=== PATIENT | female | born 1945 | race Caucasian/White ===

== ENCOUNTER 2020-03-18 07:38 | Outpatient (REF) | payer MEDICARE, SELFPAY ==
[2020-03-18 08:45] LABS: Alanine Aminotransferase 40 U/L (0-31); Alkaline Phosphatase 168 U/L (39-117); Aspartate Amino Transferase 33 U/L (5-31); Bilirubin Direct 0.3 mg/dL (0.0-0.5); Bilirubin Total 0.7 mg/dL (0.0-1.0); Cholesterol 194 mg/dL; Glucose Fasting 362 mg/dL (60-99); HDL Cholesterol 80 mg/dL; LDL Cholesterol Calculated 94 mg/dl; Total Protein 7.1 g/dL (6.5-8.0); Triglycerides 103 mg/dL
[2020-03-18 09:03] LABS: Estimated Average Glucose 255 mg/dL; Hemoglobin A1c % 10.5 %
[2020-03-18 09:18] LABS: Reflex LDLD? No
== END 2020-03-18 07:39 | disposition home or self-care (01) ==
LOC: HO.LAB 07:38
PROVIDERS: PCP Internal Medicine; Visit Provider Internal Medicine
DX: E78.00 Pure hypercholesterolemia, unspecified (principal); E11.9 Type 2 diabetes mellitus without complications; R79.89 Other specified abnormal findings of blood chemistry
CPT/HCPCS: 80061; 80076; 82947; 83036

== ENCOUNTER 2020-06-17 10:51 | Outpatient (REF) | payer MEDICARE, SELFPAY ==
[2020-06-17 11:08] LABS: Estimated Average Glucose 206 mg/dL; Hemoglobin A1c % 8.8 %
[2020-06-17 11:14] LABS: Glucose Fasting 279 mg/dL (60-99)
== END 2020-06-17 10:52 | disposition home or self-care (01) ==
LOC: HO.LNP 10:51
PROVIDERS: PCP Internal Medicine; Visit Provider Internal Medicine
DX: E11.9 Type 2 diabetes mellitus without complications (principal)
CPT/HCPCS: 82947; 83036

== ENCOUNTER 2020-09-18 10:44 | Outpatient (REF) | payer MEDICARE, SELFPAY ==
[2020-09-18 10:50] LABS: MANUAL DIFF FLAG NO
[2020-09-18 11:18] LABS: Basophils Percent Auto 0.4 % (0-2); Eosinophils Absolute Auto 0.3 X10*3/uL (0.0-0.4); Eosinophils Percent Auto 3.4 % (0-4); Hemoglobin 12.1 g/dl (12.0-16.0); Imm Gran Abs Auto 0.03 X10*3/uL (0.00-0.03); Imm Gran Pct Auto 0.3 % (0.0-0.4); Lymphocytes Absolute Auto 2.6 X10*3/uL (1.2-4.9); Mean Corpuscular HGB Conc 33.6 g/dl (31.0-35.0); Mean Corpuscular Hemoglobin 29.8 pg (27.0-33.0); Mean Corpuscular Volume 88.7 fL (80-98); Mean Platelet Volume 10.1 fL (9.4-12.3); Monocytes Absolute Auto 0.7 X10*3/uL (0.1-1.2); Monocytes Percent Auto 7.1 % (2-11); Neutrophils Absolute Auto 5.7 X10*3/uL (2.0-8.3); Neutrophils Percent Auto 60.8 % (45-73); Platelet Count 262 X10*3/uL (160-400); Red Blood Count 4.06 X10*6/uL (4.20-5.50); Red Cell Distribution Width 12.4 % (11.0-16.0); White Blood Count 9.4 X10*3/uL (4.8-10.8)
[2020-09-18 11:29] LABS: Estimated Average Glucose 217 mg/dL; Hemoglobin A1c % 9.2 %
[2020-09-18 11:38] LABS: Glucose Urine UA 500 MG/DL (NEG); Leukocyte Esterase Urine NEG (NEG); Nitrite Urine NEG (NEG); Urine Blood NEG (NEG); Urine Ketones NEG (NEG); Urine Protein NEG (NEG-TRACE)
[2020-09-18 11:42] LABS: Appearance Urine CLEAR; Color Urine YELLOW
[2020-09-18 11:52] LABS: Alanine Aminotransferase 45 U/L (0-31); Alkaline Phosphatase 193 U/L (39-117); Anion Gap 16 (12-20); Aspartate Amino Transferase 34 U/L (5-31); Bilirubin Total 0.8 mg/dL (0.0-1.0); Blood Urea Nitrogen 22 mg/dL (9-16); Calcium 9.4 mg/dL (8.4-10.2); Carbon Dioxide 25 mmol/L (22-29); Chloride 101 mmol/L (96-108); Cholesterol 193 mg/dL; Estimated Glomerular Filt Rate 49; Glucose Fasting 322 mg/dL (60-99); HDL Cholesterol 79 mg/dL; Iron 136 mcg/dL (30-160); LDL Cholesterol Calculated 82 mg/dl; Percent Iron Saturation 37 % (15-50); Potassium 4.7 mmol/L (3.3-5.1); Sodium 137 mmol/L (135-145); Total Iron Binding Capacity 367 mcg/dL (228-428); Total Protein 7.1 g/dL (6.5-8.0); Triglycerides 162 mg/dL; Unsaturated Iron Binding 231 ug/dL
[2020-09-18 12:18] LABS: Vitamin D 25-OH Total 39.3 ng/mL (>30)
[2020-09-18 12:25] LABS: Reflex LDLD? No
== END 2020-09-18 10:45 | disposition home or self-care (01) ==
LOC: HO.LNP 10:44
PROVIDERS: Visit Provider Internal Medicine
DX: E11.9 Type 2 diabetes mellitus without complications (principal); E55.9 Vitamin D deficiency, unspecified; R79.89 Other specified abnormal findings of blood chemistry; D64.9 Anemia, unspecified; E78.00 Pure hypercholesterolemia, unspecified; D50.9 Iron deficiency anemia, unspecified
CPT/HCPCS: 80053; 80061; 81003; 82043; 82306; 83036; 83540; 85025

== ENCOUNTER 2020-11-04 09:04 | Outpatient (REF) | payer MEDICARE, SELFPAY ==
--- NOTE | ~2020-11-04 | MM_ITS ---
EXAMINATION: MM SCREENING DIGITAL BREAST TOMOSYNTHESIS, BILATERAL CLINICAL INFORMATION: Screening. Asymptomatic. The lifetime risk of breast cancer based on the Tyrer-Cuzick Model is 3%. COMPARISON: Mammography: 11/02/2019, 07/07/2018, 06/27/2017, 06/28/2016, 06/04/2015 TECHNIQUE: Digital breast tomosynthesis is performed in both the craniocaudal and mediolateral oblique views along with computer-aided detection (CAD). Synthesized 2D images are generated from the tomosynthesis. Additional right MLO view is provided. FINDINGS: There are scattered areas of fibroglandular density (ACR BI-RADS breast composition Category b). Parenchymal pattern is similar to prior studies. There is no developing density or interval mass or architectural abnormality. No abnormal calcifications. The axilla and skin contours are unremarkable. MM/MM tomosynthesis screening BI IMPRESSION: No mammographic evidence of malignancy. ASSESSMENT: BI-RADS 1: Negative RECOMMENDATION: Routine annual mammography screening. This patient's information was entered into a reminder system with a target due date for their next mammogram.
== END 2020-11-04 09:05 | disposition home or self-care (01) ==
LOC: HO.MAMMO 09:04
PROVIDERS: Visit Provider Internal Medicine
DX: Z12.31 Encounter for screening mammogram for malignant neoplasm of breast (principal)
CPT/HCPCS: 77063; 77067

== ENCOUNTER 2020-12-31 10:42 | Inpatient (IN) | payer MEDICARE, SELFPAY ==
[2020-12-31] VITALS (10 sets, daily range): BP systolic 115–148; BP diastolic 63–82; PULSE 81–188; RESP 12–20; TEMP 36.9–37.1; O2SAT 96–98; BMI 27.2
--- NOTE | 2020-12-31 | ECG_ITS ---
Test Reason : SVT Blood Pressure : / mmHG Vent. Rate : 113 BPM Atrial Rate : 113 BPM P-R Int : 172 ms QRS Dur : 078 ms QT Int : 342 ms P-R-T Axes : 043 -45 073 degrees QTc Int : 469 ms Sinus tachycardia Left anterior fascicular block Septal infarct , age undetermined Abnormal ECG When compared with ECG of 31-DEC-2020 10:51, Significant changes have occurred Referred By: Generic ED Physician Electronically Signed By:FILIPPO DUMONT
--- NOTE | 2020-12-31 | ECG_ITS ---
Test Reason : CHEST PAIN Blood Pressure : / mmHG Vent. Rate : 189 BPM Atrial Rate : 192 BPM P-R Int : 000 ms QRS Dur : 100 ms QT Int : 252 ms P-R-T Axes : 000 113 -56 degrees QTc Int : 446 ms Supraventricular tachycardia Left posterior fascicular block Marked ST abnormality, possible inferior subendocardial injury Abnormal ECG When compared with ECG of 15-JAN-2014 10:03, Vent. rate has increased BY 106 BPM Left posterior fascicular block is now Present ST now depressed in Inferior leads ST now depressed in Lateral leads T wave inversion now evident in Inferior leads Referred By: Generic ED Physician Electronically Signed By:FILIPPO DUMONT
--- NOTE | ~2020-12-31 | CT_ITS ---
EXAMINATION: CT ANGIOGRAM OF THE CHEST WITH AND WITHOUT CONTRAST (CT PULMONARY ANGIOGRAM FOR PE) CLINICAL INFORMATION: Reason for Exam sharp chest pain COMPARISON: Chest x-ray from earlier the same day and chest tubes CT most recent September 2017 TECHNIQUE: Prior to contrast administration, noncontrast localization images were obtained. Subsequently, multidetector volumetric imaging was performed from the thoracic inlet to below the diaphragms following the administration of 65 mL Omnipaque 350 intravenous contrast. No contrast reaction reported Sagittal, coronal, and MIP oblique sagittal reformatted images were obtained on the CT workstation, uploaded to PACS, and reviewed. This CT examination was performed using dose optimization techniques as appropriate, variously including the following: *Automated exposure control *Adjustment of mA and/or kV according to patient size (this includes techniques or standardized protocols for targeted exams where dose is matched to indication/reason for exam; i.e. extremities or head) *Use of iterative reconstruction technique Total exam dose-length product 300 mGy-cm FINDINGS: QUALITY OF STUDY/CONTRAST BOLUS: Satisfactory. PULMONARY ARTERIES: No central or segmental pulmonary emboli. THORACIC AORTA: No aneurysm or dissection. LUNG: There are calcified left upper lobe pulmonary nodules, largest nodule measuring 5 mm. The lungs are otherwise clear. There are surgical suture urbano seen in the lingula and left lower lobe. PLEURA: No pleural effusion or pneumothorax. MEDIASTINUM: The heart is upper normal in size. There is a trace pericardial effusion. No hilar or mediastinal lymphadenopathy. No evidence of septal bowing or right heart strain. CHEST WALL/AXILLA: No axillary or internal mammary lymphadenopathy. OSSEOUS STRUCTURES: There are degenerative changes of the spine. UPPER ABDOMEN: Unremarkable. No reflux of contrast into the hepatic veins to suggest elevated right heart pressures. CT/CT angio chest PE protocol IMPRESSION: No evidence of pulmonary embolism. VTE: negative
--- NOTE | ~2020-12-31 | XR_ITS ---
EXAMINATION: XR CHEST CLINICAL INFORMATION: Chest pain COMPARISON: Previous chest x-ray January 2014 TECHNIQUE: Frontal view of the chest was obtained. FINDINGS: The cardiac and mediastinal contours are stable. There are increased central bronchovascular markings. Some of this may be related to apical lordotic film technique. There is a surgical staple line at the left lateral costophrenic angle. The lungs are otherwise clear. There is no pleural effusion or pneumothorax. There are degenerative changes of the spine. XR/XR chest 1V IMPRESSION: No evidence for acute disease in the chest. Increased central bronchovascular markings, question related to apical lordotic film technique.
--- NOTE | 2020-12-31 11:18 | ED_ITS ---
HPI - Chest Pain General Chief Complaint: Chest Pain Stated Complaint: chest pain Time Seen by Provider: 12/31/20 10:56 Source: patient and other (friend) Mode of arrival: ambulatory Limitations: no limitations History of Present Illness MD complaint: chest pain and chest heaviness Pertinent past history: other (SVT) Onset (ago): hour(s) (8am today) Timing of current episode: constant Prior episodes: Yes Onset: during exertion Pain location: substernal Pain radiation: none Severity: moderate Quality: sharp Relieving factors: nothing Exacerbating factors: nothing Context: other (prior cancer, hx of SVT in the past) Associated symptoms: dyspnea Treatment prior to arrival: none Related Data Home Medications Medication Instructions Recorded Confirmed aspirin 81 mg chewable tablet 81 mg PO DAILY 12/31/20 12/31/20 cholecalciferol (vitamin D3) 25 25 mcg PO DAILY 12/31/20 12/31/20 mcg (1,000 unit) capsule (Vitamin D3) ferrous sulfate 325 mg (65 mg 325 mg PO DAILY 12/31/20 12/31/20 iron) tablet glipizide 10 mg tablet 10 mg PO QAM 12/31/20 12/31/20 ibuprofen 800 mg tablet 800 mg PO TID PRN 12/31/20 12/31/20 lisinopril 20 mg tablet 20 mg PO DAILY 12/31/20 12/31/20 metformin 500 mg tablet,extended 1,000 mg PO BID 12/31/20 12/31/20 release 24 hr omeprazole 20 mg capsule,delayed 20 mg PO DAILY 12/31/20 12/31/20 release sitagliptin 100 mg tablet (Januvia) 1 tab PO DAILY 12/31/20 12/31/20 Allergies Allergy/AdvReac Type Severity Reaction Status Date / Time codeine [CODEINE] Allergy Unknown GI PAIN, Unverified 12/27/19 15:29 abd pain Codeine Sulfate AdvReac Unknown stomach Uncoded 10/01/15 00:00 upset Review of Systems Review of Systems: Constitutional : No Weight loss, No Fever, No Chills ENT/Mouth : No sore throat, No Rhinorrhea Eyes: No Eye Pain, No Swelling Cardiovascular : pos Chest Pain, pos SOB, no Dyspnea on Exertion, No Orthopnea, No Edema, pos Palpitations Respiratory : No Cough, No Sputum Gastrointestinal : no Nausea, No Vomiting, No Diarrhea, No abdominal Pain, No Hematochezia, No Melena Genitourinary : No Dysuria, No Urinary Frequency Musculoskeletal : No joint pain, No Myalgias, No Joint Swelling Skin : No Skin Lesions, No rash Neuro : No Weakness, No Numbness, No Dizziness, No Headache Psych : No Anxiety/Panic, No Depression Heme/Lymph: No Bruising, No Lymphadenopathy Endocrine : No Polyuria, No Polydipsia All other systems reviewed and are negative [facility] Past Medical History Attestation statement: The following information was validated with the patient. Medical History Colon cancer HTN (hypertension) Valvular heart disease Social History Social History (Updated 12/31/20 @ 11:23 by Yuliya Dick DO) Alcohol intake: never Patient Tobacco Use Status: Never used Tobacco Use of substances other than those prescribed or required for medical reasons: No Advance Directives: Yes Advance Directives Information Provided: Yes Advance Directives on File: No Physical Exam Vital Signs: Vital Signs: Last Vital Signs Pulse 92 12/31/20 15:14 Resp 18 12/31/20 15:14 BP 134/75 12/31/20 15:14 Pulse Ox 97 12/31/20 15:14 Body Mass Index 27.2 Appearance: Alert. Oriented X3. Mild acute distress. Eyes: Pupils equal, round and reactive to light. ENT: Pharynx normal. Neck: Normal inspection. Neck supple. CVS: tachycardic regular rate in 180s heart rate and rhythm. Pulses normal. Respiratory: No respiratory distress. Breath sounds normal. Abdomen: Soft and nontender. Skin: Skin warm and dry. pale skin color. Normal skin turgor. Extremities: No lower extremity edema. Neuro: Oriented X 3. No motor deficit. No sensory deficit. Course Course Course Narrative: no response to vaga maneuvers - 6mg adenosine IV push ordered - sinus tachy in 110s after patient had chest pain prior to event, also was exerting during event and has had very mild discomfort since then at times - unusual given SVT resolved, ?ischemia repeat EKG and trop pending 1554- High sensitivity trop 437.2. Cortexted Dr. Lynn to discuss case. PO aspirin has been ordered for this patient in the mean time. Dr. Lynn recommends heparin drip, every 6 hour trop and ECHO MDM - Chest Pain MDM Narrative Medical decision making narrative: 75 yo female with hx of HTN, colon cancer remotely treated surgically, [place] [facility] [place], has valvular heart disease [place] [facility] [place]Os comes in with SVT while walking but described sharp chest pain prior to event - labs, troponin x 2, EKG, chemical cardioversion with adenosine, given prior cancer dx and sharp chest pain - CTA for PE ordered Lab Data Result diagrams: 12/31/20 11:23 12/31/20 12:58 Labs: Lab Results 12/31/20 12/31/20 12/31/20 Range/Units 11:23 11:23 11:23 WBC 12.1 H (4.8-10.8) X10*3/uL RBC 3.72 L (4.20-5.50) X10*6/uL Hgb 11.2 L (12.0-16.0) g/dl Hct 33.0 L (37-47) % MCV 88.7 (80-98) fL MCH 30.1 (27.0-33.0) pg MCHC 33.9 (31.0-35.0) g/dl RDW 12.8 (11.0-16.0) % Plt Count 272 (160-400) X10*3/uL MPV 9.7 (9.4-12.3) fL Immature Gran % (Auto) 0.3 (0.0-0.4) % Neut % (Auto) 73.8 H (45-73) % Lymph % (Auto) 18.6 L (20-40) % Ness % (Auto) 6.0 (2-11) % Eos % (Auto) 1.0 (0-4) % Baso % (Auto) 0.3 (0-2) % Lymph # (Auto) 2.3 (1.2-4.9) X10*3/uL Ness # (Auto) 0.7 (0.1-1.2) X10*3/uL Eos # (Auto) 0.1 (0.0-0.4) X10*3/uL Baso # (Auto) 0.0 (0.0-0.2) X10*3/uL Abs Immat Gran (auto) 0.04 H (0.00-0.03) X10*3/uL Absolute Neuts (auto) 8.9 H (2.0-8.3) X10*3/uL Absolute Nucleated RBC 0.000 (0.0-0.012) X10*3/uL Nucleated RBC % (auto) 0.0 (0.0-0.2) /100WBC Sodium (135-145) mmol/L Potassium (3.3-5.1) mmol/L Chloride (96-108) mmol/L Carbon Dioxide (22-29) mmol/L Anion Gap (12-20) BUN (9-16) mg/dL Creatinine (0.5-1.4) mg/dL Estim Creat Clear Calc Estimated GFR Random Glucose (60-115) mg/dL Calcium (8.4-10.2) mg/dL Magnesium (1.6-2.6) mg/dL Total Bilirubin (0.0-1.0) mg/dL Direct Bilirubin (0.0-0.5) mg/dL AST (5-31) U/L ALT (0-31) U/L Alkaline Phosphatase (39-117) U/L Troponin I High Sens 14.9 (<3.5-17.0) ng/L B-Natriuretic Peptide (<100) pg/mL Total Protein (6.5-8.0) g/dL Albumin (3.5-5.0) g/dL Lipase (8-78) U/L TSH (0.32-4.0) uIU/mL COVID-19 (DUNG) Negative (Negative) COVID-19 Clin Com See Note 12/31/20 12/31/20 12/31/20 Range/Units 11:23 12:58 15:19 WBC (4.8-10.8) X10*3/uL RBC (4.20-5.50) X10*6/uL Hgb (12.0-16.0) g/dl Hct (37-47) % MCV (80-98) fL MCH (27.0-33.0) pg MCHC (31.0-35.0) g/dl RDW (11.0-16.0) % Plt Count (160-400) X10*3/uL MPV (9.4-12.3) fL Immature Gran % (Auto) (0.0-0.4) % Neut % (Auto) (45-73) % Lymph % (Auto) (20-40) % Ness % (Auto) (2-11) % Eos % (Auto) (0-4) % Baso % (Auto) (0-2) % Lymph # (Auto) (1.2-4.9) X10*3/uL Ness # (Auto) (0.1-1.2) X10*3/uL Eos # (Auto) (0.0-0.4) X10*3/uL Baso # (Auto) (0.0-0.2) X10*3/uL Abs Immat Gran (auto) (0.00-0.03) X10*3/uL Absolute Neuts (auto) (2.0-8.3) X10*3/uL Absolute Nucleated RBC (0.0-0.012) X10*3/uL Nucleated RBC % (auto) (0.0-0.2) /100WBC Sodium 137 (135-145) mmol/L Potassium 4.8 (3.3-5.1) mmol/L Chloride 101 (96-108) mmol/L Carbon Dioxide 22 (22-29) mmol/L Anion Gap 19 (12-20) BUN 23 H (9-16) mg/dL Creatinine 1.24 (0.5-1.4) mg/dL Estim Creat Clear Calc 33.5 Estimated GFR 42 Random Glucose 392 H* (60-115) mg/dL Calcium 9.1 (8.4-10.2) mg/dL Magnesium 1.5 L (1.6-2.6) mg/dL Total Bilirubin 0.5 (0.0-1.0) mg/dL Direct Bilirubin 0.3 (0.0-0.5) mg/dL AST 45 H (5-31) U/L ALT 52 H (0-31) U/L Alkaline Phosphatase 168 H (39-117) U/L Troponin I High Sens 437.2 H* D (<3.5-17.0) ng/L B-Natriuretic Peptide 89 (<100) pg/mL Total Protein 6.7 (6.5-8.0) g/dL Albumin 3.8 (3.5-5.0) g/dL Lipase 101 H (8-78) U/L TSH 1.67 (0.32-4.0) uIU/mL COVID-19 (DUNG) (Negative) COVID-19 Clin Com 12/31/20 Range/Units 15:19 WBC (4.8-10.8) X10*3/uL RBC (4.20-5.50) X10*6/uL Hgb (12.0-16.0) g/dl Hct (37-47) % MCV (80-98) fL MCH (27.0-33.0) pg MCHC (31.0-35.0) g/dl RDW (11.0-16.0) % Plt Count (160-400) X10*3/uL MPV (9.4-12.3) fL Immature Gran % (Auto) (0.0-0.4) % Neut % (Auto) (45-73) % Lymph % (Auto) (20-40) % Ness % (Auto) (2-11) % Eos % (Auto) (0-4) % Baso % (Auto) (0-2) % Lymph # (Auto) (1.2-4.9) X10*3/uL Ness # (Auto) (0.1-1.2) X10*3/uL Eos # (Auto) (0.0-0.4) X10*3/uL Baso # (Auto) (0.0-0.2) X10*3/uL Abs Immat Gran (auto) (0.00-0.03) X10*3/uL Absolute Neuts (auto) (2.0-8.3) X10*3/uL Absolute Nucleated RBC (0.0-0.012) X10*3/uL Nucleated RBC % (auto) (0.0-0.2) /100WBC Sodium (135-145) mmol/L Potassium (3.3-5.1) mmol/L Chloride (96-108) mmol/L Carbon Dioxide (22-29) mmol/L Anion Gap (12-20) BUN (9-16) mg/dL Creatinine (0.5-1.4) mg/dL Estim Creat Clear Calc Estimated GFR Random Glucose (60-115) mg/dL Calcium (8.4-10.2) mg/dL Magnesium 2.5 (1.6-2.6) mg/dL Total Bilirubin (0.0-1.0) mg/dL Direct Bilirubin (0.0-0.5) mg/dL AST (5-31) U/L ALT (0-31) U/L Alkaline Phosphatase (39-117) U/L Troponin I High Sens (<3.5-17.0) ng/L B-Natriuretic Peptide (<100) pg/mL Total Protein (6.5-8.0) g/dL Albumin (3.5-5.0) g/dL Lipase (8-78) U/L TSH (0.32-4.0) uIU/mL COVID-19 (DUNG) (Negative) COVID-19 Clin Com ECG Data ECG #1: Attestation: I personally reviewed and interpreted this ECG as follows: ECG interpretation date: 12/31/20 ECG interpretation time: 11:25 Interpretation: Rate: 189 Rhythm: narrow complex tachcyardia [place]: rightwards Normal QRS complex. ST T wave : Chilo depressions in lateral leads but no CHILO qTC: normal prior studies: changed from prior The study has been interpreted contemporaneously by me. EKG #2 post adenosine Rate: 113 Rhythm: sinus tachycardia [place]: left Normal P waves. Normal JESSIE. Normal QRS complex. Poor R wave progression ST T wave : mo CHILO, normal qTC: normal prior studies: no acute ischemia The study has been interpreted contemporaneously by me. EKG #2 Rate: 86 Rhythm: NSR [place]: left Normal P waves. Normal JESSIE. Normal QRS complex. Poor R wave progression ST T wave : normal no CHILO qTC: yohan prior studies: no acute ischemia The study has been interpreted contemporaneously by me. . Critical Care Time Critical Care Time Critical Care Time: Yes Total Critical Care Time: 45 Attestation: IV adenosine, medical consult, heparin gtt, trend of cardiac markers I attest to this time spent taking care of the patient Discharge Plan Discharge Clinical Impression: SVT (supraventricular tachycardia), Non-ST elevation NC (NSTEMI) Chest pain Qualifiers: Chest pain type: unspecified Qualified Code(s): R07.9 - Chest pain, unspecified Patient Disposition: Admitted As Inpatient
[2020-12-31 11:29] LABS: MANUAL DIFF FLAG NO
[2020-12-31 11:30] LABS: Basophils Percent Auto 0.3 % (0-2); Eosinophils Absolute Auto 0.1 X10*3/uL (0.0-0.4); Hemoglobin 11.2 g/dl (12.0-16.0); Imm Gran Abs Auto 0.04 X10*3/uL (0.00-0.03); Imm Gran Pct Auto 0.3 % (0.0-0.4); Lymphocytes Absolute Auto 2.3 X10*3/uL (1.2-4.9); Lymphocytes Percent Auto 18.6 % (20-40); Mean Corpuscular HGB Conc 33.9 g/dl (31.0-35.0); Mean Corpuscular Hemoglobin 30.1 pg (27.0-33.0); Mean Corpuscular Volume 88.7 fL (80-98); Mean Platelet Volume 9.7 fL (9.4-12.3); Monocytes Absolute Auto 0.7 X10*3/uL (0.1-1.2); Neutrophils Absolute Auto 8.9 X10*3/uL (2.0-8.3); Neutrophils Percent Auto 73.8 % (45-73); Platelet Count 272 X10*3/uL (160-400); Red Blood Count 3.72 X10*6/uL (4.20-5.50); Red Cell Distribution Width 12.8 % (11.0-16.0); White Blood Count 12.1 X10*3/uL (4.8-10.8)
[2020-12-31 11:44] LABS: COVID-19 Test Negative (Negative)
[2020-12-31 11:52] LABS: B Type Natriuretic Peptide 89 pg/mL (<100)
[2020-12-31 11:53] LABS: Troponin-I High Sensitivity 14.9 ng/L (<3.5-17.0)
[2020-12-31 12:07] LABS: TSH reflex Free T4 1.67 uIU/mL (0.32-4.0)
--- NOTE | 2020-12-31 13:02 | PHA.MEDREC ---
Pharmacy Consult ? Medication Reconciliation Pharmacy has completed the medication reconciliation. Patient report delia Dawsonfarhat however it has not been filled since 01/2020. Milli Bill, PharmD
[2020-12-31 13:27] LABS: Alanine Aminotransferase 52 U/L (0-31); Albumin Level 3.8 g/dL (3.5-5.0); Alkaline Phosphatase 168 U/L (39-117); Anion Gap 19 (12-20); Aspartate Amino Transferase 45 U/L (5-31); Bilirubin Direct 0.3 mg/dL (0.0-0.5); Bilirubin Total 0.5 mg/dL (0.0-1.0); Blood Urea Nitrogen 23 mg/dL (9-16); Calcium 9.1 mg/dL (8.4-10.2); Carbon Dioxide 22 mmol/L (22-29); Chloride 101 mmol/L (96-108); Creatinine Clr Calc Pharmacy 33.5; Estimated Glomerular Filt Rate 42; Glucose Random 392 mg/dL (60-115); Lipase 101 U/L (8-78); Magnesium 1.5 mg/dL (1.6-2.6); Potassium 4.8 mmol/L (3.3-5.1); Sodium 137 mmol/L (135-145); Total Protein 6.7 g/dL (6.5-8.0)
--- NOTE | 2020-12-31 13:34 | PC.NURSE ---
PT DENIES ANY CHEST PAIN BUT STATES CHEST PRESSURE
[2020-12-31] MEDS: Insulin Regular, Human 100 UNIT/ML 3 ML VIAL IVPUSH (13:48)
[2020-12-31] MEDS: Magnesium Sulfate/H2O 2 GM/50 ML PIGGYBACK IV (13:49)
[2020-12-31] MEDS: iohexoL 350 MG/ML 100 ML INFUS..BTL IV (14:25)
--- NOTE | 2020-12-31 15:04 | ECG_ITS ---
Test Reason : CHEST PRESSURE Blood Pressure : / mmHG Vent. Rate : 086 BPM Atrial Rate : 086 BPM P-R Int : 166 ms QRS Dur : 082 ms QT Int : 396 ms P-R-T Axes : 002 -41 018 degrees QTc Int : 473 ms Normal sinus rhythm Left axis deviation Septal infarct (cited on or before 31-DEC-2020) Abnormal ECG When compared with ECG of 31-DEC-2020 11:12, No significant change was found Referred By: Yuliya Dick Electronically Signed By:FILIPPO DUMONT
[2020-12-31] MEDS: Aspirin 81 MG TAB.CHEW 162 MG PO (15:13)
[2020-12-31 15:41] LABS: Magnesium 2.5 mg/dL (1.6-2.6)
[2020-12-31 15:49] LABS: Troponin-I High Sensitivity 437.2 ng/L (<3.5-17.0)
[2020-12-31] MEDS: Heparin Sodium,Porcine 5,000 UNIT/ML VIAL 3800 UNIT IVPUSH (16:26)
[2020-12-31 16:32] LABS: Prothrombin Time 11.4 SEC (9.9-13.0)
[2020-12-31] MEDS: Heparin Sodium,Porcine/1/2NS 25,000 UNIT/250 ML IV.SOLN 8.86 UNIT IVCONT (16:32)
[2020-12-31 16:35] LABS: PTT Heparin Drip 27.2 SEC (53-77.9)
--- NOTE | 2020-12-31 16:51 | P.HPHOSP_ITS ---
History of Present Illness Date of Service: 12/31/20 Attending physician on admission: Baljit Kevin Chief Complaint: Chest pain 75-year-old female presents the emergency room after developing chest pain while walking. She states she developed mid chest pain during her daily walk of 2 miles; she states it was a squeezing pain that did not go to her arm or her jaw. She soft walking thinking it was reflux. She restarted walking but the chest pain came back again this time worse. She states she tried to walk again but had to sit down on the ground. Stated a friend came by was a nurse and took her to the emergency room. In the emergency room she was found to be in SVT which demonstrated some ischemic changes; responded to adenosine. Initial troponin 14 but now has risen to the 400s. Case was discussed with Cardiology (Dr. Lynn) who recommended heparin drip serial troponins echo and he will see in a.m.. When examined she was pain free Review of Systems Review of Systems: Admits to chest pain Denies shortness of breath Denies nausea; admits to diaphoresis [facility] Medical History Colon cancer HTN (hypertension) Valvular heart disease Pertinent family history: . Social History Alcohol intake: never Patient Tobacco Use Status: Never used Tobacco Use of substances other than those prescribed or required for medical reasons: No Advance Directives: Yes Advance Directives Information Provided: Yes Advance Directives on File: No Meds Allergies Allergy/AdvReac Type Severity Reaction Status Date / Time codeine [CODEINE] Allergy Unknown GI PAIN, Unverified 12/27/19 15:29 abd pain Codeine Sulfate AdvReac Unknown stomach Uncoded 10/01/15 00:00 upset Active Medications: Current Medications Heparin Sodium (Porcine) (Heparin Sodium,Porcine 5,000 Unit/Ml Vial) 2,500 unit 40 unit/kg (2500 unit) IVPUSH PROTOCOL BOLUS PRN; Protocol PRN Reason: 40 unit/kg - Heparin Protocol Heparin Sodium (Porcine) (Heparin Sodium,Porcine 5,000 Unit/Ml Vial) 5,100 unit 80 unit/kg (5100 unit) IVPUSH PROTOCOL BOLUS PRN; Protocol PRN Reason: 80 unit/kg - Heparin Protocol Heparin Sodium/Sodium Chloride () 25,000 unit in 250 mls @ 0 mls/hr IVCONT .Q0M NISA; Protocol Last Admin: 12/31/20 16:32 Dose: 14 units/kg/hr, 8.86 mls/hr Documented by: Pharmacy Consult (Consult Rx Perform Med Rec) 1 each MISCELLANE ONCE PRN PRN Reason: Consult order Home Medications Medication Instructions Recorded Confirmed Last Taken Type aspirin 81 mg chewable tablet 81 mg PO DAILY 12/31/20 12/31/20 12/31/20 History cholecalciferol (vitamin D3) 25 25 mcg PO DAILY 12/31/20 12/31/20 12/31/20 History mcg (1,000 unit) capsule (Vitamin D3) ferrous sulfate 325 mg (65 mg 325 mg PO DAILY 12/31/20 12/31/20 12/31/20 History iron) tablet glipizide 10 mg tablet 10 mg PO QAM 12/31/20 12/31/20 12/31/20 History ibuprofen 800 mg tablet 800 mg PO TID PRN 12/31/20 12/31/20 12/31/20 History lisinopril 20 mg tablet 20 mg PO DAILY 12/31/20 12/31/20 12/31/20 History metformin 500 mg tablet,extended 1,000 mg PO BID 12/31/20 12/31/20 12/31/20 History release 24 hr omeprazole 20 mg capsule,delayed 20 mg PO DAILY 12/31/20 12/31/20 12/31/20 History release sitagliptin 100 mg tablet (Januvia) 1 tab PO DAILY 12/31/20 12/31/20 12/31/20 History Physical Exam Vital Signs and Narrative: Vital Signs: Last Vital Signs Pulse 92 12/31/20 15:14 Resp 18 12/31/20 15:14 BP 134/75 12/31/20 15:14 Pulse Ox 97 12/31/20 15:14 Body Mass Index 27.2 Const: General: no acute distress Neck: Other: No JVD Resp: Auscultation: clear to auscultation bilaterally, no rales, no rhonchi and no wheezes Cardio: Rate: regular rate Rhythm: regular rhythm Heart sounds: S1 normal heart sound present, S2 normal heart sound present and no murmurs GI: Other: Soft nontender nondistended with normoactive bowel sounds Neuro: Other: Age-appropriate nonfocal Extrem: Other: No edema noted Results Labs CBC and Chem 7: 12/31/20 11:23 12/31/20 12:58 Labs: Laboratory Results - last 24 hr 12/31/20 12/31/20 12/31/20 11:23 11:23 11:23 MCV 88.7 MCH 30.1 MCHC 33.9 RDW 12.8 Plt Count 272 MPV 9.7 Immature Gran % (Auto) 0.3 Neut % (Auto) 73.8 H Lymph % (Auto) 18.6 L [place] % (Auto) 6.0 Eos % (Auto) 1.0 Baso % (Auto) 0.3 Lymph # (Auto) 2.3 [place] # (Auto) 0.7 Eos # (Auto) 0.1 Baso # (Auto) 0.0 Abs Immat Gran (auto) 0.04 H Absolute Neuts (auto) 8.9 H Absolute Nucleated RBC 0.000 Nucleated RBC % (auto) 0.0 Anion Gap Estim Creat Clear Calc Estimated GFR Random Glucose Calcium Magnesium Total Bilirubin Direct Bilirubin AST ALT Alkaline Phosphatase Troponin I High Sens 14.9 B-Natriuretic Peptide Total Protein Albumin Lipase TSH COVID-19 (DUNG) Negative COVID-19 Clin Com See Note 12/31/20 12/31/20 12/31/20 11:23 12:58 15:19 MCV MCH MCHC RDW Plt Count MPV Immature Gran % (Auto) Neut % (Auto) Lymph % (Auto) [place] % (Auto) Eos % (Auto) Baso % (Auto) Lymph # (Auto) [place] # (Auto) Eos # (Auto) Baso # (Auto) Abs Immat Gran (auto) Absolute Neuts (auto) Absolute Nucleated RBC Nucleated RBC % (auto) Anion Gap 19 Estim Creat Clear Calc 33.5 Estimated GFR 42 Random Glucose 392 H* Calcium 9.1 Magnesium 1.5 L Total Bilirubin 0.5 Direct Bilirubin 0.3 AST 45 H ALT 52 H Alkaline Phosphatase 168 H Troponin I High Sens 437.2 H* D B-Natriuretic Peptide 89 Total Protein 6.7 Albumin 3.8 Lipase 101 H TSH 1.67 COVID-19 (DUNG) COVID-19 Clin Com 12/31/20 15:19 MCV MCH MCHC RDW Plt Count MPV Immature Gran % (Auto) Neut % (Auto) Lymph % (Auto) [place] % (Auto) Eos % (Auto) Baso % (Auto) Lymph # (Auto) [place] # (Auto) Eos # (Auto) Baso # (Auto) Abs Immat Gran (auto) Absolute Neuts (auto) Absolute Nucleated RBC Nucleated RBC % (auto) Anion Gap Estim Creat Clear Calc Estimated GFR Random Glucose Calcium Magnesium 2.5 Total Bilirubin Direct Bilirubin AST ALT Alkaline Phosphatase Troponin I High Sens B-Natriuretic Peptide Total Protein Albumin Lipase TSH COVID-19 (DUNG) COVID-19 Clin Com Imaging Radiologist's Impressions: Impressions Chest X-Ray 12/31/20 10:57 IMPRESSION: No evidence for acute disease in the chest. Increased central bronchovascular markings, question related to apical lordotic film technique. Chest CTA 12/31/20 11:12 IMPRESSION: No evidence of pulmonary embolism. VTE: negative Quality Stroke Does the patient have a stroke diagnosis?: No VTE Prior VTE?: No VTE Risk Level:: Medical - moderate - high VTE Device Contraindication: Treatment Not Indicated VTE Drug Contraindication: N/A - Med Ordered
[2020-12-31 22:39] LABS: Glucose, Whole Blood 238 mg/dL (60-115)
[2020-12-31 22:56] LABS: PTT Heparin Drip 108.5 SEC (53-77.9)
--- NOTE | 2020-12-31 23:05 | PC.NURSE ---
heparin gtt held d/t critical PTT, hospitalist notified, will recheck labs per protocol
[2020-12-31] MEDS: Insulin Lispro 100 UNIT/ML 3 ML VIAL SUBCUT (23:18)
[2020-12-31 23:38] LABS: PTT Heparin Drip 82.7 SEC (53-77.9)
[2021-01-01] VITALS (10 sets, daily range): BP systolic 127–167; BP diastolic 55–75; PULSE 70–89; RESP 12–21; TEMP 36.8–36.9; O2SAT 94–98
[2021-01-01] MEDS: Heparin Sodium,Porcine/1/2NS 25,000 UNIT/250 ML IV.SOLN 6.33 UNIT IVCONT (00:26)
[2021-01-01] MEDS: 0.9 % Sodium Chloride Flush 3 ML SYRINGE IVFLUSH ×2 (00:30→08:54)
[2021-01-01 07:45] LABS: MANUAL DIFF FLAG NO
[2021-01-01 07:48] LABS: Basophils Percent Auto 0.5 % (0-2); Eosinophils Absolute Auto 0.3 X10*3/uL (0.0-0.4); Eosinophils Percent Auto 3.6 % (0-4); Hematocrit 36.1 % (37-47); Hemoglobin 12.2 g/dl (12.0-16.0); Imm Gran Abs Auto 0.01 X10*3/uL (0.00-0.03); Imm Gran Pct Auto 0.1 % (0.0-0.4); Lymphocytes Absolute Auto 2.4 X10*3/uL (1.2-4.9); Lymphocytes Percent Auto 31.7 % (20-40); Mean Corpuscular HGB Conc 33.8 g/dl (31.0-35.0); Mean Corpuscular Hemoglobin 29.2 pg (27.0-33.0); Mean Corpuscular Volume 86.4 fL (80-98); Mean Platelet Volume 9.4 fL (9.4-12.3); Monocytes Absolute Auto 0.5 X10*3/uL (0.1-1.2); Monocytes Percent Auto 6.9 % (2-11); Neutrophils Absolute Auto 4.3 X10*3/uL (2.0-8.3); Neutrophils Percent Auto 57.2 % (45-73); Platelet Count 249 X10*3/uL (160-400); Red Blood Count 4.18 X10*6/uL (4.20-5.50); Red Cell Distribution Width 12.4 % (11.0-16.0); White Blood Count 7.6 X10*3/uL (4.8-10.8)
[2021-01-01 07:59] LABS: Prothrombin Time 11.8 SEC (9.9-13.0)
[2021-01-01 08:01] LABS: PTT Heparin Drip 48.8 SEC (53-77.9)
[2021-01-01 08:07] LABS: Anion Gap 13 (12-20); Blood Urea Nitrogen 19 mg/dL (9-16); Calcium 9.2 mg/dL (8.4-10.2); Carbon Dioxide 26 mmol/L (22-29); Chloride 101 mmol/L (96-108); Creatinine Clr Calc Pharmacy 37.8; Estimated Glomerular Filt Rate 49; Glucose Random 282 mg/dL (60-115); Magnesium 2.1 mg/dL (1.6-2.6); Potassium 5.3 mmol/L (3.3-5.1); Sodium 135 mmol/L (135-145)
[2021-01-01 08:10] LABS: B Type Natriuretic Peptide 309 pg/mL (<100)
[2021-01-01 08:28] LABS: Glucose, Whole Blood 272 mg/dL (60-115)
[2021-01-01] MEDS: lisinopriL 20 MG TABLET PO (08:52)
[2021-01-01] MEDS: Aspirin 81 MG TAB.CHEW PO (08:52)
[2021-01-01] MEDS: Omeprazole 20 MG CAPSULE.DR PO (08:52)
[2021-01-01] MEDS: Cholecalciferol (Vitamin D3) 25 MCG TABLET PO (08:52)
[2021-01-01] MEDS: SITagliptin Phosphate 100 MG TABLET PO (08:53)
[2021-01-01] MEDS: glipiZIDE 10 MG TABLET PO (08:53)
[2021-01-01] MEDS: Insulin Lispro 100 UNIT/ML 3 ML VIAL SUBCUT ×4 (09:23→21:09)
[2021-01-01] MEDS: Heparin Sodium,Porcine 5,000 UNIT/ML VIAL 5100 UNIT IVPUSH (09:44)
--- NOTE | 2021-01-01 10:05 | P.CONCA_ITS ---
History of Present Illness History of Present Illness Date of Service: 01/01/21 Chief complaint: chest pain Narrative: I was requested to see Angela in cardiology consultation today for elevated troponins at presentation with chest pain as well as SVT. She is a pleasant 75-year-old woman with prior history of palpitation for 4 years ago, she does not recall having been told of any diagnosis, hypertension, diabetes, hyperlipidemia no history of coronary artery disease. She is in good functional status and walks usually 3 miles a day. Yesterday she went for a walk was feeling well while walking she developed sudden sharp chest pain, did not much attention to it and she continued to walk for another mi, then she was not feeling well. She then stopped at her neighbor's place which she was told that she was diaphoretic and not looking good. She denied any symptoms of palpita tions. Her she decided thank continue and then she was not feeling well as diaphoretic all the time and she iced her neighbor to drop her home. Then she went home and turned on the air conditioning was sitting but she continued to have diaphoresis with mild chest discomfort continuously present. She eventually came to the hospital after few hours and was noted to be in SVT with rapid ventricular response with marked ST T wave changes suggestive ischemia. She was subsequently given adenosine and converted to sinus rhythm. Subsequent EKG still shows mild ST sagging. Her chest pain lasted for couple of hours. And subsequently completely subsided. Her initial troponin is 40 jumped up to 400 and then up to 750. No repeat troponins have been done this morning. She was started on IV heparin. She has gotten aspirin therapy. She has not had any statins or metoprolol therapy. She denies any chest pain at current time. No recent exertional chest pain. No lightheadedness, syncope, palpitations Review of Systems Constitutional: Constitutional: Reports no additional constitutional complaints Eyes: Eyes: Reports no additional eye complaints ENT: Reports system reviewed and no additional complaints, except as documented Cardiovascular: Cardiovascular: Reports chest pain with activity, Denies lightheadedness, Denies palpitations and Denies dyspnea Respiratory: Respiratory: Reports no additional respiratory complaints and Denies dyspnea Gastrointestinal: Gastrointestinal: Reports no additional gastrointestinal complaints Genitourinary: Genitourinary: Reports no additional female genitourinary complaints Musculoskeletal: Musculoskeletal: Reports no additional musculoskeletal complaints Integumentary/Breasts: Skin/Breast: Reports system reviewed and no additional complaints, except as docu Neurologic: Reports system reviewed and no additional complaints, except as documented Psychiatric: Psychiatric: Reports no additional psychiatric complaints Endocrine: Endocrine: Reports no additional endocrine complaints and Denies p alpitations Hematologic/Lymphatic: Hematologic/Lymphatic: Reports no additional hematologic/lymphatic complaints [facility] Past Medical History Medical History Colon cancer HTN (hypertension) Valvular heart disease Social History Social History Alcohol intake: never Patient Tobacco Use Status: Never used Tobacco Use of substances other than those prescribed or required for medical reasons: No Advance Directives: Yes Advance Directives Information Provided: Yes Advance Directives on File: No Meds Allergies Allergy/AdvReac Type Severity Reaction Status Date / Time codeine [CODEINE] Allergy Unknown GI PAIN, Unverified 12/27/19 15:29 abd pain Codeine Sulfate AdvReac Unknown stomach Uncoded 10/01/15 00:00 upset Active Medications: Current Medications Acetaminophen (Acetaminophen 325 Mg Tablet) 650 mg PO Q6H PRN PRN Reason: Pain, Mild (Pain Scale 1-3) Aspirin (Aspirin 81 Mg Tab.Chew) 81 mg PO DAILY [facility] Last Admin: 01/01/21 08:52 Dose: 81 mg Documented by: Glipizide (Glipizide 10 Mg Tablet) 10 mg PO DAILY@0800 [facility] Last Admin: 01/01/21 08:53 Dose: 10 mg Documented by: Heparin Sodium (Porcine) (Heparin Sodium,Porcine 5,000 Unit/Ml Vial) 2,500 unit 40 unit/kg (2500 unit) IVPUSH PROTOCOL BOLUS PRN; Protocol PRN Reason: 40 unit/kg - Heparin Protocol Heparin Sodium (Porcine) (Heparin Sodium,Porcine 5,000 Unit/Ml Vial) 5,100 unit 80 unit/kg (5100 unit) IVPUSH PROTOCOL BOLUS PRN; Protocol PRN Reason: 80 unit/kg - Heparin Protocol Last Admin: 01/01/21 09:44 Dose: 5,100 unit Documented by: Heparin Sodium/Sodium Chloride () 25,000 unit in 250 mls @ 0 mls/hr IVCONT .Q0M [facility]; Protocol Last Titration: 09/23/21 09:45 Dose: 12 units/kg/hr, 7.6 mls/hr Documented by: Insulin Human Lispro (Insulin Lispro 100 Unit/Ml 3 Ml Vial) 0 unit SUBCUT QIDACHS [facility]; Protocol Last Admin: 01/01/21 09:23 Dose: 6 unit Documented by: Lisinopril (Lisinopril 20 Mg Tablet) 20 mg PO DAILY [facility]; Protocol Last Admin: 01/01/21 08:52 Dose: 20 mg Documented by: Melatonin (Melatonin 3 Mg Tablet) 6 mg PO BEDTIME PRN PRN Reason: Insomnia Nitroglycerin (Nitroglycerin 0.4 Mg Tab.Subl) 0.4 mg SUBLINGUAL Q5MX3 PRN PRN Reason: Chest Pain Omeprazole (Omeprazole 20 Mg Capsule.Dr) 20 mg PO DAILY@0630 [facility] Last Admin: 01/01/21 08:52 Dose: 20 mg Documented by: Ondansetron HCl (Ondansetron Hcl 4 Mg/2 Ml Vial) 4 mg IVPUSH Q8H PRN PRN Reason: Nausea and Vomiting Pharmacy Consult (Consult Rx Perform Med Rec) 1 each MISCELLANE ONCE PRN PRN Reason: Consult order Sitagliptin Phosphate (Sitagliptin Phosphate 100 Mg Tablet) 100 mg PO DAILY [facility] Last Admin: 01/01/21 08:53 Dose: 100 mg Documented by: Sodium Chloride (0.9 % Sodium Chloride Flush 3 Ml Syringe) 3 ml IVFLUSH QSHIFT [facility] Last Admin: 01/01/21 08:54 Dose: 3 ml Documented by: Vitamin D (Cholecalciferol (Vitamin D3) 25 Mcg Tablet) 25 mcg PO DAILY [facility] Last Admin: 01/01/21 08:52 Dose: 25 mcg Documented by: Home Medications Medication Instructions Recorded Confirmed Last Taken Type aspirin 81 mg chewable tablet 81 mg PO DAILY 12/31/20 12/31/20 12/31/20 History cholecalciferol (vitamin D3) 25 25 mcg PO DAILY 12/31/20 12/31/20 12/31/20 History mcg (1,000 unit) capsule (Vitamin D3) ferrous sulfate 325 mg (65 mg 325 mg PO DAILY 12/31/20 12/31/20 12/31/20 History iron) tablet glipizide 10 mg tablet 10 mg PO QAM 12/31/20 12/31/20 12/31/20 History ibuprofen 800 mg tablet 800 mg PO TID PRN 12/31/20 12/31/20 12/31/20 History lisinopril 20 mg tablet 20 mg PO DAILY 12/31/20 12/31/20 12/31/20 History metformin 500 mg tablet,extended 1,000 mg PO BID 12/31/20 12/31/20 12/31/20 History release 24 hr omeprazole 20 mg capsule,delayed 20 mg PO DAILY 12/31/20 12/31/20 12/31/20 History release sitagliptin 100 mg tablet (Januvia) 1 tab PO DAILY 12/31/20 12/31/20 12/31/20 History Physical Exam Vital Signs: Vital Signs: Last Vital Signs Temp 98.4 F 12/31/20 22:31 Pulse 84 01/01/21 08:52 Resp 13 01/01/21 06:51 BP 146/55 H 01/01/21 08:52 Pulse Ox 96 01/01/21 06:51 Body Mass Index 27.2 Const: General: cooperative, comfortable, no acute distress, alert and awake Nutritional Appearance: average body habitus Orientation/consciousness: patient oriented x3 Limitations: no limitations HENMT: Head: Yes normocephalic and Yes atraumatic Neck: Neck: Yes trachea midline, Yes supple and Yes no JVD Chest: Chest palpation & inspection: normal inspection of the chest Resp: Effort & Inspection: normal respiratory effort Auscultation: crackles (Coarse, cleared up with coughing suggestive of atelectasis) bilateral at the base Cardio: Jugular venous distension: no JVD Palpation: normal PMI Rate: regular rate Rhythm: regular rhythm Heart sounds: S1 normal heart sound present, S2 normal heart sound present, no click, no gallops, no murmurs and no rubs GI: Auscultation: normal bowel sounds Skin: General skin exam: no rashes or lesions noted Neuro: General: patient oriented x3 and no focal motor deficits Extrem: General: Yes no clubbing, cyanosis or edema Psych: Appearance: grossly normal Results Labs and Meds Result diagrams: 01/01/21 07:34 01/01/21 07:34 Lab results: Laboratory Results - last 24 hr 12/31/20 12/31/20 12/31/20 11:23 11:23 11:23 WBC 12.1 H RBC 3.72 L Hgb 11.2 L Hct 33.0 L MCV 88.7 MCH 30.1 MCHC 33.9 RDW 12.8 Plt Count 272 MPV 9.7 Immature Gran % (Auto) 0.3 Neut % (Auto) 73.8 H Lymph % (Auto) 18.6 L [place] % (Auto) 6.0 Eos % (Auto) 1.0 Baso % (Auto) 0.3 Lymph # (Auto) 2.3 [place] # (Auto) 0.7 Eos # (Auto) 0.1 Baso # (Auto) 0.0 Abs Immat Gran (auto) 0.04 H Absolute Neuts (auto) 8.9 H Absolute Nucleated RBC 0.000 Nucleated RBC % (auto) 0.0 PT INR PTT (Heparin Protocol) Sodium Potassium Chloride Carbon Dioxide Anion Gap BUN Creatinine Estim Creat Clear Calc Estimated GFR POC Glucose Random Glucose Calcium Magnesium Total Bilirubin Direct Bilirubin AST ALT Alkaline Phosphatase Troponin I High Sens 14.9 B-Natriuretic Peptide Total Protein Albumin Lipase TSH COVID-19 ([facility]) Negative COVID-19 Clin Com See Note 12/31/20 12/31/20 12/31/20 11:23 12:58 15:19 WBC RBC Hgb Hct MCV MCH MCHC RDW Plt Count MPV Immature Gran % (Auto) Neut % (Auto) Lymph % (Auto) [place] % (Auto) Eos % (Auto) Baso % (Auto) Lymph # (Auto) [place] # (Auto) Eos # (Auto) Baso # (Auto) Abs Immat Gran (auto) Absolute Neuts (auto) Absolute Nucleated RBC Nucleated RBC % (auto) PT INR PTT (Heparin Protocol) Sodium 137 Potassium 4.8 Chloride 101 Carbon Dioxide 22 Anion Gap 19 BUN 23 H Creatinine 1.24 Estim Creat Clear Calc 33.5 Estimated GFR 42 POC Glucose Random Glucose 392 H* Calcium 9.1 Magnesium 1.5 L Total Bilirubin 0.5 Direct Bilirubin 0.3 AST 45 H ALT 52 H Alkaline Phosphatase 168 H Troponin I High Sens 437.2 H* D B-Natriuretic Peptide 89 Total Protein 6.7 Albumin 3.8 Lipase 101 H TSH 1.67 COVID-19 ([facility]) COVID-19 Clin Com 12/31/20 12/31/20 12/31/20 15:19 16:22 21:06 WBC RBC Hgb Hct MCV MCH MCHC RDW Plt Count MPV Immature Gran % (Auto) Neut % (Auto) Lymph % (Auto) [place] % (Auto) Eos % (Auto) Baso % (Auto) Lymph # (Auto) [place] # (Auto) Eos # (Auto) Baso # (Auto) Abs Immat Gran (auto) Absolute Neuts (auto) Absolute Nucleated RBC Nucleated RBC % (auto) PT 11.4 INR 1.0 PTT (Heparin Protocol) 27.2 L Sodium Potassium Chloride Carbon Dioxide Anion Gap BUN Creatinine Estim Creat Clear Calc Estimated GFR POC Glucose Random Glucose Calcium Magnesium 2.5 Total Bilirubin Direct Bilirubin AST ALT Alkaline Phosphatase Troponin I High Sens 725.0 H* D B-Natriuretic Peptide Total Protein Albumin Lipase TSH COVID-19 ([facility]) COVID-19 Clin Com 12/31/20 12/31/20 12/31/20 22:29 22:29 23:23 WBC RBC Hgb Hct MCV MCH MCHC RDW Plt Count MPV Immature Gran % (Auto) Neut % (Auto) Lymph % (Auto) [place] % (Auto) Eos % (Auto) Baso % (Auto) Lymph # (Auto) [place] # (Auto) Eos # (Auto) Baso # (Auto) Abs Immat Gran (auto) Absolute Neuts (auto) Absolute Nucleated RBC Nucleated RBC % (auto) PT INR PTT (Heparin Protocol) 108.5 H* D 82.7 H D Sodium Potassium Chloride Carbon Dioxide Anion Gap BUN Creatinine Estim Creat Clear Calc Estimated GFR POC Glucose 238 H Random Glucose Calcium Magnesium Total Bilirubin Direct Bilirubin AST ALT Alkaline Phosphatase Troponin I High Sens B-Natriuretic Peptide Total Protein Albumin Lipase TSH COVID-19 ([facility]) COVID-19 Clin Com 01/01/21 01/01/21 01/01/21 07:34 07:34 07:34 WBC Cancelled 7.6 RBC Cancelled 4.18 L Hgb Cancelled 12.2 Hct Cancelled 36.1 L MCV Cancelled 86.4 MCH Cancelled 29.2 MCHC Cancelled 33.8 RDW Cancelled 12.4 Plt Count Cancelled 249 MPV Cancelled 9.4 Immature Gran % (Auto) 0.1 Neut % (Auto) 57.2 Lymph % (Auto) 31.7 [place] % (Auto) 6.9 Eos % (Auto) 3.6 Baso % (Auto) 0.5 Lymph # (Auto) 2.4 [place] # (Auto) 0.5 Eos # (Auto) 0.3 Baso # (Auto) 0.0 Abs Immat Gran (auto) 0.01 Absolute Neuts (auto) 4.3 Absolute Nucleated RBC Cancelled 0.000 Nucleated RBC % (auto) Cancelled 0.0 PT INR PTT (Heparin Protocol) Sodium 135 Potassium 5.3 H Chloride 101 Carbon Dioxide 26 Anion Gap 13 BUN 19 H Creatinine 1.10 Estim Creat Clear Calc 37.8 Estimated GFR 49 POC Glucose Random Glucose 282 H Calcium 9.2 Magnesium 2.1 Total Bilirubin Direct Bilirubin AST ALT Alkaline Phosphatase Troponin I High Sens B-Natriuretic Peptide Total Protein Albumin Lipase TSH COVID-19 ([facility]) COVID-19 Clin Com 01/01/21 01/01/21 01/01/21 07:34 07:35 08:24 WBC RBC Hgb Hct MCV MCH MCHC RDW Plt Count MPV Immature Gran % (Auto) Neut % (Auto) Lymph % (Auto) [place] % (Auto) Eos % (Auto) Baso % (Auto) Lymph # (Auto) [place] # (Auto) Eos # (Auto) Baso # (Auto) Abs Immat Gran (auto) Absolute Neuts (auto) Absolute Nucleated RBC Nucleated RBC % (auto) PT 11.8 INR 1.0 PTT (Heparin Protocol) 48.8 L D Sodium Potassium Chloride Carbon Dioxide Anion Gap BUN Creatinine Estim Creat Clear Calc Estimated GFR POC Glucose 272 H Random Glucose Calcium Magnesium Total Bilirubin Direct Bilirubin AST ALT Alkaline Phosphatase Troponin I High Sens B-Natriuretic Peptide 309 H Total Protein Albumin Lipase TSH COVID-19 ([facility]) COVID-19 Clin Com First EKG shows supraventricular tachycardia at 190 beats per minute, most consistent with AVNRT with marked ST T wave changes suggestive ischemia diffusely 2. Second EKG shows sinus tachycardia with mild ST sagging Thirty EKG shows sinus rhythm with normalized ST segments. Imaging Radiologist's impression: Impressions Chest X-Ray 12/31/20 10:57 IMPRESSION: No evidence for acute disease in the chest. Increased central bronchovascular markings, question related to apical lordotic film technique. Chest CTA 12/31/20 11:12 IMPRESSION: No evidence of pulmonary embolism. VTE: negative Assessment and Plan (1) Non-ST elevation [place] (NSTEMI): Status: Acute Patients initial symptom was chest pain, this appears to be driven by her supraventricular tachycardia. She also has developed troponin elevation with rise consistent with non ST elevation myocardial infarction which appears to be secondary to her rapid ventricular response and demand ischemia. There is no question that she probably has underlying obstructive coronary artery disease with multiple risk factors her age. If she prior to this episode did not have any exertional chest pain. Management will be medical for now and will require eventual stress testing to evaluate for myocardial ischemia. We discussed management in details including possibly pursuing invasive cardiac catheter ization however given that this could be stable coronary artery disease management would be still medical after invasive cardiac catheterization. Start on metoprolol therapy 25 mg Q 6 hours. Low-dose aspirin therapy. Continue IV heparin for total of 48 hours. Out of bed to commode and avoid too much exertion. High-intensity statin therapy with Lipitor 80 mg daily should be also started on her. Eventually require ischemic workup which can be done as an outpatient. She understands and agrees the management plan. Ambulate tomorrow afternoon after heparin is been short off and if she has no recurrent exertional chest pain probable discharge either tomorrow evening or Tuesday morning. (2) SVT (supraventricular tachycardia): Status: Acute Supraventricular tachycardia with 1 episode about 4 years ago. This was not diagnosed. 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 We discussed about pathophysiology of SVT with dual AV anup physiology. We discussed about management with medical treatment versus considering ablation as a first-line option. Given that her presentation significant, ablation can be considered. However this will be performed as outpatient. She will also be on medications for coronary artery disease and treatment can be medical with metoprolol therapy. She will think about it and let us know. Avoidance of stimulants was discussed. Will follow up with her tomorrow. Procedures Date of Service Date of Service: 01/01/21
[2021-01-01] MEDS: Metoprolol Tartrate 25 MG TABLET PO ×2 (12:20→18:15)
[2021-01-01 12:23] LABS: Troponin-I High Sensitivity 354.3 ng/L (<3.5-17.0)
[2021-01-01 12:25] LABS: Glucose, Whole Blood 208 mg/dL (60-115)
--- NOTE | 2021-01-01 14:06 | P.PNIM_ITS ---
Subjective Subjective Date of Service: 01/01/21 Interval History: Seen and examined this morning Follow-up for NSTEMI, SVT Denies chest pain, palpitations, shortness of breath at this time Review of Systems Review of Systems: Yes all other systems are reviewed and are negative Constitutional Constitutional: Denies chills and Denies fever(s) Cardiovascular Cardiovascular: Denies chest pain Respiratory Respiratory: Denies cough Gastrointestinal Gastrointestinal: Denies abdominal pain Physical Exam Vital Signs: Vital Signs: Last Vital Signs Temp 98.4 F 12/31/20 22:31 Pulse 72 01/01/21 14:00 Resp 18 01/01/21 14:00 BP 156/75 H 01/01/21 14:00 Pulse Ox 98 01/01/21 14:00 Body Mass Index 27.2 Const: General: alert and awake Nutritional Appearance: well nourished Orientation/consciousness: patient oriented x3 HENMT: Head: Yes normocephalic and Yes atraumatic Eyes: Sclerae: sclerae normal Chest: Chest palpation & inspection: normal inspection of the chest Resp: Effort & Inspection: normal respiratory effort and no respiratory distress Auscultation: clear to auscultation bilaterally Cardio: Rate: regular rate Rhythm: regular rhythm GI: Palpation (GI): Soft to palpation and nontender Skin: General skin exam: no rashes or lesions noted Neuro: General: patient oriented x3 Cranial nerves: Yes CN's II-XII intact bilaterally and Yes Bilaterally intact EOM present Extrem: Other: No leg edema General: Yes normal to inspection Objective Data Active Medications Acetaminophen (Acetaminophen 325 Mg Tablet) 650 mg PO Q6H PRN PRN Reason: Pain, Mild (Pain Scale 1-3) Aspirin (Aspirin 81 Mg Tab.Chew) 81 mg PO DAILY [facility] Last Admin: 01/01/21 08:52 Dose: 81 mg Documented by: LATONIA Atorvastatin Calcium (Atorvastatin Calcium 80 Mg Tablet) 80 mg PO BEDTIME [facility] Glipizide (Glipizide 10 Mg Tablet) 10 mg PO DAILY@0800 [facility] Last Admin: 01/01/21 08:53 Dose: 10 mg Documented by: LATONIA Heparin Sodium (Porcine) (Heparin Sodium,Porcine 5,000 Unit/Ml Vial) 2,500 unit 40 unit/kg (2500 unit) IVPUSH PROTOCOL BOLUS PRN; Protocol PRN Reason: 40 unit/kg - Heparin Protocol Heparin Sodium (Porcine) (Heparin Sodium,Porcine 5,000 Unit/Ml Vial) 5,100 unit 80 unit/kg (5100 unit) IVPUSH PROTOCOL BOLUS PRN; Protocol PRN Reason: 80 unit/kg - Heparin Protocol Last Admin: 01/01/21 09:44 Dose: 5,100 unit Documented by: LATONIA Heparin Sodium/Sodium Chloride () 25,000 unit in 250 mls @ 0 mls/hr IVCONT .Q0M [facility]; Protocol Last Titration: 01/01/21 09:45 Dose: 12 units/kg/hr, 7.6 mls/hr Documented by: LATONIA Cosigned by: KATHRIN Insulin Human Lispro (Insulin Lispro 100 Unit/Ml 3 Ml Vial) 0 unit SUBCUT QIDACHS [facility]; Protocol Last Admin: 01/01/21 13:58 Dose: 4 unit Documented by: RADHA Lisinopril (Lisinopril 20 Mg Tablet) 20 mg PO DAILY [facility]; Protocol Last Admin: 01/01/21 08:52 Dose: 20 mg Documented by: LATONIA Melatonin (Melatonin 3 Mg Tablet) 6 mg PO BEDTIME PRN PRN Reason: Insomnia Metoprolol Tartrate (Metoprolol Tartrate 25 Mg Tablet) 25 mg PO Q6H [facility]; Protocol Last Admin: 01/01/21 12:20 Dose: 25 mg Documented by: RADHA Omeprazole (Omeprazole 20 Mg Capsule.Dr) 20 mg PO DAILY@0630 [facility] Last Admin: 01/01/21 08:52 Dose: 20 mg Documented by: LATONIA Ondansetron HCl (Ondansetron Hcl 4 Mg/2 Ml Vial) 4 mg IVPUSH Q8H PRN PRN Reason: Nausea and Vomiting Pharmacy Consult (Consult Rx Perform Med Rec) 1 each MISCELLANE ONCE PRN PRN Reason: Consult order Sitagliptin Phosphate (Sitagliptin Phosphate 100 Mg Tablet) 100 mg PO DAILY [facility] Last Admin: 01/01/21 08:53 Dose: 100 mg Documented by: LATONIA Sodium Chloride (0.9 % Sodium Chloride Flush 3 Ml Syringe) 3 ml IVFLUSH QSHIFT [facility] Last Admin: 01/01/21 08:54 Dose: 3 ml Documented by: LATONIA Vitamin D (Cholecalciferol (Vitamin D3) 25 Mcg Tablet) 25 mcg PO DAILY [facility] Last Admin: 01/01/21 08:52 Dose: 25 mcg Documented by: LATONIA Labs CBC & Chem 7: 01/01/21 07:34 01/01/21 07:34 Labs: Laboratory Results - last 24 hr 12/31/20 12/31/20 12/31/20 15:19 15:19 16:22 MCV MCH MCHC RDW Plt Count MPV Immature Gran % (Auto) Neut % (Auto) Lymph % (Auto) [place] % (Auto) Eos % (Auto) Baso % (Auto) Lymph # (Auto) [place] # (Auto) Eos # (Auto) Baso # (Auto) Abs Immat Gran (auto) Absolute Neuts (auto) Absolute Nucleated RBC Nucleated RBC % (auto) PT 11.4 INR 1.0 PTT (Heparin Protocol) 27.2 L Anion Gap Estim Creat Clear Calc Estimated GFR POC Glucose Random Glucose Calcium Magnesium 2.5 Troponin I High Sens 437.2 H* D B-Natriuretic Peptide 12/31/20 12/31/20 12/31/20 21:06 22:29 22:29 MCV MCH MCHC RDW Plt Count MPV Immature Gran % (Auto) Neut % (Auto) Lymph % (Auto) [place] % (Auto) Eos % (Auto) Baso % (Auto) Lymph # (Auto) [place] # (Auto) Eos # (Auto) Baso # (Auto) Abs Immat Gran (auto) Absolute Neuts (auto) Absolute Nucleated RBC Nucleated RBC % (auto) PT INR PTT (Heparin Protocol) 108.5 H* D Anion Gap Estim Creat Clear Calc Estimated GFR POC Glucose 238 H Random Glucose Calcium Magnesium Troponin I High Sens 725.0 H* D B-Natriuretic Peptide 12/31/20 01/01/21 01/01/21 23:23 07:34 07:34 MCV Cancelled 86.4 MCH Cancelled 29.2 MCHC Cancelled 33.8 RDW Cancelled 12.4 Plt Count Cancelled 249 MPV Cancelled 9.4 Immature Gran % (Auto) 0.1 Neut % (Auto) 57.2 Lymph % (Auto) 31.7 [place] % (Auto) 6.9 Eos % (Auto) 3.6 Baso % (Auto) 0.5 Lymph # (Auto) 2.4 [place] # (Auto) 0.5 Eos # (Auto) 0.3 Baso # (Auto) 0.0 Abs Immat Gran (auto) 0.01 Absolute Neuts (auto) 4.3 Absolute Nucleated RBC Cancelled 0.000 Nucleated RBC % (auto) Cancelled 0.0 PT INR PTT (Heparin Protocol) 82.7 H D Anion Gap Estim Creat Clear Calc Estimated GFR POC Glucose Random Glucose Calcium Magnesium Troponin I High Sens B-Natriuretic Peptide 01/01/21 01/01/21 01/01/21 07:34 07:34 07:35 MCV MCH MCHC RDW Plt Count MPV Immature Gran % (Auto) Neut % (Auto) Lymph % (Auto) [place] % (Auto) Eos % (Auto) Baso % (Auto) Lymph # (Auto) [place] # (Auto) Eos # (Auto) Baso # (Auto) Abs Immat Gran (auto) Absolute Neuts (auto) Absolute Nucleated RBC Nucleated RBC % (auto) PT 11.8 INR 1.0 PTT (Heparin Protocol) 48.8 L D Anion Gap 13 Estim Creat Clear Calc 37.8 Estimated GFR 49 POC Glucose Random Glucose 282 H Calcium 9.2 Magnesium 2.1 Troponin I High Sens B-Natriuretic Peptide 309 H 01/01/21 01/01/21 01/01/21 08:24 11:57 12:21 MCV MCH MCHC RDW Plt Count MPV Immature Gran % (Auto) Neut % (Auto) Lymph % (Auto) [place] % (Auto) Eos % (Auto) Baso % (Auto) Lymph # (Auto) [place] # (Auto) Eos # (Auto) Baso # (Auto) Abs Immat Gran (auto) Absolute Neuts (auto) Absolute Nucleated RBC Nucleated RBC % (auto) PT INR PTT (Heparin Protocol) Anion Gap Estim Creat Clear Calc Estimated GFR POC Glucose 272 H 208 H Random Glucose Calcium Magnesium Troponin I High Sens 354.3 H* D B-Natriuretic Peptide Assessment and Plan (1) SVT (supraventricular tachycardia): Status: Acute (2) Non-ST elevation [place] (NSTEMI): Status: Acute Assessment and Plan: This is a 75-year-old female with history of hypertension who presents emergency department with chest pain found to have SVT and NSTEMI NSTEMI Thought to be secondary to demand from SVT Echocardiogram was showing preserved ejection fraction Seen by Cardiology Continue anticoagulation with heparin Continue aspirin Will start beta-femi, statin will need ischemic outpatient workup SVT s/p adenosine in ED Seen by cardiology, will consider outpatient ablation Continue metoprolol Diabetes glipizide, Metformin on hold Continue SSI, POCs Hyperkalemia K 5.3 Follow BMP Consider holding CYNDIE-inhibitor Hypertension BP above goal Continue lisinopril Start metoprolol Monitor blood pressure closely DVT prophylaxis-heparin Attending physician-Dr. Nielson Quality Stroke Does the patient have a stroke diagnosis?: No VTE Prior VTE?: No VTE Risk Level:: Medical - moderate - high VTE Device Contraindication: Treatment Not Indicated VTE Drug Contraindication: N/A - Med Ordered
[2021-01-01 14:17] LABS: PTT Heparin Drip > 200.0 SEC (53-77.9)
--- NOTE | 2021-01-01 15:17 | MHC.CM.PN ---
Addendum entered by Shabana Galindo 01/01/21 15:25: Patient received Pfizer Covid vaccines on 06/13 and 07/05. Original Note: Met with patient in regards to discharge planning. Patient lives with her son, ambulates independently and had no services prior to coming to the hospital. Patient walks 3 miles everyday. Services not anticipated to be needed at d/c because patient is not home bound. PCP verified. HCP completed, signed and witnessed. Original given to patient. Copies placed in chart. IMM explained and signed. Patient's daughter will transport patient home when medically stable. Continue to monitor for d/c needs.
[2021-01-01 15:40] LABS: PTT Heparin Drip 68.2 SEC (53-77.9)
[2021-01-01 16:40] LABS: Glucose, Whole Blood 234 mg/dL (60-115)
--- NOTE | 2021-01-01 17:13 | CA_ITS ---
Transthoracic Echocardiogram Patient (Last, First, Middle): Angela Nam, Gender: Female Date of : 1945 Age: 75 Procedure Date: 01/01/2021 Procedure Type: Transthoracic Echocardiogram Location: ER Height: 152.4 cm Weight: 63.05 kg BSA: 1.60 m2 Heart Rate: bpm BP: 153 / 63 mmHg Network Engineering Advisor: CIERA Carlos MD: Baljit Kevin DO Reimbursement Consultant: Jeanmarie Lynn MD Symptoms: NSTEMI Study Quality: Fair ECG Rhythm: Sinus Conclusions: - 1. Normal LV systolic function with impaired relaxation filling pattern 2. Fibrocalcific aortic valve changes noted with mild aortic regurgitation 3. Severe mitral calcification 4. Normal RV systolic pressure 5. No pericardial effusion Findings Left Ventricle Normal left ventricular size, thickness, and systolic function. The visually estimated ejection fraction is between 60-65%. Spectral Doppler is indicative of an impaired relaxation filling pattern. E/E prime ratio is between 8 and 15 consistent with indeterminate filling pressures. Right Ventricle Normal right ventricular cavity size and systolic function. Atria The left atrium is normal in size. There is no evidence of interatrial shunt. The right atrium is normal in size. Aortic Valve There is mild calcification of the aortic valve. There is no aortic valve stenosis. There is mild aortic valve regurgitation. Mitral Valve There is mild anterior and severe posterior mitral leaflet thickening. There is severe mitral annular calcification. There is trace mitral valve regurgitation. There is no mitral valve stenosis. Pulmonic Valve The pulmonic valve was not well visualized. Tricuspid Valve Likely normal tricuspid valve structure and function. There is trace tricuspid valve regurgitation. The right ventricular systolic pressure is normal. The right ventricular systolic pressure is 22 mmHg. Normal right atrial pressure. There is no evidence of pulmonary hypertension. Great Vessels All visible segments of the aorta are normal in size. The pulmonary artery was not well visualized. Venous The inferior vena cava is normal in size and collapses greater than 50% with inspiration. Pericardium/Pleural There is no evidence of pericardial effusion. Measurements 2D Linear Measurements IVSd: 0.86 0.6-0.9/0.6-1.0 cm LVIDd: 4.24 3.9-5.3/4.2-5.9 cm LVIDd Index: 2.65 2.4-3.2/2.2-3.1 cm/m2 LVIDs: 3.12 2.0-3.6 cm LVPWd: 1.02 0.7-1.1 cm Ao Root: 3.40 2.1-3.5 cm LA Diam: 2.30 2.7-3.8/3.0-4.0 cm LAIDs Index: 1.44 1.5-2.3 cm/m2 LV Mass: 159.35 67-162/88-224 g LV Mass Index: 99.59 43-95/49-115 g/m2 LVOT Diam: 2.00 3.0+(-)1.3 cm Mitral Valve MV Pk E: 0.85 MV PK A: 1.29 MV Decel Time: 206.00 E/A: 0.70 E'Lateral: 4.46 E'Medial: 5.66 E/E' Med: 14.90 E/E' Lat: 18.90 PHT: 60.00 MVA PHT: 3.67 Decel [place]: 4.11 Aortic Valve AoV Pk Woo: 1.39 AoV Mn Woo: 0.91 AoV VTI: 0.27 AoV Pk Grad: 8.00 Aov Mn Grad: 4.00 TON Cont.VTI: 1.93 LVOT LVOT Pk Woo: 0.75 LVOT Mn Woo: 0.52 LVOT VTI: 0.17 LVOT Pk Grad: 2.00 LVOT Mn Grad: 1.00 LVOT Diam: 2.00 LVOT Area: 3.14 Diastolic Function MV Pk E: 0.85 MV Pk A: 1.29 E/A: 0.70 E'Medial: 5.66 E/E' Med: 14.90 E' Laterial: 4.46 E/E' Lat: 18.90 Right Ventricle TAPSE (mm): 2.15 TVS' Woo: 17.40 Tricuspid Valve TR Pk Woo: 2.17 TR Pk Grad: 19.00 RA Press: 3.00 RVSP: 22.00 Great Vessels Aorta Ao Root-2D: 3.40 2.0-3.7 cm Ao Asc: 3.20 2.1-3.4 cm Ao Arch: 2.40 Updated in Other Vendor System with Status of Final Jeanmarie Lynn MD electronically signed on 01/01/2021 11:53:26 AM with status of Final
--- NOTE | 2021-01-01 18:04 | PC.NURSE ---
trae on imc states report not until next shift
--- NOTE | 2021-01-01 20:03 | PC.NURSE ---
Pt alert and oriented x4, calm and cooperative. Pt denies pain. Pt OOB to bedside commode with 1 assist. Pt voided this shift and had one BM formed this shift. Pt tolerated meals well, denies N/V/D. Pt denies chest pain or SOB. Pt on room air. IV intact infusing heparin drip at 12 units/hr at this time. Vitals stable. Report given to SHARDA Woods. Pt on tele monitor NSR.
[2021-01-01 20:38] LABS: Glucose, Whole Blood 339 mg/dL (60-115)
[2021-01-01] MEDS: Atorvastatin Calcium 80 MG TABLET PO (21:09)
[2021-01-01 22:06] LABS: PTT Heparin Drip 65.8 SEC (53-77.9)
[2021-01-02] VITALS (10 sets, daily range): BP systolic 130–154; BP diastolic 59–76; PULSE 63–74; RESP 12–19; TEMP 36.4–36.9; O2SAT 94–97; BMI 26.9
[2021-01-02] MEDS: Metoprolol Tartrate 25 MG TABLET PO ×4 (00:04→16:59)
[2021-01-02] MEDS: Omeprazole 20 MG CAPSULE.DR PO (05:45)
[2021-01-02] MEDS: Heparin Sodium,Porcine/1/2NS 25,000 UNIT/250 ML IV.SOLN 7.6 UNIT IVCONT (05:56)
[2021-01-02 06:42] LABS: Hematocrit 36.1 % (37-47); Hemoglobin 12.4 g/dl (12.0-16.0); Mean Corpuscular HGB Conc 34.3 g/dl (31.0-35.0); Mean Corpuscular Hemoglobin 29.5 pg (27.0-33.0); Mean Platelet Volume 9.5 fL (9.4-12.3); Platelet Count 299 X10*3/uL (160-400); Red Cell Distribution Width 12.5 % (11.0-16.0); White Blood Count 11.5 X10*3/uL (4.8-10.8)
[2021-01-02 06:44] LABS: Anion Gap 13 (12-20); Blood Urea Nitrogen 18 mg/dL (9-16); Calcium 9.4 mg/dL (8.4-10.2); Carbon Dioxide 26 mmol/L (22-29); Chloride 102 mmol/L (96-108); Creatinine Clr Calc Pharmacy 37.8; Estimated Glomerular Filt Rate 49; Glucose Random 283 mg/dL (60-115); Potassium 4.8 mmol/L (3.3-5.1); Sodium 136 mmol/L (135-145)
[2021-01-02 06:53] LABS: PTT Heparin Drip 67.7 SEC (53-77.9)
[2021-01-02 07:38] LABS: Glucose, Whole Blood 281 mg/dL (60-115)
[2021-01-02] MEDS: SITagliptin Phosphate 100 MG TABLET PO (08:42)
[2021-01-02] MEDS: 0.9 % Sodium Chloride Flush 3 ML SYRINGE IVFLUSH ×3 (08:42→20:38)
[2021-01-02] MEDS: Cholecalciferol (Vitamin D3) 25 MCG TABLET PO (08:42)
[2021-01-02] MEDS: Insulin Lispro 100 UNIT/ML 3 ML VIAL SUBCUT ×4 (08:42→20:36)
[2021-01-02] MEDS: Aspirin 81 MG TAB.CHEW PO (08:42)
--- NOTE | 2021-01-02 10:57 | P.PNIM_ITS ---
Subjective Subjective Date of Service: 01/02/21 Interval History: Seen and examined this morning Follow-up for SVT, NSTEMI No chest pain since admission. No palpitations, dizziness, shortness of breath Review of Systems Review of Systems: Yes all other systems are reviewed and are negative Constitutional Constitutional: Denies chills and Denies fever(s) Cardiovascular Cardiovascular: Denies chest pain Respiratory Respiratory: Denies cough Gastrointestinal Gastrointestinal: Denies abdominal pain Physical Exam Vital Signs: Vital Signs: Last Vital Signs Temp 98.1 F 01/02/21 07:34 Pulse 63 01/02/21 07:34 Resp 18 01/02/21 07:34 BP 132/62 01/02/21 07:34 Pulse Ox 94 01/02/21 07:34 Body Mass Index 26.9 Const: General: alert and awake Nutritional Appearance: well nourished Orientation/consciousness: patient oriented x3 HENMT: Head: Yes normocephalic and Yes atraumatic Eyes: Sclerae: sclerae normal Pupils: Equal, round and reactive pupils present Chest: Chest palpation & inspection: normal inspection of the chest Resp: Effort & Inspection: normal respiratory effort and no respiratory distress Auscultation: clear to auscultation bilaterally Cardio: Rate: regular rate Rhythm: regular rhythm GI: Palpation (GI): Soft to palpation and nontender Skin: General skin exam: no rashes or lesions noted Neuro: General: patient oriented x3 Cranial nerves: Yes CN's II-XII intact bilaterally, Yes Equal, round and reactive pupils present and Yes Bilaterally intact EOM present Extrem: Other: No leg edema General: Yes normal to inspection Objective Data Active Medications Acetaminophen (Acetaminophen 325 Mg Tablet) 650 mg PO Q6H PRN PRN Reason: Pain, Mild (Pain Scale 1-3) Aspirin (Aspirin 81 Mg Tab.Chew) 81 mg PO DAILY [facility] Last Admin: 01/02/21 08:42 Dose: 81 mg Documented by: HUNTER Atorvastatin Calcium (Atorvastatin Calcium 80 Mg Tablet) 80 mg PO BEDTIME [facility] Last Admin: 01/01/21 21:09 Dose: 80 mg Documented by: MEL Heparin Sodium (Porcine) (Heparin Sodium,Porcine 5,000 Unit/Ml Vial) 2,500 unit 40 unit/kg (2500 unit) IVPUSH PROTOCOL BOLUS PRN; Protocol PRN Reason: 40 unit/kg - Heparin Protocol Heparin Sodium (Porcine) (Heparin Sodium,Porcine 5,000 Unit/Ml Vial) 5,100 unit 80 unit/kg (5100 unit) IVPUSH PROTOCOL BOLUS PRN; Protocol PRN Reason: 80 unit/kg - Heparin Protocol Last Admin: 01/01/21 09:44 Dose: 5,100 unit Documented by: LATONIA Heparin Sodium/Sodium Chloride () 25,000 unit in 250 mls @ 0 mls/hr IVCONT .Q0M [facility]; Protocol Last Admin: 01/02/21 05:56 Dose: 12 units/kg/hr, 7.6 mls/hr Documented by: MEL Cosigned by: RAUDEL Insulin Human Lispro (Insulin Lispro 100 Unit/Ml 3 Ml Vial) 0 unit SUBCUT QIDACHS [facility]; Protocol Last Admin: 01/02/21 08:42 Dose: 6 unit Documented by: HUNTER Lisinopril (Lisinopril 20 Mg Tablet) 20 mg PO DAILY [facility]; Protocol Last Admin: 01/01/21 08:52 Dose: 20 mg Documented by: LATONIA Melatonin (Melatonin 3 Mg Tablet) 6 mg PO BEDTIME PRN PRN Reason: Insomnia Metoprolol Tartrate (Metoprolol Tartrate 25 Mg Tablet) 25 mg PO Q6H [facility]; Protocol Last Admin: 01/02/21 05:45 Dose: 25 mg Documented by: MEL Omeprazole (Omeprazole 20 Mg Capsule.Dr) 20 mg PO DAILY@0630 [facility] Last Admin: 01/02/21 05:45 Dose: 20 mg Documented by: MEL Ondansetron HCl (Ondansetron Hcl 4 Mg/2 Ml Vial) 4 mg IVPUSH Q8H PRN PRN Reason: Nausea and Vomiting Pharmacy Consult (Consult Rx Perform Med Rec) 1 each MISCELLANE ONCE PRN PRN Reason: Consult order Sitagliptin Phosphate (Sitagliptin Phosphate 100 Mg Tablet) 100 mg PO DAILY [facility] Last Admin: 01/02/21 08:42 Dose: 100 mg Documented by: HUNTER Sodium Chloride (0.9 % Sodium Chloride Flush 3 Ml Syringe) 3 ml IVFLUSH QSHIFT [facility] Last Admin: 01/02/21 08:42 Dose: 3 ml Documented by: HUNTER Vitamin D (Cholecalciferol (Vitamin D3) 25 Mcg Tablet) 25 mcg PO DAILY [facility] Last Admin: 01/02/21 08:42 Dose: 25 mcg Documented by: HUNTER Labs CBC & Chem 7: 01/02/21 06:07 01/02/21 06:07 Labs: Laboratory Results - last 24 hr 01/01/21 01/01/21 01/01/21 11:57 12:21 13:41 MCV MCH MCHC RDW Plt Count MPV Absolute Nucleated RBC Nucleated RBC % (auto) PTT (Heparin Protocol) > 200.0 H* D Anion Gap Estim Creat Clear Calc Estimated GFR POC Glucose 208 H Random Glucose Calcium Troponin I High Sens 354.3 H* D 01/01/21 01/01/21 01/01/21 15:21 16:36 20:33 MCV MCH MCHC RDW Plt Count MPV Absolute Nucleated RBC Nucleated RBC % (auto) PTT (Heparin Protocol) 68.2 D Anion Gap Estim Creat Clear Calc Estimated GFR POC Glucose 234 H 339 H Random Glucose Calcium Troponin I High Sens 01/01/21 01/02/21 01/02/21 21:52 06:07 06:07 MCV 86.0 MCH 29.5 MCHC 34.3 RDW 12.5 Plt Count 299 MPV 9.5 Absolute Nucleated RBC 0.000 Nucleated RBC % (auto) 0.0 PTT (Heparin Protocol) 65.8 67.7 Anion Gap Estim Creat Clear Calc Estimated GFR POC Glucose Random Glucose Calcium Troponin I High Sens 01/02/21 01/02/21 06:07 07:35 MCV MCH MCHC RDW Plt Count MPV Absolute Nucleated RBC Nucleated RBC % (auto) PTT (Heparin Protocol) Anion Gap 13 Estim Creat Clear Calc 37.8 Estimated GFR 49 POC Glucose 281 H Random Glucose 283 H Calcium 9.4 Troponin I High Sens Assessment and Plan (1) SVT (supraventricular tachycardia): Status: Acute (2) Non-ST elevation [place] (NSTEMI): Status: Acute Assessment and Plan: This is a 75-year-old female with history of hypertension who presents emergency department with chest pain found to have SVT and NSTEMI NSTEMI Thought to be secondary to demand from SVT Echocardiogram was showing preserved ejection fraction Continue anticoagulation with heparin x 48 hours Continue aspirin started on beta-femi, statin cardiology following, will need ischemic outpatient workup SVT no further episodes s/p adenosine in ED Seen by cardiology, will consider outpatient ablation Continue metoprolol Diabetes glipizide, Metformin on hold Continue SSI, POCs Hyperkalemia Resolved. Hypertension BP above goal Continue lisinopril, metoprolol Monitor blood pressure closely DVT prophylaxis-heparin Attending physician-Dr. Nielson Quality Stroke Does the patient have a stroke diagnosis?: No VTE Prior VTE?: No VTE Risk Level:: Medical - moderate - high VTE Device Contraindication: Treatment Not Indicated VTE Drug Contraindication: N/A - Med Ordered
[2021-01-02 11:26] LABS: Glucose, Whole Blood 311 mg/dL (60-115)
[2021-01-02] MEDS: lisinopriL 20 MG TABLET PO (11:37)
--- NOTE | 2021-01-02 12:11 | P.PNCA_ITS ---
Subjective Subjective Date of Service: 01/02/21 Principal diagnosis: NSTEMI, SVT Interval history: Patient having no chest pain. Overnight has remained in sinus rhythm. Heparin continued. Troponin has downtrended. Review of Systems Constitutional: Reports no additional constitutional complaints Cardiovascular: Reports no additional cardiovascular complaints Respiratory: Reports no additional respiratory complaints Gastrointestinal: Reports no additional gastrointestinal complaints Genitourinary: Reports no additional female genitourinary complaints Skin/Breast: Reports system reviewed and no additional complaints, except as docu Reports system reviewed and no additional complaints, except as documented Physical Exam Vital Signs: Last Vital Signs Temp 97.5 F 01/02/21 11:21 Pulse 74 01/02/21 11:39 Resp 18 01/02/21 11:21 BP 130/59 L 01/02/21 11:39 Pulse Ox 95 01/02/21 11:21 Body Mass Index 26.9 Neck Neck: Yes trachea midline, Yes supple and Yes no JVD Resp Effort & Inspection: normal respiratory effort Auscultation: clear to auscultation bilaterally Cardio Jugular venous distension: no JVD Palpation: normal PMI Rate: regular rate Rhythm: regular rhythm Heart sounds: S1 normal heart sound present, S2 normal heart sound present, no click, no gallops and no murmurs Skin General skin exam: no rashes or lesions noted Extrem General: Yes no clubbing, cyanosis or edema Results Labs and Meds Result diagrams: 01/02/21 06:07 01/02/21 06:07 Lab results: Laboratory Results - last 24 hr 01/01/21 01/01/21 01/01/21 11:57 12:21 13:41 WBC RBC Hgb Hct MCV MCH MCHC RDW Plt Count MPV Absolute Nucleated RBC Nucleated RBC % (auto) PTT (Heparin Protocol) > 200.0 H* D Sodium Potassium Chloride Carbon Dioxide Anion Gap BUN Creatinine Estim Creat Clear Calc Estimated GFR POC Glucose 208 H Random Glucose Calcium Troponin I High Sens 354.3 H* D 01/01/21 01/01/21 01/01/21 15:21 16:36 20:33 WBC RBC Hgb Hct MCV MCH MCHC RDW Plt Count MPV Absolute Nucleated RBC Nucleated RBC % (auto) PTT (Heparin Protocol) 68.2 D Sodium Potassium Chloride Carbon Dioxide Anion Gap BUN Creatinine Estim Creat Clear Calc Estimated GFR POC Glucose 234 H 339 H Random Glucose Calcium Troponin I High Sens 01/01/21 01/02/21 01/02/21 21:52 06:07 06:07 WBC 11.5 H RBC 4.20 Hgb 12.4 Hct 36.1 L MCV 86.0 MCH 29.5 MCHC 34.3 RDW 12.5 Plt Count 299 MPV 9.5 Absolute Nucleated RBC 0.000 Nucleated RBC % (auto) 0.0 PTT (Heparin Protocol) 65.8 67.7 Sodium Potassium Chloride Carbon Dioxide Anion Gap BUN Creatinine Estim Creat Clear Calc Estimated GFR POC Glucose Random Glucose Calcium Troponin I High Sens 01/02/21 01/02/21 01/02/21 06:07 07:35 11:22 WBC RBC Hgb Hct MCV MCH MCHC RDW Plt Count MPV Absolute Nucleated RBC Nucleated RBC % (auto) PTT (Heparin Protocol) Sodium 136 Potassium 4.8 Chloride 102 Carbon Dioxide 26 Anion Gap 13 BUN 18 H Creatinine 1.10 Estim Creat Clear Calc 37.8 Estimated GFR 49 POC Glucose 281 H 311 H Random Glucose 283 H Calcium 9.4 Troponin I High Sens Progress Note: A&P Assessment and plan (1) SVT (supraventricular tachycardia): Status: Acute Assessment and Plan: Prolonged supraventricular tachycardia, suppressed currently with no recurrence. She has had no prior history. Started on metoprolol therapy appropriately. Avoidance of stimulants was discussed. Vagal maneuvers were discussed. Options including ablation were discussed with her, given that she is going to be medical therapy will pursue metoprolol therapy for now. Holter monitor as outpatient will be pursued. Management was discussed in details again. (2) Non-ST elevation [place] (NSTEMI): Status: Acute Assessment and Plan: Non ST-elevation myocardial infarction, secondary to prolonged SVT. Importance of seeking immediate care was discussed with her. As the MIs secondary to rapid ventricular response will pursue noninvasive testing as outpatient. Has high likelihood of underlying obstructive coronary artery disease. If she has high risk myocardial perfusion imaging require cardiac catheterization. This was discussed in details. Continue low-dose aspirin therapy, metoprolol, high- intensity statin therapy. Continue heparin for total of 48 hours. Post 48 hours if she remains asymptomatic ambulate her and if she has no significant chest pain can be discharged later today or tomorrow morning. Will sign of the case. Thank you for allowing me to partake in the care Fall Risk Details Current Medications: Current Medications Acetaminophen (Acetaminophen 325 Mg Tablet) 650 mg PO Q6H PRN PRN Reason: Pain, Mild (Pain Scale 1-3) Aspirin (Aspirin 81 Mg Tab.Chew) 81 mg PO DAILY [facility] Last Admin: 01/02/21 08:42 Dose: 81 mg Documented by: Atorvastatin Calcium (Atorvastatin Calcium 80 Mg Tablet) 80 mg PO BEDTIME [facility] Last Admin: 01/01/21 21:09 Dose: 80 mg Documented by: Heparin Sodium (Porcine) (Heparin Sodium,Porcine 5,000 Unit/Ml Vial) 2,500 unit 40 unit/kg (2500 unit) IVPUSH PROTOCOL BOLUS PRN; Protocol PRN Reason: 40 unit/kg - Heparin Protocol Heparin Sodium (Porcine) (Heparin Sodium,Porcine 5,000 Unit/Ml Vial) 5,100 unit 80 unit/kg (5100 unit) IVPUSH PROTOCOL BOLUS PRN; Protocol PRN Reason: 80 unit/kg - Heparin Protocol Last Admin: 01/01/21 09:44 Dose: 5,100 unit Documented by: Heparin Sodium/Sodium Chloride () 25,000 unit in 250 mls @ 0 mls/hr IVCONT .Q0M [facility]; Protocol Stop: 01/02/21 15:59 Last Admin: 01/02/21 05:56 Dose: 12 units/kg/hr, 7.6 mls/hr Documented by: Insulin Human Lispro (Insulin Lispro 100 Unit/Ml 3 Ml Vial) 0 unit SUBCUT QIDACHS [facility]; Protocol Last Admin: 01/02/21 11:36 Dose: 8 unit Documented by: Lisinopril (Lisinopril 20 Mg Tablet) 20 mg PO DAILY [facility]; Protocol Last Admin: 01/02/21 11:37 Dose: 20 mg Documented by: Melatonin (Melatonin 3 Mg Tablet) 6 mg PO BEDTIME PRN PRN Reason: Insomnia Metoprolol Tartrate (Metoprolol Tartrate 25 Mg Tablet) 25 mg PO Q6H [facility]; Protocol Last Admin: 01/02/21 11:39 Dose: 25 mg Documented by: Omeprazole (Omeprazole 20 Mg Capsule.) 20 mg PO DAILY@0630 [facility] Last Admin: 01/02/21 05:45 Dose: 20 mg Documented by: Ondansetron HCl (Ondansetron Hcl 4 Mg/2 Ml Vial) 4 mg IVPUSH Q8H PRN PRN Reason: Nausea and Vomiting Pharmacy Consult (Consult Rx Perform Med Rec) 1 each MISCELLANE ONCE PRN PRN Reason: Consult order Sitagliptin Phosphate (Sitagliptin Phosphate 100 Mg Tablet) 100 mg PO DAILY [facility] Last Admin: 01/02/21 08:42 Dose: 100 mg Documented by: Sodium Chloride (0.9 % Sodium Chloride Flush 3 Ml Syringe) 3 ml IVFLUSH QSHIFT [facility] Last Admin: 01/02/21 08:42 Dose: 3 ml Documented by: Vitamin D (Cholecalciferol (Vitamin D3) 25 Mcg Tablet) 25 mcg PO DAILY [facility] Last Admin: 01/02/21 08:42 Dose: 25 mcg Documented by: Time Spent With Patient Time: Total time spent is greater than 50% in coordination of care (as documented) at patient's floor/unit and/or counseling patient: Time with patient: 25 - 35 minutes Progress Note: Quality Stroke Does the patient have a stroke diagnosis?: No Procedures Date of Service Date of Service: 01/02/21
[2021-01-02 16:18] LABS: Glucose, Whole Blood 238 mg/dL (60-115)
[2021-01-02 20:19] LABS: Glucose, Whole Blood 284 mg/dL (60-115)
[2021-01-02] MEDS: Atorvastatin Calcium 80 MG TABLET PO (20:37)
[2021-01-03] VITALS (8 sets, daily range): BP systolic 111–148; BP diastolic 58–69; PULSE 60–71; RESP 18; TEMP 36.4–36.8; O2SAT 95–97; BMI 28.0
[2021-01-03] MEDS: Omeprazole 20 MG CAPSULE.DR PO (05:50)
[2021-01-03] MEDS: Metoprolol Tartrate 25 MG TABLET PO ×2 (05:50→12:07)
[2021-01-03 07:38] LABS: Glucose, Whole Blood 271 mg/dL (60-115)
[2021-01-03 07:41] LABS: PTT Heparin Drip 30.5 SEC (53-77.9)
[2021-01-03] MEDS: Insulin Lispro 100 UNIT/ML 3 ML VIAL SUBCUT ×2 (08:16→12:06)
[2021-01-03] MEDS: Aspirin 81 MG TAB.CHEW PO (08:17)
[2021-01-03] MEDS: Cholecalciferol (Vitamin D3) 25 MCG TABLET PO (08:17)
[2021-01-03] MEDS: SITagliptin Phosphate 100 MG TABLET PO (08:17)
[2021-01-03] MEDS: 0.9 % Sodium Chloride Flush 3 ML SYRINGE IVFLUSH (08:17)
[2021-01-03] MEDS: lisinopriL 20 MG TABLET PO (08:17)
--- NOTE | 2021-01-03 10:08 | PM.DS ---
DS: Providers Provider Date of Service: 01/03/21 Date of admission: 12/31/20 16:56 Primary care physician: Rory Sandhu MD Consults: 01/01/21 09:17 Consult to Cardiology Routine Consulting Provider: Jeanmarie Lynn Reason for consultation: nstemi Has provider been notified: No Attending physician on discharge: Maximiliano Courtney Discharging clinician: Annette Severino DS: Diagnosis Discharge Diagnosis (1) Non-ST elevation [place] (NSTEMI): Status: Acute (2) SVT (supraventricular tachycardia): Status: Acute DS: Summary Hospital Course Hospital Course: From H&P at time of admission 75-year-old female presents the emergency room after developing chest pain while walking.? She states she developed mid chest pain during her daily walk of 2 miles; she states it was a squeezing pain that did not go to her arm or her jaw.? She soft walking thinking it was reflux.? She restarted walking but the chest pain came back again this time worse.? She states she tried to walk again but had to sit down on the ground.? Stated a friend came by was a nurse and took her to the emergency room.? In the emergency room she was found to be in SVT which demonstrated some ischemic changes; responded to adenosine.? Initial troponin 14 but now has risen to the 400s.? Case was discussed with Cardiology (Dr. Lynn) who recommended heparin drip serial troponins echo and he will see in a.m..? When examined she was pain free SVT/NSTEMI. In the emergency department she was noted to be in SVT. She received a dose of adenosine with good response. She had CTA which showed no evidence of pulmonary embolism. Her initial highly sensitive troponin was 14.9 but subsequently increased and peaked at 725. She was admitted to telemetry floor and started on heparin drip. She was evaluated by a junior software engineer. She underwent echocardiogram which showed normal LVEF of 60-65% and impaired relaxation filling pattern. She was started on beta-femi and high-intensity statin. She had no further episodes of SVT. She completed 48 hours of anticoagulation with heparin. She has been chest pain-free since admission. She is stable for discharge home with plans for close cardiac follow-up. She should call to schedule a follow-up appointment in the Cardiology office for possible Holter monitor and outpatient stress test. Time Spent with Patient Time attestation: Total time spent providing and/or coordinating discharge services: Discharge coordination time: Greater than 30 minutes Quality: Stroke Does the patient have a stroke diagnosis?: No Physical Exam Vital Signs: Vital Signs: Last Vital Signs Temp 97.7 F 01/03/21 08:00 Pulse 68 01/03/21 08:17 Resp 18 01/03/21 08:00 BP 113/58 L 01/03/21 08:17 Pulse Ox 96 01/03/21 08:00 Body Mass Index 28.0 Const: General: healthy appearing, comfortable, no acute distress, alert and awake Nutritional Appearance: well nourished Orientation/consciousness: patient oriented x3 HENMT: Head: Yes normocephalic and Yes atraumatic Eyes: Sclerae: sclerae normal Resp: Effort & Inspection: normal respiratory effort and no respiratory distress Cardio: Rate: regular rate Rhythm: regular rhythm GI: Palpation (GI): Soft to palpation and nontender Neuro: General: patient oriented x3 Cranial nerves: Yes CN's II-XII intact bilaterally and Yes Bilaterally intact EOM present Extrem: Other: no leg edema DS: Data Data Completed and Pending Labs on day of discharge: Laboratory Results - last 24 hr 01/02/21 01/02/21 01/02/21 11:22 16:09 20:10 PTT (Heparin Protocol) POC Glucose 311 H 238 H 284 H 01/03/21 01/03/21 07:16 07:34 PTT (Heparin Protocol) 30.5 L D POC Glucose 271 H Discharge Plan Discharge Patient Disposition: Home, Self-Care Discharge Diagnosis: SVT NSTEMI Chest pain Referrals: Rory Sandhu MD [Primary Care Provider] - 1 Week Jeanmarie Lynn MD [Physician] - 1 Week Discharge Medications: New metoprolol tartrate 50 mg tablet 50 mg PO BID 30 Days Qty: 60 RF: 0 atorvastatin [Lipitor] 80 mg tablet 80 mg PO BEDTIME 30 Days Qty: 30 RF: 0 Continued lisinopril 20 mg tablet 20 mg PO DAILY RF: 0 glipizide 10 mg tablet 10 mg PO QAM RF: 0 omeprazole 20 mg capsule,delayed release(DR/EC) 20 mg PO DAILY RF: 0 metformin 500 mg tablet extended release 24 hr 1,000 mg PO BID RF: 0 ferrous sulfate 325 mg (65 mg iron) Tablet 325 mg PO DAILY RF: 0 aspirin 81 mg Tablet,Chewable 81 mg PO DAILY RF: 0 cholecalciferol (vitamin D3) [Vitamin D3] 25 mcg (1,000 unit) Capsule 25 mcg PO DAILY RF: 0 Januvia 100 mg tablet 1 tab PO DAILY RF: 0 Discontinued ibuprofen 800 mg tablet 800 mg PO TID PRN (Reason: Pain) RF: 0 Discharge Orders: Discharge Order (Routine); Ordered 01/03/21 Ordered By: Annette Severino Activity on Discharge: As tolerated Stand Alone Forms: Patient Portal Discharge page Care Plan Goals: Stay healthy and out of the hospital Health Concerns: SVT NSTEMI Plan of Treatment: You have been started on new medications for your heart, please take as prescribed. Please call to schedule follow up appointment with the junior software engineer office for further work up including possible Holter monitor and stress test Assessment: Admit for NSTEMI/SVT stable for discharge
--- NOTE | 2021-01-03 10:54 | MHC.CM.PN ---
PT CLEARED TO DC HOME TODAY WITH NO SERVICES FAMILY TO TRANSPORT
[2021-01-03 11:47] LABS: Glucose, Whole Blood 328 mg/dL (60-115)
--- NOTE | 2021-01-03 13:47 | PM.PNCARD ---
Subjective Subjective Date of Service: 01/03/21 Principal diagnosis: NSTEMI, SVT Interval history: No chest pain. Ambulated though chand without any issues Review of Systems Constitutional: Reports no additional constitutional complaints Cardiovascular: Reports no additional cardiovascular complaints Respiratory: Reports no additional respiratory complaints Gastrointestinal: Reports no additional gastrointestinal complaints Musculoskeletal: Reports no additional musculoskeletal complaints Skin/Breast: Reports system reviewed and no additional complaints, except as docu Psychiatric: Reports no additional psychiatric complaints Physical Exam Vital Signs: Last Vital Signs Temp 97.7 F 01/03/21 11:47 Pulse 71 01/03/21 12:07 Resp 18 01/03/21 11:47 BP 148/69 H 01/03/21 12:07 Pulse Ox 97 01/03/21 11:47 Body Mass Index 28.0 Const General: cooperative and comfortable Nutritional Appearance: overweight Orientation/consciousness: patient oriented x3 Neck Neck: Yes trachea midline, Yes supple and Yes no JVD Resp Effort & Inspection: normal respiratory effort Auscultation: clear to auscultation bilaterally Cardio Jugular venous distension: no JVD Palpation: normal PMI Rate: regular rate Rhythm: regular rhythm Heart sounds: S1 normal heart sound present, S2 normal heart sound present, no click, no gallops and no murmurs Skin General skin exam: no rashes or lesions noted Neuro General: patient oriented x3 Extrem General: Yes no clubbing, cyanosis or edema Psych Appearance: grossly normal Results Labs and Meds Result diagrams: 01/02/21 06:07 01/02/21 06:07 Lab results: Laboratory Results - last 24 hr 01/02/21 01/02/21 01/03/21 16:09 20:10 07:16 PTT (Heparin Protocol) 30.5 L D POC Glucose 238 H 284 H 01/03/21 01/03/21 07:34 11:41 PTT (Heparin Protocol) POC Glucose 271 H 328 H Progress Note: A&P Assessment and plan (1) SVT (supraventricular tachycardia): Status: Acute Assessment and Plan: Supraventricular tachycardia has not remained controlled on metoprolol therapy. Switch to 50 mg b.i.d. on discharge. Vagal maneuvers were discussed. Nicole is of SVT was discussed. If she has recurrent episodes will consider ablated therapy. (2) Non-ST elevation DC (NSTEMI): Status: Acute Assessment and Plan: NSTEMI secondary to prolonged SVT. No recurrent chest pain with ambulation. Continue metoprolol, aspirin, statins. Outpatient ischemic workup will be pursued. Will follow up in the clinic in 4 weeks time, sooner p.r.n.. Thank you for allowing me to partake in the care Fall Risk Details Current Medications: Current Medications Acetaminophen (Acetaminophen 325 Mg Tablet) 650 mg PO Q6H PRN PRN Reason: Pain, Mild (Pain Scale 1-3) Aspirin (Aspirin 81 Mg Tab.Chew) 81 mg PO DAILY [facility] Last Admin: 01/03/21 08:17 Dose: 81 mg Documented by: Atorvastatin Calcium (Atorvastatin Calcium 80 Mg Tablet) 80 mg PO BEDTIME [facility] Last Admin: 01/02/21 20:37 Dose: 80 mg Documented by: Heparin Sodium (Porcine) (Heparin Sodium,Porcine 5,000 Unit/Ml Vial) 2,500 unit 40 unit/kg (2500 unit) IVPUSH PROTOCOL BOLUS PRN; Protocol PRN Reason: 40 unit/kg - Heparin Protocol Heparin Sodium (Porcine) (Heparin Sodium,Porcine 5,000 Unit/Ml Vial) 5,100 unit 80 unit/kg (5100 unit) IVPUSH PROTOCOL BOLUS PRN; Protocol PRN Reason: 80 unit/kg - Heparin Protocol Last Admin: 01/01/21 09:44 Dose: 5,100 unit Documented by: Insulin Human Lispro (Insulin Lispro 100 Unit/Ml 3 Ml Vial) 0 unit SUBCUT QIDACHS [facility]; Protocol Last Admin: 01/03/21 12:06 Dose: 8 unit Documented by: Lisinopril (Lisinopril 20 Mg Tablet) 20 mg PO DAILY [facility]; Protocol Last Admin: 01/03/21 08:17 Dose: 20 mg Documented by: Melatonin (Melatonin 3 Mg Tablet) 6 mg PO BEDTIME PRN PRN Reason: Insomnia Metoprolol Tartrate (Metoprolol Tartrate 25 Mg Tablet) 25 mg PO Q6H [facility]; Protocol Last Admin: 01/03/21 12:07 Dose: 25 mg Documented by: Omeprazole (Omeprazole 20 Mg Capsule.) 20 mg PO DAILY@0630 [facility] [place] Last Admin: 01/03/21 05:50 Dose: 20 mg Documented by: Ondansetron HCl (Ondansetron Hcl 4 Mg/2 Ml Vial) 4 mg IVPUSH Q8H PRN PRN Reason: Nausea and Vomiting Pharmacy Consult (Consult Rx Perform Med Rec) 1 each MISCELLANE ONCE PRN PRN Reason: Consult order Sitagliptin Phosphate (Sitagliptin Phosphate 100 Mg Tablet) 100 mg PO DAILY [facility] [place] Last Admin: 01/03/21 08:17 Dose: 100 mg Documented by: Sodium Chloride (0.9 % Sodium Chloride Flush 3 Ml Syringe) 3 ml IVFLUSH QSHIFT [facility] [place] Last Admin: 01/03/21 08:17 Dose: 3 ml Documented by: Vitamin D (Cholecalciferol (Vitamin D3) 25 Mcg Tablet) 25 mcg PO DAILY [facility] [place] Last Admin: 01/03/21 08:17 Dose: 25 mcg Documented by: Time Spent With Patient Time: Total time spent is greater than 50% in coordination of care (as documented) at patient's floor/unit and/or counseling patient: Time with patient: 15 - 24 minutes Progress Note: Quality Stroke Does the patient have a stroke diagnosis?: No Procedures Date of Service Date of Service: 01/03/21
== END 2021-01-03 15:35 | disposition home or self-care (01) | DRG 281 ==
LOC: HO.ED 16:01 → HO.EDOVER 17:30 → HO.IMC 01-01 17:56
PROVIDERS: Admitting Provider Hospitalist; Emergency Provider Emergency Medicine; PCP Internal Medicine; Visit Provider Physician Assistant Medical
DX: I21.4 Non-ST elevation (NSTEMI) myocardial infarction (principal); I47.1 Supraventricular tachycardia; E11.9 Type 2 diabetes mellitus without complications; I10 Essential (primary) hypertension; E87.5 Hyperkalemia; Z20.822 Contact with and (suspected) exposure to COVID-19; Z88.5 Allergy status to narcotic agent; Z79.82 Long term (current) use of aspirin; Z79.84 Long term (current) use of oral hypoglycemic drugs; Z79.899 Other long term (current) drug therapy
CPT/HCPCS: 36415; 71045; 71275; 80048; 80076; 82947; 83690; 83735; 83880; 84443; 84484; 85025; 85027; 85610; 85730; 87635; 93005; 93306; 99285; J0153; J3475; Q9967

== ENCOUNTER 2021-01-07 11:05 | Outpatient (REF) | payer MEDICARE, SELFPAY | END 2021-01-07 11:06 | disposition home or self-care (01) | LOC: HO.LAB 11:05 | PROVIDERS: PCP Internal Medicine; Visit Provider Internal Medicine | DX: Z20.822 Contact with and (suspected) exposure to COVID-19 (principal) | CPT/HCPCS: C9803; U0003; U0005 ==

== ENCOUNTER → 2021-02-10 12:52 | Outpatient (BNVA) | payer MEDICARE, SELFPAY | PROVIDERS: PCP Internal Medicine; Visit Provider Registered Nurse Diabetes Educator ==

== ENCOUNTER → 2021-02-24 10:04 | Outpatient (BNVA) | payer MEDICARE, SELFPAY | PROVIDERS: PCP Internal Medicine; Visit Provider Registered Nurse Diabetes Educator | DX: E11.9 Type 2 diabetes mellitus without complications (principal) | CPT/HCPCS: 99211 ==

== ENCOUNTER → 2021-03-24 10:00 | Outpatient (BNVA) | payer MEDICARE, SELFPAY | PROVIDERS: PCP Internal Medicine; Visit Provider Registered Nurse Diabetes Educator | DX: E11.9 Type 2 diabetes mellitus without complications (principal) | CPT/HCPCS: 99211 ==

== ENCOUNTER 2021-04-15 08:24 | Outpatient (REF) | payer MEDICARE, SELFPAY ==
--- NOTE | ~2021-04-15 | XR_ITS ---
EXAMINATION: XR HAND, RIGHT CLINICAL INFORMATION: Right hand pain. COMPARISON: None TECHNIQUE: PA, lateral, and oblique views of the right hand. FINDINGS: The bony alignments are intact. The cortices are intact. Multilevel subchondral sclerosis, osteophyte formations, decreased joint space, consistent with osteoarthrosis related changes are noted with most pronounced changes seen at the PIP and DIP joints and to a lesser extent MCP joints including the first carpometacarpal and radiocarpal joints. XR/XR hand RT min 3V IMPRESSION: Multilevel moderate osteoarthrosis.
== END 2021-04-15 08:25 | disposition home or self-care (01) ==
LOC: HO.HOSX 08:24
PROVIDERS: Visit Provider Orthopaedic Surgery
DX: M25.741 Osteophyte, right hand (principal)
CPT/HCPCS: 73130; 99202

== ENCOUNTER → 2021-04-24 10:47 | Outpatient (BNVA) | payer MEDICARE, SELFPAY | PROVIDERS: PCP Internal Medicine; Visit Provider Registered Nurse Diabetes Educator | DX: E11.9 Type 2 diabetes mellitus without complications (principal); Z71.89 Other specified counseling | CPT/HCPCS: 99211 ==

== ENCOUNTER → 2021-05-14 11:23 | Outpatient (BNVA) | payer MEDICARE, SELFPAY | PROVIDERS: PCP Internal Medicine; Visit Provider Registered Nurse Diabetes Educator | DX: E11.9 Type 2 diabetes mellitus without complications (principal); Z79.84 Long term (current) use of oral hypoglycemic drugs; Z71.89 Other specified counseling; Z79.4 Long term (current) use of insulin | CPT/HCPCS: 99211 ==

== ENCOUNTER → 2021-06-12 10:50 | Outpatient (BNVA) | payer MEDICARE, SELFPAY | PROVIDERS: PCP Internal Medicine; Visit Provider Registered Nurse Diabetes Educator | DX: E11.9 Type 2 diabetes mellitus without complications (principal) | CPT/HCPCS: 99211 ==

== ENCOUNTER → 2021-07-24 10:14 | Outpatient (BNVA) | payer MEDICARE, SELFPAY | PROVIDERS: PCP Internal Medicine; Visit Provider Registered Nurse Diabetes Educator | DX: E11.9 Type 2 diabetes mellitus without complications (principal); Z79.84 Long term (current) use of oral hypoglycemic drugs | CPT/HCPCS: 99211 ==

== ENCOUNTER 2021-08-21 10:18 | Outpatient (REF) | payer MEDICARE, SELFPAY ==
[2021-08-21 10:52] LABS: COVID-19 Test Negative (Negative)
== END 2021-08-21 10:19 | disposition home or self-care (01) ==
LOC: HO.LAB 10:18
PROVIDERS: Visit Provider Internal Medicine
DX: Z20.822 Contact with and (suspected) exposure to COVID-19 (principal)
CPT/HCPCS: 87635; C9803

== ENCOUNTER 2021-08-24 14:31 | Outpatient (REF) | payer MEDICARE, SELFPAY ==
--- NOTE | ~2021-08-24 | XR_ITS ---
EXAMINATION: XR CHEST CLINICAL INFORMATION: Pneumonia. COMPARISON: Chest x-ray and CTA chest 12/31/2020 TECHNIQUE: 2 views of the chest were obtained. FINDINGS: The lungs are fairly well-expanded and clear of acute pneumonic process. Heart size is normal. Prominent pulmonary vascularity seen without congestion. There are scattered calcified or hypodense 4 mm nodules in the left upper lobe. These nodules were visualized on the previous study, and may be larger. There were visualized on previous CT chest 12/31/2020. No gross bony abnormality seen. XR/XR chest 2V IMPRESSION: No acute cardiopulmonary process seen. 2 calcified nodules left upper lobe are stable compared to CT chest 12/31/2020.
== END 2021-08-24 14:32 | disposition home or self-care (01) ==
LOC: HO.XRAY 14:31
PROVIDERS: PCP Internal Medicine; Visit Provider Internal Medicine
DX: J18.9 Pneumonia, unspecified organism (principal)
CPT/HCPCS: 71046

== ENCOUNTER 2021-09-02 08:59 | Outpatient (REF) | payer MEDICARE, SELFPAY ==
--- NOTE | ~2021-09-02 | CT_ITS ---
EXAMINATION: CT CHEST WITHOUT CONTRAST CLINICAL INFORMATION: Solitary pulmonary nodularity. COMPARISON: 12/30/2020 TECHNIQUE: Multidetector volumetric CT imaging of the chest was done. Axial MIP volume rendering provided. Sagittal and coronal reformatted images were obtained. This CT examination was performed using dose optimization techniques as appropriate, variously including the following: *Automated exposure control *Adjustment of mA and/or kV according to patient size (this includes techniques or standardized protocols for targeted exams where dose is matched to indication/reason for exam; i.e. extremities or head) *Use of iterative reconstruction technique DLP: 106 mGy-cm FINDINGS: The thoracic inlet is unremarkable. The axillary region is similar to previous. Some mildly prominent nodes. No pathologic enlargement. Partially visualized upper abdominal structures show abnormal contour to the liver, most consistent with cirrhosis. The liver is incompletely visualized. Centrally, some mildly prominent nodes in the mediastinum are felt to be mildly increasing from previous. No pathologic enlargement. The hilar regions are comparable to previous. Imaging of the lung ruffin. Right Lung: Once again, there is evidence for COPD. Apical scarring is noted. There are increasing patchy airspace opacities at the right base. Findings suggest infiltrate. Left Lung: Again apical scarring is present. Granulomatous change in left upper lung is unchanged from previous. Once again, some ground-glass change at the left base may represent small airways disease or dependent atelectasis, similar to previous. Similar appearance in the lingula. Otherwise, some small scattered areas of lung nodularity are stable from previous. No new area of concern. Review of the bone windows does not demonstrate evidence for a bony lesion. CT/CT chest wo con IMPRESSION: This exam is most remarkable for patchy opacities in the right lower lung consistent with an acute infiltrate. There is some mildly increasing central adenopathy. This could be reactive. Attention to followup. Some small scattered areas of lung nodularity are felt to be stable, and granulomatous change is seen. Otherwise, some bronchial thickening throughout without convincing evidence of bronchiectasis. Some chronic changes at the left lung base and lingula are noted with residual ground-glass change on the left. Again, attention to followup. This could represent small airways changes. Fleischner guidelines were followed.
== END 2021-09-02 09:00 | disposition home or self-care (01) ==
LOC: HO.CT 08:59
PROVIDERS: Visit Provider Internal Medicine
DX: R91.1 Solitary pulmonary nodule (principal)
CPT/HCPCS: 71250

== ENCOUNTER 2021-09-18 10:34 | Outpatient (REF) | payer MEDICARE, SELFPAY ==
[2021-09-18 10:38] LABS: MANUAL DIFF FLAG NO
[2021-09-18 11:05] LABS: Basophils Percent Auto 0.4 % (0-2); Eosinophils Absolute Auto 0.3 X10*3/uL (0.0-0.4); Eosinophils Percent Auto 3.6 % (0-4); Hematocrit 32.4 % (37.0-47.0); Hemoglobin 10.8 g/dl (12.0-16.0); Imm Gran Abs Auto 0.01 X10*3/uL (0.00-0.03); Imm Gran Pct Auto 0.1 % (0.0-0.4); Lymphocytes Absolute Auto 2.9 X10*3/uL (1.2-4.9); Lymphocytes Percent Auto 35.8 % (20-40); Mean Corpuscular HGB Conc 33.3 g/dl (31.0-35.0); Mean Corpuscular Hemoglobin 28.8 pg (27.0-33.0); Mean Corpuscular Volume 86.4 fL (80.0-98.0); Monocytes Absolute Auto 0.7 X10*3/uL (0.1-1.2); Monocytes Percent Auto 8.5 % (2-11); Neutrophils Absolute Auto 4.2 x10*3/uL (2.0-8.3); Neutrophils Percent Auto 51.6 % (45-73); Platelet Count 310 X10*3/uL (160-400); Red Blood Count 3.75 X10*6/uL (4.20-5.50); Red Cell Distribution Width 13.7 % (11.0-16.0); White Blood Count 8.2 X10*3/uL (4.8-10.8)
[2021-09-18 11:10] LABS: Estimated Average Glucose 189 mg/dL; Hemoglobin A1c % 8.2 %
[2021-09-18 11:17] LABS: Alanine Aminotransferase 32 U/L (0-31); Albumin Level 3.7 g/dL (3.5-5.0); Alkaline Phosphatase 129 U/L (39-117); Anion Gap 15 (12-20); Aspartate Amino Transferase 49 U/L (5-31); Blood Urea Nitrogen 19 mg/dL (9-16); Carbon Dioxide 26 mmol/L (22-29); Chloride 104 mmol/L (96-108); Cholesterol 106 mg/dL; Estimated Glomerular Filt Rate > 60; Glucose Fasting 225 mg/dL (60-99); HDL Cholesterol 49 mg/dL; Iron 57 mcg/dL (30-160); LDL Cholesterol Calculated 34 mg/dl; Percent Iron Saturation 13 % (15-50); Potassium 4.2 mmol/L (3.3-5.1); Sodium 141 mmol/L (135-145); Total Iron Binding Capacity 424 mcg/dL (228-428); Triglycerides 115 mg/dL; Unsaturated Iron Binding 367 ug/dL
[2021-09-18 11:37] LABS: Vitamin D 25-OH Total 45.6 ng/mL (>30)
== END 2021-09-18 10:35 | disposition home or self-care (01) ==
LOC: HO.LNP 10:34
PROVIDERS: Visit Provider Internal Medicine
DX: Z13.89 Encounter for screening for other disorder (principal)
CPT/HCPCS: 80053; 80061; 82306; 83036; 83540; 85025

== ENCOUNTER 2021-09-24 15:48 | Outpatient (REF) | payer MEDICARE, SELFPAY ==
[2021-09-24 16:04] LABS: Appearance Urine CLEAR; Color Urine YELLOW; Glucose Urine UA 500 MG/DL (NEG); Leukocyte Esterase Urine NEG (NEG); Nitrite Urine NEG (NEG); PH 5.5 (5.0-8.0); Urine Blood NEG (NEG); Urine Ketones 5 MG/DL (NEG); Urine Protein NEG (NEG-TRACE)
[2021-09-24 16:10] LABS: RBC Urine 0 /HPF (0); WBC Urine 0 /HPF (0-4)
[2021-09-24 16:11] LABS: Bacteria Urine TRACE /LPF; Mucus Urine 1+ /LPF; Squamous Epithelial Cell Urine 1+ /LPF
[2021-09-24 16:34] LABS: Creatinine Urine 98.12 mg/dL; Microalbum/Creatinine Ratio Ur 16.3 ug/mg cr
== END 2021-09-24 15:49 | disposition home or self-care (01) ==
LOC: HO.LNP 15:48
PROVIDERS: Visit Provider Internal Medicine
DX: E11.9 Type 2 diabetes mellitus without complications (principal)
CPT/HCPCS: 81001; 82043

== ENCOUNTER → 2021-10-14 09:57 | Outpatient (BNVA) | payer MEDICARE, SELFPAY | PROVIDERS: PCP Internal Medicine; Visit Provider Registered Nurse Diabetes Educator | DX: E11.9 Type 2 diabetes mellitus without complications (principal) | CPT/HCPCS: 99211 ==

== ENCOUNTER 2021-11-05 09:24 | Outpatient (REF) | payer MEDICARE, SELFPAY ==
--- NOTE | ~2021-11-05 | MM_ITS ---
EXAMINATION: MM SCREENING DIGITAL BREAST TOMOSYNTHESIS, BILATERAL CLINICAL INFORMATION: Screening. Asymptomatic. The lifetime risk of breast cancer based on the Tyrer-Cuzick Model is 2%. COMPARISON: Mammography: 11/04/2020, 11/02/2019, 07/07/2018 TECHNIQUE: Digital breast tomosynthesis is performed in both the craniocaudal and mediolateral oblique views along with computer-aided detection (CAD). Synthesized 2D images are generated from the tomosynthesis. FINDINGS: There are scattered areas of fibroglandular density (ACR BI-RADS breast composition Category b). There are no significant masses, abnormal calcifications, or other abnormalities. Parenchymal pattern is similar to prior studies. The axilla and skin contours are unremarkable. MM/MM tomosynthesis screening BI IMPRESSION: No mammographic evidence of malignancy. ASSESSMENT: BI-RADS 1: Negative RECOMMENDATION: Routine annual mammography screening. This patient's information was entered into a reminder system with a target due date for their next mammogram.
== END 2021-11-05 09:25 | disposition home or self-care (01) ==
LOC: HO.MAMMO 09:24
PROVIDERS: PCP Internal Medicine; Visit Provider Internal Medicine
DX: Z12.31 Encounter for screening mammogram for malignant neoplasm of breast (principal)
CPT/HCPCS: 77063; 77067

== ENCOUNTER 2021-11-16 08:20 | Outpatient (REF) | payer MEDICARE, SELFPAY ==
--- NOTE | ~2021-11-16 | US_ITS ---
EXAMINATION: US COMPLETE ABDOMEN CLINICAL INFORMATION: Elevated liver function tests. COMPARISON: Previous exam most recent March 2018. TECHNIQUE: Real-time imaging of the abdominal viscera. FINDINGS: PANCREAS: Normal. ABDOMINAL AORTA: The proximal, middle, and distal aortic segments are normal in caliber. INFERIOR VENA CAVA: Visualized portions are normal. LIVER: Liver echotexture is slightly increased. The liver demonstrates normal size and contour. No focal lesion or intrahepatic biliary duct dilatation. GALLBLADDER: Surgically removed. COMMON BILE DUCT: Normal in caliber measuring 0.4 cm in diameter. RIGHT KIDNEY: Normal. No hydronephrosis. No renal calculi or focal parenchymal lesions. The kidney measures 9.6 cm in maximum dimension. LEFT KIDNEY: Normal. No hydronephrosis. No renal calculi or focal parenchymal lesions. The kidney measures 10 cm in maximum dimension. SPLEEN: Normal. The spleen measures 9.6 cm in maximum dimension. FREE FLUID: None. US/US abdomen complete IMPRESSION: Slightly echogenic liver.
== END 2021-11-16 08:21 | disposition home or self-care (01) ==
LOC: HO.US 08:20
PROVIDERS: PCP Internal Medicine; Visit Provider Internal Medicine
DX: R79.89 Other specified abnormal findings of blood chemistry (principal)
CPT/HCPCS: 76700; 76705; 76981

== ENCOUNTER → 2022-01-13 09:21 | Outpatient (BNVA) | payer MEDICARE, SELFPAY | PROVIDERS: PCP Internal Medicine; Visit Provider Registered Nurse Diabetes Educator | DX: E11.9 Type 2 diabetes mellitus without complications (principal) | CPT/HCPCS: 99211 ==

== ENCOUNTER 2022-02-09 14:18 | Outpatient (REF) | payer MEDICARE, SELFPAY ==
[2022-02-09 15:02] LABS: COVID-19 Test Negative (Negative); IDNOW Serial# 16C4AD1C
== END 2022-02-09 14:19 | disposition home or self-care (01) ==
LOC: HO.LAB 14:18
PROVIDERS: Visit Provider Internal Medicine
DX: Z20.822 Contact with and (suspected) exposure to COVID-19 (principal)
CPT/HCPCS: 87635; C9803

== ENCOUNTER 2022-09-10 14:00 | Outpatient (REF) | payer MEDICARE, SELFPAY ==
[2022-09-10 14:16] LABS: MANUAL DIFF FLAG NO
[2022-09-10 14:26] LABS: Basophils Percent Auto 0.3 % (0-2); Eosinophils Absolute Auto 0.3 X10*3/uL (0.0-0.4); Eosinophils Percent Auto 3.1 % (0-4); Hematocrit 29.8 % (37.0-47.0); Hemoglobin 9.7 g/dl (12.0-16.0); Imm Gran Abs Auto 0.02 X10*3/uL (0.00-0.03); Imm Gran Pct Auto 0.2 % (0.0-0.4); Lymphocytes Absolute Auto 2.7 X10*3/uL (1.2-4.9); Lymphocytes Percent Auto 25.4 % (20-40); Mean Corpuscular HGB Conc 32.6 g/dl (31.0-35.0); Mean Corpuscular Hemoglobin 28.9 pg (27.0-33.0); Mean Corpuscular Volume 88.7 fL (80.0-98.0); Mean Platelet Volume 9.1 fL (9.4-12.3); Monocytes Absolute Auto 0.8 X10*3/uL (0.1-1.2); Monocytes Percent Auto 7.9 % (2-11); Neutrophils Absolute Auto 6.7 x10*3/uL (2.0-8.3); Neutrophils Percent Auto 63.1 % (45-73); Platelet Count 254 X10*3/uL (160-400); Red Blood Count 3.36 X10*6/uL (4.20-5.50); Red Cell Distribution Width 13.3 % (11.0-16.0); White Blood Count 10.6 X10*3/uL (4.8-10.8)
[2022-09-10 15:55] LABS: Erythrocyte Sedimentation Rate 29 MM/HR (0-20)
[2022-09-10 18:19] LABS: Alanine Aminotransferase 49 U/L (0-31); Albumin Level 3.6 g/dL (3.5-5.0); Alkaline Phosphatase 170 U/L (39-117); Anion Gap 11 (12-20); Aspartate Amino Transferase 61 U/L (5-31); Bilirubin Direct 0.4 mg/dL (0.0-0.5); Bilirubin Total 1.2 mg/dL (0.0-1.0); Blood Urea Nitrogen 17 mg/dL (9-16); C Reactive Protein < 0.10 mg/dL (< or = 0.50); Calcium 10.5 mg/dL (8.4-10.2); Carbon Dioxide 26 mmol/L (22-29); Chloride 107 mmol/L (96-108); Estimated Glomerular Filt Rate > 60; Glucose Random 162 mg/dL (60-115); Iron 68 mcg/dL (30-160); Percent Iron Saturation 19 % (15-50); Potassium 4.4 mmol/L (3.3-5.1); Sodium 140 mmol/L (135-145); Total Iron Binding Capacity 357 mcg/dL (228-428); Total Protein 6.8 g/dL (6.5-8.0); Unsaturated Iron Binding 289 ug/dL
[2022-09-10 18:39] LABS: Ferritin 21 ng/mL (10-250); Folate 17.5 ng/mL (> or = 4.0); T4 Thyroxine 8.8 ug/dL (4.5-12.0); Thyroid Stimulating Hormone 1.58 uIU/mL (0.32-4.0); Vitamin B12 247 pg/mL (200-900)
[2022-09-14 04:44] LABS: Immunoglobulin A 348 mg/dL (70-320)
[2022-09-15 08:29] LABS: Transglutaminase Ab IgG 2.3 U/mL; Transglutaminase IgA <1.0 U/mL
[2022-09-15 13:23] LABS: Gliadin Deamidated IgA Ab 1.1 U/mL; Gliadin Deamidated IgG Ab <1.0 U/mL
[2022-09-16 15:29] LABS: Endomysial IgA Antibody Negative (Negative)
== END 2022-09-10 14:01 | disposition home or self-care (01) ==
LOC: HO.LAB 14:00
PROVIDERS: PCP Internal Medicine; Referring Provider Internal Medicine; Visit Provider Internal Medicine
DX: R19.7 Diarrhea, unspecified (principal); R63.4 Abnormal weight loss; Z85.038 Personal history of other malignant neoplasm of large intestine
CPT/HCPCS: 36415; 80053; 82248; 82378; 82607; 82728; 82746; 82784; 83540; 84436; 84443; 85025; 85652; 86140; 86231; 86258; 86364

== ENCOUNTER 2022-09-17 15:57 | Outpatient (REF) | payer MEDICARE, SELFPAY | END 2022-09-17 15:58 | disposition home or self-care (01) | LOC: HO.LNP 15:57 | PROVIDERS: Visit Provider Internal Medicine | DX: Z13.89 Encounter for screening for other disorder (principal) ==

== ENCOUNTER 2022-09-23 11:02 | Outpatient (REF) | payer MEDICARE, SELFPAY ==
[2022-09-23 11:07] LABS: MANUAL DIFF FLAG NO
[2022-09-23 12:12] LABS: Basophils Absolute Auto 0.1 X10*3/uL (0.0-0.2); Basophils Percent Auto 0.6 % (0-2); Eosinophils Absolute Auto 0.5 X10*3/uL (0.0-0.4); Eosinophils Percent Auto 4.4 % (0-4); Hematocrit 30.2 % (37.0-47.0); Hemoglobin 10.1 g/dl (12.0-16.0); Imm Gran Abs Auto 0.03 X10*3/uL (0.00-0.03); Imm Gran Pct Auto 0.3 % (0.0-0.4); Lymphocytes Absolute Auto 3.1 X10*3/uL (1.2-4.9); Lymphocytes Percent Auto 28.6 % (20-40); Mean Corpuscular HGB Conc 33.4 g/dl (31.0-35.0); Mean Corpuscular Hemoglobin 29.2 pg (27.0-33.0); Mean Corpuscular Volume 87.3 fL (80.0-98.0); Mean Platelet Volume 10.4 fL (9.4-12.3); Monocytes Absolute Auto 0.8 X10*3/uL (0.1-1.2); Monocytes Percent Auto 7.2 % (2-11); Neutrophils Absolute Auto 6.4 x10*3/uL (2.0-8.3); Neutrophils Percent Auto 58.9 % (45-73); Platelet Count 281 X10*3/uL (160-400); Red Blood Count 3.46 X10*6/uL (4.20-5.50); Red Cell Distribution Width 13.8 % (11.0-16.0); White Blood Count 10.8 X10*3/uL (4.8-10.8)
[2022-09-23 12:14] LABS: Appearance Urine Clear; Color Urine Yellow; Glucose Urine UA Negative (Negative); Leukocyte Esterase Urine Trace (Negative); Nitrite Urine Negative (Negative); PH 5.5 (5.0-9.0); UMIC TRIGGER UACC YES; Urine Blood Negative (Negative); Urine Ketones Negative (Negative); Urine Protein Negative (Neg-Trace)
[2022-09-23 12:26] LABS: Bacteria Urine None Seen (None Seen); Calcium Oxalate Crystals Urine Present; Hyaline Casts Urine 0-2 /LPF (0-2); RBC Urine 0-2 /HPF (0-2); Squamous Epithelial Cell Urine 0-2 /HPF (0-2); WBC Urine 0-5 /HPF (0-5)
[2022-09-23 12:36] LABS: Alanine Aminotransferase 50 U/L (0-31); Albumin Level 3.5 g/dL (3.5-5.0); Alkaline Phosphatase 174 U/L (39-117); Anion Gap 13 (12-20); Aspartate Amino Transferase 61 U/L (5-31); Bilirubin Total 1.2 mg/dL (0.0-1.0); Blood Urea Nitrogen 19 mg/dL (9-16); Calcium 11.4 mg/dL (8.4-10.2); Carbon Dioxide 28 mmol/L (22-29); Chloride 105 mmol/L (96-108); Cholesterol 83 mg/dL; Estimated Glomerular Filt Rate > 60; Glucose Fasting 156 mg/dL (60-99); HDL Cholesterol 46 mg/dL; Iron 44 mcg/dL (30-160); LDL Cholesterol Calculated 23 mg/dl; Percent Iron Saturation 13 % (15-50); Potassium 4.9 mmol/L (3.3-5.1); Sodium 141 mmol/L (135-145); Total Iron Binding Capacity 332 mcg/dL (228-428); Total Protein 6.5 g/dL (6.5-8.0); Triglycerides 70 mg/dL; Unsaturated Iron Binding 288 ug/dL
[2022-09-23 12:46] LABS: Vitamin D 25-OH Total 56.6 ng/mL (>30)
[2022-09-23 12:57] LABS: Creatinine Urine 51.85 mg/dL; Microalbum/Creatinine Ratio Ur 11.5 ug/mg cr
== END 2022-09-23 11:03 | disposition home or self-care (01) ==
LOC: HO.LNP 11:02
PROVIDERS: Visit Provider Internal Medicine
DX: E11.9 Type 2 diabetes mellitus without complications (principal); D50.9 Iron deficiency anemia, unspecified; I10 Essential (primary) hypertension; E55.9 Vitamin D deficiency, unspecified; R79.89 Other specified abnormal findings of blood chemistry; E78.00 Pure hypercholesterolemia, unspecified
CPT/HCPCS: 80053; 80061; 81001; 82043; 82306; 83540; 85025

== ENCOUNTER 2022-09-24 09:36 | Outpatient (REF) | payer MEDICARE, SELFPAY ==
[2022-09-24 12:13] LABS: Calcium 11.9 mg/dL (8.4-10.2)
[2022-10-02 17:34] LABS: Parathyroid Hormone Related Pr 7 pg/mL (11-20)
== END 2022-09-24 09:37 | disposition home or self-care (01) ==
LOC: HO.LAB 09:36
PROVIDERS: PCP Internal Medicine; Visit Provider Internal Medicine
DX: E83.52 Hypercalcemia (principal)
CPT/HCPCS: 36415; 82310; 83519

== ENCOUNTER 2022-10-06 07:57 | Outpatient (REF) | payer MEDICARE, SELFPAY ==
--- NOTE | ~2022-10-06 | CT_ITS ---
EXAMINATION: CT ABDOMEN AND PELVIS WITH CONTRAST CLINICAL INFORMATION: Diarrhea with abnormal weight loss. COMPARISON: None available. TECHNIQUE: Multidetector volumetric images were obtained from the superior aspect of the liver through the pubic symphysis following administration 85 mL of Omnipaque 350 intravenous contrast. Sagittal and coronal reformatted images were obtained on the technologist's workstation. Oral contrast: No. This CT examination was performed using dose optimization techniques as appropriate, variously including the following: *Automated exposure control *Adjustment of mA and/or kV according to patient size (this includes techniques or standardized protocols for targeted exams where dose is matched to indication/reason for exam; i.e. extremities or head) *Use of iterative reconstruction technique DLP: 265 mGy-cm FINDINGS: LUNG BASES: The visualized lung bases are unremarkable. LIVER, GALLBLADDER, AND BILIARY TREE: The liver border is nodular suggesting cirrhosis (for example 3:27). The liver is not enlarged and is slightly small measuring just over 11 cm in greatest cephalocaudad dimension. No focal hepatic lesion or biliary ductal dilatation is present. Status post cholecystectomy. PANCREAS: Unremarkable. SPLEEN: Unremarkable. ADRENAL GLANDS: Unremarkable. KIDNEYS AND URETERS: The kidneys are normal in size, shape, and attenuation. No hydronephrosis, hydroureter, or calculi seen. No perinephric stranding. BLADDER: Unremarkable. GASTROINTESTINAL TRACT: Etuimtfa-ji-peyfa stool burden is present in the colon. Patient is status post partial right hemicolectomy with a colonic small bowel anastomosis. The small bowel appears unremarkable without evidence of obstruction. The appendix is no longer present. ABDOMINAL WALL: No significant hernia is appreciated. A tiny periumbilical hernia is seen containing only fat. LYMPH NODES: No retroperitoneal lymphadenopathy. VASCULAR: The abdominal aorta is unremarkable. The celiac is widely patent. There is some mild proximal plaque in the SMA without significant stenosis. The WU is widely patent without stenosis. PELVIC VISCERA: The uterus and adnexa are unremarkable. OSSEOUS STRUCTURES: Mild degenerative change is seen at L5-S1. No bony destructive lesions are seen. CT/CT abdomen pelvis w IV con IMPRESSION: 1. A cause for the patient's weight loss and diarrhea has not been found. 2. Incidental note made of nodular liver border suggesting cirrhosis. 3. Status post cholecystectomy and partial right hemicolectomy. Fleischner guidelines were followed.
[2022-10-06] MEDS: Barium Sulfate Oral (Berry) 450 ML ORAL.SUSP 900 ML PO (10:26)
[2022-10-06] MEDS: iohexoL 350 MG/ML 100 ML INFUS..BTL IV (10:27)
== END 2022-10-06 07:58 | disposition home or self-care (01) ==
LOC: HO.CT 07:57
PROVIDERS: Visit Provider Internal Medicine
DX: R19.7 Diarrhea, unspecified (principal); R63.4 Abnormal weight loss; Z85.038 Personal history of other malignant neoplasm of large intestine
CPT/HCPCS: 74177; Q9967

== ENCOUNTER 2022-10-07 13:49 | Outpatient (REF) | payer MEDICARE, SELFPAY ==
[2022-10-09 20:33] LABS: A. Phagocytphilium DNA,RT-PCR NOT DETECTED (NOT DETECTED); Babesia Microti DNA, RT-PCR NOT DETECTED (NOT DETECTED); Borrelia Miyamotoi,DNA RT-PCR NOT DETECTED (NOT DETECTED); E.Chaffeensis DNA RT-PCR NOT DETECTED (NOT DETECTED); Lyme(Borrelia ssp)DNA RT-PCR NOT DETECTED (NOT DETECTED)
== END 2022-10-07 13:50 | disposition home or self-care (01) ==
LOC: HO.LNP 13:49
PROVIDERS: Visit Provider Internal Medicine
DX: A69.20 Lyme disease, unspecified (principal)
CPT/HCPCS: 87798; 87801

== ENCOUNTER → 2022-10-19 10:58 | Outpatient (REF) | payer MEDICARE, SELFPAY ==
--- NOTE | ~2022-10-19 | NM_ITS ---
EXAMINATION: NM BONE SCAN OF THE WHOLE BODY CLINICAL INFORMATION: Hypercalcemia. History of colon cancer in 2012. Weight loss. COMPARISON: CT of the abdomen and pelvis done on 10/06/2022. TECHNIQUE: Multiple gamma scintillation camera images of the whole body were performed 2.75 hours following the intravenous administration of 23 mCi Tc-99m MDP. The radiotracer was injected through right antecubital superficial vein without complications. FINDINGS: In the head, no suspicious focal lesion. In the thoracic cage and upper extremities, no suspicious focal lesion. Mild increase radiotracer activity around the right elbow likely represent arthritic change. Please correlate clinically and if indicated with follow-up radiographs. Mild increased radiotracer activities at both shoulder and sternoclavicular joint likely represent arthritic changes. In the spine, mild increased radiotracer activity at lower lumbar spine likely represent degenerative changes. In the pelvis, unremarkable. In the lower extremities, mild increased radiotracer activities at both ankle and midfoot and at both great toes likely represent arthritic changes. Radiographic correlation may be considered for further clarification, if clinically appropriate. Mild periarticular increased radiotracer activities at both knees likely represent arthritic changes. No other definite bony abnormalities are noted. The urinary bladder and faint visualization of both kidneys are noted. NM/NM bone scan whole body IMPRESSION: 1. No scintigraphic evidence of any suspicious osseous disease to suspect metastasis. 2. Multilevel focal periarticular increased radiotracer activities are most consistent with arthritic changes seen at both shoulder, sternoclavicular joints, both knees and both feet and at right elbow. Mild increased radiotracer activity at lower lumbar spine likely represent degenerative spondylosis. Radiographic correlation may be considered if clinically appropriate for further clarification.
== END ==
LOC: HO.NUCMED 10:58
PROVIDERS: Visit Provider Internal Medicine
DX: E83.52 Hypercalcemia (principal)
CPT/HCPCS: 78306; A9503

== ENCOUNTER 2022-10-22 07:45 | Outpatient (REF) | payer MEDICARE, SELFPAY ==
[2022-10-22 10:55] LABS: INTERNATIONAL NORM RATIO 1.1 (0.9-1.1); Prothrombin Time 12.7 SEC (10.0-13.1)
[2022-10-22 11:48] LABS: Calcium 10.6 mg/dL (8.4-10.2)
[2022-10-22 12:01] LABS: Hepatitis A Antibody IgG REACTIVE (Nonreactive); ~Hepatitis A Antibody IgG 8.95 S/CO (0.00-0.99)
[2022-10-22 12:03] LABS: HBS Num1 0.14 mIU/mL (0-7.99); HBc Num1 0.16 S/CO (0.00-0.79); HBsAGNum1 0.36 S/CO (0.00-0.99); Hepatitis B Core Antibody Nonreactive (Nonreactive); Hepatitis B Surface Antigen Negative (Negative); ~HepC Num1 0.09 S/CO (0.00-0.79); ~Hepatitis B Surface Antibody NONREACTIVE (Nonreactive); ~Hepatitis C Antibody Nonreactive (Nonreactive)
[2022-10-25 15:54] LABS: Alpha 1 Anti-trypsin 134 mg/dL (83-199)
[2022-10-27 23:48] LABS: Smooth Muscle Antibody <20 U (<20)
[2022-10-28 15:13] LABS: Mitochondrial Antibodies POSITIVE (NEGATIVE)
[2022-10-29 13:47] LABS: Anti Nuclear Antibody Pattern Nuclear, Centromere; Anti Nuclear Antibody Screen POSITIVE (NEGATIVE)
== END 2022-10-22 07:46 | disposition home or self-care (01) ==
LOC: HO.10HDL 07:45
PROVIDERS: Absent Provider Internal Medicine; Visit Provider Internal Medicine
DX: K74.60 Unspecified cirrhosis of liver (principal); E83.52 Hypercalcemia; Z11.59 Encounter for screening for other viral diseases; Z72.89 Other problems related to lifestyle
CPT/HCPCS: 36415; 82103; 82310; 85610; 86015; 86038; 86039; 86255; 86256; 86704; 86706; 86708; 86803; 87340

== ENCOUNTER 2022-11-09 11:18 | Outpatient (REF) | payer MEDICARE, SELFPAY ==
[2022-11-09 11:40] LABS: Alanine Aminotransferase 33 U/L (0-31); Albumin Level 3.6 g/dL (3.5-5.0); Alkaline Phosphatase 135 U/L (39-117); Aspartate Amino Transferase 42 U/L (5-31); Bilirubin Direct 0.2 mg/dL (0.0-0.5); Bilirubin Total 0.5 mg/dL (0.0-1.0); Total Protein 6.9 g/dL (6.5-8.0)
== END 2022-11-09 11:19 | disposition home or self-care (01) ==
LOC: HO.LNP 11:18
PROVIDERS: Visit Provider Internal Medicine
DX: E83.52 Hypercalcemia (principal); R79.89 Other specified abnormal findings of blood chemistry
CPT/HCPCS: 80076; 82310

== ENCOUNTER 2022-11-11 09:03 | Outpatient (REF) | payer MEDICARE, SELFPAY ==
--- NOTE | ~2022-11-11 | MM_ITS ---
EXAMINATION: MM SCREENING DIGITAL BREAST TOMOSYNTHESIS, BILATERAL CLINICAL INFORMATION: Screening. Asymptomatic. The lifetime risk of breast cancer based on the Tyrer-Cuzick Model is 2.2%. COMPARISON: Mammography: This study is compared with prior exams dating back to 2018. TECHNIQUE: Digital breast tomosynthesis is performed in both the craniocaudal and mediolateral oblique views along with computer-aided detection (CAD). Synthesized 2D images are generated from the tomosynthesis. FINDINGS: There are scattered areas of fibroglandular density (ACR BI-RADS breast composition Category b). There are no significant masses, abnormal calcifications, or other abnormalities. MM/MM tomosynthesis screening BI IMPRESSION: No mammographic evidence of malignancy. ASSESSMENT: BI-RADS BI-RADS 1 - Negative RECOMMENDATION: Routine annual mammography screening. 1 year F/U This examination should not preclude the clinical evaluation of a suspicious palpable abnormality. This patient's information was entered into a reminder system with a target due date for their next mammogram.
== END 2022-11-11 09:04 | disposition home or self-care (01) ==
LOC: HO.MAMMO 09:03
PROVIDERS: PCP Internal Medicine; Visit Provider Internal Medicine
DX: Z12.31 Encounter for screening mammogram for malignant neoplasm of breast (principal)
CPT/HCPCS: 77063; 77067

== ENCOUNTER → 2022-11-11 09:30 | Outpatient (BNV) | payer MEDICARE, SELFPAY | PROVIDERS: PCP Internal Medicine; Visit Provider Radiology Diagnostic Radiology | DX: Z12.31 Encounter for screening mammogram for malignant neoplasm of breast (principal) | CPT/HCPCS: 77063; 77067 ==

== ENCOUNTER 2022-11-22 08:44 | Outpatient (REF) | payer MEDICARE, SELFPAY ==
--- NOTE | ~2022-11-22 | US_ITS ---
EXAMINATION: US ABDOMEN COMPLETE CLINICAL INFORMATION: Abnormal LFTs. COMPARISON: CT abdomen and pelvis 10/06/2022. Ultrasound abdomen complete 11/16/2021 and 03/28/2018. TECHNIQUE: Real-time imaging of the abdominal viscera. FINDINGS: PANCREAS: Normal. ABDOMINAL AORTA: The proximal, mid, and distal segments are normal in caliber. INFERIOR VENA CAVA: Visualized portions are normal. LIVER: The liver is normal in size. The contour of the liver is slightly nodular suggestive of cirrhosis. There is diffuse increased liver parenchymal echogenicity, consistent with hepatic steatosis. There is coarsening of the echotexture. No focal hepatic lesion. There is no intrahepatic biliary duct dilatation seen. GALLBLADDER: Surgically absent. COMMON BILE DUCT: Normal in caliber measuring 0.5 cm in diameter. RIGHT KIDNEY: Normal. No hydronephrosis. No renal calculi or focal parenchymal lesions. The kidney measures 9.0 cm in maximum dimension. LEFT KIDNEY: Normal. No hydronephrosis. No renal calculi or focal parenchymal lesions. The kidney measures 9.7 cm in maximum dimension. SPLEEN: Normal. The spleen measures 9.8 cm in maximum dimension. FREE FLUID: None. US/US abdomen complete IMPRESSION: 1. Hepatic steatosis. 2. Nodular contour of the liver which can be seen with cirrhosis. 3. Prior cholecystectomy.
== END 2022-11-22 08:45 | disposition home or self-care (01) ==
LOC: HO.US 08:44
PROVIDERS: Visit Provider Internal Medicine
DX: R79.89 Other specified abnormal findings of blood chemistry (principal); R94.6 Abnormal results of thyroid function studies
CPT/HCPCS: 76700

== ENCOUNTER 2022-12-01 06:29 | Day surgery (SDC) | payer MEDICARE, SELFPAY ==
--- NOTE | 2022-11-30 10:05 | HO.ANESPROP2 ---
Documented by User: Josee Valles NP 11/30/22 14:31 HPI - Anesthesia Eval Consult details Narrative: 77yo F for Upper Endoscopy and Colonoscopy Last cardiac office visit 08/2022. Reassuring cardiac work up including echo and stress test which was only remarkable for progressive valvular heart disease. No concerning cardiopulmonary symptoms. [facility] Active Problems Active Problems: All Active Problems (Updated 04/15/21 @ 10:11 by Rand Mckay MD) Metacarpal boss (Acute) Type 2 diabetes mellitus (Acute) Past Medical History Medical History Colon cancer HTN (hypertension) Non-ST elevation MT (NSTEMI) SVT (supraventricular tachycardia) Valvular heart disease Social History Social History Household Members: Family Household Members Other:: Son Housing: House Do you presently have visiting nurse or other home services: No Alcohol intake: never Patient Tobacco Use Status: Never used Tobacco Use of substances other than those prescribed or required for medical reasons: No Are you DNR?: No Advance Directives: No Advance Directives Information Provided: Yes Advance Directives Date on File: 01/01/21 Patient : No (post menopausal) service: No Current occupational status: retired [employer] Allergies Allergy/AdvReac Type Severity Reaction Status Date / Time codeine [CODEINE] Allergy Unknown GI PAIN, Verified 12/01/22 06:42 abd pain Codeine Sulfate AdvReac Unknown stomach Uncoded 04/15/21 09:19 upset Home Medications Medication Instructions Recorded Confirmed Last Taken Type aspirin 81 mg chewable tablet 81 mg PO DAILY 12/31/20 12/31/20 11/30/22 History cholecalciferol (vitamin D3) 25 25 mcg PO DAILY 12/31/20 12/31/20 12/31/20 History mcg (1,000 unit) capsule (Vitamin D3) ferrous sulfate 325 mg (65 mg 325 mg PO DAILY 12/31/20 12/31/20 12/31/20 History iron) tablet glipizide 10 mg tablet 10 mg PO QAM 12/31/20 12/31/20 12/31/20 History lisinopril 20 mg tablet 20 mg PO DAILY 12/31/20 12/31/2021 History metformin 500 mg tablet,extended 1,000 mg PO BID 12/31/20 12/31/20 12/01/22 05:30 History release 24 hr omeprazole 20 mg capsule,delayed 20 mg PO DAILY 12/31/20 12/31/20 12/31/20 History release diltiazem HCl 120 mg 120 mg PO DAILY 02/24/21 02/24/21 Unknown History capsule,extended release 24 hr Exam Exam Date and Time: November 30, 2022 1005 Pertinent Lab Results Pertinent Lab Results: Laboratory Tests 09/23/22 09/23/22 07:00 07:00 WBC 10.8 Hgb 10.1 L Hct 30.2 L Plt Count 281 Sodium 141 Potassium 4.9 Chloride 105 Carbon Dioxide 28 BUN 19 H Creatinine 0.83 Narrative Narrative: ECHO 06/2022 1. LV mildly dilated 2. Mild concentric LVH 3. LV systolic function nml with EF 65-70% 4. Unable to assess LV filling pressures d/t signficant MAC 5. LA mildly dilated 6. Mild aortic regurg 7. Severe MAC 8. Mild MR 9. Moderate calcific mitral stenosis. 10. RV systolic pressure 33mmHg 11. Trivial pericardial effusion 12. C/W finding of 10/2021, increase in mitral valve gradients and pulmo artery pressure Nuc Stress 06/2022 1. Negative EKG response to pharm stress test for evidence of ischemia 2. Myocardial perfusion imaging is normal with no evidence of fixed or reversible perfusion defects 3. Normal wall thickening and wall motion. Nml LV function with a resting LVEF of 54% and post stress ventricular EF of 58% Assessment and Plan Assessment Anesthesia Assessment: Chart Reviewed Documented by User: Zulma Mae MD 12/01/22 08:00 [facility] Past Medical History Medical History Colon cancer HTN (hypertension) Non-ST elevation MT (NSTEMI) SVT (supraventricular tachycardia) Valvular heart disease Family History Family history of problems with anesthesia: No Surgical History History of Problems with Anesthesia: No Social History Social History Household Members: Family Household Members Other:: Son Housing: House Do you presently have visiting nurse or other home services: No Alcohol intake: never Patient Tobacco Use Status: Never used Tobacco Use of substances other than those prescribed or required for medical reasons: No Are you DNR?: No Advance Directives: No Advance Directives Information Provided: Yes Advance Directives Date on File: 01/01/21 Patient : No (post menopausal) service: No Current occupational status: retired Meds Allergies Allergy/AdvReac Type Severity Reaction Status Date / Time codeine [CODEINE] Allergy Unknown GI PAIN, Verified 12/01/22 06:42 abd pain Codeine Sulfate AdvReac Unknown stomach Uncoded 04/15/21 09:19 upset Home Medications Medication Instructions Recorded Confirmed Last Taken Type aspirin 81 mg chewable tablet 81 mg PO DAILY 12/31/20 12/31/20 11/30/22 History cholecalciferol (vitamin D3) 25 25 mcg PO DAILY 12/31/20 12/31/20 12/31/20 History mcg (1,000 unit) capsule (Vitamin D3) ferrous sulfate 325 mg (65 mg 325 mg PO DAILY 12/31/20 12/31/20 12/31/20 History iron) tablet glipizide 10 mg tablet 10 mg PO QAM 12/31/20 12/31/20 12/31/20 History lisinopril 20 mg tablet 20 mg PO DAILY 12/31/20 12/31/20 12/31/20 History metformin 500 mg tablet,extended 1,000 mg PO BID 12/31/20 12/31/20 12/01/22 05:30 History release 24 hr omeprazole 20 mg capsule,delayed 20 mg PO DAILY 12/31/20 12/31/20 12/31/20 History release diltiazem HCl 120 mg 120 mg PO DAILY 02/24/21 02/24/21 Unknown History capsule,extended release 24 hr Exam Airway Mallampati Class: II TM Dist: >3cm Neck ROM: Limited Loose/Missing/Broken Teeth: Yes, Upper and Lower Heart: rrr Lungs: cta Assessment and Plan Assessment Anesthesia Assessment: Anesthesia Plan Discussed Final Anesthetic Review Family History of Problems with Anesthesia: No History of Problems with Anesthesia: No NPO: Yes ASA Class: III Final Preanesthetic Review: No Changes in Pt Med Stat, Meds/Allgs Chart Reviewed, Consent Obtained/Reviewed and Anes Risks/Benef Reviewed Patient Risk: Intermediate Procedure Risk: Low Anesthetic Plan Anesthetic Plan: MAC: Disposition: Standard PACU
[2022-12-01 07:04] VITALS: BMI 23.0
[2022-12-01 07:05] LABS: Glucose, Whole Blood 160 mg/dL (60-115)
[2022-12-01 07:10] VITALS: BP 157/63; PULSE 73; RESP 16; TEMP 35.8; O2SAT 100
[2022-12-01] MEDS: Lactated Ringers 1,000 ML 100 ML IVCONT (07:28)
[2022-12-01 08:56] VITALS: BP 91/49; PULSE 89; RESP 16; TEMP 36.2; O2SAT 97
--- NOTE | 2022-12-01 09:07 | P.BOP_ITS ---
Brief Operative Note Date of Service: 12/01/22 Pre-op diagnosis: Screening, GERD Post-op diagnosis: other (Hiatal hernia, Colon polyps) Procedure: EGD with biopsies, Colonoscopy to the cecum with biopsies, hot snare polypectomy x 2, and placement of Resolution clip x 2 Surgeon: Bryce Oliver Anesthesia: MAC Was an Band Machine Operator used for this Procedure?: No Estimated blood loss (mL): 2.0 Pathology: other (A. Descending duodenum B. Colon just distal to anastomosis C. Colon 50-60cm D. Polyp at 40cm E. Rectal polyp) Condition: stable Disposition: PACU
[2022-12-01 09:11] VITALS: BP 117/53; PULSE 72; RESP 18; TEMP 36.8; O2SAT 96
--- NOTE | 2022-12-01 09:21 | OP_ITS ---
DATE OF SERVICE: 12/01/2022 SURGEON: Bryce Oliver MD INDICATIONS: The patient presents for evaluation of change in bowel habits, weight loss, gastroesophageal reflux, and personal history of colon cancer. Full consent was obtained from her for both procedures, including risks of bleeding and perforation. PREOPERATIVE DIAGNOSIS: POSTOPERATIVE DIAGNOSIS: PROCEDURE PERFORMED: ESTIMATED BLOOD LOSS: COMPLICATIONS: ANESTHESIA: Monitored anesthesia care. ASSISTANTS: SPECIMENS: PREOPERATIVE DIAGNOSES: Change in bowel habits, weight loss, gastroesophageal reflux, and personal history of colon cancer. POSTOPERATIVE DIAGNOSES: Change in bowel habits, weight loss, gastroesophageal reflux, and personal history of colon cancer, small hiatal hernia, rule out celiac disease, colon polyps, rule out microscopic colitis, diverticulosis, and internal hemorrhoids. PROCEDURES PERFORMED: 1. Esophagogastroduodenoscopy with biopsies. 2. Colonoscopy to the anastomosis and small bowel with hot snare polypectomy x 2 with placement of Resolution clip on each polypectomy site, and biopsies. DESCRIPTION OF PROCEDURE: The patient was placed in the left lateral decubitus position. The Olympus video gastroscope was passed in the posterior oropharynx and upper esophagus under direct vision. The scope was passed slowly to the distal esophagus. The gastroesophageal junction appeared at 36 cm. There was no sign of any esophageal varices, esophagitis, nor Flores's esophagus. The scope entered the stomach, there was a small hiatal hernia. The scope was advanced to the pylorus, and the duodenum was cannulated to the descending portion. The duodenum including the bulb appeared normal without mass or ulceration. Biopsies were obtained from the descending duodenum. The scope was withdrawn back to the stomach. The gastric antrum and body appeared normal with good peristalsis. The scope was retroflexed, visualizing the proximal stomach carefully, which appeared normal, without any sign of varices, mass, ulceration, nor any definitive signs of gastropathy. The scope was straightened and withdrawn back to the esophagus. Proximal to the EG junction, the esophageal mucosa appeared normal. There was no evidence of any varices. The scope was withdrawn from the patient. She was turned around for the colonoscopy. The digital rectal exam revealed no abnormalities. The Solar3D video pediatric colonoscope was entered into the rectum and advanced to the level of the anastomosis. Advancement past the sigmoid colon was somewhat difficult. Once at the anastomosis, I visualized both colonic and small bowel mucosa, which appeared normal. The small bowel was cannulated and appeared normal. Scope was withdrawn back in the colon. The scope was then slowly withdrawn assessing all mucosal surfaces carefully. For the most part, preparation was very good, other than some areas of liquid stool in the sigmoid colon, which had to be irrigated and suctioned away. I did not visualize any sign of colitis nor angiodysplasia. Random biopsies were obtained in the colon just distal to the anastomosis and in the colon between 50 and 60 cm. At 40 cm and in the rectum were approximately 6 to 8 mm polyps, which were each removed by hot snare polypectomy, recovered by suction. The polypectomy sites appeared clean, without any sign of residual polyp nor bleeding. A single Resolution clip was applied to each polypectomy site with good deployment and good hemostasis. In the rectum, scope was retroflexed visualizing internal hemorrhoids, but no other pathology. The rectal mucosa appeared normal. The scope was straightened and withdrawn from the patient. She tolerated both procedures well and was returned to recovery area in stable condition. IMPRESSION: 1. Small hiatal hernia. 2. Rule out celiac disease. 3. Colon polyps. 4. Diverticulosis. 5. Internal hemorrhoids. PLAN: The results of the pathology will be checked. I would recommend a repeat colonoscopy in 3 years for further screening given her previous history of colon cancer and today's findings. In regard to her underlying liver disease, she will have a followup office visit and we shall discuss potential liver biopsy. 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 She was advised to resume her iron today. She was advised to resume aspirin in 48 hours. She was advised to avoid NSAIDs for at least 1 week. This has all been discussed with her daughter. MD EMELIA Foss/ANJANA / [id number] SHARAN
== END 2022-12-01 10:55 | disposition home or self-care (01) ==
PROVIDERS: PCP Internal Medicine; Visit Provider Internal Medicine
PROC: (CPT 45385; principal; 2022-12-01 07:30)
DX: Z12.11 Encounter for screening for malignant neoplasm of colon (principal); K62.1 Rectal polyp; K51.40 Inflammatory polyps of colon without complications; K57.30 Diverticulosis of large intestine without perforation or abscess without bleeding; K64.8 Other hemorrhoids; Z85.038 Personal history of other malignant neoplasm of large intestine; K44.9 Diaphragmatic hernia without obstruction or gangrene; K21.9 Gastro-esophageal reflux disease without esophagitis; K63.89 Other specified diseases of intestine; R19.7 Diarrhea, unspecified; R63.4 Abnormal weight loss; E11.9 Type 2 diabetes mellitus without complications; I10 Essential (primary) hypertension; I21.4 Non-ST elevation (NSTEMI) myocardial infarction; I47.1 Supraventricular tachycardia; Z79.85 Long-term (current) use of injectable non-insulin antidiabetic drugs; Z79.84 Long term (current) use of oral hypoglycemic drugs; Z79.899 Other long term (current) drug therapy; Z79.82 Long term (current) use of aspirin
CPT/HCPCS: 45385; 45380; 43239; 82947; 88305

== ENCOUNTER 2022-12-16 11:18 | Outpatient (REF) | payer MEDICARE, SELFPAY ==
[2022-12-16 11:20] LABS: MANUAL DIFF FLAG NO
[2022-12-16 11:31] LABS: Basophils Percent Auto 0.4 % (0-2); Eosinophils Absolute Auto 0.4 X10*3/uL (0.0-0.4); Eosinophils Percent Auto 4.8 % (0-4); Hematocrit 29.5 % (37.0-47.0); Hemoglobin 9.8 g/dl (12.0-16.0); Imm Gran Abs Auto 0.01 X10*3/uL (0.00-0.03); Imm Gran Pct Auto 0.1 % (0.0-0.4); Lymphocytes Absolute Auto 2.5 X10*3/uL (1.2-4.9); Lymphocytes Percent Auto 33.6 % (20-40); Mean Corpuscular HGB Conc 33.2 g/dl (31.0-35.0); Mean Corpuscular Hemoglobin 28.9 pg (27.0-33.0); Mean Platelet Volume 9.8 fL (9.4-12.3); Monocytes Absolute Auto 0.5 X10*3/uL (0.1-1.2); Neutrophils Percent Auto 54.1 % (45-73); Platelet Count 273 X10*3/uL (160-400); Red Blood Count 3.39 X10*6/uL (4.20-5.50); Red Cell Distribution Width 12.5 % (11.0-16.0); White Blood Count 7.5 X10*3/uL (4.8-10.8)
[2022-12-16 11:38] LABS: Alanine Aminotransferase 26 U/L (0-31); Albumin Level 3.6 g/dL (3.5-5.0); Alkaline Phosphatase 148 U/L (39-117); Aspartate Amino Transferase 35 U/L (5-31); Bilirubin Direct 0.2 mg/dL (0.0-0.5); Bilirubin Total 0.6 mg/dL (0.0-1.0); Calcium 9.7 mg/dL (8.4-10.2); Total Protein 6.9 g/dL (6.5-8.0)
== END 2022-12-16 11:19 | disposition home or self-care (01) ==
LOC: HO.LNP 11:18
PROVIDERS: Visit Provider Internal Medicine
DX: R79.89 Other specified abnormal findings of blood chemistry (principal); E83.52 Hypercalcemia
CPT/HCPCS: 80076; 82310; 85025

== ENCOUNTER 2023-01-03 10:00 | Outpatient (AMB) | payer MEDICARE, SELFPAY ==
[2023-01-03 10:39] VITALS: BP 122/62; PULSE 83; TEMP 36.2; O2SAT 97; BMI 23.0
--- NOTE | 2023-01-03 10:39 | MHC.OFFWIV ---
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 She denies other injuries, loss of consciousness or hitting her head. She notes she slipped when stepping onto the kitchen floor from a carpeted floor. She notes pain and swelling in the foot developed throughout the day yesterday. [facility] Medical History Colon cancer HTN (hypertension) Non-ST elevation [place] (NSTEMI) SVT (supraventricular tachycardia) Valvular heart disease Social History Household Members: Family Household Members Other:: Son Housing: House Do you presently have visiting nurse or other home services: No Alcohol intake: never Patient Tobacco Use Status: Never used Tobacco Advance Directives Date on File: 01/01/21 service: No Current occupational status: retired Review of Systems Const Reports as per HPI and Reports no additional complaints Musc Reports no additional complaints and Reports as per HPI Skin/Breast Denies lesions Neuro Reports no additional complaints and Reports as per HPI Physical Exam Vital Signs: Last Vital Signs Temp 97.2 F 01/03/23 10:39 Pulse 83 01/03/23 10:39 BP 122/62 01/03/23 10:39 Pulse Ox 97 01/03/23 10:39 BMI result Body Mass Index 23.0 Const General: cooperative, comfortable and no acute distress Orientation/consciousness: patient oriented x3 Resp Effort & Inspection: normal respiratory effort Auscultation: clear to auscultation bilaterally Cardio Rate: regular rate Rhythm: regular rhythm Heart sounds: S1 normal heart sound present and S2 normal heart sound present Neuro General: patient oriented x3 Extrem General: Yes capillary refill normal and Yes no pedal edema Left lower extremity: lower leg Details: normal to inspection, ankle Details: normal to inspection and normal ROM; no tenderness and no swelling and foot Details: normal capillary refill, tenderness and edema (Area of discrete edema over the dorsal proximal foot); no lacerations and no ecchymosis Results Reviewed Results Reviewed: X-rays contemporaneously read by me without acute fracture. Will report radiology results as available if different. Assessment & Plan Assessment & Plan (1) Injury of foot, left: Code(s): S99.922A - Unspecified injury of left foot, initial encounter Qualifiers: Encounter type: initial encounter Qualified Code(s): S99.922A - Unspecified injury of left foot, initial encounter Plan: I placed patient in a short walking boot to remove continue pressure to the foot. She can wean out of this boot as tolerated. Advised ice elevation and Tylenol p.r.n.. Ortho referral placed for follow-up. Orders: Orders XR foot LT min 3V Today S99.922A - Unspecified injury of left foot, initial encounter Coding Level of Care Code Est Pt Level 4 (84930) Diagnoses Injury of left foot, initial encounter S99.922A Encounter type: initial encounter
== END 2023-01-03 11:54 | disposition home or self-care (01) ==
PROVIDERS: PCP Internal Medicine; Visit Provider Physician Assistant
DX: S99.922A Unspecified injury of left foot, initial encounter (principal)
CPT/HCPCS: 99214

== ENCOUNTER 2023-01-03 11:02 | Outpatient (REF) | payer MEDICARE, SELFPAY ==
--- NOTE | ~2023-01-03 | XR_ITS ---
EXAMINATION: XR FOOT, LEFT CLINICAL INFORMATION: Pain and swelling over navicular zone after fall. COMPARISON: Radiograph left foot 01/22/2016. TECHNIQUE: AP, lateral, and oblique views of the left foot. FINDINGS: New subtle cortical deformity with protrusion of a small osseous fragment along the base of the fifth metatarsal. Moderate multifocal degenerative osteoarthritis with joint space narrowing, subcortical sclerosis and osteophytes. Mild spurring along the dorsal surface of the foot on the lateral view. Small marginal osteophyte along the lateral margin of the second middle phalanx. Moderate calcaneal spurs. Mild diffuse soft tissue swelling. Scattered vascular calcifications. XR/XR foot LT min 3V IMPRESSION: 1. New subtle cortical deformity with protrusion of a small osseous fragment along the base of the fifth metatarsal. This could represent an avulsion fracture. Correlate for point tenderness. 2. No discrete radiographic navicular abnormality. Further evaluation with CT or MRI could be obtained as clinically deemed appropriate. 3. Moderate multifocal degenerative osteoarthritis. 4. Moderate calcaneal spurs. 5. Nonspecific diffuse soft tissue swelling.
== END 2023-01-03 11:03 | disposition home or self-care (01) ==
LOC: HO.HMGCX 11:02
PROVIDERS: PCP Internal Medicine; Visit Provider Physician Assistant
DX: S99.922A Unspecified injury of left foot, initial encounter (principal)
CPT/HCPCS: 73630

== ENCOUNTER 2023-01-24 08:33 | Outpatient (REF) | payer MEDICARE, SELFPAY ==
[2023-01-24 08:48] LABS: MANUAL DIFF FLAG NO
[2023-01-24 09:07] LABS: Basophils Percent Auto 0.5 % (0-2); Eosinophils Absolute Auto 0.2 X10*3/uL (0.0-0.4); Eosinophils Percent Auto 2.7 % (0-4); Hematocrit 28.4 % (37.0-47.0); Hemoglobin 9.6 g/dl (12.0-16.0); Imm Gran Abs Auto 0.02 X10*3/uL (0.00-0.03); Imm Gran Pct Auto 0.2 % (0.0-0.4); Lymphocytes Absolute Auto 1.8 X10*3/uL (1.2-4.9); Lymphocytes Percent Auto 22.4 % (20-40); Mean Corpuscular HGB Conc 33.8 g/dl (31.0-35.0); Mean Corpuscular Hemoglobin 29.3 pg (27.0-33.0); Mean Corpuscular Volume 86.6 fL (80.0-98.0); Mean Platelet Volume 9.4 fL (9.4-12.3); Monocytes Absolute Auto 0.4 X10*3/uL (0.1-1.2); Neutrophils Absolute Auto 5.7 x10*3/uL (2.0-8.3); Neutrophils Percent Auto 69.2 % (45-73); Platelet Count 295 X10*3/uL (160-400); Red Blood Count 3.28 X10*6/uL (4.20-5.50); White Blood Count 8.2 X10*3/uL (4.8-10.8)
[2023-01-24 09:12] LABS: INTERNATIONAL NORM RATIO 1.1 (0.9-1.1); Prothrombin Time 13.8 SEC (11.1-13.3)
[2023-01-24 09:15] LABS: Partial Thromboplastin Time 30.2 SEC (26.0-36.4)
[2023-01-24 09:37] LABS: Alanine Aminotransferase 19 U/L (0-31); Albumin Level 3.5 g/dL (3.5-5.0); Alkaline Phosphatase 142 U/L (39-117); Aspartate Amino Transferase 25 U/L (5-31); Bilirubin Direct 0.3 mg/dL (0.0-0.5); Bilirubin Total 0.8 mg/dL (0.0-1.0); Total Protein 6.7 g/dL (6.5-8.0)
== END 2023-01-24 08:34 | disposition home or self-care (01) ==
LOC: HO.LAB 08:33
PROVIDERS: Visit Provider Internal Medicine
DX: S99.922A Unspecified injury of left foot, initial encounter (principal); R93.2 Abnormal findings on diagnostic imaging of liver and biliary tract; R76.8 Other specified abnormal immunological findings in serum; W19.XXXA Unspecified fall, initial encounter; Y93.9 Activity, unspecified; Y92.9 Unspecified place or not applicable; Y99.9 Unspecified external cause status
CPT/HCPCS: 36415; 80076; 85025; 85610; 85730; 99212

== ENCOUNTER 2023-01-24 08:58 | Outpatient (AMB) | payer MEDICARE, SELFPAY ==
--- NOTE | 2023-01-24 09:09 | A.OFFVIS_ITS ---
Intake Vital Signs 01/24/23 09:16 Height 5 ft Weight 118 lb BMI 23.0 Intake Visit Reasons: Newprob-Unspecified injury of LT foot Intake Note: Angela olson 77 year old female presents today for an evaluation of left foot, DOI 01/09/23. Patient reports having a fall injuring her left foot. She presented to [facility] walk in clinic a few days later due to pain/swelling, xrays were taken and was placed in a walking boot. She has discontinued use of boot. Currently pain comes sometimes with walking. Hx of bone spur on left foot. Allergies codeine [CODEINE] Allergy (Unknown, Verified 01/24/23 09:18) GI PAIN, abd pain Codeine Sulfate Adverse Reaction (Unknown, Uncoded 01/24/23 09:18) stomach upset HPI Newprob-Unspecified injury of LT foot HPI Details 77-year-old female who presents to the [facility] today for evaluation of left foot injury s/p fall on her left foot in the end-December. She was seen at walk-in clinic a few days later her DOI where x-rays were performed and she was placed in a walking boot. She states she has no pain but she does c/o pain with ambulation. She has a history of bone spur on left foot. COUNT INCLUDES THE [facility] Medical History Colon cancer HTN (hypertension) Non-ST elevation [place] (NSTEMI) SVT (supraventricular tachycardia) Valvular heart disease Social History Household Members: Family Household Members Other:: Son Housing: House Do you presently have visiting nurse or other home services: No Alcohol intake: never Patient Tobacco Use Status: Never used Tobacco Advance Directives Date on File: 01/01/21 service: No Current occupational status: retired Review of Systems Const All systems reviewed & are unremarkable except as noted in HPI and below Physical Exam Vital Signs: BMI result Body Mass Index 23.0 Extrem Other: Left foot: Normal to inspection. No tenderness to palpation throughout the foot or ankle. No swelling. NVI. Results Reviewed Results Reviewed: X-rays of the left foot obtained at ED on January 03 is negative for any acute fracture or dislocations. She does have diffuse OA throughout the metatarsals. Assessment & Plan Assessment & Plan (1) Injury of foot, left: Code(s): S99.922A - Unspecified injury of left foot, initial encounter Qualifiers: Encounter type: initial encounter Qualified Code(s): S99.922A - Unspecified injury of left foot, initial encounter Plan Given her absence of pain she will increase activity as tolerated. If symptoms persist or worsens, patient will contact the office, otherwise follow-up as needed. Patient Instructions: Scribed for Nelida Saenz PA-C, by Layton Deng biomedical engineering supervisor, on 01/24/2023 at 9:30 AM EST. I, Nelida Saenz PA-C, have personally reviewed and agree with the information entered by the scribe. Coding Level of Care Code New Pt Level 3 (42898) Diagnoses Injury of left foot, initial encounter S99.922A Encounter type: initial encounter
[2023-01-24 09:16] VITALS: BMI 23.0
== END 2023-01-24 11:31 | disposition home or self-care (01) ==
PROVIDERS: PCP Internal Medicine; Visit Provider Physician Assistant
DX: S99.922A Unspecified injury of left foot, initial encounter (principal)
CPT/HCPCS: 99213

== ENCOUNTER 2023-01-27 08:57 | Day surgery (SDC) | payer MEDICARE, SELFPAY ==
--- NOTE | ~2023-01-27 | US_ITS ---
History: 77-year-old female with nodular hepatic echotexture and increased LFTs Procedure performed: Ultrasound-guided core biopsy of liver. Chip Drier: Lai Albert MD FSIR Anesthesia: IV moderate sedation with intravenous fentanyl and Versed was administered under my direct supervision with continuous physiologic monitoring for a total of 30 minutes; 10 mL 1% lidocaine for local anesthesia Specimen: Two 18-gauge core specimens Drain: None Estimated blood loss: Minimal Consultations: None Procedure in detail: Informed and written consent was obtained. The patient was positioned supine on the ultrasound examination table. Preliminary ultrasound showed a heterogeneous echotexture of the liver. An appropriate site for biopsy in the left lobe of the liver was noted. The overlying skin was prepped and draped. Under ultrasound, 1% lidocaine was injected subcutaneously and extended to the hepatic capsule. Next, a 17-gauge coaxial needle was advanced just into the hepatic parenchyma. Through the coaxial needle, a total of [id number] core specimens were obtained. The specimens were determined to be adequate. A Gelfoam slurry was injected through the coaxial needle as it was removed. A sterile dressing was applied. Postprocedure ultrasound showed no evidence of bleeding nor other complication. Summary: Successful ultrasound-guided core biopsy of the liver as described.
[2023-01-27 09:17] VITALS: BMI 23.7
[2023-01-27 09:53] LABS: MANUAL DIFF FLAG NO
[2023-01-27 09:56] LABS: Basophils Percent Auto 0.3 % (0-2); Eosinophils Absolute Auto 0.2 X10*3/uL (0.0-0.4); Eosinophils Percent Auto 1.9 % (0-4); Hematocrit 27.8 % (37.0-47.0); Hemoglobin 9.6 g/dl (12.0-16.0); Imm Gran Abs Auto 0.02 X10*3/uL (0.00-0.03); Imm Gran Pct Auto 0.2 % (0.0-0.4); Lymphocytes Absolute Auto 1.6 X10*3/uL (1.2-4.9); Lymphocytes Percent Auto 17.2 % (20-40); Mean Corpuscular HGB Conc 34.5 g/dl (31.0-35.0); Mean Corpuscular Hemoglobin 28.8 pg (27.0-33.0); Mean Corpuscular Volume 83.5 fL (80.0-98.0); Mean Platelet Volume 9.2 fL (9.4-12.3); Monocytes Absolute Auto 0.6 X10*3/uL (0.1-1.2); Neutrophils Absolute Auto 6.9 x10*3/uL (2.0-8.3); Neutrophils Percent Auto 74.4 % (45-73); Platelet Count 279 X10*3/uL (160-400); Red Blood Count 3.33 X10*6/uL (4.20-5.50); Red Cell Distribution Width 12.9 % (11.0-16.0); White Blood Count 9.3 X10*3/uL (4.8-10.8)
[2023-01-27 10:03] LABS: INTERNATIONAL NORM RATIO 1.1 (0.9-1.1); Prothrombin Time 13.5 SEC (11.1-13.3)
[2023-01-27 10:05] LABS: Partial Thromboplastin Time 29.3 SEC (26.0-36.4)
[2023-01-27 10:07] LABS: Glucose, Whole Blood 250 mg/dL (60-115)
[2023-01-27 10:07] LABS: Anion Gap 13 (12-20); Blood Urea Nitrogen 14 mg/dL (9-16); Carbon Dioxide 26 mmol/L (22-29); Chloride 103 mmol/L (96-108); Potassium 3.6 mmol/L (3.3-5.1); Sodium 138 mmol/L (135-145)
--- NOTE | 2023-01-27 11:16 | MHC.SHP ---
Pre-Procedural Eval Section A Date of Service: 01/27/23 The patient is an INPATIENT: No The History & Physical has been completed within 30 days and I have reviewed it.: No Section B Chief Complaint: Abnormal findings on diagnostic imaging of liver a Allergies: Allergies Allergy/AdvReac Type Severity Reaction Status Date / Time codeine [CODEINE] Allergy Unknown GI PAIN, Verified 01/24/23 09:18 abd pain Codeine Sulfate AdvReac Unknown stomach Uncoded 01/24/23 09:18 upset Plan I have reviewed the history and physical and performed a pertinent physical examination on my patient. No changes have occurred unless specified. Time Spent With Patient Time: Total time managing care of this patient today ____ minutes.
[2023-01-27] MEDS: Lidocaine HCl 1 % MPF 5 ML VIAL SUBCUT (11:48)
[2023-01-27 12:00] VITALS: BP 145/63; PULSE 71; RESP 15; TEMP 36.2; O2SAT 94
[2023-01-27 12:15] VITALS: BP 157/62; PULSE 71; RESP 16; O2SAT 95
[2023-01-27 12:30] VITALS: BP 149/61; PULSE 68; RESP 16; O2SAT 97
[2023-01-27 12:45] VITALS: BP 155/61; PULSE 69; RESP 16; TEMP 36.8; O2SAT 99
== END 2023-01-27 13:00 | disposition home or self-care (01) ==
PROVIDERS: Physician Assistant Surgical; Radiology Vascular & Interventional Radiology; PCP Internal Medicine; Visit Provider Internal Medicine
DX: K74.3 Primary biliary cirrhosis (principal); R76.8 Other specified abnormal immunological findings in serum; R93.2 Abnormal findings on diagnostic imaging of liver and biliary tract; R19.7 Diarrhea, unspecified; K21.9 Gastro-esophageal reflux disease without esophagitis; E11.9 Type 2 diabetes mellitus without complications; I11.9 Hypertensive heart disease without heart failure; I21.4 Non-ST elevation (NSTEMI) myocardial infarction; I47.10 Supraventricular tachycardia, unspecified; Z79.85 Long-term (current) use of injectable non-insulin antidiabetic drugs; Z79.84 Long term (current) use of oral hypoglycemic drugs; Z79.82 Long term (current) use of aspirin; Z79.899 Other long term (current) drug therapy; Z85.038 Personal history of other malignant neoplasm of large intestine
CPT/HCPCS: 36415; 47000; 76942; 80051; 82947; 84520; 85025; 85610; 85730; 86850; 86900; 86901; 88307; 88313; 99152; 99153; J2250; J3010

== ENCOUNTER → 2023-01-27 11:20 | Outpatient (BNV) | payer MEDICARE, SELFPAY | PROVIDERS: PCP Internal Medicine; Visit Provider Radiology Vascular & Interventional Radiology | DX: K74.3 Primary biliary cirrhosis (principal); R74.01 Elevation of levels of liver transaminase levels | CPT/HCPCS: 47000; 76942; 99152 ==

== ENCOUNTER 2023-03-29 11:49 | Outpatient (REF) | payer MEDICARE, SELFPAY ==
[2023-03-29 13:09] LABS: Influenza A PCR NEGATIVE (Negative); Influenza B PCR NEGATIVE (Negative); Resp Syncy Virus RNA Qual PCR POSITIVE (Negative); SARS COV2 PCR INHOUSE NEGATIVE (Negative)
== END 2023-03-29 11:50 | disposition home or self-care (01) ==
LOC: HO.XRAY 11:49
PROVIDERS: PCP Internal Medicine; Visit Provider Internal Medicine
DX: Z11.52 Encounter for screening for COVID-19 (principal); Z20.822 Contact with and (suspected) exposure to COVID-19; J40 Bronchitis, not specified as acute or chronic
CPT/HCPCS: 0241U; 71046

== ENCOUNTER 2023-04-14 09:59 | Outpatient (REF) | payer MEDICARE, SELFPAY ==
[2023-04-14 16:37] LABS: CDiff Gene PCR NEGATIVE (Negative)
== END 2023-04-14 10:00 | disposition home or self-care (01) ==
LOC: HO.LAB 09:59
PROVIDERS: PCP Internal Medicine; Visit Provider Internal Medicine
DX: K52.9 Noninfective gastroenteritis and colitis, unspecified (principal)
CPT/HCPCS: 87493

== ENCOUNTER 2023-05-02 09:33 | Outpatient (AMB) | payer MEDICARE, SELFPAY ==
--- NOTE | 2023-05-02 10:18 | AM.OFFWIN_ITS ---
Intake Vital Signs 05/02/23 10:21 Height 5 ft Weight 116 lb BMI 22.7 BP 140/64 H Blood Pressure Location Lt brachial Position Sitting Pulse 102 H Pulse Source Pulse Oximeter Temp 98.0 F Temp Source Oral Pulse Oximetry (%) 98 Oxygen Delivery Method Room Air Intake Visit Reasons: EP Fell on coffee table RT side (Lobby) Intake Note: pt is here for c.o right side rib pain due to fall on glass table on tuesday Patient Tobacco Use Status: Never used Tobacco Allergies codeine [CODEINE] Allergy (Unknown, Verified 05/02/23 10:46) GI PAIN, abd pain Codeine Sulfate Adverse Reaction (Unknown, Uncoded 05/02/23 10:46) stomach upset Medication List - Last Reconciled 05/02/23 by All Gutierrez MD aspirin 81 mg PO DAILY atorvastatin (Lipitor) 80 mg PO BEDTIME 30 days cholecalciferol (vitamin D3) (Vitamin D3) 25 mcg PO DAILY diltiazem HCl 120 mg PO DAILY ferrous sulfate 325 mg PO DAILY glipizide 10 mg PO QAM lisinopril 20 mg PO DAILY metformin ER 1,000 mg PO BID metoprolol tartrate 50 mg PO BID 30 days omeprazole 20 mg PO DAILY Do you need a note to return to daycare/school/sports/work: No HPI EP Fell on coffee table RT side (Lobby) HPI Details 78-year-old female presents to the [facility] for a sick visit. Patient slipped and fell inside her house 2 days ago. In the process she hurt her chest on the coffee table. Patient is experiencing pain when taking a deep breath. This morning she started coughing. [facility] Medical History Non-ST elevation [place] (NSTEMI) SVT (supraventricular tachycardia) Valvular heart disease Colon cancer HTN (hypertension) Social History Household Members: Family Household Members Other:: Son Housing: House Do you presently have visiting nurse or other home services: No Alcohol intake: never Patient Tobacco Use Status: Never used Tobacco Advance Directives Date on File: 01/01/21 service: No Current occupational status: retired Physical Exam Vital Signs: Last Vital Signs Temp 98.0 F 05/02/23 10:21 Pulse 102 H 05/02/23 10:21 BP 140/64 H 05/02/23 10:21 Pulse Ox 98 05/02/23 10:21 Oxygen Delivery Method Room Air 05/02/23 10:21 BMI result Body Mass Index 22.7 Const General: cooperative and healthy appearing Nutritional Appearance: well nourished Orientation/consciousness: patient oriented x3 Limitations: no limitations HEENT Head: Yes normal to inspection Eyes General: appearance normal, both eyes and all related structures Neck Neck: Yes normal visual inspection Chest Other: Chest: Tenderness over the 11th and 12th rib. No overlying bruise. Resp Effort & Inspection: normal respiratory effort Neuro General: patient oriented x3 Assessment & Plan Assessment & Plan (1) Contusion, chest wall: Code(s): S20.219A - Contusion of unspecified front wall of thorax, initial encounter Plan: X-ray images were personally reviewed by me. No fractures seen. Tylenol for pain suggested. If symptoms get worse to follow-up here. Orders: Orders XR ribs RT min 3V w CXR1V Today S20.219A - Contusion of unspecified front wall of thorax, initial encounter Coding Level of Care Code Est Pt Level 4 (58256) Diagnoses Contusion, chest wall S20.219A
[2023-05-02 10:21] VITALS: BP 140/64; PULSE 102; TEMP 36.7; O2SAT 98; BMI 22.7
== END 2023-05-02 10:59 | disposition home or self-care (01) ==
PROVIDERS: PCP Internal Medicine; Visit Provider Internal Medicine
DX: S20.219A Contusion of unspecified front wall of thorax, initial encounter (principal)
CPT/HCPCS: 99214

== ENCOUNTER 2023-05-02 10:43 | Outpatient (REF) | payer MEDICARE, SELFPAY ==
--- NOTE | ~2023-05-02 | XR_ITS ---
EXAMINATION: XR RIBS, RIGHT CLINICAL INFORMATION: Chest wall contusion COMPARISON: None available. TECHNIQUE: Single view chest and 3 views of the right ribs were obtained. FINDINGS: Lungs are clear. No consolidation, pneumothorax, or pleural effusion. The cardiomediastinal silhouette and pulmonary vasculature are normal. Osseous structures are unremarkable. Ribs are intact. No fractures are identified. XR/XR ribs RT min 3V w CXR1V IMPRESSION: Unremarkable examination.
== END 2023-05-02 10:44 | disposition home or self-care (01) ==
LOC: HO.HMGCX 10:43
PROVIDERS: PCP Internal Medicine; Visit Provider Internal Medicine
DX: S20.219A Contusion of unspecified front wall of thorax, initial encounter (principal)
CPT/HCPCS: 71101

== ENCOUNTER 2023-05-16 15:47 | Outpatient (AMB) | payer MEDICARE, SELFPAY ==
[2023-05-16 15:50] VITALS: BP 132/70; PULSE 94; O2SAT 90
--- NOTE | 2023-05-16 15:50 | MHC.OFFWIV ---
Intake Vital Signs 05/16/23 15:50 Height 5 ft BP 132/70 Blood Pressure Location Lt brachial Position Sitting Pulse 94 Pulse Source Pulse Oximeter Pulse Oximetry (%) 90 L Oxygen Delivery Method Room Air Intake Visit Reasons: EP bump on top of head from fall Intake Note: pt is here for c.o bump on top of head due to fall Patient Tobacco Use Status: Never used Tobacco Allergies codeine [CODEINE] Allergy (Unknown, Verified 05/16/23 15:50) GI PAIN, abd pain Codeine Sulfate Adverse Reaction (Unknown, Uncoded 05/02/23 10:46) stomach upset Do you need a note to return to daycare/school/sports/work: No HPI HPI Comments History of Present Illness Details 78-year-old female history of hypertension, diabetes, NSTEMI on aspirin presents for evaluation of fall with head strike, patient reports she fell around noon, lost consciousness unclear how long she was down for she was able to get up from the ground with using a chair, since then has been having a headache and feels 2 bumps on her head. Unsure if she had preceding symptoms to fall. Unclear how long she was down for. Positive loss of consciousness. No other blood thinners. At this time denies vision changes, dizziness, weakness, chest pain, shortness of breath On exam to hematemesis the back of the head 1 of them with overlying abrasion. Hypoxic at 90% on RA. ( baseline around 98%) History and physical exam concerning for contusions to head and concussion with loss of consciousness. Intracranial hemorrhage must be ruled out due to mechanism of injury and history as well as patient age. Patient should be transported via ambulance to a hospital as she drove herself here. Patient will likely require head and neck CT. As well as labs. [place] [facility] [place] [facility] Medical History Non-ST elevation [place] (NSTEMI) SVT (supraventricular tachycardia) Valvular heart disease Colon cancer HTN (hypertension) Social History Household Members: Family Household Members Other:: Son Housing: House Do you presently have visiting nurse or other home services: No Alcohol intake: never Patient Tobacco Use Status: Never used Tobacco Advance Directives Date on File: 01/01/21 service: No Current occupational status: retired Physical Exam Vital Signs: Patient was initially 90% on room air after ambulation. Appearance: Alert.? Oriented X3.? No acute distress.? Head: Normocephalic, atraumatic, no step-offs or deformities to hematomas to the occiput of head, inferior 1 with small abrasion that is currently bleeding. Sterile dressing applied with pressure. Eyes: Pupils equal, round and reactive to light.? ENT: Pharynx normal.? Neck: Normal inspection.? Neck supple.? CVS: Normal heart rate and rhythm.? Pulses normal.? Respiratory: No respiratory distress.? Breath sounds normal.? Abdomen: Soft and nontender.? Skin: Skin warm and dry.? Normal skin color.? Normal skin turgor.? Extremities: No lower extremity edema.? No calf ttp. 5/5 strength to bilateral upper and lower extremities Back: No midline tenderness, no C-spine tenderness, full range of motion, no CVA tenderness bilaterally Neuro: Oriented X 3.? No motor deficit.? No sensory deficit. CN 2-12 intact Assessment & Plan Assessment & Plan (1) Contusion: Code(s): T14.8XXA - Other injury of unspecified body region, initial encounter (2) Scalp hematoma: Code(s): S00.03XA - Contusion of scalp, initial encounter (3) Concussion with loss of consciousness: Code(s): S06.0X9A - Concussion with loss of consciousness of unspecified duration, initial encounter Plan Patient to go [place] [facility] [place]. Coding Level of Care Code Est Pt Level 3 (54121) Diagnoses Contusion T14.8XXA Scalp hematoma S00.03XA Concussion with loss of consciousness S06.0X9A
== END 2023-05-16 16:26 | disposition home or self-care (01) ==
PROVIDERS: PCP Internal Medicine; Visit Provider Physician Assistant
DX: T14.8XXA Other injury of unspecified body region, initial encounter (principal); S00.03XA Contusion of scalp, initial encounter; S06.0X9A Concussion with loss of consciousness of unspecified duration, initial encounter
CPT/HCPCS: 99213

== ENCOUNTER 2023-05-16 17:04 | Inpatient (IN) | payer MEDICARE, SELFPAY ==
[2023-05-16] VITALS (7 sets, daily range): BP systolic 129–164; BP diastolic 61–89; PULSE 86–111; RESP 16; TEMP 36.6; O2SAT 98–99; BMI 24.1
--- NOTE | ~2023-05-16 | CT_ITS ---
EXAMINATION: CT HEAD WITHOUT CONTRAST CLINICAL INFORMATION: Fall head strike COMPARISON: CT head from 03/17/2014 TECHNIQUE: Contiguous axial imaging was performed from the skull base to vertex without intravenous administration of contrast. This CT examination was performed using dose optimization techniques as appropriate, variously including the following: *Automated exposure control *Adjustment of mA and/or kV according to patient size (this includes techniques or standardized protocols for targeted exams where dose is matched to indication/reason for exam; i.e. extremities or head) *Use of iterative reconstruction technique DLP: 814 mGy-cm FINDINGS: There is no evidence of acute intracranial hemorrhage or territorial infarction. Chronic white matter small vessel signal changes. Mild cerebral atrophy. No abnormal mass effect or midline shift is seen. Hilario to white matter differentiation is well preserved. No extra-axial fluid collections are identified. The ventricles are normal in size. There is no abnormal attenuation within the brain parenchyma. Heterogeneous soft tissue nodule along the right posterior occipital lobe (7 mm nonspecific though may reflect a sebaceous cyst. The osseous structures and soft tissues are normal. The unit The mastoid air cells and visualized portions of the paranasal sinuses are well aerated. CT/CT cervical spine wo IV con IMPRESSION: 1. No acute intracranial pathology. 2. Chronic white matter small vessel signal changes. EXAMINATION: Noncontrast CT scan of the cervical spine. INDICATION: Neck pain COMPARISON: None. TECHNIQUE: Helical, multidetector axial images were obtained from the occiput to the upper thorax. Coronal and sagittal reformats of the cervical spine were provided for interpretation. DLP: 814 mGy-cm FINDINGS: No acute fractures or dislocations of the cervical spine are seen. Straightening of the normal cervical curvature. Multilevel degenerative changes. Anatomic alignment and positioning of the vertebral bodies and posterior elements is noted. The atlantoaxial joint and craniovertebral articulations are normal without evidence of subluxation. There is no prevertebral soft tissue swelling. The thyroid gland and visualized portions of the lung apices and mediastinum are unremarkable. IMPRESSION: 1. No acute visible fracture or dislocation. 2. Straightening of the normal cervical curvature. 3. Multilevel degenerative changes.
--- NOTE | 2023-05-16 17:13 | ECG_ITS ---
Test Reason : FALL Blood Pressure : / mmHG Vent. Rate : 086 BPM Atrial Rate : 086 BPM P-R Int : 200 ms QRS Dur : 086 ms QT Int : 378 ms P-R-T Axes : 046 -42 029 degrees QTc Int : 452 ms Normal sinus rhythm Left axis deviation Abnormal ECG When compared with ECG of 31-DEC-2020 15:07, No significant change was found Referred By: Stanley Patino Electronically Signed By:AMADOR GRAF
--- NOTE | 2023-05-16 17:29 | ED.SYNCOPE ---
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 Had a cardiac ablation for SVT is in 2021 patient was given Levaquin for bronchitis on had RSV prior to that since taking Levaquin patient has watery stool 4-5 times Related Data Home Medications Medication Instructions Recorded Confirmed aspirin 81 mg chewable tablet 81 mg PO DAILY 12/31/20 05/16/23 cholecalciferol (vitamin D3) 25 25 mcg PO DAILY 12/31/20 05/16/23 mcg (1,000 unit) capsule (Vitamin D3) ferrous sulfate 325 mg (65 mg 325 mg PO DAILY 12/31/20 05/16/23 iron) tablet glipizide 10 mg tablet 10 mg PO QAM 12/31/20 05/16/23 lisinopril 20 mg tablet 20 mg PO DAILY 12/31/20 05/16/23 metformin 500 mg tablet,extended 1,000 mg PO BID 12/31/20 05/16/23 release 24 hr omeprazole 20 mg capsule,delayed 20 mg PO DAILY 12/31/20 05/16/23 release atorvastatin 80 mg tablet (Lipitor) 40 mg PO DAILY 05/16/23 05/16/23 colchicine 0.6 mg tablet 0.6 mg PO BID 05/16/23 05/16/23 dulaglutide 1.5 mg/0.5 mL 1.5 mg subcut TH 05/16/23 05/16/23 subcutaneous pen injector (Trulicity) ursodiol 300 mg capsule 300 mg PO BID 05/16/23 05/16/23 Allergies Allergy/AdvReac Type Severity Reaction Status Date / Time codeine [CODEINE] Allergy Unknown GI PAIN, Verified 05/16/23 23:49 abd pain Codeine Sulfate AdvReac Unknown stomach Uncoded 05/16/23 23:49 upset Review of Systems Review of Systems: Yes all other systems are reviewed and are negative [facility] Past Medical History Medical History Non-ST elevation [place] (NSTEMI) SVT (supraventricular tachycardia) Valvular heart disease Colon cancer HTN (hypertension) Social History Social History Household Members: Family Household Members Other:: Son Housing: House Do you presently have visiting nurse or other home services: No Alcohol intake: never Patient Tobacco Use Status: Never used Tobacco Smoked in Last 30 Days: No Use of substances other than those prescribed or required for medical reasons: No Advance Directives: Yes Advance Directives on File: Yes Advance Directives Date on File: 01/01/21 service: No Current occupational status: retired Physical Exam Vital Signs: Vital Signs: Last Vital Signs Temp 98.4 F 05/17/23 01:11 Pulse 93 05/17/23 01:11 Resp 16 05/17/23 01:11 BP 124/64 05/17/23 01:11 Pulse Ox 95 05/17/23 01:11 O2 Del Method Room Air 05/17/23 01:11 BMI result Body Mass Index 24.1 Appearance: Alert. Oriented X3. No acute distress. Eyes: PERRLA, No Nystagmus ENT: Pharynx normal. Oral Mucosa moist superficial laceration/abrasion right occipital area Neck: Normal inspection. Neck supple. No midline tenderness CVS: Normal heart rate and rhythm. Pulses normal. Respiratory: No respiratory distress. Equal air entry bilateral, no wheezing/rales/rhonchi Abdomen: Soft and nontender. Bowel sounds are present, no mass palpable, no CVA tenderness Skin: Skin warm and dry. Normal skin color. Normal skin turgor. Extremities: No lower extremity edema. No calf tenderness Neuro: Oriented X 3. No motor deficit. No sensory deficit.No cerebellar signs , cranial nerves II-XII intact Medications Administered Generic Name Dose Route Start Last Admin Trade Name Freq PRN Reason Stop Dose Admin Colchicine 0.6 mg 05/16/23 21:00 05/16/23 22:05 Colchicine 0.6 Mg Tablet PO 0.6 mg BID NISA Administration Enoxaparin Sodium 40 mg 05/16/23 21:00 05/16/23 22:46 Enoxaparin Sodium 40 Mg/0.4 Ml Syringe SUBCUT 40 mg Q24H NISA Administration Lactated Ringer's 1,000 mls @ 100 mls/hr 05/16/23 20:45 05/16/23 22:00 Lr IVCONT 100 mls/hr .Q10H NISA Administration Insulin Human Lispro 0 unit 05/16/23 21:00 05/16/23 22:06 Insulin Lispro 100 Unit/Ml 3 Ml Vial SUBCUT Not Given QIDACHS [facility] Protocol Ursodiol 300 mg 05/16/23 21:00 05/16/23 23:32 Ursodiol 300 Mg Capsule PO 300 mg BID NISA Administration Discontinued Medications Generic Name Dose Route Start Last Admin Trade Name Freq PRN Reason Stop Dose Admin Sodium Chloride 1,000 mls @ 999 mls/hr 05/16/23 18:02 05/16/23 21:44 Ns IV 05/16/23 19:02 Infused .Q1H1M ONE Infusion Magnesium Sulfate 2 gm in 50 mls @ 150 mls/hr 05/16/23 18:02 05/16/23 19:25 Magnesium Sulfate/H2o IV 05/16/23 18:21 Infused ONCE ONE Infusion Magnesium Sulfate 2 gm in 50 mls @ 25 mls/hr 05/16/23 19:58 05/16/23 23:50 Magnesium Sulfate/H2o IV 05/16/23 21:57 Infused ONCE ONE Infusion Medical Decision Making Medical Decision Making [facility] Narrative: Patient with frequent syncope episode with increased weakness with hypomagnesemia chronic diarrhea likely the cause of fluid loss had orthostatic positive IV fluids were given and Iv magnesium. Will admit patient for observation as still feeling weak Differential Diagnosis Differential Diagnoses: The differential diagnosis associated with the presentation includes Syncope/cardiac arrhythmias/sinus pauses /hyponatremia/hypo kalemia/hypomagnesemia/hypovolemia/colitis Admission/Observation Consideration of admission/observation: Escalation of care including admission/observation considered Consult Healthcare Provider Management of the patient was discussed with: Hospitalist Lab Data [facility] Lab Attestation statement: I reviewed the patient's lab results. 05/16/23 17:34 05/16/23 17:34 Labs: Lab Results 05/16/23 Range/Units 17:34 WBC 6.0 (4.8-10.8) X10*3/uL RBC 3.32 L (4.20-5.50) X10*6/uL Hgb 9.9 L (12.0-16.0) g/dl Hct 29.2 L (37.0-47.0) % MCV 88.0 (80.0-98.0) fL MCH 29.8 (27.0-33.0) pg MCHC 33.9 (31.0-35.0) g/dl RDW 16.1 H (11.0-16.0) % Plt Count 231 (160-400) X10*3/uL MPV 9.2 L (9.4-12.3) fL Immature Gran % (Auto) 0.3 (0.0-0.4) % Neut % (Auto) 66.5 (45-73) % Lymph % (Auto) 23.2 (20-40) % Morrow % (Auto) 8.2 (2-11) % Eos % (Auto) 1.5 (0-4) % Baso % (Auto) 0.3 (0-2) % Lymph # (Auto) 1.4 (1.2-4.9) X10*3/uL Morrow # (Auto) 0.5 (0.1-1.2) X10*3/uL Eos # (Auto) 0.1 (0.0-0.4) X10*3/uL Baso # (Auto) 0.0 (0.0-0.2) X10*3/uL Abs Immat Gran (auto) 0.02 (0.00-0.03) X10*3/uL Absolute Neuts (auto) 4.0 (2.0-8.3) x10*3/uL Absolute Nucleated RBC 0.000 (0.0-0.012) X10*3/uL Nucleated RBC % (auto) 0.0 (0.0-0.2) /100WBC PT 13.6 H (11.1-13.3) SEC INR 1.1 (0.9-1.1) Sodium 141 (135-145) mmol/L Potassium 3.8 (3.3-5.1) mmol/L Chloride 107 (96-108) mmol/L Carbon Dioxide 24 (22-29) mmol/L Anion Gap 14 (12-20) BUN 16 (9-16) mg/dL Creatinine 0.82 (0.5-1.4) mg/dL Estim Creat Clear Calc 45.7 Estimated GFR > 60 Random Glucose 129 H (60-115) mg/dL Calcium 10.0 (8.4-10.2) mg/dL Magnesium 1.0 L* (1.6-2.6) mg/dL Total Bilirubin 0.7 (0.0-1.0) mg/dL AST 44 H (5-31) U/L ALT 34 H (0-31) U/L Alkaline Phosphatase 157 H (39-117) U/L Troponin I High Sens 6.5 (<3.5-17.0) ng/L Total Protein 6.5 (6.5-8.0) g/dL Albumin 3.5 (3.5-5.0) g/dL Independent Interpretation I performed an independent interpretation of an: EKG and CT Scan Interpretation: Normal sinus rhythm left axis deviation normal interval normal axis no acute ST T wave changes no acute ischemia Radiology Impression Discussion of test interpretation with radiology: I have reviewed the radiologist's reading. Discharge Plan Discharge Clinical Impression: Syncope, Hypomagnesemia, Diarrhea Patient Disposition: Admitted As Inpatient
[2023-05-16 17:40] LABS: MANUAL DIFF FLAG NO
[2023-05-16 17:41] LABS: Basophils Percent Auto 0.3 % (0-2); Eosinophils Absolute Auto 0.1 X10*3/uL (0.0-0.4); Eosinophils Percent Auto 1.5 % (0-4); Hematocrit 29.2 % (37.0-47.0); Hemoglobin 9.9 g/dl (12.0-16.0); Imm Gran Abs Auto 0.02 X10*3/uL (0.00-0.03); Imm Gran Pct Auto 0.3 % (0.0-0.4); Lymphocytes Absolute Auto 1.4 X10*3/uL (1.2-4.9); Lymphocytes Percent Auto 23.2 % (20-40); Mean Corpuscular HGB Conc 33.9 g/dl (31.0-35.0); Mean Corpuscular Hemoglobin 29.8 pg (27.0-33.0); Mean Platelet Volume 9.2 fL (9.4-12.3); Monocytes Absolute Auto 0.5 X10*3/uL (0.1-1.2); Monocytes Percent Auto 8.2 % (2-11); Neutrophils Percent Auto 66.5 % (45-73); Platelet Count 231 X10*3/uL (160-400); Red Blood Count 3.32 X10*6/uL (4.20-5.50); Red Cell Distribution Width 16.1 % (11.0-16.0)
[2023-05-16 17:46] LABS: INTERNATIONAL NORM RATIO 1.1 (0.9-1.1); Prothrombin Time 13.6 SEC (11.1-13.3)
[2023-05-16 18:03] LABS: Alanine Aminotransferase 34 U/L (0-31); Albumin Level 3.5 g/dL (3.5-5.0); Alkaline Phosphatase 157 U/L (39-117); Anion Gap 14 (12-20); Aspartate Amino Transferase 44 U/L (5-31); Bilirubin Total 0.7 mg/dL (0.0-1.0); Blood Urea Nitrogen 16 mg/dL (9-16); Carbon Dioxide 24 mmol/L (22-29); Chloride 107 mmol/L (96-108); Creatinine Clr Calc Pharmacy 45.7; Estimated Glomerular Filt Rate > 60; Glucose Random 129 mg/dL (60-115); Potassium 3.8 mmol/L (3.3-5.1); Sodium 141 mmol/L (135-145); Total Protein 6.5 g/dL (6.5-8.0); Troponin-I High Sensitivity 6.5 ng/L (<3.5-17.0)
[2023-05-16] MEDS: 0.9 % Sodium Chloride 1,000 ML 999 ML IV (18:19)
[2023-05-16] MEDS: Magnesium Sulfate/H2O 2 GM/50 ML PIGGYBACK IV ×2 (18:19→21:48)
--- NOTE | 2023-05-16 20:17 | PHA.MEDREC ---
Pharmacy Consult ? Medication Reconciliation Pharmacy has completed the medication reconciliation. Patient had list of medications that match claim history. Report Atorvastatin is a half a tablet. Milli Bill, RadhaD
--- NOTE | 2023-05-16 20:48 | P.HPHOSP_ITS ---
History of Present Illness Date of Service: 05/16/23 Attending physician on admission: Dania Rollins Chief Complaint: syncope 78-year-old female with history of [id number] type 2 diabetes, history of SVT s/p ablation 2018, coronary artery disease s/p NSTEMI, hypertension, colon cancer s/p resection presented to the ED earlier today for evaluation of a syncopal episode that occurred early this morning. 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 Unclear if she lost consciousness, the fall was unwitnessed. She denies any other prodrome including shortness of breath, palpitations, visual changes, chest pain. She has been having 3-5 episodes of watery diarrhea for about 1.5 months after completing course of Levaquin which was prescribed around [place] for bronchitis/RSV. She states that her symptoms had stopped for several days but then recurred yesterday. Denies any fevers, chills, abdominal pain, nausea, vomiting. Upon further questioning, she does tell me that she has had similar near-syncope/syncope episodes predating the onset of the diarrhea this fall. On arrival, VSS. Positie for orthostasis though no true hypotension. Hematology studies show a stable normocytic anemia with H/H 9.9/29.2%. Renal function baseline, electrolyte levels normal except for magnesium level of 1.0. AST 44, ALT 34, consistent with baseline. Troponin 6.5. Head CT negative for any acute intracranial abnormality. CT of the cervical spine negative for any acute fracture, subluxation, dislocation but shows straightening of the normal cervical curvature. C diff PCR and GI panel pending. In the ED, has received 2 g IV magnesium and 1 L IV NS. Review of Systems 2 Review of Systems: General: No fevers, malaise, unintentional weight loss HEENT: No blurred vision, diplopia. No sore throat, nasal congestion, rhinorrhea, sinus pain, ear pain Cardiovascular: No chest pain, palpitations, or leg edema Respiratory: No shortness of breath, wheezing, cough GI: +diarrhea. No abdominal pain, nausea, vomiting, constipation, melena, hematochezia : No dysuria, hematuria, increased urinary frequency, decreased urinary output MSK: No myalgia, back pain Neuro: No headaches, weakness, paresthesias. +syncope Skin: No rashes or lesions [facility] Medical History Non-ST elevation NE (NSTEMI) SVT (supraventricular tachycardia) Valvular heart disease Colon cancer HTN (hypertension) Social History Household Members: Family Household Members Other:: Son Housing: House Do you presently have visiting nurse or other home services: No Alcohol intake: never Patient Tobacco Use Status: Never used Tobacco Smoked in Last 30 Days: No Use of substances other than those prescribed or required for medical reasons: No Advance Directives: Yes Advance Directives on File: Yes Advance Directives Date on File: 01/01/21 service: No Current occupational status: retired [employer] Allergies Allergy/AdvReac Type Severity Reaction Status Date / Time codeine [CODEINE] Allergy Unknown GI PAIN, Verified 05/16/23 17:27 abd pain Codeine Sulfate AdvReac Unknown stomach Uncoded 05/02/23 10:46 upset Active Medications: Current Medications Acetaminophen (Acetaminophen 325 Mg Tablet) 650 mg PO Q6H PRN PRN Reason: Pain, Mild (Pain Scale 1-3) Dextrose (Dextrose 50 % 25 Gm/50 Ml Syringe) 25 gm IVPUSH Q15M PRN; Protocol PRN Reason: per Hypoglycemia Standing Ord. Enoxaparin Sodium (Enoxaparin Sodium 40 Mg/0.4 Ml Syringe) 40 mg SUBCUT Q24H NISA Glucose (Glucose Gel 15 Gm Gel..Gram.) 15 gm PO Q15M PRN; Protocol PRN Reason: per Hypoglycemia Standing Ord. Magnesium Sulfate (Magnesium Sulfate/H2o) 2 gm in 50 mls @ 25 mls/hr IV ONCE ONE Stop: 05/16/23 21:57 Lactated Ringer's (Lr) 1,000 mls @ 100 mls/hr IVCONT .Q10H NISA Insulin Human Lispro (Insulin Lispro 100 Unit/Ml 3 Ml Vial) 0 unit SUBCUT QIDACHS NISA; Protocol Ondansetron HCl (Ondansetron Hcl 4 Mg/2 Ml Vial) 4 mg IVPUSH Q8H PRN PRN Reason: Nausea and Vomiting Senna (Sennosides 8.6 Mg Tablet) 17.2 mg PO BEDTIME PRN PRN Reason: Constipation Sodium Chloride (0.9 % Sodium Chloride Flush 3 Ml Syringe) 3 ml IVFLUSH QSHIFT [facility] Home Medications Medication Instructions Recorded Confirmed Last Taken Type aspirin 81 mg chewable tablet 81 mg PO DAILY 12/31/20 05/16/23 05/16/23 History cholecalciferol (vitamin D3) 25 25 mcg PO DAILY 12/31/20 05/16/23 05/16/23 History mcg (1,000 unit) capsule (Vitamin D3) ferrous sulfate 325 mg (65 mg 325 mg PO DAILY 12/31/20 05/16/23 05/16/23 History iron) tablet glipizide 10 mg tablet 10 mg PO QAM 12/31/20 05/16/23 05/16/23 History lisinopril 20 mg tablet 20 mg PO DAILY 12/31/20 05/16/23 05/16/23 History metformin 500 mg tablet,extended 1,000 mg PO BID 12/31/20 05/16/23 05/16/23 History release 24 hr omeprazole 20 mg capsule,delayed 20 mg PO DAILY 12/31/20 05/16/23 05/16/23 History release atorvastatin 80 mg tablet (Lipitor) 40 mg PO DAILY 05/16/23 05/16/23 05/16/23 History colchicine 0.6 mg tablet 0.6 mg PO BID 05/16/23 05/16/23 05/16/23 History dulaglutide 1.5 mg/0.5 mL 1.5 mg subcut TH 05/16/23 05/16/23 Unknown History subcutaneous pen injector (Trulicity) ursodiol 300 mg capsule 300 mg PO BID 05/16/23 05/16/23 05/16/23 History Physical Exam 2 Vital Signs and Narrative: Vital Signs: Last Vital Signs Temp 98 F 05/16/23 19:51 Pulse 88 05/16/23 19:51 Resp 16 05/16/23 19:51 BP 164/89 H 05/16/23 19:51 Pulse Ox 99 05/16/23 17:17 O2 Del Method Room Air 05/16/23 17:17 BMI result Body Mass Index 24.1 Constitutional - Awake and Alert, No apparent distress Eyes - PERRLA, EOMI Cardiovascular - S1S2, RRR, No edema Respiratory - Normal lung expansion, Normal respiratory effort, No respiratory distress, CTA bilaterally Gastrointestinal - NT / ND; +BS; No rebound or guarding Extremities - no calf tenderness bilaterally, no swelling Skin - Warm/Dry Neurological - Alert & oriented x3, CN II-XII in tact, 5/5 strength BUE and BLE Psychological - Appropriate affect Results Labs 05/16/23 17:34 05/16/23 17:34 Labs: Laboratory Results - last 24 hr 05/16/23 17:34 MCV 88.0 MCH 29.8 MCHC 33.9 RDW 16.1 H Plt Count 231 MPV 9.2 L Immature Gran % (Auto) 0.3 Neut % (Auto) 66.5 Lymph % (Auto) 23.2 [place] % (Auto) 8.2 Eos % (Auto) 1.5 Baso % (Auto) 0.3 Lymph # (Auto) 1.4 [place] # (Auto) 0.5 Eos # (Auto) 0.1 Baso # (Auto) 0.0 Abs Immat Gran (auto) 0.02 Absolute Neuts (auto) 4.0 Absolute Nucleated RBC 0.000 Nucleated RBC % (auto) 0.0 PT 13.6 H INR 1.1 Anion Gap 14 Estim Creat Clear Calc 45.7 Estimated GFR > 60 Random Glucose 129 H Calcium 10.0 Magnesium 1.0 L* Total Bilirubin 0.7 AST 44 H ALT 34 H Alkaline Phosphatase 157 H Total Protein 6.5 Albumin 3.5 Imaging Radiologist's Impressions: Impressions Cervical Spine CT 05/16/23 18:19 IMPRESSION: 1. No acute intracranial pathology. 2. Chronic white matter small vessel signal changes. EXAMINATION: Noncontrast CT scan of the cervical spine. INDICATION: Neck pain COMPARISON: None. TECHNIQUE: Helical, multidetector axial images were obtained from the occiput to the upper thorax. Coronal and sagittal reformats of the cervical spine were provided for interpretation. DLP: 814 mGy-cm FINDINGS: No acute fractures or dislocations of the cervical spine are seen. Straightening of the normal cervical curvature. Multilevel degenerative changes. Anatomic alignment and positioning of the vertebral bodies and posterior elements is noted. The atlantoaxial joint and craniovertebral articulations are normal without evidence of subluxation. There is no prevertebral soft tissue swelling. The thyroid gland and visualized portions of the lung apices and mediastinum are unremarkable. IMPRESSION: 1. No acute visible fracture or dislocation. 2. Straightening of the normal cervical curvature. 3. Multilevel degenerative changes. Head CT 05/16/23 18:19 IMPRESSION: 1. No acute intracranial pathology. 2. Chronic white matter small vessel signal changes. EXAMINATION: Noncontrast CT scan of the cervical spine. INDICATION: Neck pain COMPARISON: None. TECHNIQUE: Helical, multidetector axial images were obtained from the occiput to the upper thorax. Coronal and sagittal reformats of the cervical spine were provided for interpretation. DLP: 814 mGy-cm FINDINGS: No acute fractures or dislocations of the cervical spine are seen. Straightening of the normal cervical curvature. Multilevel degenerative changes. Anatomic alignment and positioning of the vertebral bodies and posterior elements is noted. The atlantoaxial joint and craniovertebral articulations are normal without evidence of subluxation. There is no prevertebral soft tissue swelling. The thyroid gland and visualized portions of the lung apices and mediastinum are unremarkable. IMPRESSION: 1. No acute visible fracture or dislocation. 2. Straightening of the normal cervical curvature. 3. Multilevel degenerative changes. Assessment and Plan (1) Syncope: Status: Acute (2) Diarrhea: Status: Acute (3) Hypomagnesemia: Status: Acute Plan 78-year-old female with history of [id number]-lavvyfhqg type 2 diabetes, history of SVT s/p ablation 2018, coronary artery disease s/p NSTEMI, hypertension, colon cancer s/p resection admitted due to orthostatic syncope with severe hypomagnesemia #Orthostatic syncope- due to hypovolemia secondary to GI losses -IV LR @ 100 mL/hr -will also check echocardiogram given had similar symptoms predating diarrhea with history of significant valvular disease and SVT -recheck orthostatic vital signs a.m. -monitor on telemetry #Severe hypomagnesemia- 2/2 GI losses -Mag 1.0 -repleted in ED -follow bmp, mag #Acute diarrhea -ongoing since taking levaquin 04/02 -C diff PCR and GI panel pending -hold on antidiarrheals until infectious etiology ruled out # [id number]-xetvxtijg type 2 diabetes -POC glucose, diabetic diet -Humalog on sliding scale -hold metformin, glipizide, Trulicity # CAD -EKG nonischemic, tropes 6.5, no chest pain -continue ASA, statin # hypertension -continue lisinopril DVT prophylaxis-Lovenox Full code Patient requires inpatient stay at least 2 midnight for management of and cardiac monitoring syncope with severe hypomagnesemia secondary to GI losses due to copious diarrhea possibly of infectious etiology requiring additional testing, aggressive IV fluid resuscitation, Quality Stroke Does the patient have a stroke diagnosis?: No VTE Prior VTE?: No VTE Risk Level:: Medical - moderate - high VTE Device Contraindication: Treatment Not Indicated VTE Drug Contraindication: N/A - Med Ordered
[2023-05-16] MEDS: Lactated Ringers 1,000 ML 100 ML IVCONT (22:00)
[2023-05-16] MEDS: Colchicine 0.6 MG TABLET PO (22:05)
[2023-05-16 22:32] LABS: Glucose, Whole Blood 64 mg/dL (60-115)
[2023-05-16] MEDS: Enoxaparin Sodium 40 MG/0.4 ML SYRINGE SUBCUT (22:46)
[2023-05-16] MEDS: UrsodioL 300 MG CAPSULE PO (23:32)
--- NOTE | 2023-05-17 | PC.NURSE ---
AT 22:27 pt's POC was noted to be 64. PT asymptomatic, reports she hasn't eaten since this morning. PT ate tuna sandwich and would only drink edilma brittany. PT finally allowed POC recheck at 23:55, 173.
[2023-05-17 00:03] LABS: Glucose, Whole Blood 173 mg/dL (60-115)
[2023-05-17 01:11] VITALS: BP 124/64; PULSE 93; RESP 16; TEMP 36.9; O2SAT 95
[2023-05-17 04:32] VITALS: BP 126/66; PULSE 82; RESP 16; O2SAT 96
--- NOTE | 2023-05-17 04:33 | PC.NURSE ---
Addendum entered by Adri Bello 05/17/23 05:30: unable to have bm to provide sample at that time. Original Note: pt ambulatory with steady gait to bathroom. helped back to bed; warm blanket given. call hansen within reach.
[2023-05-17 04:57] LABS: MANUAL DIFF FLAG NO
[2023-05-17 05:06] LABS: Basophils Percent Auto 0.4 % (0-2); Eosinophils Absolute Auto 0.2 X10*3/uL (0.0-0.4); Eosinophils Percent Auto 2.4 % (0-4); Hematocrit 27.8 % (37.0-47.0); Hemoglobin 9.6 g/dl (12.0-16.0); Imm Gran Abs Auto 0.02 X10*3/uL (0.00-0.03); Imm Gran Pct Auto 0.3 % (0.0-0.4); Lymphocytes Absolute Auto 1.9 X10*3/uL (1.2-4.9); Lymphocytes Percent Auto 25.8 % (20-40); Mean Corpuscular HGB Conc 34.5 g/dl (31.0-35.0); Mean Corpuscular Hemoglobin 30.2 pg (27.0-33.0); Mean Corpuscular Volume 87.4 fL (80.0-98.0); Mean Platelet Volume 9.8 fL (9.4-12.3); Monocytes Absolute Auto 0.5 X10*3/uL (0.1-1.2); Monocytes Percent Auto 7.3 % (2-11); Neutrophils Absolute Auto 4.6 x10*3/uL (2.0-8.3); Neutrophils Percent Auto 63.8 % (45-73); Platelet Count 235 X10*3/uL (160-400); Red Blood Count 3.18 X10*6/uL (4.20-5.50); White Blood Count 7.2 X10*3/uL (4.8-10.8)
[2023-05-17 05:21] LABS: Anion Gap 12 (12-20); Blood Urea Nitrogen 13 mg/dL (9-16); Calcium 9.6 mg/dL (8.4-10.2); Carbon Dioxide 27 mmol/L (22-29); Chloride 106 mmol/L (96-108); Creatinine Clr Calc Pharmacy 46.3; Estimated Glomerular Filt Rate > 60; Glucose Random 125 mg/dL (60-115); Potassium 3.5 mmol/L (3.3-5.1); Sodium 141 mmol/L (135-145)
[2023-05-17] MEDS: Omeprazole 20 MG CAPSULE.DR PO (06:33)
--- NOTE | 2023-05-17 07:00 | CA_ITS ---
Transthoracic Echocardiogram Patient (Last, First, Middle): Angela Nam, Gender: Female Date of : 1945 Age: 78 Procedure Date: 05/17/2023 Procedure Type: Transthoracic Echocardiogram Location: ER Height: 152.4 cm Weight: 55.79 kg BSA: 1.52 m2 Heart Rate: 86 bpm BP: 126 / 66 mmHg Parer: SB Referring MD: Beverley VAUGHN Symptoms: syncope Study Quality: Adequate ECG Rhythm: Sinus Conclusions: - The left ventricular systolic function is normal. The visually estimated ejection fraction is between 55-60%. - The basal inferior segment is hypokinetic. - There is severe mitral annular calcification. Findings Left Ventricle Normal left ventricular cavity size. There is normal left ventricular wall thickness. The left ventricular systolic function is normal. The visually estimated ejection fraction is between 55-60%. Diastolic function is normal for age. Wall Motion Rest Echo Findings The basal inferior segment is hypokinetic. Right Ventricle Normal right ventricular cavity size and systolic function. Atria Both atria are normal in size. Aortic Valve There is a normal trileaflet aortic valve. There is mild calcification of the aortic valve. There is no aortic valve stenosis. There is mild aortic valve regurgitation. Mitral Valve There is severe mitral annular calcification. There is trace mitral valve regurgitation. No significant mitral stenosis. Pulmonic Valve The pulmonic valve is likely normal. Tricuspid Valve There is trace tricuspid valve regurgitation. There is no evidence of pulmonary hypertension. Great Vessels The asc aorta is normal in size. Venous The inferior vena cava is normal in size and collapses less than 50% with inspiration. Pericardium/Pleural There is no evidence of pericardial effusion. Prior Study Comparison No significant change compared to prior study dated: 01/01/2021. (images reviewed) Measurements 2D Linear Measurements IVSd: 0.73 0.6-0.9/0.6-1.0 cm LVIDd: 4.83 3.9-5.3/4.2-5.9 cm LVIDd Index: 3.18 2.4-3.2/2.2-3.1 cm/m2 LVIDs: 3.09 2.0-3.6 cm LVPWd: 0.85 0.7-1.1 cm Ao Root: 3.30 2.1-3.5 cm LA Diam: 3.60 2.7-3.8/3.0-4.0 cm LAIDs Index: 2.37 1.5-2.3 cm/m2 LV Mass: 156.21 67-162/88-224 g LV Mass Index: 102.77 43-95/49-115 g/m2 LVOT Diam: 2.00 3.0+(-)1.3 cm 2D Systolic Function EF 4C: 54.80 >55% EF 2C: 48.60 >55% EF BiP: 51.70 >55% Mitral Valve MV VTI: 0.33 MV Pk Woo: 1.46 MV Mn Woo: 1.05 MV Pk Grad: 9.00 MV Mn Grad: 5.00 MV Pk E: 1.23 MV PK A: 1.63 MV Decel Time: 126.00 E/A: 0.80 E'Lateral: 4.03 E'Medial: 3.81 E/E' Med: 32.30 E/E' Lat: 30.50 PHT: 37.00 MVA PHT: 5.95 MVA Continuity: 1.63 Decel [place]: 9.80 Aortic Valve AoV Pk Woo: 1.31 AoV Mn Woo: 0.86 AoV VTI: 0.26 AoV Pk Grad: 7.00 Aov Mn Grad: 3.00 TON Cont.VTI: 2.01 AI Pk Woo: 4.65 AI [place]: 4.03 LVOT LVOT Pk Woo: 0.85 LVOT Mn Woo: 0.58 LVOT VTI: 0.17 LVOT Pk Grad: 3.00 LVOT Mn Grad: 2.00 LVOT Diam: 2.00 LVOT Area: 3.14 Diastolic Function MV Pk E: 1.23 MV Pk A: 1.63 E/A: 0.80 E'Medial: 3.81 E/E' Med: 32.30 E' Laterial: 4.03 E/E' Lat: 30.50 Right Ventricle TAPSE (mm): 20.00 TVS' Woo: 13.10 Tricuspid Valve TR Pk Woo: 2.47 TR Pk Grad: 24.00 RA Press: 8.00 RVSP: 32.00 Great Vessels Aorta Ao Root-2D: 3.30 2.0-3.7 cm Sinus of Valsalva: 3.30 2.0-3.5 cm Ao Asc: 3.10 2.1-3.4 cm Pulmonary Valve PV Pk Woo: 0.67 Peak PV Grad: 2.00 Updated in Other Vendor System with Status of Final Kilo Vale MD electronically signed on 05/17/2023 12:54:27 PM with status of Final
[2023-05-17 07:56] LABS: Glucose, Whole Blood 123 mg/dL (60-115)
[2023-05-17 09:10] VITALS: BP 146/63; PULSE 84; RESP 16; TEMP 36.6; O2SAT 94
[2023-05-17] MEDS: Cholecalciferol (Vitamin D3) 25 MCG TABLET PO (09:12)
[2023-05-17] MEDS: Atorvastatin Calcium 40 MG TABLET PO (09:12)
[2023-05-17] MEDS: lisinopriL 20 MG TABLET PO (09:12)
[2023-05-17] MEDS: UrsodioL 300 MG CAPSULE PO ×2 (09:12→21:12)
[2023-05-17] MEDS: Colchicine 0.6 MG TABLET PO ×2 (09:12→21:12)
[2023-05-17] MEDS: Aspirin 81 MG TAB.CHEW PO (09:12)
[2023-05-17] MEDS: Ferrous Sulfate 324 MG TABLET.DR PO (09:12)
[2023-05-17 10:22] LABS: CDiff Gene PCR NEGATIVE (Negative)
[2023-05-17 11:20] LABS: Adenovirus F 40/41 Not Detected (Not Detect.); Astrovirus Not Detected (Not Detect.); Campylobacter Not Detected (Not Detect.); Cryptosporidium Not Detected (Not Detect.); Cyclospora cayetanensis Not Detected (Not Detect.); E. coli EAEC Not Detected (Not Detect.); E. coli EPEC Not Detected (Not Detect.); E. coli ETEC Not Detected (Not Detect.); E. coli STEC Not Detected (Not Detect.); Entamoeba histolytica Not Detected (Not Detect.); Giardia lamblia Not Detected (Not Detect.); Norovirus GI/GII Not Detected (Not Detect.); Plesiomonas shigelloides Not Detected (Not Detect.); Rotavirus A Not Detected (Not Detect.); Salmonella Not Detected (Not Detect.); Sapovirus Not Detected (Not Detect.); Shigella sp./EIEC Not Detected (Not Detect.); Vibrio Not Detected (Not Detect.); Vibrio Cholerae Not Detected (Not Detect.); Yersinia enterocolitica Not Detected (Not Detect.)
--- NOTE | 2023-05-17 11:51 | PC.NURSE ---
PRECAUTIONS NO LONGER NEEDED. CDIFF AND GI PANEL NEG. SECOND PIV PLACED IN L UPPER ARM DUE TO R SIDED IV BEING POSITIONAL, IVF SLOW TO INFUSE.
--- NOTE | 2023-05-17 12:13 | MHC.CM.PN ---
CM met with Patient and her Daughter/HCP/Tonya in the ED, at bedside and addressed IMM with her (original was given to Patient and a copy will be placed on the chart). Patient lives in a house with her Son and she required no services nor DME [employer]. Home/self care is the goal and CM has initiated and will follow for dc planning. PCP is Dr. Rory Sandhu.
[2023-05-17 12:32] LABS: Glucose, Whole Blood 158 mg/dL (60-115)
--- NOTE | 2023-05-17 14:22 | P.PNIM_ITS ---
Subjective Subjective Date of Service: 05/17/23 Interval History: Hypomagnesemia,diarrhae Review of Systems has diarrahe but seems improving no fever or chills Physical Exam 2 Vital Signs: Vital Signs: Last Vital Signs Temp 97.8 F 05/17/23 09:10 Pulse 84 05/17/23 09:10 Resp 16 05/17/23 09:10 BP 146/63 H 05/17/23 09:10 Pulse Ox 94 05/17/23 09:10 O2 Del Method Room Air 05/17/23 09:10 BMI result Body Mass Index 24.1 Appearance: Alert.? Oriented X3.? not in distress.? cvs: [id number], [id number] , no murmur res: clear to auscultation ,no rhonchii or wheezing abd: no rebound or guarding ,nt, bs present. ext pulses present , no cyanosis . neuro: axo3 , nonfocal. Objective Data Active Medications Acetaminophen (Acetaminophen 325 Mg Tablet) 650 mg PO Q6H PRN PRN Reason: Pain, Mild (Pain Scale 1-3) Aspirin (Aspirin 81 Mg Tab.Chew) 81 mg PO DAILY [facility] Last Admin: 05/17/23 09:12 Dose: 81 mg Documented By: DAVID Atorvastatin Calcium (Atorvastatin Calcium 40 Mg Tablet) 40 mg PO DAILY [facility] Last Admin: 05/17/23 09:12 Dose: 40 mg Documented By: DAVID Colchicine (Colchicine 0.6 Mg Tablet) 0.6 mg PO BID [facility] Last Admin: 05/17/23 09:12 Dose: 0.6 mg Documented By: DAVID Dextrose (Dextrose 50 % 25 Gm/50 Ml Syringe) 25 gm IVPUSH Q15M PRN; Protocol PRN Reason: per Hypoglycemia Standing Ord. Enoxaparin Sodium (Enoxaparin Sodium 40 Mg/0.4 Ml Syringe) 40 mg SUBCUT Q24H [facility] Last Admin: 05/16/23 22:46 Dose: 40 mg Documented By: DANISH Ferrous Sulfate (Ferrous Sulfate 324 Mg Tablet.) 324 mg PO DAILY [facility] Last Admin: 05/17/23 09:12 Dose: 324 mg Documented By: DAVID Glucose (Glucose Gel 15 Gm Gel..Gram.) 15 gm PO Q15M PRN; Protocol PRN Reason: per Hypoglycemia Standing Ord. Lactated Ringer's (Lr) 1,000 mls @ 100 mls/hr IVCONT .Q10H [facility] Last Infusion: 05/17/23 12:44 Dose: Infused Documented By: BILL Insulin Human Lispro (Insulin Lispro 100 Unit/Ml 3 Ml Vial) 0 unit SUBCUT QIDACHS [facility]; Protocol Last Admin: 05/17/23 13:16 Dose: Not Given Documented By: DAVID Non-Admin Reason: Patient Refused Lisinopril (Lisinopril 20 Mg Tablet) 20 mg PO DAILY [facility]; Protocol Last Admin: 05/17/23 09:12 Dose: 20 mg Documented By: DAVID Omeprazole (Omeprazole 20 Mg Capsule.) 20 mg PO DAILY@0630 [facility] Last Admin: 05/17/23 06:33 Dose: 20 mg Documented By: MONALISA Ondansetron HCl (Ondansetron Hcl 4 Mg/2 Ml Vial) 4 mg IVPUSH Q8H PRN PRN Reason: Nausea and Vomiting Senna (Sennosides 8.6 Mg Tablet) 17.2 mg PO BEDTIME PRN PRN Reason: Constipation Sodium Chloride (0.9 % Sodium Chloride Flush 3 Ml Syringe) 3 ml IVFLUSH QSHIFT [facility] Last Admin: 05/17/23 08:31 Dose: Not Given Documented By: DAVID Non-Admin Reason: IV Running Ursodiol (Ursodiol 300 Mg Capsule) 300 mg PO BID [facility] Last Admin: 05/17/23 09:12 Dose: 300 mg Documented By: DAVID Vitamin D (Cholecalciferol (Vitamin D3) 25 Mcg Tablet) 25 mcg PO DAILY [facility] Last Admin: 05/17/23 09:12 Dose: 25 mcg Documented By: DAVID Labs 05/17/23 04:29 05/17/23 04:29 Labs: Laboratory Results - last 24 hr 05/16/23 05/16/23 05/16/23 17:34 22:27 23:59 MCV 88.0 MCH 29.8 MCHC 33.9 RDW 16.1 H Plt Count 231 MPV 9.2 L Immature Gran % (Auto) 0.3 Neut % (Auto) 66.5 Lymph % (Auto) 23.2 Crenshaw % (Auto) 8.2 Eos % (Auto) 1.5 Baso % (Auto) 0.3 Lymph # (Auto) 1.4 Crenshaw # (Auto) 0.5 Eos # (Auto) 0.1 Baso # (Auto) 0.0 Abs Immat Gran (auto) 0.02 Absolute Neuts (auto) 4.0 Absolute Nucleated RBC 0.000 Nucleated RBC % (auto) 0.0 PT 13.6 H INR 1.1 Anion Gap 14 Estim Creat Clear Calc 45.7 Estimated GFR > 60 POC Glucose 64 173 H Random Glucose 129 H Calcium 10.0 Magnesium 1.0 L* Total Bilirubin 0.7 AST 44 H ALT 34 H Alkaline Phosphatase 157 H Total Protein 6.5 Albumin 3.5 Stl C. cayetanensis PCR Stool Rotavirus A PCR Stl Adenov F 40 PCR Stool Astrovirus (PCR) Stool Campylobacter PCR Stool Cryptosporidium PCR Stl Sh Tox Pr E STEC PCR Stool E coli O157 PCR Stl Enterotoxigenic E PCR Stool EPEC (PCR) Stool EAEC (PCR) Stl E. histolytica PCR Stool Giardia Lamblia PCR Stl P. shigelloides PCR Stool Salmonella PCR Stool Sapovirus (PCR) Stl Shigella/EIEC PCR St Y.enterocolitica PCR Stool Vibrio (PCR) Stl Vibrio cholerae PCR Stl Norovirus GI/GII PCR C. difficile Tox B Gene 05/17/23 05/17/23 05/17/23 04:29 07:50 09:12 MCV 87.4 MCH 30.2 MCHC 34.5 RDW 16.0 Plt Count 235 MPV 9.8 Immature Gran % (Auto) 0.3 Neut % (Auto) 63.8 Lymph % (Auto) 25.8 Crenshaw % (Auto) 7.3 Eos % (Auto) 2.4 Baso % (Auto) 0.4 Lymph # (Auto) 1.9 Crenshaw # (Auto) 0.5 Eos # (Auto) 0.2 Baso # (Auto) 0.0 Abs Immat Gran (auto) 0.02 Absolute Neuts (auto) 4.6 Absolute Nucleated RBC 0.000 Nucleated RBC % (auto) 0.0 PT INR Anion Gap 12 Estim Creat Clear Calc 46.3 Estimated GFR > 60 POC Glucose 123 H Random Glucose 125 H Calcium 9.6 Magnesium 2.0 Total Bilirubin AST ALT Alkaline Phosphatase Total Protein Albumin Stl C. cayetanensis PCR Not Detected Stool Rotavirus A PCR Not Detected Stl Adenov F 40/41 PCR Not Detected Stool Astrovirus (PCR) Not Detected Stool Campylobacter PCR Not Detected Stool Cryptosporidium PCR Not Detected Stl Sh Tox Pr E STEC PCR Not Detected Stool E coli O157 PCR Not applicable Stl Enterotoxigenic E PCR Not Detected Stool EPEC (PCR) Not Detected Stool EAEC (PCR) Not Detected Stl E. histolytica PCR Not Detected Stool Giardia Lamblia PCR Not Detected Stl P. shigelloides PCR Not Detected Stool Salmonella PCR Not Detected Stool Sapovirus (PCR) Not Detected Stl Shigella/EIEC PCR Not Detected St Y.enterocolitica PCR Not Detected Stool Vibrio (PCR) Not Detected Stl Vibrio cholerae PCR Not Detected Stl Norovirus GI/GII PCR Not Detected C. difficile Tox B Gene NEGATIVE 05/17/23 12:29 MCV MCH MCHC RDW Plt Count MPV Immature Gran % (Auto) Neut % (Auto) Lymph % (Auto) Crenshaw % (Auto) Eos % (Auto) Baso % (Auto) Lymph # (Auto) Crenshaw # (Auto) Eos # (Auto) Baso # (Auto) Abs Immat Gran (auto) Absolute Neuts (auto) Absolute Nucleated RBC Nucleated RBC % (auto) PT INR Anion Gap Estim Creat Clear Calc Estimated GFR POC Glucose 158 H Random Glucose Calcium Magnesium Total Bilirubin AST ALT Alkaline Phosphatase Total Protein Albumin Stl C. cayetanensis PCR Stool Rotavirus A PCR Stl Adenov F 40/41 PCR Stool Astrovirus (PCR) Stool Campylobacter PCR Stool Cryptosporidium PCR Stl Sh Tox Pr E STEC PCR Stool E coli O157 PCR Stl Enterotoxigenic E PCR Stool EPEC (PCR) Stool EAEC (PCR) Stl E. histolytica PCR Stool Giardia Lamblia PCR Stl P. shigelloides PCR Stool Salmonella PCR Stool Sapovirus (PCR) Stl Shigella/EIEC PCR St Y.enterocolitica PCR Stool Vibrio (PCR) Stl Vibrio cholerae PCR Stl Norovirus GI/GII PCR C. difficile Tox B Gene Assessment and Plan (1) Hypomagnesemia: Status: Acute (2) Diarrhea: Status: Acute (3) Syncope: Status: Acute Plan 78-year-old female with history of [id number] type 2 diabetes, history of SVT s/p ablation 2018, coronary artery disease s/p NSTEMI, hypertension, colon cancer s/p resection admitted due to orthostatic syncope with severe hypomagnesemia possible Orthostatic syncope- due to hypovolemia secondary to GI losses -IV LR @ 100 mL/hr echocardiogram given had similar symptoms predating diarrhea with history of significant valvular disease and SVT moniter orthostatic vital signs a.m. monitor on telemetry Severe hypomagnesemia- 2/2 GI losses -Mag 1.0 -repleted and resolved. -follow bmp, mag Acute diarrhea -ongoing since taking levaquin 04/02 -C diff PCR and GI panel pending -hold on antidiarrheals until infectious etiology ruled out [id number] type 2 diabetes -POC glucose, diabetic diet -Humalog on sliding scale -hold metformin, glipizide, Trulicity CAD -EKG nonischemic, tropes 6.5, no chest pain -continue ASA, statin hypertension -continue lisinopril DVT prophylaxis-Lovenox Full code ongoing hopsitlisation need; for management of and cardiac monitoring syncope with severe hypomagnesemia secondary to GI losses due to copious diarrhea possibly of infectious etiology requiring additional testing, aggressive IV fluid resuscitation, renal function and electrolytic monitering Quality Stroke Does the patient have a stroke diagnosis?: No VTE Prior VTE?: No VTE Risk Level:: Medical - moderate - high VTE Device Contraindication: Treatment Not Indicated VTE Drug Contraindication: N/A - Med Ordered
[2023-05-17 16:00] VITALS: BP 133/70; PULSE 88; RESP 16; TEMP 36.3; O2SAT 96
[2023-05-17 16:54] LABS: Glucose, Whole Blood 186 mg/dL (60-115)
[2023-05-17] MEDS: Lactated Ringers 1,000 ML 100 ML IVCONT (17:07)
[2023-05-17 20:00] VITALS: BP 164/71; PULSE 80; RESP 20; TEMP 36.3; O2SAT 94
[2023-05-17 20:34] LABS: Glucose, Whole Blood 159 mg/dL (60-115)
[2023-05-17] MEDS: Enoxaparin Sodium 40 MG/0.4 ML SYRINGE SUBCUT (21:12)
[2023-05-17] MEDS: Acetaminophen 325 MG TABLET 650 MG PO (21:12)
[2023-05-18] VITALS (10 sets, daily range): BP systolic 100–173; BP diastolic 61–78; PULSE 73–86; RESP 16–20; TEMP 36–36.9; O2SAT 93–97
[2023-05-18] MEDS: Omeprazole 20 MG CAPSULE.DR PO (06:36)
[2023-05-18 07:27] LABS: Glucose, Whole Blood 181 mg/dL (60-115)
[2023-05-18] MEDS: Lactated Ringers 1,000 ML 100 ML IVCONT (07:44)
[2023-05-18] MEDS: 0.9 % Sodium Chloride Flush 3 ML SYRINGE IVFLUSH ×3 (07:47→21:45)
[2023-05-18] MEDS: Insulin Lispro 100 UNIT/ML 3 ML VIAL SUBCUT ×2 (07:48→12:26)
[2023-05-18] MEDS: UrsodioL 300 MG CAPSULE PO ×2 (07:49→21:40)
[2023-05-18] MEDS: Cholecalciferol (Vitamin D3) 25 MCG TABLET PO (07:51)
[2023-05-18] MEDS: lisinopriL 20 MG TABLET PO (07:51)
[2023-05-18] MEDS: Aspirin 81 MG TAB.CHEW PO (07:51)
[2023-05-18] MEDS: Atorvastatin Calcium 40 MG TABLET PO (07:51)
[2023-05-18] MEDS: Ferrous Sulfate 324 MG TABLET.DR PO (07:51)
[2023-05-18] MEDS: Colchicine 0.6 MG TABLET PO ×2 (07:52→21:40)
--- NOTE | 2023-05-18 09:26 | MHC.CM.PN ---
EMR REVIEWED, PER P.T. RECOMENDATIONS PT TO RETURN HOME W/FAMILY SUPPORT, NO HOME SERVICES, CM WILL CONT TO FOLLOW DC NEEDS.
[2023-05-18 10:13] LABS: Estimated Average Glucose 128 mg/dL; Hemoglobin A1c % 6.1 % (<6.0)
[2023-05-18 12:03] LABS: Glucose, Whole Blood 211 mg/dL (60-115)
[2023-05-18 15:49] LABS: Glucose, Whole Blood 141 mg/dL (60-115)
--- NOTE | 2023-05-18 17:44 | HO.PM.IMPN ---
Subjective Subjective Date of Service: 05/19/23 Interval History: Hypomagnesemia,diarrhae Review of Systems has diarrahe but seems improving no fever or chills Physical Exam Vital Signs: Vital Signs: Last Vital Signs Temp 98.4 F 05/18/23 15:40 Pulse 84 05/18/23 15:40 Resp 16 05/18/23 15:40 BP 146/65 H 05/18/23 15:40 Pulse Ox 97 05/18/23 15:40 O2 Del Method Room Air 05/18/23 15:40 BMI result Body Mass Index 24.1 Appearance: Alert.? Oriented X3.? not in distress.? cvs: [id number], [id number] , no murmur res: clear to auscultation ,no rhonchii or wheezing abd: no rebound or guarding ,nt, bs present. ext pulses present , no cyanosis . neuro: axo3 , nonfocal. Objective Data Active Medications Acetaminophen (Acetaminophen 325 Mg Tablet) 650 mg PO Q6H PRN PRN Reason: Pain, Mild (Pain Scale 1-3) Last Admin: 05/17/23 21:12 Dose: 650 mg Documented By: JONNA Aspirin (Aspirin 81 Mg Tab.Chew) 81 mg PO DAILY [facility] Last Admin: 05/18/23 07:51 Dose: 81 mg Documented By: TOMAS Atorvastatin Calcium (Atorvastatin Calcium 40 Mg Tablet) 40 mg PO DAILY [facility] Last Admin: 05/18/23 07:51 Dose: 40 mg Documented By: TOMAS Colchicine (Colchicine 0.6 Mg Tablet) 0.6 mg PO BID [facility] Last Admin: 05/18/23 07:52 Dose: 0.6 mg Documented By: TOMAS Dextrose (Dextrose 50 % 25 Gm/50 Ml Syringe) 25 gm IVPUSH Q15M PRN; Protocol PRN Reason: per Hypoglycemia Standing Ord. Enoxaparin Sodium (Enoxaparin Sodium 40 Mg/0.4 Ml Syringe) 40 mg SUBCUT Q24H [facility] Last Admin: 05/17/23 21:12 Dose: 40 mg Documented By: JONNA Ferrous Sulfate (Ferrous Sulfate 324 Mg Tablet.) 324 mg PO DAILY [facility] Last Admin: 05/18/23 07:51 Dose: 324 mg Documented By: TOMAS Glucose (Glucose Gel 15 Gm Gel..Gram.) 15 gm PO Q15M PRN; Protocol PRN Reason: per Hypoglycemia Standing Ord. Insulin Human Lispro (Insulin Lispro 100 Unit/Ml 3 Ml Vial) 0 unit SUBCUT QIDACHS [facility]; Protocol Last Admin: 05/18/23 15:50 Dose: Not Given Documented By: TOMAS Non-Admin Reason: No Insulin Coverage Omeprazole (Omeprazole 20 Mg Capsule.) 20 mg PO DAILY@0630 [facility] Last Admin: 05/18/23 06:36 Dose: 20 mg Documented By: JONAN Ondansetron HCl (Ondansetron Hcl 4 Mg/2 Ml Vial) 4 mg IVPUSH Q8H PRN PRN Reason: Nausea and Vomiting Senna (Sennosides 8.6 Mg Tablet) 17.2 mg PO BEDTIME PRN PRN Reason: Constipation Sodium Chloride (0.9 % Sodium Chloride Flush 3 Ml Syringe) 3 ml IVFLUSH QSHIFT [facility] Last Admin: 05/18/23 16:41 Dose: 3 ml Documented By: TOMAS Ursodiol (Ursodiol 300 Mg Capsule) 300 mg PO BID [facility] Last Admin: 05/18/23 07:49 Dose: 300 mg Documented By: TOMAS Vitamin D (Cholecalciferol (Vitamin D3) 25 Mcg Tablet) 25 mcg PO DAILY [facility] Last Admin: 05/18/23 07:51 Dose: 25 mcg Documented By: TOMAS Labs 05/17/23 04:29 05/19/23 08:51 Labs: Laboratory Results - last 24 hr 05/17/23 05/18/23 05/18/23 20:27 07:17 09:40 POC Glucose 159 H 181 H Estimat Average Glucose 128 Hemoglobin A1c % 6.1 H 05/18/23 05/18/23 12:00 15:44 POC Glucose 211 H 141 H Estimat Average Glucose Hemoglobin A1c % Assessment and Plan (1) Hypomagnesemia: Status: Acute (2) Diarrhea: Status: Acute Plan 78-year-old female with history of [id number] type 2 diabetes, history of SVT s/p ablation 2018, coronary artery disease s/p NSTEMI, hypertension, colon cancer s/p resection admitted due to orthostatic syncope with severe hypomagnesemia possible Orthostatic syncope- due to hypovolemia secondary to GI losses -IV LR @ 100 mL/hr echocardiogram given had similar symptoms predating diarrhea with history of significant valvular disease and SVT moniter orthostatic vital signs a.m. monitor on telemetry Severe hypomagnesemia- 2/2 GI losses repleted and resolved. -follow bmp, mag Acute diarrhea -ongoing since taking levaquin 04/02 -C diff PCR and GI panel -negative. -hold on antidiarrheals until infectious etiology ruled out [id number] type 2 diabetes -POC glucose, diabetic diet -Humalog on sliding scale -hold metformin, glipizide, Trulicity CAD -EKG nonischemic, tropes 6.5, no chest pain -continue ASA, statin hypertension will adjust lisinopril DVT prophylaxis-Lovenox Full code ongoing hopsitlisation need; for management of and cardiac monitoring syncope with severe hypomagnesemia secondary to GI losses due to copious diarrhea possibly of infectious etiology requiring additional testing, aggressive IV fluid resuscitation, renal function and electrolytic monitering Quality Stroke Does the patient have a stroke diagnosis?: No VTE Prior VTE?: No VTE Risk Level:: Medical - moderate - high VTE Device Contraindication: Treatment Not Indicated VTE Drug Contraindication: N/A - Med Ordered
[2023-05-18 19:08] LABS: Appearance Urine Clear; Color Urine Yellow; Glucose Urine UA Negative (Negative); Leukocyte Esterase Urine Moderate (2+) (Negative); Nitrite Urine Negative (Negative); PH 6.5 (5.0-9.0); Specific Gravity - Urine <= 1.005 (1.005-1.025); UMIC TRIGGER UACC YES; Urine Blood Negative (Negative); Urine Ketones Negative (Negative); Urine Protein Negative (Neg-Trace)
[2023-05-18 19:16] LABS: Bacteria Urine 1+ (None Seen); Hyaline Casts Urine 0-2 /LPF (0-2); RBC Urine 0-2 /HPF (0-2); Squamous Epithelial Cell Urine 0-2 /HPF (0-2); UACC Culture Trigger YES
[2023-05-18 20:42] LABS: Glucose, Whole Blood 205 mg/dL (60-115)
[2023-05-18] MEDS: Enoxaparin Sodium 40 MG/0.4 ML SYRINGE SUBCUT (21:38)
[2023-05-18] MEDS: Acetaminophen 325 MG TABLET 650 MG PO (21:38)
[2023-05-19 04:00] VITALS: BP 160/77; PULSE 78; RESP 18; TEMP 36.4; O2SAT 96
[2023-05-19] MEDS: Omeprazole 20 MG CAPSULE.DR PO (06:11)
[2023-05-19 07:20] VITALS: BP 140/65; PULSE 75; RESP 19; TEMP 36.3; O2SAT 95
[2023-05-19 07:27] LABS: Glucose, Whole Blood 176 mg/dL (60-115)
[2023-05-19] MEDS: 0.9 % Sodium Chloride Flush 3 ML SYRINGE IVFLUSH ×2 (08:04→16:58)
[2023-05-19] MEDS: Insulin Lispro 100 UNIT/ML 3 ML VIAL SUBCUT ×2 (08:04→12:19)
[2023-05-19] MEDS: Atorvastatin Calcium 40 MG TABLET PO (08:05)
[2023-05-19] MEDS: Colchicine 0.6 MG TABLET PO (08:05)
[2023-05-19] MEDS: Cholecalciferol (Vitamin D3) 25 MCG TABLET PO (08:05)
[2023-05-19] MEDS: Ferrous Sulfate 324 MG TABLET.DR PO (08:05)
[2023-05-19] MEDS: Aspirin 81 MG TAB.CHEW PO (08:05)
[2023-05-19] MEDS: UrsodioL 300 MG CAPSULE PO (08:06)
[2023-05-19 08:35] VITALS: BP 136/61; PULSE 79
[2023-05-19 08:38] VITALS: BP 109/56; PULSE 95
[2023-05-19 08:39] VITALS: BP 139/60; PULSE 75
[2023-05-19 09:19] LABS: Anion Gap 11 (12-20); Blood Urea Nitrogen 12 mg/dL (9-16); Calcium 9.3 mg/dL (8.4-10.2); Carbon Dioxide 27 mmol/L (22-29); Chloride 102 mmol/L (96-108); Creatinine Clr Calc Pharmacy 44.6; Estimated Glomerular Filt Rate > 60; Glucose Random 265 mg/dL (60-115); Potassium 3.4 mmol/L (3.3-5.1); Sodium 137 mmol/L (135-145)
--- NOTE | 2023-05-19 10:28 | MHC.CM.PN ---
PT TO BE MEDICALLY CLEARED FOR DC HOME, NO NEW SERVICES ORDERED/RECOMMENDED, DTR [facility] TO TRANSPORT.
[2023-05-19 11:30] VITALS: BP 139/65; PULSE 83; RESP 20; TEMP 36.6; O2SAT 98
[2023-05-19 11:48] LABS: Glucose, Whole Blood 277 mg/dL (60-115)
--- NOTE | 2023-05-19 13:24 | P.DS_ITS ---
DS: Providers Provider Date of Service: 05/19/23 Date of admission: 05/16/23 20:45 Date of discharge: 05/19/23 Primary care physician: Rory Sandhu MD Attending physician on discharge: Rosie Williamson Discharging clinician: Rosie Williamson DS: Diagnosis Discharge Diagnosis (1) Hypomagnesemia: Status: Acute (2) Diarrhea: Status: Acute DS: Summary Hospital Course Hospital Course: 78-year-old female with history of [id number] type 2 diabetes, history of SVT s/p ablation 2018, coronary artery disease s/p NSTEMI, hypertension, colon cancer s/p resection presented to the ED earlier today for evaluation of a syncopal episode that occurred early this morning. 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 Unclear if she lost consciousness, the fall was unwitnessed. She denies any other prodrome including shortness of breath, palpitations, visual changes, chest pain. She has been having 3-5 episodes of watery diarrhea for about 1.5 months after completing course of Levaquin which was prescribed around [place] for bronchitis/RSV. She states that her symptoms had stopped for several days but then recurred yesterday. Denies any fevers, chills, abdominal pain, nausea, vomiting. Upon further questioning, she does tell me that she has had similar near-syncope/syncope episodes predating the onset of the diarrhea this fall. On arrival, VSS. Positie for orthostasis though no true hypotension. Hematology studies show a stable normocytic anemia with H/H 9.9/29.2%. Renal function baseline, electrolyte levels normal except for magnesium level of 1.0. AST 44, ALT 34, consistent with baseline. Troponin 6.5. Head CT negative for any acute intracranial abnormality. CT of the cervical spine negative for any acute fracture, subluxation, dislocation but shows straightening of the normal cervical curvature. C diff PCR and GI panel pending. In the ED, has received 2 g IV magnesium and 1 L IV NS. Hospital course: Patient was admitted to the hospital because of diarrhea and possible orthostatic syncope secondary to diarrhea and dehydration with multiple electrolyte abnormalities: Patient was started on IV hydration, given electrolyte repletion, also checked a stool studies for C diff and gastrointestinal panel: With the supportive care patient seems to be improved significantly, C diff and gastrointestinal panel negative, electrolytes also improved with hydration as well as repletion with electrolytes. Patient urinalysis was also sent showed mild Pyuria/bactereuria but patient does not have any urinary complaints, urine cultures pending need to be followed out patiently. Currently will avoid antibiotics. Patient currently doing much better. Will add loperamide p.r.n. for now for diarrhea. htn: Blood pressure is fluctuating, considering recent diarrhea and electrolyte abnormalities as well as fluctuating blood pressure-lisinopril but adjusted to 10 mg daily. Initial orthostasis and syncope possibly related to dehydration and diarrhea- currently patient does not seem to be symptomatic and not significant orthostatic. Diabetes: Current hemoglobin A1c 6.1(previously elevated from 8-10 range): Will stop glipizide, continue metformin and Trulicity for now, monitor fingersticks at home and further management outpatient as per PCp and consider repeating hemoglobin A1c out patiently, monitor fingersticks. Plan: Use loperamide as needed for diarrhea. Lisinopril was adjusted to 10 mg daily-considering recent diarrhea and electrolyte abnormalities as well as fluctuating blood pressure. Hemoglobin A1c is 6.1 for diabetes-stopped glipizide,further management outpatient as per PCp and consider repeating hemoglobin A1c out patiently, monitor fingersticks. Orthostatic precautions, stockings Above management discussed with the patient in detail length she understand and in agreement with the above plan, time spent 50 minute. Time Attestation Discharge coordination time: Greater than 30 minutes Quality: Safe Use of Opioids Does Pt have an Active Cancer Diagnosis on the Problem List?: No Quality: Stroke Does the patient have a stroke diagnosis?: No Physical Exam Vital Signs: Vital Signs: Last Vital Signs Temp 97.8 F 05/19/23 11:30 Pulse 83 05/19/23 11:30 Resp 20 05/19/23 11:30 BP 139/65 05/19/23 11:30 Pulse Ox 98 05/19/23 11:30 O2 Del Method Room Air 05/19/23 11:30 BMI result Body Mass Index 24.1 Appearance: Alert.? Oriented X3.? not in distress.? cvs: rrr, [id number] , no murmur res: clear to auscultation ,no rhonchii or wheezing abd: no rebound or guarding ,nt, bs present. ext pulses present , no cyanosis . neuro: axo3 , nonfocal. DS: Data Data Completed and Pending Labs on day of discharge: Laboratory Results - last 24 hr 05/18/23 05/18/23 05/18/23 15:44 18:50 20:31 Sodium Potassium Chloride Carbon Dioxide Anion Gap BUN Creatinine Estim Creat Clear Calc Estimated GFR POC Glucose 141 H 205 H Random Glucose Calcium Urine Color Yellow Urine Appearance Clear Urine pH 6.5 Ur Specific Mitchell <= 1.005 Urine Protein Negative Urine Glucose (UA) Negative Urine Ketones Negative Urine Blood Negative Urine Nitrite Negative Ur Leukocyte Esterase Moderate (2+) H Urine RBC 0-2 Urine WBC 6-10 H Ur Squamous Epith Cells 0-2 Urine Bacteria 1+ Hyaline Casts 0-2 05/19/23 05/19/23 05/19/23 07:23 08:51 11:33 Sodium 137 Potassium 3.4 Chloride 102 Carbon Dioxide 27 Anion Gap 11 L BUN 12 Creatinine 0.84 Estim Creat Clear Calc 44.6 Estimated GFR > 60 POC Glucose 176 H 277 H Random Glucose 265 H Calcium 9.3 Urine Color Urine Appearance Urine pH Ur Specific Mitchell Urine Protein Urine Glucose (UA) Urine Ketones Urine Blood Urine Nitrite Ur Leukocyte Esterase Urine RBC Urine WBC Ur Squamous Epith Cells Urine Bacteria Hyaline Casts Imaging Chest x-ray: Radiologist's impression: ITS Impressions Cervical Spine CT 05/16/23 18:19 IMPRESSION: 1. No acute intracranial pathology. 2. Chronic white matter small vessel signal changes. EXAMINATION: Noncontrast CT scan of the cervical spine. INDICATION: Neck pain COMPARISON: None. TECHNIQUE: Helical, multidetector axial images were obtained from the occiput to the upper thorax. Coronal and sagittal reformats of the cervical spine were provided for interpretation. DLP: 814 mGy-cm FINDINGS: No acute fractures or dislocations of the cervical spine are seen. Straightening of the normal cervical curvature. Multilevel degenerative changes. Anatomic alignment and positioning of the vertebral bodies and posterior elements is noted. The atlantoaxial joint and craniovertebral articulations are normal without evidence of subluxation. There is no prevertebral soft tissue swelling. The thyroid gland and visualized portions of the lung apices and mediastinum are unremarkable. IMPRESSION: 1. No acute visible fracture or dislocation. 2. Straightening of the normal cervical curvature. 3. Multilevel degenerative changes. Head CT 05/16/23 18:19 IMPRESSION: 1. No acute intracranial pathology. 2. Chronic white matter small vessel signal changes. EXAMINATION: Noncontrast CT scan of the cervical spine. INDICATION: Neck pain COMPARISON: None. TECHNIQUE: Helical, multidetector axial images were obtained from the occiput to the upper thorax. Coronal and sagittal reformats of the cervical spine were provided for interpretation. DLP: 814 mGy-cm FINDINGS: No acute fractures or dislocations of the cervical spine are seen. Straightening of the normal cervical curvature. Multilevel degenerative changes. Anatomic alignment and positioning of the vertebral bodies and posterior elements is noted. The atlantoaxial joint and craniovertebral articulations are normal without evidence of subluxation. There is no prevertebral soft tissue swelling. The thyroid gland and visualized portions of the lung apices and mediastinum are unremarkable. IMPRESSION: 1. No acute visible fracture or dislocation. 2. Straightening of the normal cervical curvature. 3. Multilevel degenerative changes. Discharge Plan Discharge Anticipated Discharge Date/Time: 05/19/23 13:06 Patient Disposition: Home, Self-Care Discharge Diagnosis: possible diarrhae viral, electrolytic abnormalities Referrals: Rory Sandhu MD [Primary Care Provider] - 1 Week Discharge Medications: New loperamide 2 mg Capsule 2 mg PO Q4H PRN (Reason: Diarrhea) Qty: 20 0RF Continued omeprazole 20 mg capsule,delayed release(DR/EC) 20 mg PO DAILY metformin 500 mg tablet extended release 24 hr 1,000 mg PO BID ferrous sulfate 325 mg (65 mg iron) Tablet 325 mg PO DAILY aspirin 81 mg Tablet,Chewable 81 mg PO DAILY cholecalciferol (vitamin D3) [Vitamin D3] 25 mcg (1,000 unit) Capsule 25 mcg PO DAILY Trulicity 1.5 mg/0.5 mL Pen Injector 1.5 mg SUBCUT TH atorvastatin [Lipitor] 80 mg tablet 40 mg PO DAILY ursodiol 300 mg capsule 300 mg PO BID colchicine 0.6 mg tablet 0.6 mg PO BID Changed lisinopril 20 mg tablet 10 mg PO DAILY Qty: 30 0RF Discontinued glipizide 10 mg tablet 10 mg PO QAM Discharge Orders: Discharge Order (Routine); Ordered 05/19/23 Ordered By: Rosie Williamson Diet: Advance to usual diet Activity on Discharge: As tolerated Stand Alone Forms: Patient Portal Discharge page Other Ambulatory Orders: Basic Metabolic Panel (Routine) Timeframe: 1 Week Facility: [facility] - Location: Laboratory Ordered By: Rosie Williamson Magnesium (Routine) Timeframe: 1 Week Facility: [facility] - Location: Laboratory Ordered By: Rosie Williamson Care Plan Goals: Patient was admitted to the hospital because of diarrhea and possible orthostatic syncope secondary to diarrhea and dehydration with multiple electrolyte abnormalities: Patient was started on IV hydration, given electrolyte repletion, also checked a stool studies for C diff and gastrointestinal panel: With the supportive care patient seems to be improved significantly, C diff and gastrointestinal panel negative, electrolytes also improved with hydration as well as repletion with electrolytes. Patient urinalysis was also sent showed mild Pyuria/bactereuria but patient does not have any urinary complaints, urine cultures pending need to be followed out patiently. Currently will avoid antibiotics. Patient currently doing much better. Will add loperamide p.r.n. for now for diarrhea. htn: Blood pressure is fluctuating, considering recent diarrhea and electrolyte abnormalities as well as fluctuating blood pressure-lisinopril but adjusted to 10 mg daily. Diabetes: Current hemoglobin A1c 6.1(previously elevated from 8-10 range): Will stop glipizide, continue metformin and Trulicity for now, monitor fingersticks at home and further management outpatient as per PCp and consider repeating hemoglobin A1c out patiently, monitor fingersticks. Health Concerns: Use loperamide as needed for diarrhea. Lisinopril was adjusted to 10 mg daily-considering recent diarrhea and electrolyte abnormalities as well as fluctuating blood pressure. Hemoglobin A1c is 6.1 for diabetes-stopped glipizide,further management outpatient as per PCp and consider repeating hemoglobin A1c out patiently, monitor fingersticks. Plan of Treatment: as above. Assessment: as above.
[2023-05-19 16:32] LABS: Glucose, Whole Blood 134 mg/dL (60-115)
== END 2023-05-19 17:57 | disposition home or self-care (01) | DRG 312 ==
LOC: HO.ED 17:50 → HO.EDOVER 20:51 → HO.IMC 05-17 14:27
PROVIDERS: Internal Medicine; Physician Assistant; Admitting Provider Physician Assistant; Emergency Provider Internal Medicine; PCP Internal Medicine; Visit Provider Internal Medicine
DX: I95.1 Orthostatic hypotension (principal); E83.42 Hypomagnesemia; E11.9 Type 2 diabetes mellitus without complications; E86.0 Dehydration; E86.1 Hypovolemia; R19.7 Diarrhea, unspecified; I10 Essential (primary) hypertension; I25.10 Atherosclerotic heart disease of native coronary artery without angina pectoris; I25.2 Old myocardial infarction; Z79.82 Long term (current) use of aspirin; Z79.84 Long term (current) use of oral hypoglycemic drugs; Z79.85 Long-term (current) use of injectable non-insulin antidiabetic drugs; Z79.899 Other long term (current) drug therapy
CPT/HCPCS: 36415; 70450; 72125; 80048; 80053; 81001; 82947; 83036; 83735; 84484; 85025; 85610; 87086; 87493; 87507; 93005; 93306; 97162; 99285; J1650; J3475; J7120

== ENCOUNTER → 2023-05-16 17:13 | Outpatient (BNV) | payer MEDICARE, SELFPAY | PROVIDERS: Admitting Provider Physician Assistant; Emergency Provider Internal Medicine; PCP Internal Medicine; Visit Provider Internal Medicine | DX: R94.31 Abnormal electrocardiogram [ECG] [EKG] (principal) | CPT/HCPCS: 93010 ==

== ENCOUNTER 2023-05-16 20:45 | Outpatient (BNV) | payer MEDICARE, SELFPAY | END 2023-05-17 07:00 | PROVIDERS: Admitting Provider Physician Assistant; Emergency Provider Internal Medicine; PCP Internal Medicine; Visit Provider Internal Medicine | DX: I35.1 Nonrheumatic aortic (valve) insufficiency (principal); I34.81 Nonrheumatic mitral (valve) annulus calcification | CPT/HCPCS: 93306 ==

== ENCOUNTER → 2023-05-16 20:45 | Outpatient (BNV) | payer MEDICARE, SELFPAY | PROVIDERS: Admitting Provider Physician Assistant; Emergency Provider Internal Medicine; PCP Internal Medicine; Visit Provider Internal Medicine | DX: E83.42 Hypomagnesemia (principal); R19.7 Diarrhea, unspecified; E11.9 Type 2 diabetes mellitus without complications | CPT/HCPCS: 99223; 99232; 99239 ==

== ENCOUNTER 2023-06-03 13:32 | Outpatient (REF) | payer MEDICARE, SELFPAY ==
--- NOTE | ~2023-06-03 | XR_ITS ---
EXAMINATION: XR CHEST CLINICAL INFORMATION: Cough x1 week COMPARISON: Chest 03/29/2023 TECHNIQUE: 2 views of the chest were obtained. FINDINGS: No significant abnormality is noted involving the heart, lungs, mediastinum, bony thorax or soft tissues. XR/XR chest 2V IMPRESSION: Unremarkable chest examination.
== END 2023-06-03 13:33 | disposition home or self-care (01) ==
LOC: HO.XRAY 13:32
PROVIDERS: PCP Internal Medicine; Visit Provider Internal Medicine
DX: E11.9 Type 2 diabetes mellitus without complications (principal)
CPT/HCPCS: 71046

== ENCOUNTER 2023-06-10 16:32 | Inpatient (IN) | payer MEDICARE, SELFPAY ==
[2023-06-10] VITALS (7 sets, daily range): BP systolic 140–171; BP diastolic 58–82; PULSE 82–106; RESP 12–18; TEMP 35.9–36.3; O2SAT 98–100; BMI 21.7
--- NOTE | ~2023-06-10 | CT_ITS ---
EXAMINATION: CT ABDOMEN AND PELVIS WITHOUT CONTRAST CLINICAL INFORMATION: Diarrhea. COMPARISON: Multiple priors, most recent abdominal ultrasound dated 11/22/[address] abdomen/pelvis dated 10/06/2022. TECHNIQUE: Multidetector volumetric imaging was performed from the superior aspect of the liver through the pubic symphysis. Sagittal and coronal reformatted images were obtained on the technologist's workstation. This CT examination was performed using dose optimization techniques as appropriate, variously including the following: *Automated exposure control *Adjustment of mA and/or kV according to patient size (this includes techniques or standardized protocols for targeted exams where dose is matched to indication/reason for exam; i.e. extremities or head) *Use of iterative reconstruction technique DLP: 344 mGy-cm FINDINGS: LUNG BASES: Mild bibasilar atelectasis. Trace pericardial effusion, new when compared to the prior examination. LIVER, GALLBLADDER, AND BILIARY TREE: Hepatic hypoattenuation with diffuse nodular contour is redemonstrated, consistent with cirrhosis and increased in prominence when compared to the CT dated 10/06/2022. Gallbladder not seen. No intrahepatic or extrahepatic biliary ductal dilatation. PANCREAS: Unremarkable. SPLEEN: Unremarkable. ADRENAL GLANDS: Unremarkable. KIDNEYS AND URETERS: The kidneys are normal in size, shape, and attenuation. Left mid/upper pole stone measuring 0.3 cm and located 5.4 cm from the posterior axillary line. No additional renal or ureteral stone. No hydronephrosis or hydroureter. Nonspecific bilateral perinephric stranding, unchanged. BLADDER: Unremarkable. GASTROINTESTINAL TRACT: Sigmoid diverticulosis. Circumferential wall thickening of the sigmoid colon in the left lower quadrant extending proximally within the ascending colon. Findings are new when compared to the prior examination and consistent with acute colitis. No extraluminal air or fluid collection to suggest perforation or abscess formation. Unremarkable right ileocolic anastomosis. No small or large bowel obstruction. PERITONEAL CAVITY: No intra-abdominal free air or free fluid. ABDOMINAL WALL: No significant hernia is appreciated. LYMPH NODES: No significant lymphadenopathy. VASCULAR: No abdominal aortic dilatation. Scattered atherosclerotic calcifications. PELVIC VISCERA: The uterus and adnexa are unremarkable. OSSEOUS STRUCTURES: Unremarkable. CT/CT abdomen pelvis wo IV con IMPRESSION: 1. Circumferential wall thickening of the sigmoid colon extending proximally within the ascending colon. Findings are consistent with acute colitis. No evidence of perforation or abscess formation. Sigmoid diverticulosis. Unremarkable right ileocolic anastomosis. No small or large bowel obstruction. 2. Hepatic cirrhosis, increased when compared to the prior examination. No intrahepatic or extrahepatic biliary ductal dilatation. 3. Trace pericardial effusion, new when compared to the prior examination. 4. Additional chronic findings are unchanged. Fleischner guidelines were followed.
--- NOTE | 2023-06-10 16:42 | ED_ITS ---
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 She was admitted 3 weeks ago with diarrhea and syncope. Patient states he weight loss and diarrhea are worse and she is too weak and she is getting leg edema. Onset (ago): week(s) Severity: severe Related Data Home Medications Medication Instructions Recorded Confirmed aspirin 81 mg chewable tablet 81 mg PO DAILY 12/31/20 05/16/23 cholecalciferol (vitamin D3) 25 25 mcg PO DAILY 12/31/20 05/16/23 mcg (1,000 unit) capsule (Vitamin D3) ferrous sulfate 325 mg (65 mg 325 mg PO DAILY 12/31/20 05/16/23 iron) tablet metformin 500 mg tablet,extended 1,000 mg PO BID 12/31/20 05/16/23 release 24 hr omeprazole 20 mg capsule,delayed 20 mg PO DAILY 12/31/20 05/16/23 release atorvastatin 80 mg tablet (Lipitor) 40 mg PO DAILY 05/16/23 05/16/23 colchicine 0.6 mg tablet 0.6 mg PO BID 05/16/23 05/16/23 dulaglutide 1.5 mg/0.5 mL 1.5 mg subcut TH 05/16/23 05/16/23 subcutaneous pen injector (Trulicity) ursodiol 300 mg capsule 300 mg PO BID 05/16/23 05/16/23 Previous Rx's Medication Instructions Recorded compr.stocking,knee,long,small #12 ea 05/19/23 (T.E.D. Knee [facility] [place]) lisinopril 20 mg tablet 10 mg (1/2 x 20 mg) PO DAILY #30 05/19/23 tabs loperamide 2 mg capsule 2 mg PO Q4H PRN Diarrhea #20 caps 05/19/23 Allergies Allergy/AdvReac Type Severity Reaction Status Date / Time codeine [CODEINE] Allergy Unknown GI PAIN, Verified 05/16/23 23:49 abd pain Codeine Sulfate AdvReac Unknown stomach Uncoded 05/16/23 23:49 upset Review of Systems 2 Review of Systems: Yes all other systems are reviewed and are negative Neurologic: Denies Sensory deficit (Neuro) FORMERLY [facility], [facility] Past Medical History Medical History Non-ST elevation NV (NSTEMI) SVT (supraventricular tachycardia) Valvular heart disease Colon cancer HTN (hypertension) Social History Social History Household Members: Children Household Members Other:: Son Housing: House Do you presently have visiting nurse or other home services: No Alcohol intake: never Patient Tobacco Use Status: Never used Tobacco Advance Directives: Yes Advance Directives on File: Yes Advance Directives Date on File: 01/01/21 service: No Current occupational status: retired Physical Exam ED Vital Signs: Vital Signs - 24 hr 06/10/23 16:38 06/10/23 20:39 06/10/23 21:14 Temperature 97.0 F 96.7 F L Pulse Rate 106 H 88 89 Respiratory Rate 18 12 Blood Pressure 167/82 H 148/58 H 163/77 H Pulse Oximetry 98 99 Oxygen Delivery Method Room Air Room Air 06/10/23 21:15 06/10/23 21:15 06/10/23 21:17 Temperature 97.4 F Pulse Rate 91 95 89 Respiratory Rate 16 Blood Pressure 170/71 H 140/63 H 163/77 H Pulse Oximetry 98 Oxygen Delivery Method Room Air 06/10/23 22:04 Temperature Pulse Rate 84 Respiratory Rate 16 Blood Pressure 154/71 H Pulse Oximetry 100 Oxygen Delivery Method Room Air BMI result Body Mass Index 21.7 Const Other: elderly female appearing exhausted Nutritional Appearance: average body habitus Orientation/consciousness: oriented to person and patient oriented x3 Limitations: no limitations HENMT Head: Yes normal to inspection Ears: external ears normal General nose exam: Normal external nose present Mouth: Normal oral and palatal mucosa present and oropharynx normal Throat: Yes posterior oropharynx normal Eyes General: appearance normal, both eyes and all related structures Neck Neck: Yes normal visual inspection Chest Chest palpation & inspection: normal inspection of the chest Resp Auscultation: clear to auscultation bilaterally Cardio Jugular venous distension: no JVD Rate: regular rate Rhythm: regular rhythm Heart sounds: S1 normal heart sound present and S2 normal heart sound present GI Inspection: Yes normal to inspection Palpation (GI): Soft to palpation, nontender and No hepatosplenomegaly present Auscultation: normal bowel sounds General: Yes no CVA tenderness Back/Spine/Pelvis Back: no CVA tenderness Skin General skin exam: no rashes or lesions noted Neuro General: oriented to person and patient oriented x3 Cranial nerves: Yes CN's II-XII intact bilaterally Motor exam (neuro): 5/5 motor strength present throughout Sensory Exam: No Sensory deficit (Neuro) Extrem Other: bilateral edema Psych Appearance: grossly normal Course Course Course Narrative: MARY JANE- 78 just female presents for evaluation of diarrhea, weakness. She was admitted here a few weeks ago for similar. Plan for labs Reevaluation(s) Reevaluation #1: patient appearing weak with edema, she has chronic liver enzyme elevations, her magnesium is only .6 will start repleting and get admitted. Time: 22:09 Medical Decision Making Differential Diagnosis Differential Diagnoses: The differential diagnosis associated with the presentation includes (dehydration, diarrhea, cdiff colitis, hypomagnesemia, electrolyte abnormality, liver failure were all considered) Admission/Observation Consideration of admission/observation: Escalation of care including admission/observation considered (upon arrival patient considered for admission) Consult Healthcare Provider Management of the patient was discussed with: Hospitalist Lab Data 06/10/23 16:52 06/10/23 16:52 Labs: Lab Results 06/10/23 06/10/23 06/10/23 Range/Units 16:52 19:35 19:38 WBC 10.0 (4.8-10.8) X10*3/uL RBC 3.45 L (4.20-5.50) X10*6/uL Hgb 10.4 L (12.0-16.0) g/dl Hct 29.3 L (37.0-47.0) % MCV 84.9 (80.0-98.0) fL MCH 30.1 (27.0-33.0) pg MCHC 35.5 H (31.0-35.0) g/dl RDW 15.0 (11.0-16.0) % Plt Count 261 (160-400) X10*3/uL MPV 10.2 (9.4-12.3) fL Immature Gran % (Auto) 0.4 (0.0-0.4) % Neut % (Auto) 66.5 (45-73) % Lymph % (Auto) 24.3 (20-40) % Haakon % (Auto) 8.0 (2-11) % Eos % (Auto) 0.5 (0-4) % Baso % (Auto) 0.3 (0-2) % Lymph # (Auto) 2.4 (1.2-4.9) X10*3/uL Haakon # (Auto) 0.8 (0.1-1.2) X10*3/uL Eos # (Auto) 0.1 (0.0-0.4) X10*3/uL Baso # (Auto) 0.0 (0.0-0.2) X10*3/uL Abs Immat Gran (auto) 0.04 H (0.00-0.03) X10*3/uL Absolute Neuts (auto) 6.7 (2.0-8.3) x10*3/uL Absolute Nucleated RBC 0.000 (0.0-0.012) X10*3/uL Nucleated RBC % (auto) 0.0 (0.0-0.2) /100WBC Sodium 141 (135-145) mmol/L Potassium 3.6 (3.3-5.1) mmol/L Chloride 101 (96-108) mmol/L Carbon Dioxide 26 (22-29) mmol/L Anion Gap 18 (12-20) BUN 14 (9-16) mg/dL Creatinine 0.82 (0.5-1.4) mg/dL Estim Creat Clear Calc 41.9 Estimated GFR > 60 POC Glucose 175 H (60-115) mg/dL Random Glucose 202 H (60-115) mg/dL Calcium 8.6 D (8.4-10.2) mg/dL Magnesium < 0.6 L* (1.6-2.6) mg/dL Total Bilirubin 1.7 H (0.0-1.0) mg/dL AST 53 H (5-31) U/L ALT 34 H (0-31) U/L Alkaline Phosphatase 165 H (39-117) U/L B-Natriuretic Peptide 256 H (<100) pg/mL Total Protein 6.8 (6.5-8.0) g/dL Albumin 3.6 (3.5-5.0) g/dL Lipase 126 H (8-78) U/L Influenza Type A (PCR) NEGATIVE (Negative) Influenza Type B (PCR) NEGATIVE (Negative) RSV RNA Qual (PCR) NEGATIVE (Negative) SARS-CoV-2 RNA (RT-PCR) NEGATIVE (Negative) Independent Interpretation I performed an independent interpretation of an: EKG (sinus 90, PVC, no st or twave changes) Independent Historian Clinical information obtained from an independent historian. History obtained from or confirmed by: Other (daughter) External Record Review External record reviewed: Prior outpatient labs Prescription Management I considered prescription management with: Antibiotic (no evidence of bacterial infection) Chronic Conditions Patient?s care impacted by: Diabetes Discharge Plan Discharge Clinical Impression: Diarrhea, Hypomagnesemia, Type 2 diabetes mellitus, Elevated LFTs Patient Disposition: Admitted As Inpatient Prescriptions: No Action omeprazole 20 mg capsule,delayed release(DR/EC) 20 mg PO DAILY metformin 500 mg tablet extended release 24 hr 1,000 mg PO BID ferrous sulfate 325 mg (65 mg iron) Tablet 325 mg PO DAILY aspirin 81 mg Tablet,Chewable 81 mg PO DAILY cholecalciferol (vitamin D3) [Vitamin D3] 25 mcg (1,000 unit) Capsule 25 mcg PO DAILY Trulicity 1.5 mg/0.5 mL Pen Injector 1.5 mg SUBCUT TH atorvastatin [Lipitor] 80 mg tablet 40 mg PO DAILY loperamide 2 mg Capsule 2 mg PO Q4H PRN (Reason: Diarrhea) Qty: 20 0RF lisinopril 20 mg tablet 10 mg PO DAILY Qty: 30 0RF (DME) T.E.D. Knee Qwhzos-[id number]-Ppyr Misc See Rx Instructions .ROUTE .MEDSUPPLY Qty: 12 0RF Rx Instructions: As directed ursodiol 300 mg capsule 300 mg PO BID colchicine 0.6 mg tablet 0.6 mg PO BID
[2023-06-10 16:55] LABS: MANUAL DIFF FLAG NO
[2023-06-10 16:58] LABS: Basophils Percent Auto 0.3 % (0-2); Eosinophils Absolute Auto 0.1 X10*3/uL (0.0-0.4); Eosinophils Percent Auto 0.5 % (0-4); Hematocrit 29.3 % (37.0-47.0); Hemoglobin 10.4 g/dl (12.0-16.0); Imm Gran Abs Auto 0.04 X10*3/uL (0.00-0.03); Imm Gran Pct Auto 0.4 % (0.0-0.4); Lymphocytes Absolute Auto 2.4 X10*3/uL (1.2-4.9); Lymphocytes Percent Auto 24.3 % (20-40); Mean Corpuscular HGB Conc 35.5 g/dl (31.0-35.0); Mean Corpuscular Hemoglobin 30.1 pg (27.0-33.0); Mean Corpuscular Volume 84.9 fL (80.0-98.0); Mean Platelet Volume 10.2 fL (9.4-12.3); Monocytes Absolute Auto 0.8 X10*3/uL (0.1-1.2); Neutrophils Absolute Auto 6.7 x10*3/uL (2.0-8.3); Neutrophils Percent Auto 66.5 % (45-73); Platelet Count 261 X10*3/uL (160-400); Red Blood Count 3.45 X10*6/uL (4.20-5.50)
[2023-06-10 17:10] LABS: Alanine Aminotransferase 34 U/L (0-31); Albumin Level 3.6 g/dL (3.5-5.0); Alkaline Phosphatase 165 U/L (39-117); Anion Gap 18 (12-20); Aspartate Amino Transferase 53 U/L (5-31); Bilirubin Total 1.7 mg/dL (0.0-1.0); Blood Urea Nitrogen 14 mg/dL (9-16); Calcium 8.6 mg/dL (8.4-10.2); Carbon Dioxide 26 mmol/L (22-29); Chloride 101 mmol/L (96-108); Creatinine Clr Calc Pharmacy 41.9; Estimated Glomerular Filt Rate > 60; Glucose Random 202 mg/dL (60-115); Lipase 126 U/L (8-78); Potassium 3.6 mmol/L (3.3-5.1); Sodium 141 mmol/L (135-145); Total Protein 6.8 g/dL (6.5-8.0)
[2023-06-10 17:15] LABS: B Type Natriuretic Peptide 256 pg/mL (<100)
[2023-06-10 19:42] LABS: Glucose, Whole Blood 175 mg/dL (60-115)
[2023-06-10 20:21] LABS: Influenza A PCR NEGATIVE (Negative); Influenza B PCR NEGATIVE (Negative); Resp Syncy Virus RNA Qual PCR NEGATIVE (Negative); SARS COV2 PCR INHOUSE NEGATIVE (Negative)
[2023-06-10 21:58] LABS: Magnesium < 0.6 mg/dL (1.6-2.6)
--- NOTE | 2023-06-10 22:31 | PHA.MEDREC ---
Pharmacy Consult ? Medication Reconciliation Pharmacy has completed the medication reconciliation. Confirmed medications with patient and from claim history.
--- NOTE | 2023-06-10 23:06 | P.HPHOSP_ITS ---
History of Present Illness Date of Service: 06/10/23 Chief Complaint: Diarrhea This is a 78-year-old female with pertinent history of SVT status post ablation in 2019, coronary artery disease, gme-ieedyle-ukeqdurwd diabetes mellitus, essential hypertension, colon cancer status post colectomy, gastroesophageal reflux disease who presents to the emergency department for evaluation of diarrhea. Of note, patient was recently admitted on 05/16 with orthostatic syncope due to diarrhea and discharged on 05/19 after conservative treatment. Patient states the diarrhea returned 2 days after her previous discharge. She has been having about 5-6 episodes of nonbloody stools that have been ongoing for the last 3 weeks. Had 1 episode of nausea and nonbloody emesis 1 day prior to presentation. No blood in stools but patient states the diarrhea was initially black but over the last 1 week it has been yellow. No fever or chills. No chest discomfort, palpitations, shortness of breath, changes in urinary habits. Does endorse generalized weakness, dizziness/lightheadedness when she tries to get up. In the emergency department, serum magnesium found to be low Review of Systems 2 Constitutional: Constitutional: Reports lethargy, Reports malaise and Reports weakness Cardiovascular: Cardiovascular: Reports no additional cardiovascular complaints Respiratory: Respiratory: Reports no additional respiratory complaints Gastrointestinal: Gastrointestinal: Reports diarrhea and Reports loose stools Genitourinary: Genitourinary: Reports no additional female genitourinary complaints Neurologic: Reports weakness [facility] Medical History Non-ST elevation [place] (NSTEMI) SVT (supraventricular tachycardia) Valvular heart disease Colon cancer HTN (hypertension) Pertinent family history: No family history of early CAD Social History Household Members: Children Household Members Other:: Son Housing: House Do you presently have visiting nurse or other home services: No Alcohol intake: never Patient Tobacco Use Status: Never used Tobacco Smoked in Last 30 Days: No Use of substances other than those prescribed or required for medical reasons: No Advance Directives: Yes Advance Directives on File: Yes Advance Directives Date on File: 01/01/21 Nutrition Risks: No Nutritional Risk service: No Current occupational status: retired Meds Allergies Allergy/AdvReac Type Severity Reaction Status Date / Time codeine [CODEINE] Allergy Unknown GI PAIN, Verified 05/16/23 23:49 abd pain Codeine Sulfate AdvReac Unknown stomach Uncoded 05/16/23 23:49 upset Active Medications: Current Medications Magnesium Sulfate (Magnesium Sulfate/H2o) 2 gm in 50 mls @ 25 mls/hr IV ONCE ONE Stop: 06/11/23 00:03 Home Medications Medication Instructions Recorded Confirmed Last Taken Type aspirin 81 mg chewable tablet 81 mg PO DAILY 12/31/20 06/10/23 06/10/23 History cholecalciferol (vitamin D3) 25 25 mcg PO DAILY 12/31/20 06/10/23 06/10/23 History mcg (1,000 unit) capsule (Vitamin D3) ferrous sulfate 325 mg (65 mg 325 mg PO DAILY 12/31/20 06/10/23 06/10/23 History iron) tablet metformin 500 mg tablet,extended 1,000 mg PO BID 12/31/20 06/10/23 06/10/23 History release 24 hr omeprazole 20 mg capsule,delayed 20 mg PO DAILY 12/31/20 06/10/23 06/10/23 History release atorvastatin 80 mg tablet (Lipitor) 40 mg PO DAILY 05/16/23 06/10/23 06/10/23 History colchicine 0.6 mg tablet 0.6 mg PO BID 05/16/23 06/10/23 06/10/23 History dulaglutide 1.5 mg/0.5 mL 1.5 mg subcut TH 05/16/23 06/10/23 06/10/23 History subcutaneous pen injector (Trulicity) ursodiol 300 mg capsule 300 mg PO BID 05/16/23 06/10/23 06/10/23 History Physical Exam 2 Vital Signs and Narrative: Vital Signs: Last Vital Signs Temp 97.4 F 06/10/23 21:17 Pulse 84 06/10/23 22:04 Resp 16 06/10/23 22:04 BP 154/71 H 06/10/23 22:04 Pulse Ox 100 06/10/23 22:04 O2 Del Method Room Air 06/10/23 22:04 BMI result Body Mass Index 21.7 Elderly female lying in bed in no distress Neck supple, no JVD Regular rate and rhythm, S1-S2 heard Regular breath sounds bilaterally, no wheezing or crackles appreciated Abdomen soft nontender, no guarding, no rigidity Patient is awake, alert and oriented to self, place, time and person ; no focal motor deficit Psych: Normal mood No pedal edema Results Labs 06/10/23 16:52 06/10/23 16:52 Labs: Laboratory Results - last 24 hr 06/10/23 06/10/23 06/10/23 16:52 19:35 19:38 MCV 84.9 MCH 30.1 MCHC 35.5 H RDW 15.0 Plt Count 261 MPV 10.2 Immature Gran % (Auto) 0.4 Neut % (Auto) 66.5 Lymph % (Auto) 24.3 [place]y % (Auto) 8.0 Eos % (Auto) 0.5 Baso % (Auto) 0.3 Lymph # (Auto) 2.4 [place]y # (Auto) 0.8 Eos # (Auto) 0.1 Baso # (Auto) 0.0 Abs Immat Gran (auto) 0.04 H Absolute Neuts (auto) 6.7 Absolute Nucleated RBC 0.000 Nucleated RBC % (auto) 0.0 Anion Gap 18 Estim Creat Clear Calc 41.9 Estimated GFR > 60 POC Glucose 175 H Random Glucose 202 H Calcium 8.6 D Magnesium < 0.6 L* Total Bilirubin 1.7 H AST 53 H ALT 34 H Alkaline Phosphatase 165 H B-Natriuretic Peptide 256 H Total Protein 6.8 Albumin 3.6 Lipase 126 H Influenza Type A (PCR) NEGATIVE Influenza Type B (PCR) NEGATIVE RSV RNA Qual (PCR) NEGATIVE SARS-CoV-2 RNA (RT-PCR) NEGATIVE Assessment and Plan (1) Hypomagnesemia: Status: Acute (2) Diarrhea: Status: Acute Plan This is a 78-year-old female with pertinent history of SVT status post ablation in 2019, coronary artery disease, pit-ycsigpw-hvfzeqpxx diabetes mellitus, essential hypertension, colon cancer status post colectomy, gastroesophageal reflux disease who presents to the emergency department for evaluation of diarrhea. #. Persistent diarrhea: Resuscitating with IV crystalloids. C diff PCR and GI panel pending. Previous admission 05/16/2023 for diarrhea. Consider GI consult if GI panel and C diff negative and symptoms do not improve. Conservative treatment for now. Hold colchicine #. Hypomagnesemia due to GI losses: Repleted. Monitor #. Orthostatic presyncope due to intravascular volume depletion. Resuscitated with IV crystalloids. Orthostatic vital signs in a.m. #. Smk-tjvnyke-lsnmtoeid diabetes mellitus with hyperglycemia: Initiating Accu-Cheks with sliding scale insulin #. Coronary artery disease: Continue antiplatelet agent and statin #. Essential hypertension: On lisinopril #. Normocytic anemia Med rec pending DVT prophylaxis: Lovenox Full code Admit as inpatient and will require two night minimum hospital stay for evaluation of diarrhea, monitoring of electrolytes (as above), which is not possible in a lesser acute setting. Quality Stroke Does the patient have a stroke diagnosis?: No VTE Prior VTE?: No VTE Risk Level:: Medical - moderate - high VTE Device Contraindication: Treatment Not Indicated VTE Drug Contraindication: N/A - Med Ordered
[2023-06-10] MEDS: Magnesium Sulfate/H2O 2 GM/50 ML PIGGYBACK IV (23:26)
[2023-06-10] MEDS: Loperamide HCl 2 MG CAPSULE PO (23:26)
[2023-06-10 23:37] LABS: Appearance Urine Clear; Color Urine Yellow; Glucose Urine UA Negative (Negative); Leukocyte Esterase Urine Moderate (2+) (Negative); Nitrite Urine Negative (Negative); Specific Gravity - Urine 1.015 (1.005-1.025); UMIC TRIGGER UACC YES; Urine Blood Negative (Negative); Urine Ketones Negative (Negative); Urine Protein 30 (1+) mg/dL (Neg-Trace)
[2023-06-10 23:42] LABS: Bacteria Urine None Seen (None Seen); Hyaline Casts Urine 0-2 /LPF (0-2); RBC Urine 0-2 /HPF (0-2); UACC Culture Trigger YES; WBC Urine 21-50 /HPF (0-5)
[2023-06-10] MEDS: Enoxaparin Sodium 40 MG/0.4 ML SYRINGE SUBCUT (23:45)
[2023-06-10] MEDS: 0.9 % Sodium Chloride Flush 3 ML SYRINGE IVFLUSH (23:46)
[2023-06-11] VITALS (9 sets, daily range): BP systolic 127–169; BP diastolic 62–76; PULSE 75–105; RESP 16–18; TEMP 36.2–36.9; O2SAT 96–97; BMI 20.7
[2023-06-11 00:23] LABS: CDiff Gene PCR NEGATIVE (Negative)
--- NOTE | 2023-06-11 00:56 | PC.NURSE ---
Pt A&Ox3, reports diarrhea x few weeks after being prescribed ABX. Pt denies any pain. IV line placed. Pt medicated per JUN. Pt ambulates independently with steady gait. Report complete Pt will be transported to room 350, Pt and family member at bedside aware of plan.
[2023-06-11] MEDS: Lactated Ringers 500 ML 999 ML IV (02:03)
[2023-06-11] MEDS: 0.9 % Sodium Chloride Flush 3 ML SYRINGE IVFLUSH ×3 (02:05→21:10)
[2023-06-11] MEDS: lisinopriL 10 MG TABLET PO (04:54)
[2023-06-11 05:16] LABS: MANUAL DIFF FLAG NO
[2023-06-11 05:23] LABS: Basophils Percent Auto 0.4 % (0-2); Eosinophils Percent Auto 0.4 % (0-4); Hematocrit 23.8 % (37.0-47.0); Hemoglobin 8.8 g/dl (12.0-16.0); Imm Gran Abs Auto 0.02 X10*3/uL (0.00-0.03); Imm Gran Pct Auto 0.3 % (0.0-0.4); Lymphocytes Absolute Auto 2.2 X10*3/uL (1.2-4.9); Lymphocytes Percent Auto 30.5 % (20-40); Mean Corpuscular Hemoglobin 30.7 pg (27.0-33.0); Mean Corpuscular Volume 82.9 fL (80.0-98.0); Mean Platelet Volume 10.6 fL (9.4-12.3); Monocytes Absolute Auto 0.6 X10*3/uL (0.1-1.2); Monocytes Percent Auto 9.1 % (2-11); Neutrophils Absolute Auto 4.2 x10*3/uL (2.0-8.3); Neutrophils Percent Auto 59.3 % (45-73); Platelet Count 193 X10*3/uL (160-400); Red Blood Count 2.87 X10*6/uL (4.20-5.50); Red Cell Distribution Width 14.9 % (11.0-16.0); White Blood Count 7.1 X10*3/uL (4.8-10.8)
[2023-06-11 05:39] LABS: Anion Gap 11 (12-20); Blood Urea Nitrogen 12 mg/dL (9-16); Calcium 7.7 mg/dL (8.4-10.2); Carbon Dioxide 30 mmol/L (22-29); Chloride 102 mmol/L (96-108); Creatinine Clr Calc Pharmacy 49.8; Estimated Glomerular Filt Rate > 60; Glucose Random 186 mg/dL (60-115); Potassium 2.1 mmol/L (3.3-5.1); Sodium 141 mmol/L (135-145)
[2023-06-11 06:00] LABS: Magnesium 1.2 mg/dL (1.6-2.6)
--- NOTE | 2023-06-11 06:18 | PC.NURSE ---
this nurse received 2 critical lab results. first was K+2.1, second mag 1.2. notified. received 2 different ordered, but said mag 2 g first after potassium therefore, waiting for the pharm to verified it. will cont. monitor any changes of s/s.
[2023-06-11] MEDS: Magnesium Sulfate/H2O 2 GM/50 ML PIGGYBACK IV ×2 (06:22→08:26)
[2023-06-11 07:32] LABS: Glucose, Whole Blood 153 mg/dL (60-115)
[2023-06-11] MEDS: Insulin Lispro 100 UNIT/ML 3 ML VIAL SUBCUT ×4 (07:47→21:10)
[2023-06-11] MEDS: Potassium Chloride Packet 20 MEQ PACKET 40 MEQ PO (07:48)
--- NOTE | 2023-06-11 10:01 | MHC.CM.PN ---
pt lives with son,has own ride home had no servies dc plan home no servcies
--- NOTE | 2023-06-11 10:16 | HO.PM.IMPN ---
Subjective Subjective Date of Service: 06/11/23 Review of Systems Follow up diarrhea Physical Exam Vital Signs: Vital Signs: Last Vital Signs Temp 98.3 F 06/11/23 08:00 Pulse 105 H 06/11/23 09:14 Resp 17 06/11/23 08:00 BP 127/62 06/11/23 09:14 Pulse Ox 97 06/11/23 08:00 O2 Del Method Room Air 06/11/23 08:00 BMI result Body Mass Index 20.7 Objective Data Active Medications Acetaminophen (Acetaminophen 325 Mg Tablet) 650 mg PO Q6H PRN PRN Reason: Pain, Mild (Pain Scale 1-3) Dextrose (Dextrose 50 % 25 Gm/50 Ml Syringe) 25 gm IVPUSH Q15M PRN; Protocol PRN Reason: per Hypoglycemia Standing Ord. Enoxaparin Sodium (Enoxaparin Sodium 40 Mg/0.4 Ml Syringe) 40 mg SUBCUT BEDTIME [facility] Last Admin: 06/10/23 23:45 Dose: 40 mg Documented By: VINCENT Glucose (Glucose Gel 15 Gm Gel..Gram.) 15 gm PO Q15M PRN; Protocol PRN Reason: per Hypoglycemia Standing Ord. Potassium Chloride (Potassium Chloride/H20) 10 meq in 100 mls @ 100 mls/hr IV Q1H [facility] Stop: 06/11/23 12:59 Insulin Human Lispro (Insulin Lispro 100 Unit/Ml 3 Ml Vial) 0 unit SUBCUT QIDACHS [facility]; Protocol Last Admin: 06/11/23 07:47 Dose: 2 unit Documented By: SARAHI Lisinopril (Lisinopril 10 Mg Tablet) 10 mg PO DAILY [facility]; Protocol Last Admin: 06/11/23 04:54 Dose: 10 mg Documented By: EMIGDIO Melatonin (Melatonin 3 Mg Tablet) 6 mg PO BEDTIME PRN PRN Reason: Insomnia Ondansetron HCl (Ondansetron Hcl 4 Mg/2 Ml Vial) 4 mg IVPUSH Q8H PRN PRN Reason: Nausea and Vomiting Sodium Chloride (0.9 % Sodium Chloride Flush 3 Ml Syringe) 3 ml IVFLUSH QSHIFT [facility] Last Admin: 06/11/23 02:05 Dose: 3 ml Documented By: EMIGDIO Labs 06/11/23 05:05 06/11/23 05:05 Labs: Laboratory Results - last 24 hr 06/10/23 06/10/23 06/10/23 16:52 19:35 19:38 MCV 84.9 MCH 30.1 MCHC 35.5 H RDW 15.0 Plt Count 261 MPV 10.2 Immature Gran % (Auto) 0.4 Neut % (Auto) 66.5 Lymph % (Auto) 24.3 [place] % (Auto) 8.0 Eos % (Auto) 0.5 Baso % (Auto) 0.3 Lymph # (Auto) 2.4 [place] # (Auto) 0.8 Eos # (Auto) 0.1 Baso # (Auto) 0.0 Abs Immat Gran (auto) 0.04 H Absolute Neuts (auto) 6.7 Absolute Nucleated RBC 0.000 Nucleated RBC % (auto) 0.0 Anion Gap 18 Estim Creat Clear Calc 41.9 Estimated GFR > 60 POC Glucose 175 H Random Glucose 202 H Calcium 8.6 D Magnesium < 0.6 L* Total Bilirubin 1.7 H AST 53 H ALT 34 H Alkaline Phosphatase 165 H B-Natriuretic Peptide 256 H Total Protein 6.8 Albumin 3.6 Lipase 126 H Urine Color Urine Appearance Urine pH Ur Specific [place] Urine Protein Urine Glucose (UA) Urine Ketones Urine Blood Urine Nitrite Ur Leukocyte Esterase Urine RBC Urine WBC Ur Squamous Epith Cells Urine Bacteria Hyaline Casts C. difficile Tox B Gene Influenza Type A (PCR) NEGATIVE Influenza Type B (PCR) NEGATIVE RSV RNA Qual (PCR) NEGATIVE SARS-CoV-2 RNA (RT-PCR) NEGATIVE 06/10/23 06/10/23 06/11/23 23:14 23:24 05:05 MCV 82.9 MCH 30.7 MCHC 37.0 H RDW 14.9 Plt Count 193 D MPV 10.6 Immature Gran % (Auto) 0.3 Neut % (Auto) 59.3 Lymph % (Auto) 30.5 [place] % (Auto) 9.1 Eos % (Auto) 0.4 Baso % (Auto) 0.4 Lymph # (Auto) 2.2 [place] # (Auto) 0.6 Eos # (Auto) 0.0 Baso # (Auto) 0.0 Abs Immat Gran (auto) 0.02 Absolute Neuts (auto) 4.2 Absolute Nucleated RBC 0.000 Nucleated RBC % (auto) 0.0 Anion Gap 11 L Estim Creat Clear Calc 49.8 Estimated GFR > 60 POC Glucose Random Glucose 186 H Calcium 7.7 L D Magnesium 1.2 L* Total Bilirubin AST ALT Alkaline Phosphatase B-Natriuretic Peptide Total Protein Albumin Lipase Urine Color Yellow Urine Appearance Clear Urine pH 6.0 Ur Specific [place] 1.015 Urine Protein 30 (1+) H Urine Glucose (UA) Negative Urine Ketones Negative Urine Blood Negative Urine Nitrite Negative Ur Leukocyte Esterase Moderate (2+) H Urine RBC 0-2 Urine WBC 21-50 H Ur Squamous Epith Cells 3-5 Urine Bacteria None Seen Hyaline Casts 0-2 C. difficile Tox B Gene NEGATIVE Influenza Type A (PCR) Influenza Type B (PCR) RSV RNA Qual (PCR) SARS-CoV-2 RNA (RT-PCR) 06/11/23 07:18 MCV MCH MCHC RDW Plt Count MPV Immature Gran % (Auto) Neut % (Auto) Lymph % (Auto) [place] % (Auto) Eos % (Auto) Baso % (Auto) Lymph # (Auto) [place] # (Auto) Eos # (Auto) Baso # (Auto) Abs Immat Gran (auto) Absolute Neuts (auto) Absolute Nucleated RBC Nucleated RBC % (auto) Anion Gap Estim Creat Clear Calc Estimated GFR POC Glucose 153 H Random Glucose Calcium Magnesium Total Bilirubin AST ALT Alkaline Phosphatase B-Natriuretic Peptide Total Protein Albumin Lipase Urine Color Urine Appearance Urine pH Ur Specific [place] Urine Protein Urine Glucose (UA) Urine Ketones Urine Blood Urine Nitrite Ur Leukocyte Esterase Urine RBC Urine WBC Ur Squamous Epith Cells Urine Bacteria Hyaline Casts C. difficile Tox B Gene Influenza Type A (PCR) Influenza Type B (PCR) RSV RNA Qual (PCR) SARS-CoV-2 RNA (RT-PCR) Assessment and Plan (1) Orthostasis: Status: Acute (2) Hypokalemia: Status: Acute (3) Hypomagnesemia: Status: Acute Plan This is a 78-year-old female with pertinent history of SVT status post ablation in 2019, coronary artery disease, xtn-rguahpg-lthelixip diabetes mellitus, essential hypertension, colon cancer status post colectomy, gastroesophageal reflux disease who presents to the emergency department for evaluation of diarrhea. Persistent diarrhea no diarrhea today ? viral illness C diff PCR negative GI panel pending. Previous admission 05/16/2023 for diarrhea. Consider GI consult if GI panel and C diff negative and symptoms do not improve. Conservative treatment for now. Hold colchicine Hypomagnesemia/hypokalemia due to GI losses Repleted. Monitor Orthostatic presyncope due to intravascular volume depletion Resuscitated with IV crystalloids. check Orthostatic vital signs Mzp-otovngc-onodsfgrt diabetes mellitus with hyperglycemia Initiating Accu-Cheks with sliding scale insulin Coronary artery disease Continue antiplatelet agent and statin Essential hypertension On lisinopril Normocytic anemia Above transfusion threshold DVT prophylaxis: Lovenox Attending Dr. Pickard Full code continue hospital stay for evaluation of diarrhea, monitoring of electrolytes (as above), which is not possible in a lesser acute setting. Quality Stroke Does the patient have a stroke diagnosis?: No VTE Prior VTE?: No VTE Risk Level:: Medical - moderate - high VTE Device Contraindication: Treatment Not Indicated VTE Drug Contraindication: N/A - Med Ordered
[2023-06-11 10:22] LABS: Adenovirus F 40/41 Not Detected (Not Detect.); Astrovirus Not Detected (Not Detect.); Campylobacter Not Detected (Not Detect.); Cryptosporidium Not Detected (Not Detect.); Cyclospora cayetanensis Not Detected (Not Detect.); E. coli EAEC Not Detected (Not Detect.); E. coli EPEC Not Detected (Not Detect.); E. coli ETEC Not Detected (Not Detect.); E. coli STEC Not Detected (Not Detect.); Entamoeba histolytica Not Detected (Not Detect.); Giardia lamblia Not Detected (Not Detect.); Norovirus GI/GII Not Detected (Not Detect.); Plesiomonas shigelloides Not Detected (Not Detect.); Rotavirus A Not Detected (Not Detect.); Salmonella Not Detected (Not Detect.); Sapovirus Not Detected (Not Detect.); Shigella sp./EIEC Not Detected (Not Detect.); Vibrio Not Detected (Not Detect.); Vibrio Cholerae Not Detected (Not Detect.); Yersinia enterocolitica Not Detected (Not Detect.)
[2023-06-11] MEDS: Potassium Chloride/H20 10 MEQ/100 ML PIGGYBACK 100 MEQ IV ×4 (10:35→13:40)
[2023-06-11 11:21] LABS: Glucose, Whole Blood 179 mg/dL (60-115)
[2023-06-11 13:34] LABS: Anion Gap 13 (12-20); Blood Urea Nitrogen 9 mg/dL (9-16); Carbon Dioxide 32 mmol/L (22-29); Chloride 100 mmol/L (96-108); Creatinine Clr Calc Pharmacy 45.8; Estimated Glomerular Filt Rate > 60; Glucose Random 180 mg/dL (60-115); Magnesium 2.5 mg/dL (1.6-2.6); Potassium 3.8 mmol/L (3.3-5.1); Sodium 141 mmol/L (135-145)
[2023-06-11] MEDS: ondansetron HCL 4 MG/2 ML VIAL IVPUSH (13:39)
[2023-06-11 16:00] LABS: Glucose, Whole Blood 196 mg/dL (60-115)
[2023-06-11 20:46] LABS: Glucose, Whole Blood 183 mg/dL (60-115)
[2023-06-11] MEDS: Colchicine 0.6 MG TABLET PO (21:10)
[2023-06-11] MEDS: Enoxaparin Sodium 40 MG/0.4 ML SYRINGE SUBCUT (21:10)
[2023-06-11] MEDS: UrsodioL 300 MG CAPSULE PO (21:10)
[2023-06-12 03:53] VITALS: BP 157/72; PULSE 76; RESP 16; TEMP 36.2; O2SAT 95
[2023-06-12 07:20] VITALS: BP 146/71; PULSE 83; RESP 17; TEMP 36.5; O2SAT 97
[2023-06-12 07:45] LABS: Glucose, Whole Blood 186 mg/dL (60-115)
[2023-06-12 07:57] LABS: Alanine Aminotransferase 27 U/L (0-31); Albumin Level 2.9 g/dL (3.5-5.0); Alkaline Phosphatase 155 U/L (39-117); Anion Gap 13 (12-20); Aspartate Amino Transferase 47 U/L (5-31); Bilirubin Direct 0.5 mg/dL (0.0-0.5); Bilirubin Total 1.6 mg/dL (0.0-1.0); Blood Urea Nitrogen 7 mg/dL (9-16); Calcium 7.7 mg/dL (8.4-10.2); Carbon Dioxide 34 mmol/L (22-29); Chloride 99 mmol/L (96-108); Creatinine Clr Calc Pharmacy 47.7; Estimated Glomerular Filt Rate > 60; Glucose Random 186 mg/dL (60-115); Magnesium 1.7 mg/dL (1.6-2.6); Potassium 3.7 mmol/L (3.3-5.1); Sodium 142 mmol/L (135-145); Total Protein 5.5 g/dL (6.5-8.0)
--- NOTE | 2023-06-12 08:11 | P.PNIM_ITS ---
Subjective Subjective Date of Service: 06/12/23 Review of Systems Follow up diarrhea doing better, only on episode of diarrhea Physical Exam 2 Vital Signs: Vital Signs: Last Vital Signs Temp 97.7 F 06/12/23 07:20 Pulse 83 06/12/23 07:20 Resp 17 06/12/23 07:20 BP 146/71 H 06/12/23 07:20 Pulse Ox 97 06/12/23 07:20 O2 Del Method Room Air 06/12/23 07:20 BMI result Body Mass Index 20.7 Appearing in no acute distress lung sounds are clear to auscultation heart regular rate rhythm, clear S1, S2 positive bowel sounds, abdomen is soft, nontender neuro patient is alert x3, no focal deficits Objective Data Active Medications Acetaminophen (Acetaminophen 325 Mg Tablet) 650 mg PO Q6H PRN PRN Reason: Pain, Mild (Pain Scale 1-3) Aspirin (Aspirin 81 Mg Tab.Chew) 81 mg PO DAILY [facility] Atorvastatin Calcium (Atorvastatin Calcium 40 Mg Tablet) 40 mg PO DAILY [facility] Colchicine (Colchicine 0.6 Mg Tablet) 0.6 mg PO BID [facility] Last Admin: 06/11/23 21:10 Dose: 0.6 mg Documented By: EMIGDIO Dextrose (Dextrose 50 % 25 Gm/50 Ml Syringe) 25 gm IVPUSH Q15M PRN; Protocol PRN Reason: per Hypoglycemia Standing Ord. Enoxaparin Sodium (Enoxaparin Sodium 40 Mg/0.4 Ml Syringe) 40 mg SUBCUT BEDTIME [facility] Last Admin: 06/11/23 21:10 Dose: 40 mg Documented By: EMIGDIO Ferrous Sulfate (Ferrous Sulfate 324 Mg Tablet.Dr) 324 mg PO DAILY [facility] Glucose (Glucose Gel 15 Gm Gel..Gram.) 15 gm PO Q15M PRN; Protocol PRN Reason: per Hypoglycemia Standing Ord. Insulin Human Lispro (Insulin Lispro 100 Unit/Ml 3 Ml Vial) 0 unit SUBCUT QIDACHS [facility]; Protocol Last Admin: 06/11/23 21:10 Dose: 2 unit Documented By: EMIGDIO Lisinopril (Lisinopril 10 Mg Tablet) 10 mg PO DAILY [facility]; Protocol Last Admin: 06/11/23 04:54 Dose: 10 mg Documented By: EMIGDIO Loperamide HCl (Loperamide Hcl 2 Mg Capsule) 2 mg PO Q4H PRN PRN Reason: Diarrhea Melatonin (Melatonin 3 Mg Tablet) 6 mg PO BEDTIME PRN PRN Reason: Insomnia Omeprazole (Omeprazole 20 Mg Capsule.Dr) 20 mg PO DAILY@1630 [facility] Ondansetron HCl (Ondansetron Hcl 4 Mg/2 Ml Vial) 4 mg IVPUSH Q8H PRN PRN Reason: Nausea and Vomiting Last Admin: 06/11/23 13:39 Dose: 4 mg Documented By: SARAHI Sodium Chloride (0.9 % Sodium Chloride Flush 3 Ml Syringe) 3 ml IVFLUSH QSHIFT [facility] Last Admin: 06/11/23 21:10 Dose: 3 ml Documented By: EMIGDIO Ursodiol (Ursodiol 300 Mg Capsule) 300 mg PO BID [facility] Last Admin: 06/11/23 21:10 Dose: 300 mg Documented By: EMIGDIO Vitamin D (Cholecalciferol (Vitamin D3) 25 Mcg Tablet) 25 mcg PO DAILY [facility] Labs 06/11/23 05:05 06/12/23 07:26 Labs: Laboratory Results - last 24 hr 06/10/23 06/11/23 06/11/23 23:24 11:16 13:01 Hold Purple Top Anion Gap 13 Estim Creat Clear Calc 45.8 Estimated GFR > 60 POC Glucose 179 H Random Glucose 180 H Calcium 8.0 L Magnesium 2.5 Total Bilirubin Direct Bilirubin AST ALT Alkaline Phosphatase Total Protein Albumin Stl C. cayetanensis PCR Not Detected Stool Rotavirus A PCR Not Detected Stl Adenov F 40/41 PCR Not Detected Stool Astrovirus (PCR) Not Detected Stool Campylobacter PCR Not Detected Stool Cryptosporidium PCR Not Detected Stl Sh Tox Pr E STEC PCR Not Detected Stool E coli O157 PCR Not applicable Stl Enterotoxigenic E PCR Not Detected Stool EPEC (PCR) Not Detected Stool EAEC (PCR) Not Detected Stl E. histolytica PCR Not Detected Stool Giardia Lamblia PCR Not Detected Stl P. shigelloides PCR Not Detected Stool Salmonella PCR Not Detected Stool Sapovirus (PCR) Not Detected Stl Shigella/EIEC PCR Not Detected St Y.enterocolitica PCR Not Detected Stool Vibrio (PCR) Not Detected Stl Vibrio cholerae PCR Not Detected Stl Norovirus GI/GII PCR Not Detected 06/11/23 06/11/23 06/12/23 15:53 20:33 07:22 Hold Purple Top SEE NOTE Anion Gap Estim Creat Clear Calc Estimated GFR POC Glucose 196 H 183 H Random Glucose Calcium Magnesium Total Bilirubin Direct Bilirubin AST ALT Alkaline Phosphatase Total Protein Albumin Stl C. cayetanensis PCR Stool Rotavirus A PCR Stl Adenov F 40/41 PCR Stool Astrovirus (PCR) Stool Campylobacter PCR Stool Cryptosporidium PCR Stl Sh Tox Pr E STEC PCR Stool E coli O157 PCR Stl Enterotoxigenic E PCR Stool EPEC (PCR) Stool EAEC (PCR) Stl E. histolytica PCR Stool Giardia Lamblia PCR Stl P. shigelloides PCR Stool Salmonella PCR Stool Sapovirus (PCR) Stl Shigella/EIEC PCR St Y.enterocolitica PCR Stool Vibrio (PCR) Stl Vibrio cholerae PCR Stl Norovirus GI/GII PCR 06/12/23 06/12/23 07:23 07:26 Hold Purple Top Anion Gap 13 Estim Creat Clear Calc 47.7 Estimated GFR > 60 POC Glucose 186 H Random Glucose 186 H Calcium 7.7 L Magnesium 1.7 Total Bilirubin 1.6 H Direct Bilirubin 0.5 AST 47 H ALT 27 Alkaline Phosphatase 155 H Total Protein 5.5 L Albumin 2.9 L Stl C. cayetanensis PCR Stool Rotavirus A PCR Stl Adenov F 40/41 PCR Stool Astrovirus (PCR) Stool Campylobacter PCR Stool Cryptosporidium PCR Stl Sh Tox Pr E STEC PCR Stool E coli O157 PCR Stl Enterotoxigenic E PCR Stool EPEC (PCR) Stool EAEC (PCR) Stl E. histolytica PCR Stool Giardia Lamblia PCR Stl P. shigelloides PCR Stool Salmonella PCR Stool Sapovirus (PCR) Stl Shigella/EIEC PCR St Y.enterocolitica PCR Stool Vibrio (PCR) Stl Vibrio cholerae PCR Stl Norovirus GI/GII PCR Assessment and Plan (1) Orthostasis: Status: Acute (2) Hypokalemia: Status: Acute (3) Hypomagnesemia: Status: Acute Plan This is a 78-year-old female with pertinent history of SVT status post ablation in 2019, coronary artery disease, pad-jxqyeea-amwwplakb diabetes mellitus, essential hypertension, colon cancer status post colectomy, gastroesophageal reflux disease who presents to the emergency department for evaluation of diarrhea. Persistent diarrhea no diarrhea today hx of diarrhea since june 2022 normal endo and colo in 11/2022 C diff PCR negative, GI panel neg Hold colchicine advance diet to reg PT consult pending GI consult>add stool wbc, calprotectin, pancreatic elastase, fecal fat abd CT showing non specific colitis with no diarrhea, fever or leukocytosis Hypomagnesemia/hypokalemia. Resolved due to GI losses Repleted. Monitor Orthostatic presyncope due to intravascular volume depletion. Resolved Resuscitated with IV crystalloids. Cdx-gtveslu-frnbcqqtr diabetes mellitus 2 with hyperglycemia ss, ada diet Coronary artery disease Continue antiplatelet agent and statin Essential hypertension On lisinopril Normocytic anemia Above transfusion threshold DVT prophylaxis: Lovenox Attending Dr. Pickard Full code continue hospital stay for evaluation of diarrhea, monitoring of electrolytes (as above), which is not possible in a lesser acute setting. Quality Stroke Does the patient have a stroke diagnosis?: No VTE Prior VTE?: No VTE Risk Level:: Medical - moderate - high VTE Device Contraindication: Treatment Not Indicated VTE Drug Contraindication: N/A - Med Ordered
[2023-06-12] MEDS: 0.9 % Sodium Chloride Flush 3 ML SYRINGE IVFLUSH ×3 (08:14→20:23)
[2023-06-12] MEDS: Colchicine 0.6 MG TABLET PO ×2 (08:16→20:34)
[2023-06-12] MEDS: lisinopriL 10 MG TABLET PO (08:16)
[2023-06-12] MEDS: Aspirin 81 MG TAB.CHEW PO (08:16)
[2023-06-12] MEDS: Atorvastatin Calcium 40 MG TABLET PO (08:16)
[2023-06-12] MEDS: Cholecalciferol (Vitamin D3) 25 MCG TABLET PO (08:16)
[2023-06-12] MEDS: Ferrous Sulfate 324 MG TABLET.DR PO (08:16)
[2023-06-12] MEDS: Insulin Lispro 100 UNIT/ML 3 ML VIAL SUBCUT ×4 (08:18→20:34)
--- NOTE | 2023-06-12 08:20 | P.DS_ITS ---
DS: Providers Provider Date of Service: 06/12/23 Date of admission: 06/10/23 23:04 Primary care physician: Rory Sandhu MD DS: Diagnosis Discharge Diagnosis (1) Orthostasis: Status: Acute (2) Hypokalemia: Status: Acute (3) Hypomagnesemia: Status: Acute DS: Summary Hospital Course Hospital Course: History and physical as per admitting provider. This is a 78-year-old female w ith pertinent history of SVT status post ablation in 2019, coronary artery disease, [id number] diabetes mellitus, essential hypertension, colon cancer status post colectomy, gastroesophageal reflux disease who presents to the emergency department for evaluation of diarrhea. Of note, patient was recently admitted on 05/16 with orthostatic syncope due to diarrhea and discharged on 05/19 after conservative treatment. Patient states the diarrhea returned 2 days after her previous discharge. She has been having about 5-6 episodes of nonbloody stools that have been ongoing for the last 3 weeks. Had 1 episode of nausea and nonbloody emesis 1 day prior to presentation. No blood in stools but patient states the diarrhea was initially black but over the last 1 week it has been yellow. No fever or chills. No chest discomfort, palpitations, shortness of breath, changes in urinary habits. Does endorse generalized weakness, dizziness/lightheadedness when she tries to get up. In the emergency department, serum magnesium found to be low. 78-year-old woman treated for diarrhea and electrolyte abnormalities. Patient with history of persistent diarrhea since prior to September of 2022. She had a normal endoscopy in November of 2022. Unfortunately due to the diarrhea she had electrolyte abnormalities including hypokalemia and hypomagnesemia. She had IV and oral repletion with normalization of sed labs. C diff negative, GI panel negative. She was seen and evaluated by Gastroenterology who ordered stool WBC, calprotectin, pancreatic elastase and fecal fat ordered however patient has not had any further bowel movements. She has not had any fever leukocytosis indicate infection. She was seen outpatient by Dr. Caro who spoke with the patient's daughter today, the plan will be to stop the colchicine which may be causing diarrhea and also discuss with primary care provider regarding the possibility of stopping metformin which also can contribute to diarrhea. Patient is eating a regular diet and tolerating, had 1 bowel movement in the last 24 hours. Plan will be to discharge patient home with family. Check labs in 3 days. Continue potassium and magnesium supplementation for 3 days. May use Imodium as needed, fiber supplement also added to regimen. Orthostatic hypotension. Resolved with IV fluids Diabetes mellitus type 2. Continue home medications Coronary artery disease. Continue aspirin and statin Normocytic anemia. Stable H and H during hospitalization, above transfusion threshold. Continue iron supplementation Essential hypertension. Continue lisinopril Time Attestation Discharge coordination time: Greater than 30 minutes Quality: Safe Use of Opioids Does Pt have an Active Cancer Diagnosis on the Problem List?: No Quality: Stroke Does the patient have a stroke diagnosis?: No Physical Exam Vital Signs: Vital Signs: Last Vital Signs Temp 97.7 F 06/12/23 07:20 Pulse 83 06/12/23 07:20 Resp 17 06/12/23 07:20 BP 146/71 H 06/12/23 07:20 Pulse Ox 97 06/12/23 07:20 O2 Del Method Room Air 06/12/23 07:20 BMI result Body Mass Index 20.7 Appearing in no acute distress head is normocephalic atraumatic eyes pupils are PERRLA sclera is anicteric mouth throat mucous membranes are intact and moist neck is supple no lymphadenopathy, no JVD noted lung sounds are clear to auscultation heart regular rate rhythm, clear S1, S2 positive bowel sounds, abdomen is soft, nontender neuro patient is alert x3, no focal deficits DS: Data Data Completed and Pending Labs on day of discharge: Laboratory Results - last 24 hr 06/10/23 06/11/23 06/11/23 23:24 11:16 13:01 Hold Purple Top Sodium 141 Potassium 3.8 D Chloride 100 Carbon Dioxide 32 H Anion Gap 13 BUN 9 Creatinine 0.75 Estim Creat Clear Calc 45.8 Estimated GFR > 60 POC Glucose 179 H Random Glucose 180 H Calcium 8.0 L Magnesium 2.5 Total Bilirubin Direct Bilirubin AST ALT Alkaline Phosphatase Total Protein Albumin Stl C. cayetanensis PCR Not Detected Stool Rotavirus A PCR Not Detected Stl Adenov F 40/41 PCR Not Detected Stool Astrovirus (PCR) Not Detected Stool Campylobacter PCR Not Detected Stool Cryptosporidium PCR Not Detected Stl Sh Tox Pr E STEC PCR Not Detected Stool E coli O157 PCR Not applicable Stl Enterotoxigenic E PCR Not Detected Stool EPEC (PCR) Not Detected Stool EAEC (PCR) Not Detected Stl E. histolytica PCR Not Detected Stool Giardia Lamblia PCR Not Detected Stl P. shigelloides PCR Not Detected Stool Salmonella PCR Not Detected Stool Sapovirus (PCR) Not Detected Stl Shigella/EIEC PCR Not Detected St Y.enterocolitica PCR Not Detected Stool Vibrio (PCR) Not Detected Stl Vibrio cholerae PCR Not Detected Stl Norovirus GI/GII PCR Not Detected 06/11/23 06/11/23 06/12/23 15:53 20:33 07:22 Hold Purple Top SEE NOTE Sodium Potassium Chloride Carbon Dioxide Anion Gap BUN Creatinine Estim Creat Clear Calc Estimated GFR POC Glucose 196 H 183 H Random Glucose Calcium Magnesium Total Bilirubin Direct Bilirubin AST ALT Alkaline Phosphatase Total Protein Albumin Stl C. cayetanensis PCR Stool Rotavirus A PCR Stl Adenov F 40 PCR Stool Astrovirus (PCR) Stool Campylobacter PCR Stool Cryptosporidium PCR Stl Sh Tox Pr E STEC PCR Stool E coli O157 PCR Stl Enterotoxigenic E PCR Stool EPEC (PCR) Stool EAEC (PCR) Stl E. histolytica PCR Stool Giardia Lamblia PCR Stl P. shigelloides PCR Stool Salmonella PCR Stool Sapovirus (PCR) Stl Shigella/EIEC PCR St Y.enterocolitica PCR Stool Vibrio (PCR) Stl Vibrio cholerae PCR Stl Norovirus GI/GII PCR 06/12/23 06/12/23 07:23 07:26 Hold Purple Top Sodium 142 Potassium 3.7 Chloride 99 Carbon Dioxide 34 H Anion Gap 13 BUN 7 L Creatinine 0.72 Estim Creat Clear Calc 47.7 Estimated GFR > 60 POC Glucose 186 H Random Glucose 186 H Calcium 7.7 L Magnesium 1.7 Total Bilirubin 1.6 H Direct Bilirubin 0.5 AST 47 H ALT 27 Alkaline Phosphatase 155 H Total Protein 5.5 L Albumin 2.9 L Stl C. cayetanensis PCR Stool Rotavirus A PCR Stl Adenov F 40 PCR Stool Astrovirus (PCR) Stool Campylobacter PCR Stool Cryptosporidium PCR Stl Sh Tox Pr E STEC PCR Stool E coli O157 PCR Stl Enterotoxigenic E PCR Stool EPEC (PCR) Stool EAEC (PCR) Stl E. histolytica PCR Stool Giardia Lamblia PCR Stl P. shigelloides PCR Stool Salmonella PCR Stool Sapovirus (PCR) Stl Shigella/EIEC PCR St Y.enterocolitica PCR Stool Vibrio (PCR) Stl Vibrio cholerae PCR Stl Norovirus GI/GII PCR Discharge Plan Discharge Anticipated Discharge Date/Time: 06/13/23 09:44 Patient Disposition: Home, Self-Care Discharge Diagnosis: Diarrhea Hypomagnesemia Hypokalemia Referrals: Rory Sandhu MD [Primary Care Provider] - 1 Week Bryce Oliver MD [Physician] - None Discharge Medications: New magnesium oxide [MagOx] 400 mg (241.3 mg magnesium) tablet 400 mg PO DAILY Qty: 3 0RF potassium chloride 20 mEq tablet extended release 20 meq PO DAILY Qty: 3 0RF Hydrocil Instant Packet 1 packet PO BEDTIME Qty: 30 0RF Continued omeprazole 20 mg capsule,delayed release(DR/EC) 20 mg PO DAILY metformin 500 mg tablet extended release 24 hr 1,000 mg PO BID ferrous sulfate 325 mg (65 mg iron) Tablet 325 mg PO DAILY aspirin 81 mg Tablet,Chewable 81 mg PO DAILY cholecalciferol (vitamin D3) [Vitamin D3] 25 mcg (1,000 unit) Capsule 25 mcg PO DAILY Trulicity 1.5 mg/0.5 mL Pen Injector 1.5 mg SUBCUT TH atorvastatin [Lipitor] 80 mg tablet 40 mg PO DAILY loperamide 2 mg Capsule 2 mg PO Q4H PRN (Reason: Diarrhea) Qty: 20 0RF lisinopril 20 mg tablet 10 mg PO DAILY Qty: 30 0RF (DME) [facility] See Rx Instructions .ROUTE .MEDSUPPLY Qty: 12 0RF Rx Instructions: As directed ursodiol 300 mg capsule 300 mg PO BID Discontinued colchicine 0.6 mg tablet 0.6 mg PO BID Discharge Orders: Discharge Order (Routine); Ordered 06/13/23 Ordered By: Fabiola Lopez Diet: Advance to usual diet Activity on Discharge: As tolerated Stand Alone Forms: Patient Portal Discharge page Other Ambulatory Orders: Basic Metabolic Panel (Routine) Timeframe: 3 Days Facility: [facility] - Location: Laboratory Ordered By: Fabiola Lopez Magnesium (Routine) Timeframe: 3 Days Facility: [facility] - Location: Laboratory Ordered By: Fabiola Lopez Care Plan Goals: May use Immodium as needed for diarrhea Stop colchicine Potassium and magnesium supplement for 3 days Health Concerns: Diarrhea Hypomagnesemia Hypokalemia Plan of Treatment: Follow up with primary care provider as needed to discuss possible discontinuation of metformin as this may cause diarrhea Follow up with Gastroenterology at next scheduled appointment Take all medications as prescribed Check labs in 3 days Assessment: See discharge summary
[2023-06-12] MEDS: UrsodioL 300 MG CAPSULE PO ×2 (08:21→20:34)
[2023-06-12 09:35] LABS: Glucose, Whole Blood 259 mg/dL (60-115)
[2023-06-12 11:34] LABS: Glucose, Whole Blood 173 mg/dL (60-115)
--- NOTE | 2023-06-12 11:38 | PM.GICN ---
History of Present Illness Data of Consult Service Date: 06/12/23 Requesting physician: Fabiola Lopez Primary Care Provider: Rory Sandhu MD [facility] Reason for consult: Chronic diarrhea 78 YF with history of SVT status post ablation in 2019, CAD, NIDDM, hypertension, colon cancer status post colectomy, gastroesophageal reflux disease admitted to [facility] on 06/10/23 for evaluation of diarrhea. Pt was diagnosed with PBC and started on Ursodiol in Jan, 2023. Of note, patient was recently admitted on 05/16 with orthostatic syncope due to diarrhea and discharged on 05/19 after conservative treatment. Patient stated the diarrhea returned 2 days after her previous discharge. She has been having about 5-6 episodes of nonbloody stools that have been ongoing for the last 3 weeks. She reports 1 episode of nausea and non-bloody emesis 1 day prior to presentation. No blood in stools but patient states the diarrhea was initially black (pt takes iron daily) but over the last 1 week it has been yellow. Pt denied fever or chills, chest discomfort, palpitations, shortness of breath, changes in urinary habits. She complained of generalized weakness, dizziness/lightheadedness when she tried to get up. GI Panel and stool for C Diff were negative. Pt had bowel movement on 06/10 and 1 BM today. Pt has a hx of chronic diarrhea for the past several months and is followed by Dr Munguia. She reports 8-9 loose BMs a day and can have 2-3 episodes of nocturnal diarrhea Diarrhea is associated with urgency and patient reports episodes of fecal incontinence. Patient was advised to take Imodium and reports having vomiting after she took 2 tablets. Patient reports history of diarrhea with milk products and avoids dairy BD She notes diarrhea when she takes creamy soups. She gives a history of decreased appetite with weight loss since July of 2022. Patient reports history skin rash over lower extremities - she tested negative for Lyme disease. She was treated for a fungal infection with resolution. Patient is status post right hemicolectomy for colon cancer in July, [address] Newton Patient denies smoking or ETOH abuse. Pt has 3 children and one of her sons lives with her. 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 Family history is negative for history of IBD, colon polyps or GI malignancy 06/12/[address] SCAN SHOWED: 1. Circumferential wall thickening of the sigmoid colon extending proximally within the ascending colon. Findings are consistent with acute colitis. No evidence of perforation or abscess formation. Sigmoid diverticulosis. Unremarkable right ileocolic anastomosis. No small or large bowel obstruction. 2. Hepatic cirrhosis, increased when compared to the prior examination. No intrahepatic or extrahepatic biliary ductal dilatation. 3. Trace pericardial effusion, new when compared to the prior examination. 4. Additional chronic findings are unchanged PAST MEDICAL HISTORY BY REVIEW OF MEDICAL RECORDS: 12/02/23 PATIENT HAD AN EGD AND A COLONOSCOPY BY DR. MUNGUIA: IMPRESSION: 1. Small hiatal hernia. 2. Rule out celiac disease. 3. Colon polyps. 4. Diverticulosis. 5. Internal hemorrhoids. PLAN: The results of the pathology will be checked. I would recommend a repeat colonoscopy in 3 years for further screening given her previous history of colon cancer and today's findings. In regard to her underlying liver disease, she will have a followup office visit and we shall discuss potential liver biopsy. 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 She was advised to resume her iron today. She was advised to resume aspirin in 48 hours. She was advised to avoid NSAIDs for at least 1 week. This has all been discussed with her daughter. BIOPSIES SHOWED: A. Duodenum, descending, biopsies: Duodenal mucosa with no diagnostic alteration; no evidence of foveolar metaplasia, dysplasia, or increased intraepithelial lymphocytes. B. Colon, distal to anastomosis, biopsies: Colonic mucosa with no diagnostic alteration. C. Colon, 50-60 cm, biopsies: Patchy active colitis, mild, nonspecific; no evidence of chronic mucosal injury, granulomas, or dysplasia. D. Colon, 40 cm, polypectomy: Inflammatory polyp, no evidence of dysplasia or malignancy. E. Rectum, polypectomy: Hyperplastic polyp 01/27/23 LIVER BIOPSY SHOWED: Liver, core biopsy: Portal-based lymphoplasmacytic inflammation with bile duct damage and loss, compatible with Primary Biliary Cholangitis (see microscopic description) Pt was started on ursodiol Review of Systems Constitutional: Constitutional: Reports lethargy, Reports malaise and Reports weakness Cardiovascular: Cardiovascular: Reports no additional cardiovascular complaints Respiratory: Respiratory: Reports no additional respiratory complaints Gastrointestinal: Gastrointestinal: Reports diarrhea and Reports loose stools Genitourinary: Genitourinary: Reports no additional female genitourinary complaints Neurologic: Reports weakness [facility] Past Medical History Medical History Non-ST elevation [place] (NSTEMI) SVT (supraventricular tachycardia) Valvular heart disease Colon cancer HTN (hypertension) Social History Social History Household Members: Family Household Members Other:: 1 Housing: House Do you presently have visiting nurse or other home services: No Alcohol intake: never Patient Tobacco Use Status: Never used Tobacco Advance Directives Date on File: 01/01/21 service: No Current occupational status: retired Meds Allergies Allergy/AdvReac Type Severity Reaction Status Date / Time codeine [CODEINE] Allergy Unknown GI PAIN, Verified 05/16/23 23:49 abd pain Codeine Sulfate AdvReac Unknown stomach Uncoded 05/16/23 23:49 upset Active Medications: Current Medications Acetaminophen (Acetaminophen 325 Mg Tablet) 650 mg PO Q6H PRN PRN Reason: Pain, Mild (Pain Scale 1-3) Aspirin (Aspirin 81 Mg Tab.Chew) 81 mg PO DAILY [facility] Last Admin: 06/12/23 08:16 Dose: 81 mg Atorvastatin Calcium (Atorvastatin Calcium 40 Mg Tablet) 40 mg PO DAILY [facility] Last Admin: 06/12/23 08:16 Dose: 40 mg Colchicine (Colchicine 0.6 Mg Tablet) 0.6 mg PO BID [facility] Last Admin: 06/12/23 08:16 Dose: 0.6 mg Dextrose (Dextrose 50 % 25 Gm/50 Ml Syringe) 25 gm IVPUSH Q15M PRN; Protocol PRN Reason: per Hypoglycemia Standing Ord. Enoxaparin Sodium (Enoxaparin Sodium 40 Mg/0.4 Ml Syringe) 40 mg SUBCUT BEDTIME [facility] Last Admin: 06/11/23 21:10 Dose: 40 mg Ferrous Sulfate (Ferrous Sulfate 324 Mg Tablet.Dr) 324 mg PO DAILY [facility] Last Admin: 06/12/23 08:16 Dose: 324 mg Glucose (Glucose Gel 15 Gm Gel..Gram.) 15 gm PO Q15M PRN; Protocol PRN Reason: per Hypoglycemia Standing Ord. Insulin Human Lispro (Insulin Lispro 100 Unit/Ml 3 Ml Vial) 0 unit SUBCUT QIDACHS [facility]; Protocol Last Admin: 06/12/23 08:18 Dose: 2 unit Lisinopril (Lisinopril 10 Mg Tablet) 10 mg PO DAILY [facility]; Protocol Last Admin: 06/12/23 08:16 Dose: 10 mg Loperamide HCl (Loperamide Hcl 2 Mg Capsule) 2 mg PO Q4H PRN PRN Reason: Diarrhea Melatonin (Melatonin 3 Mg Tablet) 6 mg PO BEDTIME PRN PRN Reason: Insomnia Omeprazole (Omeprazole 20 Mg Capsule.) 20 mg PO DAILY@1630 [facility] Ondansetron HCl (Ondansetron Hcl 4 Mg/2 Ml Vial) 4 mg IVPUSH Q8H PRN PRN Reason: Nausea and Vomiting Last Admin: 06/11/23 13:39 Dose: 4 mg Sodium Chloride (0.9 % Sodium Chloride Flush 3 Ml Syringe) 3 ml IVFLUSH QSHIFT [facility] Last Admin: 06/12/23 08:14 Dose: 3 ml Ursodiol (Ursodiol 300 Mg Capsule) 300 mg PO BID [facility] Last Admin: 06/12/23 08:21 Dose: 300 mg Vitamin D (Cholecalciferol (Vitamin D3) 25 Mcg Tablet) 25 mcg PO DAILY [facility] Last Admin: 06/12/23 08:16 Dose: 25 mcg Home Medications Medication Instructions Recorded Confirmed Last Taken Type aspirin 81 mg chewable tablet 81 mg PO DAILY 12/31/20 06/10/23 06/10/23 History cholecalciferol (vitamin D3) 25 25 mcg PO DAILY 12/31/20 06/10/23 06/10/23 History mcg (1,000 unit) capsule (Vitamin D3) ferrous sulfate 325 mg (65 mg 325 mg PO DAILY 12/31/20 06/10/23 06/10/23 History iron) tablet metformin 500 mg tablet,extended 1,000 mg PO BID 12/31/20 06/10/23 06/10/23 History release 24 hr omeprazole 20 mg capsule,delayed 20 mg PO DAILY 12/31/20 06/10/23 06/10/23 History release atorvastatin 80 mg tablet (Lipitor) 40 mg PO DAILY 05/16/23 06/10/23 06/10/23 History colchicine 0.6 mg tablet 0.6 mg PO BID 05/16/23 06/10/23 06/10/23 History dulaglutide 1.5 mg/0.5 mL 1.5 mg subcut TH 05/16/23 06/10/23 06/10/23 History subcutaneous pen injector (Trulicity) ursodiol 300 mg capsule 300 mg PO BID 05/16/23 06/10/23 06/10/23 History Physical Exam Vital Signs: Vital Signs: Last Vital Signs Temp 97.7 F 06/12/23 07:20 Pulse 83 06/12/23 07:20 Resp 17 06/12/23 07:20 BP 146/71 H 06/12/23 07:20 Pulse Ox 97 06/12/23 07:20 O2 Del Method Room Air 06/12/23 07:20 BMI result Body Mass Index 20.7 Const: General: no acute distress Nutritional Appearance: average body habitus Orientation/consciousness: patient oriented x3 Limitations: no limitations HEENT: Head: Yes normal to inspection Ears: hearing grossly normal bilaterally Eyes: Sclerae: sclerae normal Pupils: Equal, round and reactive pupils present Neck: Neck: Yes normal visual inspection Chest: Chest palpation & inspection: normal inspection of the chest Resp: Effort & Inspection: normal respiratory effort Auscultation: clear to auscultation bilaterally Cardio: Palpation: normal PMI Rate: regular rate Rhythm: regular rhythm Heart sounds: S1 normal heart sound present, S2 normal heart sound present and no murmurs GI: Palpation (GI): Soft to palpation, nontender and No hepatosplenomegaly present Auscultation: normal bowel sounds Rectal Exam - Female: deferred Skin: General skin exam: no rashes or lesions noted Neuro: General: patient oriented x3, gait normal and moves all extremities Cranial nerves: Yes Equal, round and reactive pupils present Psych: Appearance: grossly normal Mental Status: mental status grossly normal Results Labs 06/11/23 05:05 06/12/23 07:26 Labs: BMP 06/11/23 06/12/23 13:01 07:26 Sodium 141 142 Potassium 3.8 D 3.7 Chloride 100 99 Carbon Dioxide 32 H 34 H BUN 9 7 L Creatinine 0.75 0.72 Calcium 8.0 L 7.7 L Liver Function 06/12/23 Range/Units 07:26 Total Bilirubin 1.6 H (0.0-1.0) mg/dL Direct Bilirubin 0.5 (0.0-0.5) mg/dL AST 47 H (5-31) U/L ALT 27 (0-31) U/L Alkaline Phosphatase 155 H (39-117) U/L Albumin 2.9 L (3.5-5.0) g/dL Microbiology Microbiology Results: Microbiology 06/10/23 Unknown Urine clean catch - Clean Catch Midstream Urine Culture - Final Assessment and Plan (1) Diarrhea: Status: Acute (2) Elevated LFTs: Status: Acute Plan 78 YF with history of SVT status post ablation in 2019, CAD, NIDDM, hypertension, colon cancer status post colectomy, gastroesophageal reflux disease admitted to [facility] on 06/10/23 for evaluation of diarrhea. Pt was diagnosed with PBC and started on Ursodiol in Jan, 2023. Chronic diarrhea for the past several months can be due to malabsorption, pancreatic insufficiency (mild elevation of lipase) or IBD or related to medications (pt is on colchicine which can be associated with GI side effects including diarrhea) Infection ruled out by negative GI panel and C Diff toxin RECOMMENDATIONS: 1. Check CRP, IBD serologies, lipase, Vitamin B12 and Vitamin D with am labs (order placed) and stool for WBC, fat, fecal calprotectin, and pancreatic elastase. 2. Viola of a fibre supplement to see if diarrhea improves - order placed 3. Consider holding Colchicine for 2-3 weeks to see if diarrhea subsides. 3. FU with Dr Munguia tomorrow. Procedures Date of Service Date of Service: 06/13/23
[2023-06-12 16:00] VITALS: BP 145/67; PULSE 91; RESP 17; TEMP 36.7; O2SAT 96
[2023-06-12 16:44] LABS: Glucose, Whole Blood 255 mg/dL (60-115)
[2023-06-12] MEDS: Omeprazole 20 MG CAPSULE.DR PO (17:23)
[2023-06-12 19:08] VITALS: BP 159/65; PULSE 85; RESP 16; TEMP 36.3; O2SAT 96
[2023-06-12 19:21] LABS: Glucose, Whole Blood 255 mg/dL (60-115)
[2023-06-12] MEDS: Enoxaparin Sodium 40 MG/0.4 ML SYRINGE SUBCUT (20:34)
[2023-06-12] MEDS: Psyllium seed 3.7 GM PACKET PO (20:35)
[2023-06-13 03:22] VITALS: BP 139/61; PULSE 80; RESP 16; TEMP 36.4; O2SAT 96
[2023-06-13 07:13] VITALS: BP 126/60; PULSE 84; RESP 18; TEMP 36.7; O2SAT 96
[2023-06-13 07:25] LABS: Glucose, Whole Blood 197 mg/dL (60-115)
[2023-06-13] MEDS: lisinopriL 10 MG TABLET PO (08:01)
[2023-06-13] MEDS: Colchicine 0.6 MG TABLET PO (08:01)
[2023-06-13] MEDS: Cholecalciferol (Vitamin D3) 25 MCG TABLET PO (08:01)
[2023-06-13] MEDS: Aspirin 81 MG TAB.CHEW PO (08:01)
[2023-06-13] MEDS: Atorvastatin Calcium 40 MG TABLET PO (08:02)
[2023-06-13] MEDS: Insulin Lispro 100 UNIT/ML 3 ML VIAL SUBCUT ×2 (08:02→11:54)
[2023-06-13] MEDS: 0.9 % Sodium Chloride Flush 3 ML SYRINGE IVFLUSH (08:02)
[2023-06-13] MEDS: Ferrous Sulfate 324 MG TABLET.DR PO (08:02)
[2023-06-13] MEDS: UrsodioL 300 MG CAPSULE PO (08:02)
[2023-06-13 09:15] LABS: Hematocrit 27.7 % (37.0-47.0); Hemoglobin 9.9 g/dl (12.0-16.0); Mean Corpuscular HGB Conc 35.7 g/dl (31.0-35.0); Mean Corpuscular Hemoglobin 30.7 pg (27.0-33.0); Mean Corpuscular Volume 85.8 fL (80.0-98.0); Mean Platelet Volume 10.6 fL (9.4-12.3); Platelet Count 210 X10*3/uL (160-400); Red Blood Count 3.23 X10*6/uL (4.20-5.50); Red Cell Distribution Width 15.1 % (11.0-16.0); White Blood Count 6.6 X10*3/uL (4.8-10.8)
[2023-06-13 09:30] LABS: Anion Gap 12 (12-20); Blood Urea Nitrogen 11 mg/dL (9-16); Carbon Dioxide 32 mmol/L (22-29); Chloride 97 mmol/L (96-108); Creatinine Clr Calc Pharmacy 42.4; Estimated Glomerular Filt Rate > 60; Glucose Random 319 mg/dL (60-115); Potassium 3.2 mmol/L (3.3-5.1); Sodium 138 mmol/L (135-145)
[2023-06-13 09:38] LABS: C Reactive Protein 0.14 mg/dL (< or = 0.50); Lipase 39 U/L (8-78)
[2023-06-13 09:50] LABS: Vitamin D 25-OH Total 37.7 ng/mL (>30)
[2023-06-13 09:57] LABS: Leukocytes Stool Qualitative NEGATIVE (NEGATIVE)
[2023-06-13] MEDS: Potassium Chloride ER 20 MEQ TAB.ER.PRT 40 MEQ PO (10:11)
[2023-06-13 10:21] LABS: Folate 7.7 ng/mL (> or = 4.0); Vitamin B12 236 pg/mL (200-900)
[2023-06-13 11:18] LABS: Glucose, Whole Blood 306 mg/dL (60-115)
[2023-06-13 11:25] VITALS: BMI 20.7
[2023-06-13 11:26] VITALS: BP 126/60; PULSE 84; O2SAT 96
--- NOTE | 2023-06-13 11:29 | MHC.CLN ---
RE: CONSULT PT IS MODERATELY MALNOURISHED PT TRIGGERS FOR 10% SIGNIFICANT WT LOSS X 6 MONTHS WITH CHRONIC POOR PO AND DIARRHEA X 3 WEEKS PO INTAKE 25-75% VARIABLE DIET RX: 1800DM-APPROPRIATE RECOMMEND ADDING ENSURE CLEAR BID TO PROVIDE 480KCALS, 16G PROTEIN MONITOR PO INTAKE AND ENCOURAGE SUPPLEMENTS SEE ALSO FULL CLINICAL NUTRITION ASSESSMENT
--- NOTE | 2023-06-13 13:45 | MHC.CM.PN ---
PT WILL DC HOME TODAY WITH NO SERVICES FAMILY TO TRANSPORT
[2023-06-18 00:14] LABS: Fecal Fat Qualitative Normal (Normal)
[2023-06-19 01:29] LABS: Calprotectin, Fecal 510 mcg/g
[2023-06-21 23:28] LABS: Pancreatic Elastase-1 498 mcg/g
== END 2023-06-13 15:22 | disposition home or self-care (01) | DRG 395 ==
LOC: HO.ED 22:16 → HO.EDOVER 23:10 → HO.S3 06-11 00:23
PROVIDERS: Internal Medicine Gastroenterology; Physician Assistant; Physician Assistant Medical; Admitting Provider Student in an Organized Health Care Education/Training Program; Emergency Provider Emergency Medicine; PCP Internal Medicine; Visit Provider Nurse Practitioner Acute Care
DX: K52.1 Toxic gastroenteritis and colitis (principal); E83.42 Hypomagnesemia; E87.6 Hypokalemia; D64.9 Anemia, unspecified; T50.4X5A Adverse effect of drugs affecting uric acid metabolism, initial encounter; I25.10 Atherosclerotic heart disease of native coronary artery without angina pectoris; I95.1 Orthostatic hypotension; I10 Essential (primary) hypertension; K74.60 Unspecified cirrhosis of liver; E11.65 Type 2 diabetes mellitus with hyperglycemia; Z20.822 Contact with and (suspected) exposure to COVID-19; Z79.82 Long term (current) use of aspirin; Z79.84 Long term (current) use of oral hypoglycemic drugs; Z79.85 Long-term (current) use of injectable non-insulin antidiabetic drugs; Z79.899 Other long term (current) drug therapy
CPT/HCPCS: 0241U; 36415; 74176; 80048; 80053; 80076; 81001; 81479; 82306; 82397; 82607; 82656; 82705; 82746; 82947; 83520; 83690; 83735; 83880; 83993; 85025; 85027; 86140; 87086; 87493; 87507; 88346; 88350; 89055; 97161; 99285; J1650; J2405; J3475; J3480; J7120

== ENCOUNTER → 2023-06-10 23:04 | Outpatient (BNV) | payer MEDICARE, SELFPAY | PROVIDERS: Admitting Provider Student in an Organized Health Care Education/Training Program; Emergency Provider Emergency Medicine; PCP Internal Medicine; Visit Provider Student in an Organized Health Care Education/Training Program | DX: I95.1 Orthostatic hypotension (principal); E87.6 Hypokalemia; E83.42 Hypomagnesemia; E11.65 Type 2 diabetes mellitus with hyperglycemia | CPT/HCPCS: 99222; 99232; 99238 ==

== ENCOUNTER → 2023-06-10 23:04 | Outpatient (BNV) | payer MEDICARE, SELFPAY | PROVIDERS: Admitting Provider Student in an Organized Health Care Education/Training Program; Emergency Provider Emergency Medicine; PCP Internal Medicine; Visit Provider Internal Medicine Gastroenterology | DX: R19.7 Diarrhea, unspecified (principal); R79.89 Other specified abnormal findings of blood chemistry; R74.01 Elevation of levels of liver transaminase levels | CPT/HCPCS: 99222 ==

== ENCOUNTER 2023-06-16 09:29 | Outpatient (REF) | payer MEDICARE, SELFPAY ==
[2023-06-16 12:39] LABS: Anion Gap 12 (12-20)
[2023-06-16 13:02] LABS: Blood Urea Nitrogen 12 mg/dL (9-16); Calcium 8.7 mg/dL (8.4-10.2); Carbon Dioxide 31 mmol/L (22-29); Chloride 98 mmol/L (96-108); Estimated Glomerular Filt Rate > 60; Glucose Random 309 mg/dL (60-115); Potassium 4.1 mmol/L (3.3-5.1); Sodium 137 mmol/L (135-145)
[2023-06-16 15:23] LABS: Magnesium 1.2 mg/dL (1.6-2.6)
== END 2023-06-16 09:30 | disposition home or self-care (01) ==
LOC: HO.10HDL 09:29
PROVIDERS: Visit Provider Nurse Practitioner Acute Care
DX: E87.6 Hypokalemia (principal); E83.42 Hypomagnesemia
CPT/HCPCS: 36415; 80048; 83735

== ENCOUNTER 2023-07-07 11:30 | Outpatient (REF) | payer MEDICARE, SELFPAY ==
[2023-07-07 13:14] LABS: Magnesium 1.3 mg/dL (1.6-2.6)
== END 2023-07-07 11:31 | disposition home or self-care (01) ==
LOC: HO.LNP 11:30
PROVIDERS: Visit Provider Internal Medicine
DX: E83.42 Hypomagnesemia (principal)
CPT/HCPCS: 83735

== ENCOUNTER 2023-07-14 10:46 | Outpatient (REF) | payer MEDICARE, SELFPAY ==
[2023-07-14 12:03] LABS: Magnesium 1.8 mg/dL (1.6-2.6)
== END 2023-07-14 10:47 | disposition home or self-care (01) ==
LOC: HO.LNP 10:46
PROVIDERS: Visit Provider Internal Medicine
DX: E83.42 Hypomagnesemia (principal)
CPT/HCPCS: 83735

== ENCOUNTER 2023-08-08 09:11 | Outpatient (REF) | payer MEDICARE, SELFPAY ==
[2023-08-08 10:42] LABS: MANUAL DIFF FLAG NO
[2023-08-08 10:57] LABS: Basophils Percent Auto 0.3 % (0-2); Eosinophils Absolute Auto 0.2 X10*3/uL (0.0-0.4); Eosinophils Percent Auto 2.9 % (0-4); Hematocrit 27.6 % (37.0-47.0); Hemoglobin 9.5 g/dl (12.0-16.0); Imm Gran Abs Auto 0.03 X10*3/uL (0.00-0.03); Imm Gran Pct Auto 0.4 % (0.0-0.4); Lymphocytes Absolute Auto 1.1 X10*3/uL (1.2-4.9); Lymphocytes Percent Auto 15.7 % (20-40); Mean Corpuscular HGB Conc 34.4 g/dl (31.0-35.0); Mean Corpuscular Hemoglobin 31.8 pg (27.0-33.0); Mean Corpuscular Volume 92.3 fL (80.0-98.0); Mean Platelet Volume 9.9 fL (9.4-12.3); Monocytes Absolute Auto 0.4 X10*3/uL (0.1-1.2); Monocytes Percent Auto 4.9 % (2-11); Neutrophils Absolute Auto 5.4 x10*3/uL (2.0-8.3); Neutrophils Percent Auto 75.8 % (45-73); Platelet Count 218 X10*3/uL (160-400); Red Blood Count 2.99 X10*6/uL (4.20-5.50); Red Cell Distribution Width 12.6 % (11.0-16.0); White Blood Count 7.2 X10*3/uL (4.8-10.8)
[2023-08-08 11:06] LABS: INTERNATIONAL NORM RATIO 1.1 (0.9-1.1); Prothrombin Time 12.9 SEC (11.1-13.3)
[2023-08-08 11:59] LABS: Alanine Aminotransferase 18 U/L (0-31); Albumin Level 3.2 g/dL (3.5-5.0); Alkaline Phosphatase 237 U/L (39-117); Aspartate Amino Transferase 20 U/L (5-31); Bilirubin Direct 0.3 mg/dL (0.0-0.5); Iron 49 mcg/dL (30-160); Percent Iron Saturation 17 % (15-50); Total Iron Binding Capacity 296 mcg/dL (228-428); Total Protein 6.3 g/dL (6.5-8.0); Unsaturated Iron Binding 247 ug/dL
[2023-08-08 12:07] LABS: Bilirubin Total 0.6 mg/dL (0.0-1.0)
[2023-08-08 12:10] LABS: Ferritin 27 ng/mL (10-250)
== END 2023-08-08 09:12 | disposition home or self-care (01) ==
LOC: HO.10HDL 09:11
PROVIDERS: Visit Provider Internal Medicine
DX: Z13.89 Encounter for screening for other disorder (principal)
CPT/HCPCS: 36415; 80076; 82728; 83540; 85025; 85610

== ENCOUNTER 2023-08-16 10:55 | Outpatient (AMB) | payer MEDICARE, SELFPAY ==
--- NOTE | 2023-08-16 11:31 | A.OFFVIS_ITS ---
Intake Vital Signs 08/16/23 11:32 Weight 116 lb 1 oz Intake Visit Reasons: DM/CONFIRMED Curator Of Manuscripts Required: No Accompanied by: Self / Same As Patient Allergies codeine [CODEINE] Allergy (Unknown, Verified 05/16/23 23:49) GI PAIN, abd pain Codeine Sulfate Adverse Reaction (Unknown, Uncoded 05/16/23 23:49) stomach upset HPI Comprehensive Diabetes Asmnt Most Recent Diabetes Results: Hemoglobin A1c 9.5 % 10/16/19 Microalb/Creat Ratio 11.5 ug/mg cr 09/23/22 Cholesterol 83 mg/dL 09/23/22 HDL Cholesterol 46 mg/dL 09/23/22 Triglycerides 70 mg/dL 09/23/22 Creatinine 0.76 mg/dL (0.5-1.4) 06/16/23 Blood Urea Nitrogen 12 mg/dL (9-16) 06/16/23 Sodium 137 mmol/L (135-145) 06/16/23 Potassium 4.1 mmol/L (3.3-5.1) 06/16/23 Chloride 98 mmol/L (96-108) 06/16/23 Carbon Dioxide 31 mmol/L (22-29) H 06/16/23 Calcium 8.7 mg/dL (8.4-10.2) 06/16/23 AST 20 U/L (5-31) 08/08/23 ALT 18 U/L (0-31) 08/08/23 Total Protein 6.3 g/dL (6.5-8.0) L 08/08/23 Albumin 3.2 g/dL (3.5-5.0) L 08/08/23 [facility] Medical History Non-ST elevation NH (NSTEMI) SVT (supraventricular tachycardia) Valvular heart disease Colon cancer HTN (hypertension) Social History Household Members: Family Household Members Other:: 1 Housing: House Do you presently have visiting nurse or other home services: No Alcohol intake: never Patient Tobacco Use Status: Never used Tobacco Advance Directives Date on File: 01/01/21 service: No Current occupational status: retired Assessment & Plan Assessment & Plan (1) Type 2 diabetes mellitus: Code(s): E11.9 - Type 2 diabetes mellitus without complications Plan: Patient at visit for follow-up blood glucose check, and diabetes education Patient reports blood sugars below: Date Breakfast/Fasting Pre-Lunch Pre-Supper Bedtime Notes 08/15 232 08/14 235 08/13 168 08/12 179 08/11 140 5/2 143 08/09 181 I have not seen patient since 2021, last A1c done while she was in the hospital 6.1% in July 2023, does appear that she has low red blood cell count so A1c might not reflect average glucose levels. Patient currently is using metformin 500 mg b.i.d. Trulicity 1.5 mg weekly Tresiba 10 units daily Patient does report that she has been having some hypoglycemia. Reviewed with patient how to treat hypoglycemia. Hypoglycemia handout given to patient Patient has been in the hospital in the past 18 months, reports that sometimes her glucose levels have been elevated. Reviewed with patient different reasons for elevated glucose not related to food. Patient given a copy how to create a sick day plan Patient instructed to treat any hypoglycemia with rule of 15s, prepare sick day plan. Follow-up with wellness educator in 6 months Patient Instructions: People with diabetes face a higher risk for complications. In general, people with diabetes are more likely to experience severe symptoms and complications when infected with a virus. The problem people with diabetes face is primarily a problem of worse outcomes Before you get sick,?make a plan: Gather your supplies: ? Phone numbers of your doctors and healthcare team, your pharmacy and your insurance provider ? List of medications and doses (including vitamins and supplements) ? Simple carbs like regular soda, honey, jam, Jell-O, hard candies or popsicles to help keep your blood sugar up if you are at risk for lows and too ill to eat ? If a state of emergency is declared, get extra refills on your prescriptions so you do not have to leave the house ?? If you can't get to the pharmacy, find out about having your medications delivered ? Always have enough insulin for the week ahead, in case you get sick or cannot refill ? Extra supplies like rubbing alcohol and soap to wash your hands ? Glucagon and ketone strips, in case of lows and highs ? Have enough household items and groceries on hand so that you will be prepared to stay at home for a period of time Talk to your health care team about the following: ? When to call your doctor's office (for ketones, changes in food intake, medication adjustments, etc.) ? How often to check your blood sugar ? When to check for ketones ? Medications you should use for colds, flu, virus, and infections ? Any changes to your diabetes medications when you are sick Take everyday precautions: ? Avoid close contact with people who are sick ? Take preventive actions: ??? Clean your hands often Wash your hands often with soap and water for at least 20 seconds, especially after blowing your nose, coughing, or sneezing, or having been in a public place. ?? If soap and water are not available, use a hand weapons engineer that contains at least 60% alcohol. To the extent possible, avoid touching high-touch surfaces in public places?elevator buttons, door handles, handrails, handshaking with people, etc. Use a tissue or your sleeve to cover your hand or finger if you must touch something. Wash your hands after touching surfaces in public places. ? Avoid touching your face, nose, eyes, etc. Clean and disinfect your home to remove germs: practice routine cleaning of frequently touched surfaces (for example: tables, doorknobs, light switches, handles, desks, toilets, faucets, sinks & cell phones) Avoid crowds, especially in poorly ventilated spaces. Your risk of exposure to respiratory viruses like COVID-19 may increase in crowded, closed-in settings with little air circulation if there are people in the crowd who are sick. Avoid all non-essential travel including plane trips, and especially avoid embarking on cruise ships. Watch for emergency warning signs: If you develop emergency warning signs get medical attention?immediately. In adults, emergency warning signs include: ? Difficulty breathing or shortness of breath ? Persistent pain or pressure in the chest ? New confusion or inability to arouse ? Bluish lips or face If you do get sick, know what to do: Here are some common tips, which may vary for each person: ? Drink lots of fluids. If you're having trouble keeping water down, have small sips every 15 minutes or so throughout the day to avoid dehydration. ? If you are experiencing a low (blood sugar below 70 mg/dl or your target range), eat 15 grams of simple carbs that are easy to digest like honey, jam, Jell-O, hard candy, popsicles, juice or regular soda, and re-check your blood sugar in 15 minutes to make sure your levels are rising. Check your blood sugar extra times throughout the day and night (generally, every 2-3 hours; if using a CGM, monitor frequently). ? If your blood sugar has registered high (BG greater than 240mg/dl) more than 2 times in a row ? Call your doctor's office immediately, if you have medium or large ketones (and if instructed to with trace or small ketones). ? Wash your hands and clean your injection/infusion and finger-stick sites with soap and water or rubbing alcohol. Why do blood glucose values go up when I am sick? Your body is under stress when you are sick. Hormones that are released to help fight the illness can also raise your glucose levels. Your body becomes less sensitive to your insulin too, so you need more to have the same effect compared to when you are well. What should I always keep on hand to be prepared for a sick day? Glucose testing kit and strips (more than you think you will need) or CGM sensors ? Ketone testing supplies, either urine or special test strips for fingerstick testing with specific meter (even if you feel you never get sick because the level of ketones lets you and your team know how severely your diabe vy is being affected by your illness) ? Plenty of water or sugar-free beverages ? Plenty of all your types of insulin What should I do when I am sick? Continue to take your insulin even if you are not eating much. Take your long acting insulin or continue your basal insulin if you are on an insulin pump. ? Check your blood glucose values every 3-4 hours. If you have a continuous glucose monitor, watch for trends and make sure your correctional insulin is working. ? Check for ketones even if your blood glucose values are not high. Call your diabetes team if your ketones are moderate or high. When you are sick, they can be high even when your glucose values are within your target range. ? Stay well hydrated, drinking fluid every hour ? tea, water, diet soda, broth. ? Make sure you are also eating some carbohydrates When should I call for help? You have been sick or had a fever for a few days and are not getting better. ? You are vomiting or have diarrhea for more than 6 hours. ? You have moderate to large ketones even if your glucose is not high. ? Your blood glucose values stay above 240 mg/dl even when you are giving extra insulin. You are not sure what to do When should I get help right away? Coding Level of Care Code Est Pt Level 1 (64774) Diagnoses Type 2 diabetes mellitus E11.9
== END 2023-08-16 11:55 | disposition home or self-care (01) ==
PROVIDERS: PCP Internal Medicine; Visit Provider Registered Nurse Diabetes Educator
DX: E11.9 Type 2 diabetes mellitus without complications (principal)

== ENCOUNTER → 2023-08-16 10:55 | Outpatient (BNVA) | payer MEDICARE, SELFPAY | PROVIDERS: PCP Internal Medicine; Visit Provider Registered Nurse Diabetes Educator | DX: E11.9 Type 2 diabetes mellitus without complications (principal); Z79.4 Long term (current) use of insulin | CPT/HCPCS: 99211 ==

== ENCOUNTER 2023-10-10 11:09 | Outpatient (REF) | payer MEDICARE, SELFPAY ==
[2023-10-10 11:13] LABS: MANUAL DIFF FLAG NO
[2023-10-10 11:23] LABS: Appearance Urine Clear; Color Urine Yellow; Glucose Urine UA Negative (Negative); Leukocyte Esterase Urine Trace (Negative); Nitrite Urine Negative (Negative); UMIC TRIGGER UACC YES; Urine Blood Negative (Negative); Urine Ketones Negative (Negative); Urine Protein Negative (Neg-Trace)
[2023-10-10 11:25] LABS: Basophils Percent Auto 0.4 % (0-2); Eosinophils Absolute Auto 0.3 X10*3/uL (0.0-0.4); Eosinophils Percent Auto 2.5 % (0-4); Hematocrit 32.7 % (37.0-47.0); Hemoglobin 10.8 g/dl (12.0-16.0); Imm Gran Abs Auto 0.04 X10*3/uL (0.00-0.03); Imm Gran Pct Auto 0.4 % (0.0-0.4); Lymphocytes Absolute Auto 2.2 X10*3/uL (1.2-4.9); Lymphocytes Percent Auto 18.8 % (20-40); Mean Corpuscular Hemoglobin 29.1 pg (27.0-33.0); Mean Corpuscular Volume 88.1 fL (80.0-98.0); Mean Platelet Volume 9.8 fL (9.4-12.3); Monocytes Absolute Auto 0.8 X10*3/uL (0.1-1.2); Monocytes Percent Auto 7.1 % (2-11); Neutrophils Absolute Auto 8.1 x10*3/uL (2.0-8.3); Neutrophils Percent Auto 70.8 % (45-73); Platelet Count 283 X10*3/uL (160-400); Red Blood Count 3.71 X10*6/uL (4.20-5.50); Red Cell Distribution Width 12.3 % (11.0-16.0); White Blood Count 11.4 X10*3/uL (4.8-10.8)
[2023-10-10 11:30] LABS: Bacteria Urine Trace (None Seen); Hyaline Casts Urine 0-2 /LPF (0-2); RBC Urine 0-2 /HPF (0-2); Squamous Epithelial Cell Urine 0-2 /HPF (0-2); WBC Urine 0-5 /HPF (0-5)
[2023-10-10 11:56] LABS: Alanine Aminotransferase 15 U/L (0-31); Albumin Level 3.6 g/dL (3.5-5.0); Alkaline Phosphatase 200 U/L (39-117); Anion Gap 14 (12-20); Aspartate Amino Transferase 25 U/L (5-31); Bilirubin Total 0.7 mg/dL (0.0-1.0); Blood Urea Nitrogen 25 mg/dL (9-16); Calcium 9.6 mg/dL (8.4-10.2); Carbon Dioxide 28 mmol/L (22-29); Chloride 102 mmol/L (96-108); Cholesterol 107 mg/dL (<200); Estimated Glomerular Filt Rate 47; Glucose Random 198 mg/dL (60-115); HDL Cholesterol 62 mg/dL (>40); Iron 43 mcg/dL (30-160); LDL Cholesterol Calculated 35 mg/dL (<100); Magnesium 1.9 mg/dL (1.6-2.6); Percent Iron Saturation 13 % (15-50); Potassium 5.5 mmol/L (3.3-5.1); Sodium 138 mmol/L (135-145); Total Iron Binding Capacity 326 mcg/dL (228-428); Total Protein 7.2 g/dL (6.5-8.0); Triglycerides 52 mg/dL (<150); Unsaturated Iron Binding 283 ug/dL
[2023-10-10 12:06] LABS: Estimated Average Glucose 223 mg/dL; Hemoglobin A1c % 9.4 % (<6.0)
[2023-10-10 12:10] LABS: Vitamin D 25-OH Total 19.7 ng/mL (>30)
[2023-10-10 12:19] LABS: Creatinine Urine 48.62 mg/dL; Microalbum/Creatinine Ratio Ur 12.3 ug/mg cr (<30)
== END 2023-10-10 11:10 | disposition home or self-care (01) ==
LOC: HO.LNP 11:09
PROVIDERS: Visit Provider Internal Medicine
DX: E11.9 Type 2 diabetes mellitus without complications (principal); R79.89 Other specified abnormal findings of blood chemistry; E78.00 Pure hypercholesterolemia, unspecified; D64.9 Anemia, unspecified; I10 Essential (primary) hypertension; E83.52 Hypercalcemia; E83.42 Hypomagnesemia
CPT/HCPCS: 80053; 80061; 81001; 82043; 82306; 82570; 83036; 83540; 83735; 85025

== ENCOUNTER 2023-10-17 13:04 | Outpatient (REF) | payer MEDICARE, SELFPAY ==
[2023-10-17 13:28] LABS: Potassium 4.3 mmol/L (3.3-5.1)
== END 2023-10-17 13:05 | disposition home or self-care (01) ==
LOC: HO.LNP 13:04
PROVIDERS: Visit Provider Internal Medicine
DX: E87.5 Hyperkalemia (principal)
CPT/HCPCS: 84132

== ENCOUNTER 2023-11-07 11:33 | Outpatient (REF) | payer MEDICARE, SELFPAY ==
[2023-11-07 13:31] LABS: MANUAL DIFF FLAG NO
[2023-11-07 13:47] LABS: Basophils Percent Auto 0.4 % (0-2); Eosinophils Absolute Auto 0.3 X10*3/uL (0.0-0.4); Eosinophils Percent Auto 3.5 % (0-4); Hemoglobin 10.4 g/dl (12.0-16.0); Imm Gran Abs Auto 0.02 X10*3/uL (0.00-0.03); Imm Gran Pct Auto 0.2 % (0.0-0.4); Lymphocytes Percent Auto 23.9 % (20-40); Mean Corpuscular HGB Conc 33.5 g/dl (31.0-35.0); Mean Corpuscular Hemoglobin 29.4 pg (27.0-33.0); Mean Corpuscular Volume 87.6 fL (80.0-98.0); Mean Platelet Volume 9.5 fL (9.4-12.3); Monocytes Absolute Auto 0.5 X10*3/uL (0.1-1.2); Monocytes Percent Auto 6.2 % (2-11); Neutrophils Absolute Auto 5.4 x10*3/uL (2.0-8.3); Neutrophils Percent Auto 65.8 % (45-73); Platelet Count 276 X10*3/uL (160-400); Red Blood Count 3.54 X10*6/uL (4.20-5.50); Red Cell Distribution Width 13.1 % (11.0-16.0); White Blood Count 8.2 X10*3/uL (4.8-10.8)
[2023-11-07 13:50] LABS: INTERNATIONAL NORM RATIO 1.1 (0.9-1.1); Prothrombin Time 13.1 SEC (11.1-13.3)
[2023-11-07 14:12] LABS: Anion Gap 10 (12-20); Blood Urea Nitrogen 22 mg/dL (9-16); Carbon Dioxide 32 mmol/L (22-29); Chloride 100 mmol/L (96-108); Estimated Glomerular Filt Rate 46; Glucose Random 295 mg/dL (60-115); Potassium 5.2 mmol/L (3.3-5.1); Sodium 137 mmol/L (135-145)
== END 2023-11-07 11:34 | disposition home or self-care (01) ==
LOC: HO.10HDL 11:33
PROVIDERS: Visit Provider Internal Medicine Cardiovascular Disease
DX: Z01.818 Encounter for other preprocedural examination (principal); I05.0 Rheumatic mitral stenosis; R01.1 Cardiac murmur, unspecified
CPT/HCPCS: 36415; 80048; 85025; 85610

== ENCOUNTER 2023-11-15 08:53 | Outpatient (REF) | payer MEDICARE, SELFPAY | END 2023-11-15 08:54 | disposition home or self-care (01) | LOC: HO.MAMMO 08:53 | PROVIDERS: PCP Internal Medicine; Visit Provider Internal Medicine | DX: Z12.31 Encounter for screening mammogram for malignant neoplasm of breast (principal) | CPT/HCPCS: 77063; 77067 ==

== ENCOUNTER → 2023-11-15 09:15 | Outpatient (BNV) | payer MEDICARE, SELFPAY | PROVIDERS: PCP Internal Medicine; Visit Provider Radiology Diagnostic Radiology | DX: Z12.31 Encounter for screening mammogram for malignant neoplasm of breast (principal) | CPT/HCPCS: 77063; 77067 ==

== ENCOUNTER 2024-02-16 10:06 | Outpatient (AMB) | payer MEDICARE, SELFPAY ==
--- NOTE | 2024-02-16 10:29 | MHC.AMDMED ---
Intake Intake Visit Reasons: DM-conf Social Scientist Required: No Accompanied by: Self / Same As Patient Allergies codeine [CODEINE] Allergy (Unknown, Verified 05/16/23 23:49) GI PAIN, abd pain Codeine Sulfate Adverse Reaction (Unknown, Uncoded 05/16/23 23:49) stomach upset HPI Comprehensive Diabetes Asmnt Most Recent Diabetes Results: Microalb/Creat Ratio 12.3 ug/mg cr (<30) 10/10/23 Cholesterol 107 mg/dL (<200) 10/10/23 HDL Cholesterol 62 mg/dL (>40) 10/10/23 Triglycerides 52 mg/dL (<150) 10/10/23 Creatinine 1.14 mg/dL (0.5-1.4) 11/07/23 Blood Urea Nitrogen 22 mg/dL (9-16) H 11/07/23 Sodium 137 mmol/L (135-145) 11/07/23 Potassium 5.2 mmol/L (3.3-5.1) H 11/07/23 Chloride 100 mmol/L (96-108) 11/07/23 Carbon Dioxide 32 mmol/L (22-29) H 11/07/23 Calcium 10.0 mg/dL (8.4-10.2) 11/07/23 AST 25 U/L (5-31) 10/10/23 ALT 15 U/L (0-31) 10/10/23 Total Protein 7.2 g/dL (6.5-8.0) 10/10/23 Albumin 3.6 g/dL (3.5-5.0) 10/10/23 [facility] Medical History Non-ST elevation [place] (NSTEMI) SVT (supraventricular tachycardia) Valvular heart disease Colon cancer HTN (hypertension) Social History Household Members: Family Household Members Other:: 1 Housing: House Do you presently have visiting nurse or other home services: No Alcohol intake: never Patient Tobacco Use Status: Never used Tobacco Advance Directives Date on File: 01/01/21 service: No Current occupational status: retired Assessment & Plan Assessment & Plan (1) Type 2 diabetes mellitus: Code(s): E11.9 - Type 2 diabetes mellitus without complications Plan: Patient at visit for follow-up blood glucose check, and diabetes education Patient's A1c in October 9.4%, patient reports she had an additional A1c done in January 2024, recalls that it was approximately 10%. Patient's fasting glucose closer to target range, post supper numbers running well above target. She reports she has restarted walking approximately 2 miles daily in the morning after breakfast Suggested she move walk to after lunch to see if that could help with glucose numbers in the afternoon and evening. Patient is currently on Tresiba 14 units daily Trulicity 1.5 mg weekly Patient reports blood sugars below: Date Breakfast/Fasting Pre-Lunch Pre-Supper Bedtime Notes 02/15 138 02/14 134 377 02/13 251 402 02/12 203 290 02/11 121 446 02/10 168 290 Patient instructed to reduce carbohydrates at suppertime to 30-45 gms, patient's reports eating, banana as the snack after walking in the morning, take out [place] food, couple times a month. Although patient says she does not eat large amounts of potatoes or bread, last night she ate to sloppy [place] with 2 hamburger buns, reports she generally has sandwich for lunch Patient will make appointment with endocrine CLIENT DEVELOPMENT CONSULTANT, follow-up with personal development educator 1 month after CLIENT DEVELOPMENT CONSULTANT appointment Portions of this note were created using voice recognition software, please excuse any words or phrases that may have been misinterpreted. Patient Instructions: Contact personal development educator with questions or concerns Follow-up with Diabetes educators instructed Coding Level of Care Code Est Pt Level 1 (17781) Diagnoses Type 2 diabetes mellitus E11.9
== END 2024-02-16 10:44 | disposition home or self-care (01) ==
LOC: HO.ENCR 10:06
PROVIDERS: PCP Internal Medicine; Visit Provider Registered Nurse Diabetes Educator
DX: E11.9 Type 2 diabetes mellitus without complications (principal)

== ENCOUNTER → 2024-02-16 10:06 | Outpatient (BNVA) | payer MEDICARE, SELFPAY | PROVIDERS: PCP Internal Medicine; Visit Provider Registered Nurse Diabetes Educator | DX: E11.9 Type 2 diabetes mellitus without complications (principal) | CPT/HCPCS: 99211 ==

== ENCOUNTER 2024-02-22 13:51 | Outpatient (AMB) | payer MEDICARE, SELFPAY ==
--- NOTE | 2024-02-22 13:52 | A.OFFVIS_ITS ---
Vital Signs 02/22/24 13:57 Height 5 ft Weight 123 lb 7.342 oz BMI 24.1 BP 122/62 Blood Pressure Location Rt brachial Position Sitting Pulse 72 Pulse Source Pulse Oximeter Intake Visit Reasons: DM/CONF Intake Note: NEW Patient presents today to establish treatment for Type 2 Diabetes Mellitus: Last Diabetic eye exam was on: DUE Last Podiatry exam was on: Does not see a Hourly Caregiver Most recent HbA1c: 9.2%, 02/22/2024 Random Glucose- 252 mg/dL, Today Film Coater Required: No Accompanied by: Self / Same As Patient Allergies codeine [CODEINE] Allergy (Unknown, Verified 02/22/24 13:54) GI PAIN, abd pain Codeine Sulfate Adverse Reaction (Unknown, Uncoded 02/22/24 13:54) stomach upset HPI Comments Details: 78 year old female who is seen in consultation for T2DM at the request of PCP. Initially diagnosed with T2DM in []. Was initially started on treatment with []. Current regimen []. Checks sugars [] times per day. Average sugar: [] Range: [] Reports low sugars []. Treats lows with []. [Checks] sugar after to ensure it is rising. [Treats] according to rule of 15's. Most recent A1C [], [down] from prior [] on []. Family history of T2DM in []. Has eyes checked yearly, last eye exam [], [denies] retinopathy. [Denies ] neuropathy, last foot exam [], sees podiatry. [Denies] nephropathy, on [CYNDIE/ARB]. UAC [] as measured on []. [Has] HLD, on [statin]. Last LDL [] as measured on []. [Denies] CAD. Diet: [] Weight: [] [Had] diabetes education. [facility] Medical History Type 2 diabetes mellitus Non-ST elevation [place] (NSTEMI) SVT (supraventricular tachycardia) Valvular heart disease Colon cancer HTN (hypertension) Social History Household Members: Family Household Members Other:: 1 Housing: House Do you presently have visiting nurse or other home services: No Alcohol intake: never Patient Tobacco Use Status: Never used Tobacco Advance Directives Date on File: 01/01/21 service: No Current occupational status: retired Physical Exam Vital Signs: Last Vital Signs Pulse 72 02/22/24 13:57 BP 122/62 02/22/24 13:57 BMI result Body Mass Index 24.1 Absence of Cushingoid features. Absence of acromegalic features. Neck exam reveals nl size thyroid about 15 gms. No thyroid nodules palpable. No carotid bruits present. Lungs CTA. Heart S1 S2, Reg R/R. No M/R/ G. Skin exam reveals absence of vitiligo or acanthosis nigricans. Abdominal exam reveals Soft NT/ND with NA BS. No organomegaly present. Neck Other: . Extrem Other: Visual exam of foot performed. No ulcerations or open lesions. No onchomycosis, no callouses.Pulses 2 + distally Sensation intact to monofilament exam. Vibratory sensation sensed is intact with 128 Hz tuning fork Results AMB Hemoglobin A1c AMB Hemoglobin A1c 9.2 % Last Edit by ESTEPHANIA Howard on 02/22/24 14:20 Results Reviewed Results Reviewed: Laboratory Last Values Glucose (Clinic) 252 mg/dL (60-115) H 02/22/24 14:03 Assessment & Plan Assessment & Plan Orders: Orders AMB Hemoglobin A1c Today E11.9 - Type 2 diabetes mellitus without complications Coding
[2024-02-22 13:57] VITALS: BP 122/62; PULSE 72; BMI 24.1
[2024-02-22 14:10] LABS: Glucose, Whole Blood 252 mg/dL (60-115)
== END 2024-02-22 14:35 | disposition home or self-care (01) ==
PROVIDERS: PCP Internal Medicine; Visit Provider Nurse Practitioner Adult Health
DX: E11.9 Type 2 diabetes mellitus without complications (principal)

== ENCOUNTER → 2024-02-22 13:51 | Outpatient (BNVA) | payer MEDICARE, SELFPAY | PROVIDERS: PCP Internal Medicine; Visit Provider Nurse Practitioner Adult Health | DX: E11.9 Type 2 diabetes mellitus without complications (principal) | CPT/HCPCS: 82947; 83036 ==

== ENCOUNTER 2024-03-06 10:20 | Outpatient (REF) | payer MEDICARE, SELFPAY ==
[2024-03-06 10:49] LABS: MANUAL DIFF FLAG NO
[2024-03-06 10:55] LABS: Basophils Percent Auto 0.4 % (0-2); Eosinophils Absolute Auto 0.2 X10*3/uL (0.0-0.4); Eosinophils Percent Auto 1.8 % (0-4); Hematocrit 29.2 % (37.0-47.0); Hemoglobin 9.9 g/dl (12.0-16.0); Imm Gran Abs Auto 0.03 X10*3/uL (0.00-0.03); Imm Gran Pct Auto 0.4 % (0.0-0.4); Lymphocytes Absolute Auto 1.4 X10*3/uL (1.2-4.9); Lymphocytes Percent Auto 16.8 % (20-40); Mean Corpuscular HGB Conc 33.9 g/dl (31.0-35.0); Mean Corpuscular Hemoglobin 28.9 pg (27.0-33.0); Mean Corpuscular Volume 85.1 fL (80.0-98.0); Mean Platelet Volume 8.9 fL (9.4-12.3); Monocytes Absolute Auto 0.4 X10*3/uL (0.1-1.2); Monocytes Percent Auto 5.1 % (2-11); Neutrophils Absolute Auto 6.3 x10*3/uL (2.0-8.3); Neutrophils Percent Auto 75.5 % (45-73); Platelet Count 221 X10*3/uL (160-400); Red Blood Count 3.43 X10*6/uL (4.20-5.50); Red Cell Distribution Width 13.4 % (11.0-16.0); White Blood Count 8.3 X10*3/uL (4.8-10.8)
[2024-03-06 11:03] LABS: INTERNATIONAL NORM RATIO 1.1 (0.9-1.1); Prothrombin Time 12.5 SEC (10.9-12.4)
[2024-03-06 11:32] LABS: Alanine Aminotransferase 13 U/L (0-31); Albumin Level 3.4 g/dL (3.5-5.0); Alkaline Phosphatase 183 U/L (39-117); Aspartate Amino Transferase 25 U/L (5-31); Bilirubin Direct 0.4 mg/dL (0.0-0.5); Bilirubin Total 0.8 mg/dL (0.0-1.0); Ferritin 34 ng/mL (10-250); Iron 59 mcg/dL (30-160); Percent Iron Saturation 21 % (15-50); Total Iron Binding Capacity 283 mcg/dL (228-428); Total Protein 6.5 g/dL (6.5-8.0); Unsaturated Iron Binding 224 ug/dL
[2024-03-15 14:18] LABS: FIB-ALT 12 U/L (6-29); FIB-Alpha-2-Macroglobulin 197 mg/dL (106-279); FIB-Apolipoprotein A1 140 mg/dL (101-198); FIB-GGT 28 U/L (3-65); FIB-Haptoglobin 153 mg/dL (43-212); FIB-Total Bilirubin 0.8 mg/dL (0.2-1.2); Liver Fibrosis Score 0.37; Liver Fibrosis Stage F1-F2; Nec Inflam Act Grade A0; Nec Inflam Act Score 0.04; Reference ID 5232530
== END 2024-03-06 10:21 | disposition home or self-care (01) ==
LOC: HO.10HDL 10:20
PROVIDERS: Visit Provider Internal Medicine
DX: K74.3 Primary biliary cirrhosis (principal)
CPT/HCPCS: 36415; 80076; 81596; 82728; 83540; 85025; 85610

== ENCOUNTER 2024-03-14 13:00 | Outpatient (AMB) | payer MEDICARE, SELFPAY ==
[2024-03-14 13:10] VITALS: BP 120/78; PULSE 100; O2SAT 98
--- NOTE | 2024-03-14 13:10 | MHC.OFFWIV ---
Intake Vital Signs 03/14/24 13:10 Weight 126 lb BP 120/78 Blood Pressure Location Rt brachial Position Sitting Pulse 100 Pulse Source Pulse Oximeter Pulse Oximetry (%) 98 Oxygen Delivery Method Room Air Intake Visit Reasons: EP Fall, LT arm pain Intake Note: Paqtient here for left arm pain, she states about 2 weeks ago she was on a step ladder and slipped and landed on her stove. Patient Tobacco Use Status: Never used Tobacco Allergies codeine [CODEINE] Allergy (Unknown, Verified 03/14/24 13:23) GI PAIN, abd pain Codeine Sulfate Adverse Reaction (Unknown, Uncoded 03/14/24 13:23) stomach upset Do you need a note to return to daycare/school/sports/work: No HPI EP Fall, LT arm pain HPI Details This note is constructed using voice recognition software. While every effort has been made to ensure accuracy, repairer controller tester errors may have been included. The patient is a 78 year old female who presents to the clinic today with left upper arm pain since a fall last week. She fell landing on the side of her arm striking the top of her stove, not fallen completely to the ground. She did not have pain until the next day. She was able to continue about her normal chores including washing the floor the next day she was able to prepare a Thanksgiving dinner, and she has been able to can completely continue with her normal routines. She reports that the pain is primarily in the upper arm, points to the biceps insertion point, and worse when she raises her arm. She denies numbness and tingling in the hand, loss of range of motion, or loss of strength. She is right-hand dominant. [facility] Medical History Type 2 diabetes mellitus Non-ST elevation [place] (NSTEMI) SVT (supraventricular tachycardia) Valvular heart disease Colon cancer HTN (hypertension) Social History Household Members: Family Household Members Other:: 1 Housing: House Do you presently have visiting nurse or other home services: No Alcohol intake: never Patient Tobacco Use Status: Never used Tobacco Advance Directives Date on File: 01/01/21 service: No Current occupational status: retired Review of Systems Const All systems reviewed & are unremarkable except as noted in HPI and below Physical Exam Vital Signs: Last Vital Signs Pulse 100 03/14/24 13:10 BP 120/78 03/14/24 13:10 Pulse Ox 98 03/14/24 13:10 Oxygen Delivery Method Room Air 03/14/24 13:10 Const General: cooperative, healthy appearing, comfortable, no acute distress and well developed Orientation/consciousness: patient oriented x3 Limitations: no limitations Resp Effort & Inspection: normal respiratory effort and able to speak in complete sentences Skin General skin exam: no rashes or lesions noted Neuro General: patient oriented x3 Extrem Other: Left arm, full range of motion. Tender to palpation at biceps insertion point, no palpable deformities. No ecchymosis, erythema, warmth. Strength 5/5. Distal neurovascular exam intact. General: Yes normal to inspection Assessment & Plan Assessment & Plan (1) Strain of upper arm, left: Code(s): S46.912A - Strain of unspecified muscle, fascia and tendon at shoulder and upper arm level, left arm, initial encounter Qualifiers: Encounter type: initial encounter Qualified Code(s): S46.912A - Strain of unspecified muscle, fascia and tendon at shoulder and upper arm level, left arm, initial encounter Plan: No indication for imaging at this time based on physical examination findings. Advised patient to try a [id number] acetaminophen, or NSAIDs. Advised topical muscle rubs, heat/ice. Advised patient to follow up with PCP with ongoing or worsening symptoms. Plan See above for full details and plan. Coding Level of Care Code Est Pt Level 3 (11677) Diagnoses Strain of left upper arm, initial encounter S46.912A Encounter type: initial encounter
--- OUTSIDE RECORDS SUMMARY | 2024-03-20 19:20 | XMS_ITS ---
Author Organization [facility] Karlo dalila [place] Address [address] [place] [address] Care Team Providers Care Inspector Handbag Frames Name Role Phone Edson URIBE, Rory Primary Care Provider Yohana Carmen Unavailable [phone] Galdino Edge Unavailable [phone] Allergies Allergen (clinical drug ingredient) Drug/Non Drug Allergy documented on EMR Reaction Allergy Type Onset Date Status codeine Codeine Unknown Drug Allergy Active REASON FOR VISIT Painful thick toenails which are aggrevated by shoes and causes difficulty standing/walking, PCP - 05/2023 Medications Medication SIG (Take, Route, Frequency, Duration) Notes Start Date End Date Status glyBURIDE 5 MG Not-T aking Extra Depth Diabetic Shoes with 3 Pair Custom heat-molded multi-density innersoles for 1 year Dx: 03/03/2020 N ot-Taking Januvia 100 MG 1 tablet Orally Once a day for 30 day(s) Not-Taking Xarelto 20 MG 1 tablet Orally Not-Taking Extra Depth Diabetic Shoes with 3 Pair Custom heat-molded multi-density innersoles for 1 year Dx: 02/26/2019 N ot-Taking glipiZIDE 10 MG as directed Orally Once a day Not-Taking Doxycycline Monohydrate 100 MG 1 capsule Orally Once a day Not-Taking dilTIAZem HCl 120 MG as directed Orally Not-Taking Extra Depth Diabetic Shoes with 3 Pair Custom heat-molded multi-density innersoles for 1 year Dx: 03/09/2021 N ot-Taking Metoprolol Tartrate 50 MG as directed Orally Not-Takin g Colchicine 0.6 MG 1 tablet Orally Not-Taking levoFLOXacin 500 MG 1 tablet Orally Once a day Not-Taking Omeprazole 20 MG Act melani Trulicity Active Vitamin D Active Aspirin 81 MG as directed Orally Active iron Active Atorvastatin Calcium Active metFORMIN HCl 500 MG Active Lisinopril 20 MG 1 tablet Orally Active Tresiba 10 units Active januvia Not-Taking Ursodiol 300 MG 1 capsule Orally Twice a day Active Extra Depth Diabetic Shoes with 3 Pair Custom heat-molded multi-density innersoles for 1 year Dx: A ctive Social History Tobacco Use: Social History Observation Description Date Details (start date - stop date) Never Smoker NA - NA Tobacco Use/Smoking Question Answer Notes Are you a: nonsmoker Additional Findings: Tobacco Non-User Current no n-smoker Alcohol Screen Question Answer Notes Did you have a drink containing alcohol in the p ast year? No Points 0 Interpretation Negative Tobacco use other than smoking: Question Answer Notes Are you an other tobacco user? No Vital Signs Height 5ft in 12/29/2023 Weight 116 lbs 12/29/2023 BMI 22.65 kg/m2 12/29/2023 Blood pressure systolic 128 mm Hg 12/29/19 24 Blood pressure diastolic 80 mm Hg 024 Encounters Encounter Location Date Provider Diagnosis [facility] [place] [address] [place] [address] 12/29/2023 Galdino Edge Pain in right toe(s) M79.674 ; Tinea unguium B35.1 ; Type 2 diabetes mellitus with diabetic polyneuropathy E11.42 ; Pain in left toe(s) M79.675 ; Plantar fascial fibromatosis M72.2 ; Other viral warts B07.8 ; Pain in left foot M79.672 ; Pain in right foot M79.671 ; Metatarsalgia, left foot M77.42 and Xerosis cutis L85.3 Assessments Encounter Date Diagnosis (ICD Code) Assessment Notes Treatment Notes Treatment Clinical Notes Section Notes 12/29/2023 Pain in right toe(s) (ICD-10 - M79.674) 12/29/2023 Tinea unguium (ICD-10 - B35.1) 12/29/2023 Type 2 diabetes mellitus with diabetic polyneuropathy (ICD-10 - E11.42) 12/29/2023 Pain in left toe(s) (ICD-10 - M79.675) 12/29/2023 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) 12/29/2023 Other viral warts (ICD-10 - B07.8) 12/29/2023 Pain in left foot (ICD-10 - M79.672) 12/29/2023 Pain in right foot (ICD-10 - M79.671) 12/29/2023 Metatarsalgia, left foot (ICD-10 - M77.42) 12/29/2023 Xerosis cutis (ICD-10 - L85.3) Plan Of Treatment Medication Medication Name Sig Start Date Stop Date Notes Extra Depth Diabetic Shoes w ith 3 Pair Custom heat-molded multi-density innersoles for 1 year Dx: Next Appt Details Follow Up: 3 Months, Reason: Provider Name:Yohana carr, 04/02/2024 03:00:00 PM, [address] [place] [address], [phone], Procedure Notes * Category Sub-Category Detail Notes Keratoma Treatment Parring or Cutting o f Benign Hyperkeratotic Lesion(s) 23888 ( >4 Lesions) - The Benign hyperkeratotic lesions, as described above were pared, and/or cut utilizing a sterile #15 blade, tissue nippers, and/or dremel Debride Nails 1-5 Procedure: Nail debrideme nt performed extensively to reduce/remove overall nail length and girth, subungual debris, and necrotic tissue, by manual and electrical means by use of a nail nipper and/or dremel, to more viable healthy nail plate or bed tissue 1-5. Silver nitrate used for any petechial bleeding as necessary. Patient chooses, no pharmaceutical tx (86663) Nail Reduction Nail Reduction Trimming of dyst rophic nails performed to reduce/remove overall nail length and girth, by manual and electrical means with use of a nail nipper and/or dremel, to more viable healthy nail plate or bed tissue 6-10 (G0127) Progress Notes * Chepe TEEOB: [birth year] (78 yo F)Acc No.[id number]:12/29/2023 Progress Note Patient:?Niziol, Angela Provider:?Galdino Edge DPM :1945???Age:78 Y???Sex:Female D ate:12/29/2023 Address: [address] [id number] Pcp:Rory Sandhu MD Subjective: * Chief Complaints: * ???Painful thick toenails wh ich are aggrevated by shoes and causes difficulty standing/walkingPCP - 05/2023 * HPI: ???At Risk footcare:?Pt States Last PCP Visit:?Date?09/12/2023 * ROS:?General/Constitutional:?Nausea?denies.?Vomiting?denies.?Hunger Thirst?denies.?Loss appetite?denies.?Chills?denies.?Fatigue?denies.?Fever?denies.?Night Sweats?denies.?Unexplained weight loss?denies.?Unexplained weight gain?denies.?HEENTM:?Dentures?denies.?Dizziness?denies.?Glasses/contacts?denies.?Retinopathy?de nies.?Blurred/double vision?denies.?TMJ?denies.?Discharge/drainage?denies.?Implants?denies.?Sore throat?denies.?Dental implants?denies.?Hard of hearing ?denies.?Difficulty chewing/swallowing/speaking?denies.?Nose bleeds?denies.?Sore mouth?denies.?Respiratory:?On Oxygen?denies.?Pneumonia/pleurisy?denies.?Bronchitis?denies.?Emphysema?denies.?C oughing?denies.?Cough blood?denies.?Shortness of breath?denies.?Wheezing?denies.?Cardiovascular:?Pacemaker?denies.?MVP?denies.?WPW?denies.?CHF?denies.?Heart attack?denies.?Septal defect?denies.?Rapid beat?denies.?Chest pain ?denies.?Atrial Fib.?denies.?Murmur/Palpitations?denies.?Gastrointestinal:?Hemorrhoids?denies.?Stomach/Abdominal pain?denies.?Dark blood stool?denies.?Irritable bowel ?denies.?Constipation?denies.?Diarrhea?denies.?Hematology:?Swelling?denies.?Clots?denies.?Varicose Veins?denies.?Bruising?denies.?Bleeding problem?denies.?Genitourinary:?Blood urine?denies.?Frequent/Painfu/urination/bladder control?denies.?Kidney stones?denies.?Infection (UTI)?denies.?Nephropathy?denies.?sex trans dis (STD)?denies.?Prostate?denies.?Musculoskeletal:?Hammertoes?denies.?Bunions?denies.?Back Pain?denies.?Muscle Cramps/ Resting?denies.?Muscle cramps / walking?denies.?Generalized aches and pains?denies.?Weakness?denies.?Integ.:?Tran?denies.?Scars?denies.?Corns/calluses?denies.?Ingrown nails?denies.?Painful nails?denies.?Open Sores?denies.?Rashes?denies.?Neurologic:?Difficulty sleeping?denies.?Brain disorder?denies.?Numbness?denies.?Balance trouble?denies.?Confusion?denies.?Fainting/blackouts?denies.?Tingling?denies.?Tr emors?denies.? * Medical History:? * Surgical History:?gall bladd er 1970bladder suspension 2001liver biopsy 2000colon 08/02/2011lung biopsy 2001colonoscopy 10/17/19cardiac ablasion 3/18/22nuclear stress test/ heart monitor 2023 * Hospitalization/Major Diagno stic Procedure:?Denies Past Hospitalization * Family History:?Mother: dece ased.?Father: .?Siblings: diagnosed with Diabetic - NIDDM.? * Social History:?Tobacco Use:?Tobacco Use/Smoking?Are you a:?nonsmoker ?Additional Findings: Tobacco Non-User?Current non-smoker ?Tobacco use other than smoking?Are you an other tobacco user??No ???Drugs/Alcohol:?Drugs?Have you used drugs other than those for medical reasons in the past 12 months??No ?Alcohol Screen?Did you have a drink containing alcohol in the past year??No ?Points?0 ?Interpretation?Negative ???Miscellaneous:?Caffeine: yes, 1-2 cups per day. ?Children: yes. ?no Exercise. ?Marital status: . ?Occupation: retired, [employer]. * Medications:?TakingExtra Dep th Diabetic Shoes with 3 Pair Custom heat-molded multi-density innersoles for 1 year Dx:Tresiba , Notes: 10 unitsUrsodiol 300 MG Capsule 1 capsule Orally Twice a dayAtorvastatin Calcium Aspirin 81 MG Tablet Chewable as directed Orally iron Lisinopril 20 MG Tablet 1 tablet Orally metFORMIN HCl 500 MG Omeprazole 20 MG Trulicity Vitamin D Taking Extra Depth Diabetic Shoes with 3 Pair Custom heat-molded multi-density innersoles for 1 year Dx:Taking Tresiba , Notes: 10 unitsTaking Ursodiol 300 MG Capsule 1 capsule Orally Twice a dayTaking Atorvastatin Calcium Taking Aspirin 81 MG Tablet Chewable as directed Orally Taking iron Taking Lisinopril 20 MG Tablet 1 tablet Orally Taking metFORMIN HCl 500 MG Taking Omeprazole 20 MG Taking Trulicity Taking Vitamin D Not- Taking/PRNColchicine 0.6 MG Tablet 1 tablet Orally levoFLOXacin 500 MG Tablet 1 tablet Orally Once a dayDoxycycline Monohydrate 100 MG Capsule 1 capsule Orally Once a daydilTIAZem HCl 120 MG Tablet as directed Orally glipiZIDE 10 MG Tablet as directed Orally Once a dayExtra Depth Diabetic Shoes with 3 Pair Custom heat-molded multi-density innersoles for 1 year Dx:Metoprolol Tartrate 50 MG Tablet as directed Orally Extra Depth Diabetic Shoes with 3 Pair Custom heat-molded multi-density innersoles for 1 year Dx:Januvia 100 MG Tablet 1 tablet Orally Once a dayXarelto 20 MG Tablet 1 tablet Orally Extra Depth Diabetic Shoes with 3 Pair Custom heat-molded multi-density innersoles for 1 year Dx:glyBURIDE 5 MG januvia Medication List reviewed and reconciled with the patientNot-Taking/PRN Colchicine 0.6 MG Tablet 1 tablet Orally Not-Taking/PRN levoFLOXacin 500 MG Tablet 1 tablet Orally Once a dayNot- Taking/PRN Doxycycline Monohydrate 100 MG Capsule 1 capsule Orally Once a dayNot-Taking/PRN dilTIAZem HCl 120 MG Tablet as directed Orally Not-Taking/PRN glipiZIDE 10 MG Tablet as directed Orally Once a dayNot-Taking/PRN Extra Depth Diabetic Shoes with 3 Pair Custom heat-molded multi-density innersoles for 1 year Dx:Not-Taking/PRN Metoprolol Tartrate 50 MG Tablet as directed Orally Not-Taking/PRN Extra Depth Diabetic Shoes with 3 Pair Custom heat-molded multi-density innersoles for 1 year Dx:Not- Taking/PRN Januvia 100 MG Tablet 1 tablet Orally Once a dayNot-Taking/PRN Xarelto 20 MG Tablet 1 tablet Orally Not-Taking/PRN Extra Depth Diabetic Shoes with 3 Pair Custom heat-molded multi-density innersoles for 1 year Dx:Not-Taking/PRN glyBURIDE 5 MG Not-Taking/PRN januvia Medication List reviewed and reconciled with the patient * Allergies:?Codeine: Allergyy es[Allergies Verified] Objective: * Vitals:?Ht: 5ft, Wt:116, BMI :22.65, Shoe size:6.5-7, BP:128/80 mm Hg, BS:189. * ???Past Orders: ???Lab:HEMOGLOBIN A1C (GLYCO HEMOGLOBIN) (Order Date - 09/29/2023) (Collection Date - 08/10/2023) ? Value Reference Range ?HEMOGLOBIN A1C % (HH) 7.0 * Examination: ???General Examination: ?GENERAL APPEARANCE:?pleasant, alert, well nourished, well developed, well hydrated, with good attention to hygene/body habitus, and in no acute distress .?ORIENTED:?person,place, and time .?FOOT EXAM:?Ophthalmology Referral: ?DIABETES EYE EXAM?Nails: ?NAILS are:?Elongated, overgrown, dystrophic, lytic, greater than 3mm thick, discolored and friable with crumbly malodorous subungual debris, with dull to no pain on palpation due to neuropathy, TA, T4, T5, T9, remaining nails are elongated, overgrown, and dystrophic , There is evidence of pain on palpation, and an area of subungual hemorrhagic fluid with a pre-operative size measuring approximately ( 1-2 ) mm square , T8.?Neurological: ?SENSORY:?exam demonstrates. reduced vibration lower extremity, B/L, at Forefoot, at Midfoot; , Neurological exam demonstrates pop left achilles tendon at insertion, 5.07 monofilament test performed at plantar aspects of 5 varied sites per foot shows sensation, reduced , Neurological exam demonstrates mild pop plantar left 2nd mtpj.?TINEL'S COMPRESSION:?Negative tarsal tunnel, sonny pedis, and medial calcaneal nerves B/L .?BABINSKI REFLEX:?absent .?Neuroma Pain: ?PALPATION:?No interspace pain noted on palpation.?Vascular: ?DP PULSES(B):? 1/4, B/L.?PT PULSES(B):? 2/4, B/L .?CAPILLARY FILL TIME:?3 secs. per digit, B/L .?TROPHIC CONDITION-TEXTURE/ELASTICITY/TURGOR/HAIR GROWTH(B):?normal, B/L .?TEMPERTURE GRADIENT(C):?warm to cool, proximal to distal, B/L .?PIGMENTATION:?normal, B/L .?EDEMA(C):? 1/4, Right, Ankle(s).?TELANGECTASIA:?absent .?VARICOSITIES:?absent .?Dermatologic: ?SKIN FINDINGS:?Skin exam reveals keratotic lesion(s) located at, Heel(s), B/L , SUB MTH (s), 1, 3, B/L , Skin exam reveals Keratotic lesion(s) located at, Medial plantar, TA, T5 , Skin exam reveals Keratotic lesion(s) located at, SUB MTH (s), 5, kip .?VERRUCA:?resolved.?Orthopedic: ?MUSCLE STRENGTH:?5/5 all groups in a symmetrical fashion , B/L.?GAIT ABNORMALITY:?pronated, abducted, B/L.?Ingrown Nail: ?INSPECTION:?Reveals nail incurvation, dull pain on palpation due to neuropathy, groove hypertrophy, Lateral nail border, TA.?Heel Pain: ?INSPECTION:?Pain on Palpation to Plantar Fascia med. and central bands, intrinsic musc., infracalcaneal bursa, and med calc tubercle , LEFT foot and posterior heel.? Assessment: * Assessment: 1.?Pain in right toe(s) - M7 9.674 (Primary)?2.?Tinea unguium - B35.1?3.?Type 2 diabetes mellitus with diabetic polyneuropathy - E11.42?4.?Pain in left toe(s) - M79.675?5.?Plantar fascial fibromatosis - M72.2?6.?Other viral warts - B07.8?7. Pain in left foot - M79.672?8.?Pain in right foot - M79.671?9.?Metatarsalgia, left foot - M77.42?10.?Xerosis cutis - L85.3? Plan: * Treatment: * Procedures:?Debride Nails 1-5:?Procedure:?Nail debridement performed extensively to reduce/remove overall nail length and girth, subungual debris, and necrotic tissue, by manual and electrical means by use of a nail nipper and/or dremel, to more viable healthy nail plate or bed tissue 1-5. Silver nitrate used for any petechial bleeding as necessary. Patient chooses, no pharmaceutical tx (66779).?Keratoma Treatment:?Parring or Cutting of Benign Hyperkeratotic Lesion(s)?57470 ( >4 Lesions) - The Benign hyperkeratotic lesions, as described above were pared, and/or cut utilizing a sterile #15 blade, tissue nippers, and/or dremel.?Nail Reduction:?Nail Reduction?Trimming of dystrophic nails performed to reduce/remove overall nail length and girth, by manual and electrical means with use of a nail nipper and/or dremel, to more viable healthy nail plate or bed tissue 6-10 (G0127).? * Procedure Codes:?95460 DEBRI DE NAIL, 1-5, Modifiers: XS 84829 TRIM SKIN LESIONS, OVER 4, Modifiers: XS G0127 TRIMMING DYSTROPHIC NAILS ANY #, Modifiers: XS * Follow Up:?3 Months * Images: * Sign off status: Completed true * Provider:?Galdino Edge DPM Date:? 024 Generated for Trudy castillo/Mendez/Nilton on:?03/20/2024 07:20 PM EST History and Physical Notes * HPI (History of Present Illness) Category Sub-Category Detail Notes Category Not es At Risk footcare Pt States Last PCP Visit: Date: 4 Examination Category Sub-Category Detail Notes Category Not es Ingrown Nail INSPECTION: Reveals nail inc urvation, dull pain on palpation due to neuropathy, groove hypertrophy, Lateral nail border, TA Neuroma Pain PALPATION: No interspace pain noted on palpation Neurological SENSORY: exam demonstrate s. reduced vibration lower extremity, B/L, at Forefoot, at Midfoot; , Neurological exam demonstrates pop left achilles tendon at insertion, 5.07 monofilament test performed at plantar aspects of 5 varied sites per foot shows sensation, reduced , Neurological exam demonstrates mild pop plantar left 2nd mtpj BABINSKI REFLEX: absent TINEL'S COMPRESSION: Negative tarsal earl rashi, sonny pedis, and medial calcaneal nerves B/L Dermatologic SKIN FINDINGS: Skin exam reveal s keratotic lesion(s) located at, Heel(s), B/L , SUB MTH (s), 1, 3, B/L , Skin exam reveals Keratotic lesion(s) located at, Medial plantar, TA, T5 , Skin exam reveals Keratotic lesion(s) located at, SUB MTH (s), 5, kip VERRUCA: resolved Orthopedic GAIT ABNORMALITY: pronated, abducted, B/L MUSCLE STRENGTH: 5/5 all groups in a symmetrical fashion , B/L General Examination GENERAL APPEARANCE: pleasant , alert, well nourished, well developed, well hydrated, with good attention to hygene/body habitus, and in no acute distress FOOT EXAM: Lower Extremity Neurological Exa m performed:: Yes Visual exam of foot performed:: Yes Date: 03/31/2023 Sensory testing performed:: sensations d iminished Pedal pulse taking performed:: 2+ ORIENTED: person,place, and ti nd Ophthalmology Referral DIABETES EYE EXAM Diabeti c Retinopathy Screening:: Yes 04/2023 Findings of Diabetic Eye Exam:: retinopa thy pt states little retinopothy in left eye Vascular DP PULSES(B): 1/4, B/L PT PULSES(B): 2/4, B/L CAPILLARY FILL TIME: 3 secs. per digit, B/L TEMPERTURE GRADIENT(C): warm to cool, pr oximal to distal, B/L TROPHIC CONDITION-TEXTURE/ELASTICITY/TURGOR/HAIR GROWTH(B): normal, B/L EDEMA(C): 1/4, Right, Ankle(s) TELANGECTASIA: absent VARICOSITIES: absent PIGMENTATION: normal, B/L Nails NAILS are: Elongated, overg rown, dystrophic, lytic, greater than 3mm thick, discolored and friable with crumbly malodorous subungual debris, with dull to no pain on palpation due to neuropathy, TA, T4, T5, T9, remaining nails are elongated, overgrown, and dystrophic , There is evidence of pain on palpation, and an area of subungual hemorrhagic fluid with a pre-operative size measuring approximately ( 1-2 ) mm square , T8 Heel Pain INSPECTION: Pain on Palpatio n to Plantar Fascia med. and central bands, intrinsic musc., infracalcaneal bursa, and med calc tubercle , LEFT foot and posterior heel
--- OUTSIDE RECORDS SUMMARY | 2024-03-20 19:21 | XMS_ITS | Patient Health Record ---
Author Organization [facility] Karlamarcus Snowley Address [address] [place] [address] Care Team Providers Care Head Of Integrated Media Name Role Phone Edson URIBE, Rory Primary Care Provider Yohana Carmen Unavailable [phone] Galdino Edge Unavailable [phone] Allergies Allergen (clinical drug ingredient) Drug/Non Drug Allergy documented on EMR Reaction Allergy Type Onset Date Status codeine Codeine Unknown Drug Allergy Active Results Component Value Reference Range Notes HEMOGLOBIN A1C (GLYCOHEMOGLO BIN) Reviewed date:06/30/2023 11:32:29 AM Interpretation: Performing Lab: Notes/Report: HEMOGLOBIN A1C % (HH) 7.5 HEMOGLOBIN A1C (GLYCOHEMOGLO BIN) Reviewed date:09/29/2023 09:18:43 AM Interpretation: Performing Lab: Notes/Report: HEMOGLOBIN A1C % (HH) 7.0 Reason For Referral No Information Medications Medication SIG (Take, Route, Frequency, Duration) Notes Start Date End Date Status Aspirin 81 MG as directed Orally Active glipiZIDE 10 MG as directed Orally Once a day Not-Taking iron Active Colchicine 0.6 MG 1 tablet Orally Not-Taking glyBURIDE 5 MG Not-T aking Tresiba 10 units Active levoFLOXacin 500 MG 1 tablet Orally Once a day Not-Taking januvia Not-Taking Ursodiol 300 MG 1 capsule Orally Twice a day Active Doxycycline Monohydrate 100 MG 1 capsule Orally Once a day Not-Taking Atorvastatin Calcium Active dilTIAZem HCl 120 MG as directed Orally Not-Taking metFORMIN HCl 500 MG Active Extra Depth Diabetic Shoes with 3 Pair Custom heat-molded multi-density innersoles for 1 year Dx: 03/03/2020 N ot-Taking Omeprazole 20 MG Act melani Januvia 100 MG 1 tablet Orally Once a day for 30 day(s) Not-Taking Trulicity Active Xarelto 20 MG 1 tablet Orally Not-Taking Vitamin D Active Extra Depth Diabetic Shoes with 3 Pair Custom heat-molded multi-density innersoles for 1 year Dx: 02/26/2019 N ot-Taking Extra Depth Diabetic Shoes with 3 Pair Custom heat-molded multi-density innersoles for 1 year Dx: 03/09/2021 N ot-Taking Lisinopril 20 MG 1 tablet Orally Active Metoprolol Tartrate 50 MG as directed Orally Not-Takin g Extra Depth Diabetic Shoes with 3 Pair Custom heat-molded multi-density innersoles for 1 year Dx: A ctive Immunizations Vaccine Route Administration Date Status Comme nts COVID-19 Pfizer BioNTech Vaccine Unknown 03/12/2021 Administered 1st 06/14/20 2nd dose: 07/05/2020 Influenza Unknown 12/11/2015 Administered Influenza Unknown 12/24/2016 Administered Influenza Unknown 03/22/2018 Administered Influenza Unknown 12/10/2021 Administered Social History Tobacco Use: Social History Observation [...] Are you an other tobacco user? No Problems Problem Type SNOMED Code ICD Code Onset Dates Problem Status W/U Status Risk Notes Problem Localized, primary osteoarthritis of the ankle and/or foot (079402936) Primary osteoarthritis, left ankle and foot (M19.072) Active confirmed Problem Polyneuropathy due to type 2 diabetes mellitus (988256804) Type 2 diabetes mellitus with diabetic polyneuropathy (E11.42) Active confirmed Vital Signs Blood pressure diastolic 80 mm Hg 12/29/2023 Height 5ft in 12/29/2023 Blood pressure systolic 128 mm Hg 12/29/2023 Weight 116 lbs 12/29/2023 BMI 22.65 kg/m2 12/29/2023 Encounters Encounter Location Date Provider Diagnosis [facility] [place] [address] [place] [address] 03/31/2023 Galdino Edge Pain in right toe(s) M79.674 ; Tinea unguium B35.1 ; Type 2 diabetes mellitus with diabetic polyneuropathy E11.42 ; Pain in left toe(s) M79.675 ; Plantar fascial fibromatosis M72.2 ; Other viral warts B07.8 ; Pain in left foot M79.672 ; Pain in right foot M79.671 ; Metatarsalgia, left foot M77.42 and Xerosis cutis L85.[address] [address] 06/30/2023 Galdino Edge Pain in right toe(s) M79.674 ; Tinea unguium B35.1 ; Type 2 diabetes mellitus with diabetic polyneuropathy E11.42 ; Pain in left toe(s) M79.675 ; Plantar fascial fibromatosis M72.2 ; Other viral warts B07.8 ; Pain in left foot M79.672 ; Pain in right foot M79.671 ; Metatarsalgia, left foot M77.42 and Xerosis cutis L85.[address] [address] 09/29/2023 Galdino Edge Pain in right toe(s) M79.674 ; Tinea unguium B35.1 ; Type 2 diabetes mellitus with diabetic polyneuropathy E11.42 ; Pain in left toe(s) M79.675 ; Plantar fascial fibromatosis M72.2 ; Other viral warts B07.8 ; Pain in left foot M79.672 ; Pain in right foot M79.671 ; Metatarsalgia, left foot M77.42 and Xerosis cutis L85.[address] [address] 12/29/2023 Galdino Edge Pain in right toe(s) [...] Treatment Notes Treatment Clinical Notes Section Notes 03/31/2023 Pain in right toe(s) (ICD-10 - M79.674) 06/30/2023 Pain in right toe(s) (ICD-10 - M79.674) 09/29/2023 Pain in right toe(s) (ICD-10 - M79.674) 12/29/2023 Pain in right toe(s) (ICD-10 - M79.674) 12/29/2023 Tinea unguium (ICD-10 - B35.1) 06/30/2023 Tinea unguium (ICD-10 - B35.1) 09/29/2023 Tinea unguium (ICD-10 - B35.1) 03/31/2023 Tinea unguium (ICD-10 - B35.1) 06/30/2023 Type 2 diabetes mellitus with diabetic polyneuropathy (ICD-10 - E11.42) 03/31/2023 Type 2 diabetes mellitus with diabetic polyneuropathy (ICD-10 - E11.42) 09/29/2023 Type 2 diabetes mellitus with diabetic polyneuropathy (ICD-10 - E11.42) 12/29/2023 Type 2 diabetes mellitus with diabetic polyneuropathy (ICD-10 - E11.42) 12/29/2023 Pain in left toe(s) (ICD-10 - M79.675) 09/29/2023 Pain in left toe(s) (ICD-10 - M79.675) 06/30/2023 Pain in left toe(s) (ICD-10 - M79.675) 03/31/2023 Pain in left toe(s) (ICD-10 - M79.675) 03/31/2023 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) 06/30/2023 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) 09/29/2023 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) 12/29/2023 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) 12/29/2023 Other viral warts (ICD-10 - B07.8) 09/29/2023 Other viral warts (ICD-10 - B07.8) 06/30/2023 Other viral warts (ICD-10 - B07.8) 03/31/2023 Other viral warts (ICD-10 - B07.8) 03/31/2023 Pain in left foot (ICD-10 - M79.672) 06/30/2023 Pain in left foot (ICD-10 - M79.672) 09/29/2023 Pain in left foot (ICD-10 - M79.672) 12/29/2023 Pain in left foot (ICD-10 - M79.672) 12/29/2023 Pain in right foot (ICD-10 - M79.671) 09/29/2023 Pain in right foot (ICD-10 - M79.671) 06/30/2023 Pain in right foot (ICD-10 - M79.671) 03/31/2023 Pain in right foot (ICD-10 - M79.671) 03/31/2023 Metatarsalgia, left foot (ICD-10 - M77.42) 06/30/2023 Metatarsalgia, left foot (ICD-10 - M77.42) 09/29/2023 Metatarsalgia, left foot (ICD-10 - M77.42) 12/29/2023 Metatarsalgia, left foot (ICD-10 - M77.42) 12/29/2023 Xerosis cutis (ICD-10 - L85.3) 09/29/2023 Xerosis cutis (ICD-10 - L85.3) 06/30/2023 Xerosis cutis (ICD-10 - L85.3) 03/31/2023 Xerosis cutis (ICD-10 - L85.3) Plan Of Treatment Pending Test Test Name Order Date X ray : Foot, left 2V 03/29/2016 19680-DNKGANI NAIL, 1-5 03/29/2016 29097-GGNRNLB NAIL, 1-5 09/27/2016 03270-YJUGKQC NAIL, 1-5 02/21/2017 01116-WPQBMNA NAIL, 1-5 06/22/2017 46349-KQRAACL NAIL, 1-5 09/21/2017 79610-YMLHYLO NAIL, 1-5 12/21/2017 49394-UZWWXWH NAIL, 1-5 03/22/2018 93548-Cquzcpnp Plate 06/22/2017 85574-DJKQ SKIN LESIONS, OVER 4 09/22/19 18 53241-SCOH SKIN LESIONS, OVER 4 02/22/20 17 01733-LVFY SKIN LESIONS, OVER 4 06/23/19 18 05855-IHWI SKIN LESIONS, OVER 4 09/28/19 17 44621-PRQF SKIN LESIONS, OVER 4 06/22/19 19 56248-NDSH SKIN LESIONS, OVER 4 12/22/19 18 28693-TFIC SKIN LESIONS, OVER 4 03/22/20 18 54639-GTOT SKIN LESIONS, OVER 4 11/09/19 19 91410-NZBR SKIN LESIONS, OVER 4 02/27/20 19 70585-CXDF SKIN LESIONS, OVER 4 07/04/19 20 81206-YDXM SKIN LESIONS, OVER 4 10/31/19 20 14141-SYOF SKIN LESIONS, OVER 4 03/03/20 20 30392-UMUK SKIN LESIONS, OVER 4 06/04/19 21 82582-SGZG SKIN LESIONS, OVER 4 09/04/19 21 09654-ZTJR SKIN LESIONS, OVER 4 12/05/19 21 13257-KKXT SKIN LESIONS, OVER 4 03/09/20 21 71085-PCBK SKIN LESIONS, OVER 4 06/08/19 22 62847-RPFP SKIN LESIONS, 2 TO 4 03/29/20 16 10623-KKZB NAIL(S) 03/29/2016 85408-HASC NAIL(S) 02/21/2017 24896-AQFC NAIL(S) 09/27/2016 46901-BDAG NAIL(S) 06/22/2017 W1705-JIKVGXQG DYSTROPHIC NAILS ANY # C9163-PGQLIYXP DYSTROPHIC NAILS ANY # F0221-FTLTMAKV DYSTROPHIC NAILS ANY # J2014-QRDUFRAO DYSTROPHIC NAILS ANY # E6315-QOLOSFNG DYSTROPHIC NAILS ANY # B8366-XIIRNJXF DYSTROPHIC NAILS ANY # T3762-UHONWYZL DYSTROPHIC NAILS ANY # D1190-OBXGZQCZ DYSTROPHIC NAILS ANY # A2196-TAKTQJRU DYSTROPHIC NAILS ANY # F6428-SZHXDJNQ DYSTROPHIC NAILS ANY # I0188-CVFJIOLA DYSTROPHIC NAILS ANY # N7780-KLDJOKIW DYSTROPHIC NAILS ANY # M0839-HMCCVCOO DYSTROPHIC NAILS ANY # Y1169-NCUKHNTG DYSTROPHIC NAILS ANY # X ray : Ankle, right 3V 10/18/2016 Next Appt Details Provider Name:Yohana carr, 04/02/2024 03:00:00 PM, [address] [place], [address], Insurance Providers Payer Name Payer Address Payer Phone Subscriber Number Group Number Insured Name Patient Relationship to Insured Coverage Start Date Coverage End Date Medicare National [employer]t [employer] [address] [place] [address] [id number] Angela Nam Self - patient is the insured 4 [employer] [address] [place] [address] [phone] [id number] Angela Nam Self - patient is the insured Medical (General) History Medical History History ICD Code Broken bones Cancer gall bladder polyp Diabetic type ll Heart disease Heart attack Surgical History Surgery Date(Month/Year) gall bladder 1970 bladder suspension 2000 liver biopsy 1999 colon 08/02/2011 lung biopsy 2000 colonoscopy 10/17/19 cardiac ablasion 06/26/21 nuclear stress test/ heart monitor 2022 Hospitalization History Reason Date(Month/Year)
--- OUTSIDE RECORDS SUMMARY | 2024-03-20 19:21 | XMS_ITS ---
Author Organization Rory Sandhu MD Address [address] [place] [phone] Care Team Providers Care Before School Name Role Phone Rory Sandhu Primary Care Provider REASON FOR VISIT HDF MEDICATIONS Medication SIG (Take, Route, Frequency, Duration) Notes Start Date End Date Status Ibuprofen 800 MG 1 tablet with food o r milk as needed Orally twice a day for 30 days 01/20/2024 Active BD Pen Needle Micro U/F 32G X 6 MM DIRECTED SUBCUTANEOUSLY DAILY 30 DAYS for 30 Active Diflucan 150 MG 1 tablet Orally iron y for 10 days 09/02/2023 Active Omeprazole 20 MG TAKE 1 CAPSULE BY [facility] EVERY DAY for 90 Active Magnesium Oxide -Mg Supplement 400 (240 Mg) MG TAKE 3 TABLETS BY MOUTH DAILY WITH FOOD for 30 Active Iron 325 (65 Fe) MG 1 tablet Orally Once a day Active metFORMIN HCl ER 500 MG TAKE 2 TABLETS B Y MOUTH 2 TIMES EVERY DAY 90 Active Tresiba FlexTouch 200 UNIT/ML as directed Subcutaneous 10 units daily 06/16/2023 Active Lisinopril 10 MG 1 tablet Orally Once a day Active Trulicity 1.5 MG/0.5ML as directed Subcutaneous once a week Active Vitamin D3 1000 UNIT 1 tablet Orally Onc e a day 03/31/2018 Active Atorvastatin Calcium 80 MG 0.5tablet Orally Once a day Active Cyclobenzaprine HCl 5 MG 1 tablet as nee ded Orally Three times a day for 7 days 08/15/2017 Not-Taking glipiZIDE 5 MG 1 tablet 30 minutes before breakfast Orally Once a day Active Colchicine 0.6 MG 1 tablet Orally for 30 day(s) Not-Taking Culturelle - as directed Orally Not-Taking dilTIAZem HCl ER 120 MG 1 capsule Orally Once a day Not-Taking Metoprolol Tartrate 50 MG 0.5 tablet wit h food Orally Twice a day Not-Taking Colchicine 0.6 MG 1 tablet Orally Not-Taking Mobic 7.5 MG 1 tablet Orally Once a day Not-Taking Ammonium Lactate 12 % 1 application to affected area Externally Twice a day for 90 days 10/01/2015 Active Clotrimazole 1 % APPLY TOPICALLY TO T HE AFFECTED AREA TWICE A DAY FOR 90 DAYS for 90 Active FreeStyle Lite Test - USE TO TEST BLOOD SUGAR DAILY (E11.9) twice a day for 90 days Active Ketoconazole 2 % 1 application Externally Once a day for 14 day(s) Active Aspir-Low 81 MG 1 tablet Orally Once a day for 30 day(s) Active Ursodiol 300 MG 1 capsule Orally Twi ce a day for 30 day(s) Active IMMUNIZATIONS Vaccine Route Administration Date Status Comme nts Influenza High Dose IM Intramuscular 02/03/2024 Administer ed Encounters Encounter Location Date Provider Diagnosis Rory Sandhu MD [address] [place] [phone] 02/03/2024 Rory Sandhu Encounter for immunization Z23 ASSESSMENTS Encounter Date Diagnosis Assessment Notes Treatment Notes Treatment Clinical Notes 02/03/2024 Encounter for immunization (ICD-10 - Z23) PLAN OF TREATMENT Next Appt Details Provider Name:Rory mcdonald, 04/20/2024 10:30:00 AM, [address] [place] [address], [phone], Provider Name:Rory mcdonald, 10/09/2024 08:15:00 AM, [address] [place] [address], [phone], Provider Name:Rory mcdonald, 10/19/2024 11:00:00 AM, [address] [place] [address], [phone],
--- OUTSIDE RECORDS SUMMARY | 2024-03-20 19:21 | XMS_ITS ---
Author Organization Rory Sandhu MD Address [address] [place] [address] [place] [phone] Care Team Providers Care Sheriff'S Officer Name Role Phone Rory Sandhu Primary Care Provider [phone] REASON FOR VISIT fasting lipids Encounters Encounter Location Date Provider Diagnosis Rory Sandhu MD [address] [place] [address] [place] [phone] 03/13/2024 Rory Sandhu Pure hypercholestero lemia E78.00 and Type 2 diabetes mellitus without complication E11.9 ASSESSMENTS Encounter Date Diagnosis Assessment Notes Treatment Notes Treatment Clinical Notes 03/13/2024 Pure hypercholestero lemia (ICD-10 - E78.00) 03/13/2024 Type 2 diabetes franci itus without complication (ICD-10 - E11.9) PLAN OF TREATMENT Pending Test Test Name Order Date Liver Panel 03/13/2024 Glucose Fasting 03/13/2024 Lipid Panel with Reflex 03/13/2024 Hemoglobin A1c 03/13/2024 Next Appt Details Provider Name:Rory mcdonald, 04/20/2024 10:30:00 AM, [address] [place] [address], [address], [phone], Provider Name:Rory mcdonald, 10/09/2024 08:15:00 AM, [address] [place] [address], [phone], Provider Name:Rory mcdonald, 10/19/2024 11:00:00 AM, [address] [place] [address], [phone],
--- OUTSIDE RECORDS SUMMARY | 2024-03-20 19:21 | XMS_ITS ---
Author Organization Rory Sandhu MD Address [address] [place] [phone] Care Team Providers Care Turn Operator Name Role Phone Rory Sandhu Primary Care Provider [phone] ALLERGIES Allergen (clinical drug ingredient) Drug/Non Drug Allergy documented on EMR Reaction Allergy Type Onset Date Status codeine Codeine Sulfate N/V Drug Allergy A ctive REASON FOR VISIT 3 MO F/U MEDICATIONS Medication SIG (Take, Route, Frequency, Duration) Notes Start Date End Date Status Magnesium Oxide -Mg Supplement 400 (240 Mg) MG TAKE 3 TABLETS BY MOUTH DAILY WITH FOOD for 30 Active Omeprazole 20 MG TAKE 1 CAPSULE BY [facility] EVERY DAY for 90 Active BD Pen Needle Micro U/F 32G X 6 MM DIRECTED SUBCUTANEOUSLY DAILY 30 DAYS for 30 Active metFORMIN HCl ER 500 MG TAKE 2 TABLETS B Y MOUTH 2 TIMES EVERY DAY 90 Active Tresiba FlexTouch 200 UNIT/ML as directed Subcutaneous 10 units daily 06/16/2023 Active Vitamin D3 1000 UNIT 1 tablet Orally Onc e a day 03/31/2018 Active Atorvastatin Calcium 80 MG 0.5tablet Orally Once a day Active Lisinopril 10 MG 1 tablet Orally Once a day Active Iron 325 (65 Fe) MG 1 tablet Orally Once a day Active Trulicity 1.5 MG/0.5ML as directed Subcutaneous once a week Active Colchicine 0.6 MG 1 tablet Orally for 30 day(s) Not-Taking Mobic 7.5 MG 1 tablet Orally Once a day Not-Taking glipiZIDE 5 MG 1 tablet 30 minutes before breakfast Orally Once a day Active Cyclobenzaprine HCl 5 MG 1 tablet as nee ded Orally Three times a day for 7 days 08/15/2017 Not-Taking dilTIAZem HCl ER 120 MG 1 capsule Orally Once a day Not-Taking FreeStyle Lite Test - USE TO TEST BLOOD SUGAR DAILY (E11.9) twice a day for 90 days Active Clotrimazole 1 % APPLY TOPICALLY TO T HE AFFECTED AREA TWICE A DAY FOR 90 DAYS for 90 Active Metoprolol Tartrate 50 MG 0.5 tablet wit h food Orally Twice a day Not-Taking Culturelle - as directed Orally Not-Taking Colchicine 0.6 MG 1 tablet Orally Not-Taking Ketoconazole 2 % 1 application Externally Once a day for 14 day(s) Active Ammonium Lactate 12 % 1 application to affected area Externally Twice a day for 90 days 10/01/2015 Active Aspir-Low 81 MG 1 tablet Orally Once a day for 30 day(s) Active Ursodiol 300 MG 1 capsule Orally Twi ce a day for 30 day(s) Active Ibuprofen 800 MG 1 tablet with food o r milk as needed Orally twice a day for 30 days 01/20/2024 Active Diflucan 150 MG 1 tablet Orally iron y for 10 days 09/02/2023 Active VITAL SIGNS BMI 24.42 kg/m2 01/20/2024 Height 59.50 in 01/20/2024 Weight 123 lbs 01/20/2024 Encounters Encounter Location Date Provider Diagnosis Rory Sandhu MD [address] [facility] [address] [place], [place] [phone] 01/20/2024 Rory Sandhu Type 2 diabetes mellitus without complication E11.9 ; Fungal infection B49 and Arthralgia of multiple joints M25.50 ASSESSMENTS Encounter Date Diagnosis Assessment Notes Treatment Notes Treatment Clinical Notes 01/20/2024 Type 2 diabetes mellitus without complication (ICD-10 - E11.9) sugars have been doing well. had an increase in insulin recently, will continue current regiment 01/20/2024 Fungal infection (ICD-10 - B49) cntinue current regiment 01/20/2024 Arthralgia of multiple joints (ICD-10 - M25.50) patient verbalized understanding of medication and directions for use PLAN OF TREATMENT Medication Medication Name Sig Start Date Stop Date Notes Ibuprofen 800 MG 1 tablet with food o r milk as needed Orally twice a day for 30 days 01/20/2024 Diflucan 150 MG 1 tablet Orally daily for 10 days 09/02/19 Treatment Notes Assessment Notes Type 2 diabetes mellitus wit hout complication sugars have been doing well. had an increase in insulin recently, will continue current regiment Fungal infection cntinue current brant ment Arthralgia of multiple joints patient ve rbalized understanding of medication and directions for use Next Appt Details Follow Up: 3 Months, Reason: Provider Name:Rory mcdonald, 04/20/2024 10:30:00 AM, [address] [place] [address], [facility], [place], [place], [phone], Provider Name:Rory mcdonald, 10/09/2024 08:15:00 AM, [address] [place] [address], [address], [place], [place], [phone], Provider Name:Rory mcdonald, 10/19/2024 11:00:00 AM, [address] [place] [address], [address], [place], [place], [phone], Progress Notes * Examination Category Sub-Category Detail Notes General Examination HEART: no murmurs, rubs, gallops, regular rate and rhythm LUNGS: no wheezes, rales, r honchi, good air movement, clear to auscultation bilaterally SKIN: abnormal with a serp iginous rash on trunk
--- OUTSIDE RECORDS SUMMARY | 2024-03-20 19:21 | XMS_ITS ---
Author Organization [facility] Karlo dalila [place] Address [address] [place] [address] Care Team Providers Care Field Clerk Name Role Phone Edson URIBE, Rory Primary Care Provider Yohana Carmen Unavailable [phone] Galdino Edge Unavailable [phone] Allergies Allergen (clinical drug ingredient) Drug/Non Drug Allergy documented on EMR Reaction Allergy Type Onset Date Status codeine Codeine Unknown Drug Allergy Active REASON FOR VISIT Painful thick toenails which are aggrevated by shoes and causes difficulty standing/walking, PCP - 05/2023 Medications Medication SIG (Take, Route, Frequency, Duration) Notes Start Date End Date Status Colchicine 0.6 MG 1 tablet Orally Not-Taking Extra Depth Diabetic Shoes with 3 Pair Custom heat-molded multi-density innersoles for 1 year Dx: A ctive Ursodiol 300 MG 1 capsule Orally Twice a day Active januvia Not-Taking Tresiba 10 units Active Extra Depth Diabetic Shoes with 3 Pair Custom heat-molded multi-density innersoles for 1 year Dx: 03/03/2020 N ot-Taking Xarelto 20 MG 1 tablet Orally Not-Taking Januvia 100 MG 1 tablet Orally Once a day for 30 day(s) Not-Taking Extra Depth Diabetic Shoes with 3 Pair Custom heat-molded multi-density innersoles for 1 year Dx: 02/26/2019 N ot-Taking glyBURIDE 5 MG Not-T aking Metoprolol Tartrate 50 MG as directed Orally Not-Takin g Vitamin D Active Trulicity Active Extra Depth Diabetic Shoes with 3 Pair Custom heat-molded multi-density innersoles for 1 year Dx: 03/09/2021 N ot-Taking Omeprazole 20 MG Act melani dilTIAZem HCl 120 MG as directed Orally Not-Taking iron Active glipiZIDE 10 MG as directed Orally Once a day Not-Taking metFORMIN HCl 500 MG Active Lisinopril 20 MG 1 tablet Orally Active Aspirin 81 MG as directed Orally Active levoFLOXacin 500 MG 1 tablet Orally Once a day Not-Taking Atorvastatin Calcium Active Doxycycline Monohydrate 100 MG 1 capsule Orally Once a day Not-Taking Social History Tobacco Use: Social History Observation [...] user? 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) 06/30/2023 Other viral warts (ICD-10 - B07.8) 06/30/2023 Pain in left foot (ICD-10 - M79.672) 06/30/2023 Pain in right foot (ICD-10 - M79.671) 06/30/2023 Metatarsalgia, left foot (ICD-10 - M77.42) 06/30/2023 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 Patient chooses, no pharmaceutical tx (01570) Nail Reduction Nail Reduction Trimming of dyst rophic nails performed to reduce/remove overall nail length and girth, by manual and electrical means with use of a nail nipper and/or dremel, to more viable healthy nail plate or bed tissue 6-10 (G0127) Progress Notes * Chepe NAMOB: [birth year] (78 yo F)Acc No.[id number]:06/30/2023 Progress Note Patient:?Angela Nam Provider:?Galdino Edge DPM :1945???Age:78 Y???Sex:Female D ate:06/30/2023 Address: [address] , [id number] Pcp:Rory Sandhu MD Subjective: * Chief Complaints: * ???Painful thick toenails wh ich are aggrevated by shoes and causes difficulty standing/walkingPCP - 05/2023 * HPI: ???At Risk footcare:?Pt States Last PCP Visit:?Date?05/12/2023 * ROS:?General/Constitutional:?Nausea?denies.?Vomiting?denies.?Hunger Thirst?denies.?Loss appetite?denies.?Chills?denies.?Fatigue?denies.?Fever?denies.?Night Sweats?denies.?Unexplained weight loss?denies.?Unexplained [...] * Surgical History:?gall bladd er 1970bladder suspension 2000liver biopsy 1999colon 08/02/2011lung biopsy 2000colonoscopy 10/17/19cardiac ablasion 06/26/21nuclear stress test/ heart monitor 2022 * Hospitalization/Major Diagno stic Procedure:?? heart Attack 03/24/18[facility] - Heart Attack 4 days stay 12/31/20[facility] [place]- 3 days stay high sugar/ Afib 02/06[place] chest xray done covid test done negative 08/20[place] [place] dropped, fell, cut forehead 05/16-05/19/23 * Family History:?Mother: dece ased.?Father: .?Siblings: diagnosed [...] ?no Exercise. ?Marital status: . 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 * Medications:?TakingTresiba , Notes: 10 unitsUrsodiol 300 MG Capsule 1 capsule Orally Twice a dayAtorvastatin Calcium Aspirin 81 MG Tablet Chewable as directed Orally iron Lisinopril 20 MG Tablet 1 tablet Orally metFORMIN HCl 500 MG Omeprazole 20 MG Trulicity Vitamin D Extra Depth Diabetic Shoes with 3 Pair [...] 20 MG Taking Trulicity Taking Vitamin D Taking Extra Depth Diabetic Shoes with 3 Pair Custom heat-molded multi-density innersoles for 1 year Dx:Not- Taking/PRNColchicine 0.6 MG Tablet 1 tablet Orally [...] and reconciled with the patient * Allergies:?Codeine: Jake es[Allergies Verified] Objective: * Vitals:?Ht: 5ft, Wt: 111, BM I: 21.68, Shoe size: 6.5-7, BS: 165, Ht-cm: 152.4 cm, Wt-k.35 kg. * ???Past Orders: ???Lab:HEMOGLOBIN A1C (GLYCO HEMOGLOBIN) (Order Date - 06/30/2023) (Collection Date - 06/30/2023) ? Value Reference Range ?HEMOGLOBIN A1C % (HH) 7.5 * Examination: ???General Examination: ?GENERAL APPEARANCE:?pleasant, alert, [...] ?PALPATION:?No interspace pain noted on palpation.?Vascular: ?DP PULSES:? 04/14, B/L.?PT PULSES:? 05/15, B/L .?CAPILLARY FILL TIME:?3 secs. per digit, B/L .?SKIN TEMPERTURE GRADIENT OF THE LOWER EXTERMITIES:?warm to cool, proximal to distal, B/L .?HAIR GROWTH/TEXTURE/ELASTICITY/TURGOR:?normal, B/L .?PIGMENTATION:?normal, B/L .?EDEMA:? 04/14, Right, Ankle(s).?TELANGECTASIA:?absent .?VARICOSITIES:?absent .?Dermatologic: ?SKIN FINDINGS:?Skin exam [...] as necessary. Patient chooses, no pharmaceutical tx (28629).?Keratoma Treatment:?Parring or Cutting of Benign Hyperkeratotic Lesion(s)?42298 ( >4 Lesions) - The Benign hyperkeratotic lesions, as described above were pared, and/or cut utilizing a sterile #15 blade, tissue nippers, and/or dremel.?Nail Reduction:?Nail Reduction?Trimming of dystrophic nails performed to reduce/remove overall nail length and girth, by manual and electrical means with use of a nail nipper and/or dremel, to more viable healthy nail plate or bed tissue 6-10 (G0127).? * Procedure Codes:?59654 DEBRI DE NAIL, 1-5, Modifiers: XS 87804 TRIM SKIN LESIONS, OVER 4, Modifiers: XS G0127 TRIMMING DYSTROPHIC NAILS ANY #, Modifiers: XS * Follow Up:?3 Months * Images: * Sign off status: Completed true * Provider:?Galdino Edge DPM Date:? 024 Generated for Trudy castillo/Mendez/eTransmitting on:?03/20/2024 07:20 PM EST History and Physical [...] taking performed:: 2+ ORIENTED: person,place, and ti me Ophthalmology Referral DIABETES EYE EXAM Diabeti c [...]
--- OUTSIDE RECORDS SUMMARY | 2024-03-20 19:21 | XMS_ITS ---
Author Organization [facility] Karlo dalila [place] Address [address] [place] [address] Care Team Providers Care Solder Leveler [employer]ards Name Role Phone Edson URIBE, Rory Primary Care Provider Yohana Carmen Unavailable [phone] Galdino Edge Unavailable [phone] Allergies Allergen (clinical drug ingredient) Drug/Non Drug Allergy documented on EMR Reaction Allergy Type Onset Date Status codeine Codeine Unknown Drug Allergy Active REASON FOR VISIT Painful thick toenails which are aggrevated by shoes and causes difficulty standing/walking, PCP - 05/2023 Medications Medication SIG (Take, Route, Frequency, Duration) Notes Start Date End Date Status Extra Depth Diabetic Shoes with 3 Pair [...] Xarelto 20 MG 1 tablet Orally Not-Taking levoFLOXacin 500 MG 1 tablet Orally Once a day Not-Taking Doxycycline Monohydrate 100 MG 1 capsule Orally Once a day Not-Taking dilTIAZem HCl 120 MG as directed Orally Not-Taking glipiZIDE 10 MG as directed Orally Once a day Not-Taking Colchicine 0.6 MG 1 tablet Orally Not-Taking Extra Depth Diabetic Shoes with 3 Pair Custom heat-molded multi-density innersoles for 1 year Dx: A ctive metFORMIN HCl 500 MG Active Omeprazole 20 MG Act melani Trulicity Active Vitamin D Active Ursodiol 300 MG 1 capsule Orally Twice a day Active Atorvastatin Calcium Active Aspirin 81 MG as directed Orally Active iron Active Lisinopril 20 MG 1 tablet Orally Active glyBURIDE 5 MG Not-T aking januvia Not-Taking Extra Depth Diabetic Shoes with 3 Pair Custom heat-molded multi-density innersoles for 1 year Dx: 02/26/2019 N ot-Taking Tresiba 10 units Active Social History Tobacco Use: Social History Observation [...] user? No Vital Signs Height 5ft in 09/29/2023 Weight 116 lbs 09/29/2023 BMI 22.65 kg/m2 09/29/2023 Blood pressure systolic 128 mm Hg 09/29/19 24 Blood pressure diastolic 80 mm Hg 024 Encounters Encounter Location Date Provider Diagnosis [facility] [place] [address] [place] [address] 09/29/2023 Galdino Edge Pain in right toe(s) [...] Treatment Notes Treatment Clinical Notes Section Notes 09/29/2023 Pain in right toe(s) (ICD-10 - M79.674) 09/29/2023 Tinea unguium (ICD-10 - B35.1) 09/29/2023 Type 2 diabetes mellitus with diabetic polyneuropathy (ICD-10 - E11.42) 09/29/2023 Pain in left toe(s) (ICD-10 - M79.675) 09/29/2023 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) 09/29/2023 Other viral warts (ICD-10 - B07.8) 09/29/2023 Pain in left foot (ICD-10 - M79.672) 09/29/2023 Pain in right foot (ICD-10 - M79.671) 09/29/2023 Metatarsalgia, left foot (ICD-10 - M77.42) 09/29/2023 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 Patient chooses, no pharmaceutical tx (15712) Nail Reduction Nail Reduction Trimming of dyst rophic nails performed to reduce/remove overall nail length and girth, by manual and electrical means with use of a nail nipper and/or dremel, to more viable healthy nail plate or bed tissue 6-10 (G0127) Progress Notes * Chepe TEEOB: [birth year] (78 yo F)Acc No.[id number]:09/29/2023 Progress Note Patient:?Niziol, Angela Provider:?Galdino Edge DPM :1945???Age:78 Y???Sex:Female D ate:09/29/2023 Address: [address] , [id number] Pcp:Rory Sandhu MD Subjective: * Chief Complaints: [...] heart monitor 2023 * Hospitalization/Major Diagno stic Procedure:?No Hospitalization History. * Family History:?Mother: dece ased.?Father: .?Siblings: diagnosed [...] ?no Exercise. ?Marital status: . 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 * Medications:?TakingExtra Dep th Diabetic Shoes with [...] BMI :22.65, Shoe size:6.5-7, BP:128/80 mm Hg, BS:244. * ???Past Orders: ???Lab:HEMOGLOBIN A1C (GLYCO HEMOGLOBIN) [...] interspace pain noted on palpation.?Vascular: ?DP PULSES:? 1/4, B/L.?PT PULSES:? 2/4, B/L .?CAPILLARY FILL TIME:?3 secs. per digit, B/L .?SKIN TEMPERTURE GRADIENT OF THE LOWER EXTERMITIES:?warm to cool, proximal to distal, B/L .?HAIR GROWTH/TEXTURE/ELASTICITY/TURGOR:?normal, B/L .?PIGMENTATION:?normal, B/L .?EDEMA:? /4, Right, Ankle(s).?TELANGECTASIA:?absent .?VARICOSITIES:?absent .?Dermatologic: ?SKIN FINDINGS:?Skin exam [...] as necessary. Patient chooses, no pharmaceutical tx (63694).?Keratoma Treatment:?Parring or Cutting of Benign Hyperkeratotic Lesion(s)?00359 ( >4 Lesions) - The Benign hyperkeratotic lesions, as described above were pared, and/or cut utilizing a sterile #15 blade, tissue nippers, and/or dremel.?Nail Reduction:?Nail Reduction?Trimming of dystrophic nails performed to reduce/remove overall nail length and girth, by manual and electrical means with use of a nail nipper and/or dremel, to more viable healthy nail plate or bed tissue 6-10 (G0127).? * Procedure Codes:?42356 DEBRI DE NAIL, 1-5, Modifiers: XS 84404 TRIM SKIN LESIONS, OVER 4, Modifiers: XS [...] footcare Pt States Last PCP Visit: Date: Examination Category Sub-Category Detail Notes Category Not [...]
--- OUTSIDE RECORDS SUMMARY | 2024-03-20 19:22 | XMS_ITS ---
Author Organization [facility] Address [address] [place] [address] Care Team Providers Care Printmaker Name Role Phone Rory Sandhu MD Primary Care Provider Bryce Hernandez Unavailable [phone] ALLERGIES Allergen (clinical drug ingredient) Drug/Non Drug Allergy documented on EMR Reaction Allergy Type Onset Date Status codeine codeine (uncoded) Unknown Allergy Ac tive REASON FOR VISIT Patient presents today for fe def anemia MEDICATIONS Medication SIG (Take, Route, Frequency, Duration) Notes Start Date End Date Status BD Pen Needle Micro U/F 32G X 6 MM for 30 Active Tresiba FlexTouch 200 UNIT/ML INJECT DIRECTED SUBCUTANEOUSLY 10 UNITS DAILY 30 DAYS Subcutaneous for 180 Active Magnesium Oxide -Mg Supplement 400 (240 Mg) MG TAKE 3 TABLETS BY MOUTH DAILY WITH FOOD Oral for 30 Active Atorvastatin Calcium 80 MG TAKE 1/2 TABLET BY MOUTH EVERY DAY FOR 90 DAYS Oral Once a day Active Iron 325 (65 Fe) MG 1 tablet Orally Once a day Active Aspir-81 81 MG 1 tablet Orally Once a day Active Lisinopril 20 MG TAKE 1 TABLET BY SHARLENE TH EVERY DAY Oral for 90 Active Vitamin D3 25 MCG (1000 UT) 1 capsule Orally Once a day for 30 day(s) Active Trulicity 0.75 MG/0.5ML as directed Subcutaneous Active metFORMIN HCl 500 MG 1 tablet with a idalia l Orally BID Active Omeprazole 20 MG 1 capsule Orally Onc e a day Active Ursodiol 300 MG 1 capsule Orally Twi ce a day for 30 days Active glipiZIDE 10 MG Oral for 90 No t-Taking SOCIAL HISTORY Sex Assigned At : Social History Observation Description Sex Assigned At Unknown Alcohol Screen Question Answer Notes Did you have a drink containing alcohol in the p ast year? No Points 0 Interpretation Negative VITAL SIGNS BMI 23.05 kg/m2 03/15/2024 Blood pressure systolic 00 mm Hg 03/15/20 24 Blood pressure diastolic 00 mm Hg 024 Height 60.50 in 03/15/2024 Weight 120 lbs 03/15/2024 Encounters Encounter Location Date Provider Diagnosis [facility] [address] [place] [address] 03/15/2024 Bryce Oliver Gastroesophageal ref lux disease without esophagitis K21.9 ; Primary biliary cholangitis K74.3 and History of colon cancer Z85.038 ASSESSMENTS Encounter Date Diagnosis Assessment Notes Treatment Notes Treatment Clinical Notes 03/15/2024 Gastroesophageal ref lux disease without esophagitis (ICD-10 - K21.9) Continue the daily omeprazole for the reflux 03/15/2024 Primary biliary cholangitis (ICD-10 - K74.3) Continue the Ursodiol twice a day for the liver 03/15/2024 History of colon can cer (ICD-10 - Z85.038) PLAN OF TREATMENT Treatment Notes Assessment Notes Gastroesophageal reflux dise ase without esophagitis Continue the daily omeprazole for the reflux Primary biliary cholangitis Continue the Ursodiol twice a day for the liver Next Appt Details Follow Up: 1 Year, Reason: Provider Name:Bryce Oliver , 03/14/2025 09:40:00 AM, [address], [address], [place], [address],
--- OUTSIDE RECORDS SUMMARY | 2024-03-20 19:22 | XMS_ITS | Patient Health Record ---
Author Organization [facility] Address [address] [place] [address] Care Team Providers Care Snow Plow Tractor Operator Name Role Phone Rory Sandhu MD Primary Care Provider Bryce Hernandez Unavailable [phone] ALLERGIES Allergen (clinical drug ingredient) Drug/Non Drug Allergy documented on EMR Reaction Allergy Type Onset Date Status codeine codeine (uncoded) Unknown Allergy Ac tive RESULTS Component Value Reference Range Notes Complete Blood Count Auto Di ff (Not yet reviewed by provider) Interpretation: Performing Lab:[facility], [address] [place] [id number] Notes/Report: White Blood Count 7.2 4.8-10.8 X10*3/uL Red Blood Count 2.99 4.20-5.50 X10*6/uL Hemoglobin 9.5 12.0-16.0 g/dl Hematocrit 27.6 37.0-47.0 % Mean Corpuscular Volume 92.3 80.0-98.0 fL Mean Corpuscular Hemoglobin 31.8 27.0-33.0 pg Mean Corpuscular HGB Conc 34.4 31.0-35.0 g/dl Red Cell Distribution Width 12.6 11.0-16.0 % Platelet Count 218 160-400 X10*3/uL Mean Platelet Volume 9.9 9.4-12.3 fL Neutrophils Percent Auto 75.8 45-73 % Imm Gran Pct Auto 0.4 0.0-0.4 % Lymphocytes Percent Auto 15.7 20-40 % Monocytes Percent Auto 4.9 2-11 % Eosinophils Percent Auto 2.9 0-4 % Basophils Percent Auto 0.3 0-2 % NRBC Pct Auto 0.0 0.0-0.2 /100WBC Neutrophils Absolute Auto 5.4 2.0-8.3 x10*3/u L Imm Gran Abs Auto 0.03 0.00-0.03 X10*3/uL Lymphocytes Absolute Auto 1.1 1.2-4.9 X10*3/u L Monocytes Absolute Auto 0.4 0.1-1.2 X10*3/uL Eosinophils Absolute Auto 0.2 0.0-0.4 X10*3/u L Basophils Absolute Auto 0.0 0.0-0.2 X10*3/uL NRBC Abs Auto 0.000 0.0-0.012 X10*3/uL Prothrombin Time INR Reviewed date:08/08/2023 09:56:58 PM Interpretation: Performing Lab:[address] [phone] Notes/Report: Prothrombin Time 12.9 11.1-13.3 SEC INTERNATIONAL NORM RATIO 1.1 0.9-1.1 INTERNATIONAL NORMALIZED RATIO (INR) REFERENCE RANGES Reference Range For patients not on anticoagulant therapy: 0.9 - 1.1 INR ranges for oral anticoagulant therapy: For prevention and treatment of venous thrombosis and pulmonary embolism: 2.0 - 3.0 For acute myocardial infarction with aspirin therapy: 2.0 - 3.0 For acute myocardial infarction without aspirin therapy: 3.0 - 4.0 For patients with mechanical prosthetic heart valves: 2.5 - 3.5 Liver Panel Reviewed date:08/08/2023 09:58:26 PM Interpretation: Performing Lab:[address] [phone] Notes/Report: Bilirubin Total 0.6 0.0-1.0 mg/dL Bilirubin Direct 0.3 0.0-0.5 mg/dL Aspartate Amino Transferase 20 5-31 U/L Alanine Aminotransferase 18 0-31 U/L Total Protein 6.3 6.5-8.0 g/dL Albumin Level 3.2 3.5-5.0 g/dL Alkaline Phosphatase 237 39-117 U/L IRON PROFILE Reviewed date:08/08/2023 09:57:17 PM Interpretation: Performing Lab:[address] [phone] Notes/Report: Iron 49 30-160 mcg/dL Total Iron Binding Capacity 296 228-428 mcg/d L Percent Iron Saturation 17 15-50 % Unsaturated Iron Binding 247 Ferritin Reviewed date:08/08/2023 09:57:25 PM Interpretation: Performing Lab:[facility], [address] [place] [phone] Notes/Report: Ferritin 27 10-250 ng/mL Complete Blood Count Auto Di ff Reviewed date:03/06/2024 01:06:19 PM Interpretation: Performing Lab:[facility], [address] [place] [phone] Notes/Report: White Blood Count 8.3 4.8-10.8 X10*3/uL Red Blood Count 3.43 4.20-5.50 X10*6/uL Hemoglobin 9.9 12.0-16.0 g/dl Hematocrit 29.2 37.0-47.0 % Mean Corpuscular Volume 85.1 80.0-98.0 fL Mean Corpuscular Hemoglobin 28.9 27.0-33.0 pg Mean Corpuscular HGB Conc 33.9 31.0-35.0 g/dl Red Cell Distribution Width 13.4 11.0-16.0 % Platelet Count 221 160-400 X10*3/uL Mean Platelet Volume 8.9 9.4-12.3 fL Neutrophils Percent Auto 75.5 45-73 % Imm Gran Pct Auto 0.4 0.0-0.4 % Lymphocytes Percent Auto 16.8 20-40 % Monocytes Percent Auto 5.1 2-11 % Eosinophils Percent Auto 1.8 0-4 % Basophils Percent Auto 0.4 0-2 % NRBC Pct Auto 0.0 0.0-0.2 /100WBC Neutrophils Absolute Auto 6.3 2.0-8.3 x10*3/u L Imm Gran Abs Auto 0.03 0.00-0.03 X10*3/uL Lymphocytes Absolute Auto 1.4 1.2-4.9 X10*3/u L Monocytes Absolute Auto 0.4 0.1-1.2 X10*3/uL Eosinophils Absolute Auto 0.2 0.0-0.4 X10*3/u L Basophils Absolute Auto 0.0 0.0-0.2 X10*3/uL NRBC Abs Auto 0.000 0.0-0.012 X10*3/uL Prothrombin Time INR Reviewed date:03/06/2024 01:04:13 PM Interpretation: Performing Lab:[address] [phone] Notes/Report: Prothrombin Time 12.5 10.9-12.4 SEC INTERNATIONAL NORM RATIO 1.1 0.9-1.1 INTERNATIONAL NORMALIZED RATIO (INR) REFERENCE RANGES Reference Range For patients not on anticoagulant therapy: 0.9 - 1.1 INR ranges for oral anticoagulant therapy: For prevention and treatment of venous thrombosis and pulmonary embolism: 2.0 - 3.0 For acute myocardial infarction with aspirin therapy: 2.0 - 3.0 For acute myocardial infarction without aspirin therapy: 3.0 - 4.0 For patients with mechanical prosthetic heart valves: 2.5 - 3.5 Liver Panel Reviewed date:03/15/2024 01:14:23 PM Interpretation: Performing Lab:[address] [address] Notes/Report: Bilirubin Total 0.8 0.0-1.0 mg/dL Bilirubin Direct 0.4 0.0-0.5 mg/dL Aspartate Amino Transferase 25 5-31 U/L Alanine Aminotransferase 13 0-31 U/L Total Protein 6.5 6.5-8.0 g/dL Albumin Level 3.4 3.5-5.0 g/dL Alkaline Phosphatase 183 39-117 U/L IRON PROFILE Reviewed date:03/06/2024 01:06:36 PM Interpretation: Performing Lab:[address] [address] Notes/Report: Iron 59 30-160 mcg/dL Total Iron Binding Capacity 283 228-428 mcg/d L Percent Iron Saturation 21 15-50 % Unsaturated Iron Binding 224 Ferritin Reviewed date:03/06/2024 01:06:44 PM Interpretation: Performing Lab:[address] [phone] Notes/Report: Ferritin 34 10-250 ng/mL Liver Fibrosis Pnl Reviewed date:03/16/2024 01:26:12 PM Interpretation: Performing Lab:[address] [phone] Notes/Report: Liver Fibrosis Score 0.37 Liver Fibrosis Stage F1-F2 Liver Fibrosis Interpretation SEE NOTE minimal fibrosis Fibro Test Score (f) Metavir Score f>=0 and f<=0.21 : F0 (no fibrosis) f>0.21 and f<=0.27 : F0-F1 (no fibrosis) f>0.27 and f<=0.31 : F1 (minimal fibrosis) f>0.31 and f<=0.48 : F1-F2 (minimal fibrosis) f>0.48 and f<=0.58 : F2 (moderate fibrosis) f>0.58 and f<=0.72 : F3 (advanced fibrosis) f>0.72 and f<=0.74 : F3-F4 (advanced fibrosis) f>0.74 and f<=1.00 : F4 (severe fibrosis) Nec Inflam Act Score 0.04 Nec Inflam Act Grade A0 Nec Inflam Act Interpretation SEE NOTE no activity ActiTest Score (a) Metavir Score a>=0 and a<=0.17 : A0 (no activity) a>0.17 and a<=0.29 : A0-A1 (no activity) a>0.29 and a<=0.36 : A1 (minimal activity) a>0.36 and a<=0.52 : A1-A2 (minimal activity) a>0.52 and a<=0.60 : A2 (significant activity) a>0.60 and a<=0.62 : A2-A3 (significant activity) a>0.62 and a<=1.00 : A3 (severe activity) VFH-Gjfio-8-Macroglobulin 197 106-279 mg/dL FIB-Haptoglobin 153 43-212 mg/dL FIB-Apolipoprotein A1 140 101-198 mg/dL FIB-Total Bilirubin 0.8 0.2-1.2 mg/dL FIB-GGT 28 3-65 U/L FIB-ALT 12 6-29 U/L Reference ID [id number] Footnote SEE NOTE The reliability of results is dependent on compliance with the preanalytical and analytical conditions recommended by [employer]. The tests have to be deferred for: acute hemolysis, acute hepatitis, acute inflammation, extra hepatic cholestasis. The advice of a specialist should be sought for interpretation in chronic hemolysis and Gilbert's syndrome. The test interpretation is not validated in liver transplant patients. Isolated extreme values of one of the components should lead to caution in interpreting the results. In case of discordance between a biopsy result and a test, it is recommended to seek the advice of a specialist. The causes of these discordances could be due to a flaw of the test or to a flaw in the biopsy: i.e. a liver biopsy has a 33% variability rate for one fibrosis stage. FibroTest is interpretable for chronic hepatitis B and C, alcoholic and non alcoholic steatosis. ActiTest is interpretable for chronic hepatitis B and C. The performance characteristics have been determined by [employer] [place]. It has not been cleared or approved by the U.S. Food and Drug Administration. Performance characteristics refer to the analytical performance of the test. modulR, the associated logo, [employer] and all associated [employer] guerrero are the registered trademarks of [employer]. All third democrat guerrero - (R) and (TM) - are the property of their respective owners. (C) 7605-1114 [employer]. All rights reserved. THIS TEST WAS PERFORMED AT: [employer] [facility] [place] [address] [place] [address] OLGA YA MD,PHD,PADDY REASON FOR REFERRAL No Information MEDICATIONS Medication SIG (Take, Route, Frequency, Duration) Notes Start Date End Date Status BD Pen Needle Micro U/F 32G X 6 MM for 30 Active Tresiba FlexTouch 200 UNIT/ML INJECT DIRECTED SUBCUTANEOUSLY 10 UNITS DAILY 30 DAYS Subcutaneous for 180 Active Magnesium Oxide -Mg Supplement 400 (240 Mg) MG TAKE 3 TABLETS BY MOUTH DAILY WITH FOOD Oral for 30 Active Aspir-81 81 MG 1 tablet Orally Once a day Active Lisinopril 20 MG TAKE 1 TABLET BY SHARLENE TH EVERY DAY Oral for 90 Active Vitamin D3 25 MCG (1000 UT) 1 capsule Orally Once a day for 30 day(s) Active Atorvastatin Calcium 80 MG TAKE 1/2 TABLET BY MOUTH EVERY DAY FOR 90 DAYS Oral Once a day Active Iron 325 (65 Fe) MG 1 tablet Orally Once a day Active Omeprazole 20 MG 1 capsule Orally Onc e a day Active Trulicity 0.75 MG/0.5ML as directed Subcutaneous Active Ursodiol 300 MG 1 capsule Orally Twi ce a day for 30 days Active metFORMIN HCl 500 MG 1 tablet with a idalia l Orally BID Active glipiZIDE 10 MG Oral for 90 No t-Taking IMMUNIZATIONS Vaccine Route Administration Date Status Comme nts Influenza Unknown 01/09/2017 Administered Influenza Unknown 01/10/2018 Administered Influenza Unknown 01/09/2019 Administered Influenza Unknown 03/01/2023 Administered SOCIAL HISTORY Sex Assigned At : Social History Observation Description Sex Assigned At Unknown Alcohol Screen Question Answer Notes Did you have a drink containing alcohol in the p ast year? No Points 0 Interpretation Negative PROBLEMS Problem Type ICD Code Onset Dates Problem Status W/U Status Risk SNOMED Code Notes Problem Esophageal reflux (K21.9) Active confirmed Esophageal refl ux (940247593) Problem Weight loss (R63.4) Active confirmed [address] of liver (R93.2) Active confirmed 92855080800222421 Problem Gastroesophageal reflux disease without esophagitis (K21.9) Active confirmed 707989434 Problem History of colon cancer (Z85.038) Active confirmed 811394187 Problem Heme + stool (R19.5) Active confirmed 5 5711120 Problem Pharyngoesophageal dysphagia (R13.14) Active confirmed 92780518 Problem Iron deficiency anemia, unspecified iron deficiency anemia type (D50.9) Active confirmed 89262370 Problem 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) Active confirmed 28381931 Problem Diarrhea, unspecified type (R19.7) Active confirmed 91793155 Problem Cirrhosis of liver without ascites, unspecified hepatic cirrhosis type (K74.60) Active confirmed 11646393 Problem Hypertension, unspecified type (I10) Active confirmed 38989593 Problem Diverticulosis of colon (K57.30) Active confirmed Diverticulosi s of colon (446224579) Problem History of Billroth II operation (Z98.0) Active confirmed History of gastrointestinal tract bypass (454823967) Problem 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) Active confirmed 728411136 VITAL SIGNS Temperature 97.3 degrees Fahrenheit 09/14/2023 Blood pressure diastolic 00 mm Hg 03/15/2024 Height 60.50 in 03/15/2024 Blood pressure systolic 00 mm Hg 03/15/2024 Weight 120 lbs 03/15/2024 BMI 23.05 kg/m2 03/15/2024 Encounters Encounter Location Date Provider Diagnosis [facility] [address] [place] [address] 09/14/2023 Bryce Oliver Gastroesophageal ref lux disease without esophagitis K21.9 ; Primary biliary cholangitis K74.3 and History of colon cancer Z85.038 [facility] [address] [place] [address] 03/15/2024 Bryce Oliver Gastroesophageal ref lux disease without esophagitis K21.9 ; Primary biliary cholangitis K74.3 and History of colon cancer Z85.038 [facility] [address] [place] [address] 06/13/2023 Bryce Oliver ASSESSMENTS Encounter Date Diagnosis Assessment Notes Treatment Notes Treatment Clinical Notes 09/14/2023 Gastroesophageal ref lux disease without esophagitis (ICD-10 - K21.9) 09/14/2023 Primary biliary cholangitis (ICD-10 - K74.3) 03/15/2024 Gastroesophageal ref lux disease without esophagitis (ICD-10 - K21.9) Continue the daily omeprazole for the reflux 09/14/2023 History of colon can cer (ICD-10 - Z85.038) 03/15/2024 History of colon can cer (ICD-10 - Z85.038) 03/15/2024 Primary biliary cholangitis (ICD-10 - K74.3) Continue the Ursodiol twice a day for the liver PLAN OF TREATMENT Pending Test Test Name Order Date CHEM 7 PROFILE 09/10/2022 LIVER PROFILE 03/11/2023 LIVER PROFILE 12/31/2022 LIVER PROFILE 09/14/2023 LIVER PROFILE 09/10/2022 TSH (THYROID STIMULATING HORMONE) 2022 IRON + IBC (FE) 03/11/2023 IRON + IBC (FE) 09/10/2022 IRON + IBC (FE) 09/14/2023 IRON + IBC (FE) 11/15/2017 FERRITIN 11/15/2017 CRP 09/10/2022 CEA 09/10/2022 CBC w DIFF 11/15/2017 CBC w DIFF 12/31/2022 CBC w DIFF 03/11/2023 CBC w DIFF 09/14/2023 CBC w DIFF 09/10/2022 SED RATE (ESR) 09/10/2022 HEPATITIS B, C PROFILE 10/20/2022 CELIAC PANEL #10 09/10/2022 CT ABD & PELVIS WITH CONTRAST 09/10/2022 FLUOR. ANTINUCLEAR AB SCREEN (MICHAEL) 10/09 Complete Blood Count Auto Diff Prothrombin Time INR 12/31/2022 Prothrombin Time INR 03/11/2023 Prothrombin Time INR 09/14/2023 Partial Thromboplastin Time 12/31/2022 Ferritin 09/10/2022 Ferritin 03/11/2023 Ferritin 09/14/2023 Vitamin B12 and Folate 09/10/2022 T4 Thyroxine 09/10/2022 Liver Fibrosis Pnl 09/14/2023 Hepatitis A Antibody IgG 10/20/2022 US biopsy liver 12/31/2022 Future Test Test Name Order Date COLONOSCOPY 09/12/2014 UPPER GI ENDOSCOPY 10/11/2017 COLONOSCOPY 10/11/2017 COLONOSCOPY 09/07/2019 UPPER GI ENDOSCOPY BALLOOON DILATION OF ESOPH 09/11/2019 UPPER GI ENDOSCOPY 09/10/2022 COLONOSCOPY 09/10/2022 Next Appt Details Provider Name:Bryce Varghese Benito , 03/14/2025 09:40:00 AM, [address] [place] [address], [address], [place], [address], Insurance Providers Payer Name Payer Address Payer Phone Subscriber Number Group Number Insured Name Patient Relationship to Insured Coverage Start Date Coverage End Date MEDICARE OF [place] [address] [place] [address] [phone] [id number] PATRICIO TEE Self - patient is the insured MEDEX ATTN CLAIMS [address] [place] [phone] [id number] NIANAOL, PATRICIO Self - patient is the insured MEDICAL (GENERAL) HISTORY Medical History History ICD Code NIDDM GERD-she had an upper endosc opy in 2011 which was negative for any significant esophagitis nor Flores's esophagus Pulmonary sarcoidosis Hyperlipidemia Denies TN,CVA,renal disease Screening colonoscopy in 05/13 012 with the 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 Cam Preciado-no chemo needed-she was also evaluated at [facility]-she had a negative CT scan in 2013 Seekael Lynn for some issu es with a heart valve--has periodic cardiac ECHOs with Dr. Lynn Colonoscopy in 07/2012 was neg. except fo r diverticulosis Pulmonary sarcoidosis--inactive Colonoscopy in 10/2014--negative for poly ps Iron deficiency anemia in --Normal colonoscopy in 10/2017 and normal EGD in 10/2017 except for a minimal hiatal hernia ---normal duodenal biopsies, without any evidnce of celiac disease EGD 09/2019-normal other than a small hia silvano hernia Colonoscopy 09/2019-small tubular adenoma , diverticulosis Cardiac ablation for Afib in 2021 Upper endoscopy in November of 2022 revealed no sign of portal hypertension and specifically was negative for esophageal varices, gastric varices, and portal gastropathy. Duodenal biopsies were negative for celiac disease Colonoscopy in November was negative for any adenomatous polyps, inflammatory bowel disease, and microscopic colitis Primary biliary cholangitis with elevated MCKAYLA and antimitochondrial antibody diagnosed with liver biopsy in January of 2023. Her CT scan had described cirrhosis, but the liver biopsy does describe some fibrosis but no cirrhosis. There was evidence of bile duct loss and infiltration with both plasma cells and lymphocytes. She was started on ursodiol and colchicine in February of 2023. Surgical History Surgery Date(Month/Year) CCY Bladder suspension Colon surgery-right colectomy with Dr. Lelo Newton 2011
--- OUTSIDE RECORDS SUMMARY | 2024-03-20 19:22 | XMS_ITS ---
Author Organization [facility] Address [address] [place] [address] Care Team Providers Care Pharmacy Stock Clerk Name Role Phone Rory Sandhu MD Primary Care Provider Bryce Hernandez Unavailable [phone] REASON FOR VISIT diarrhea Encounters Encounter Location Date Provider Diagnosis [facility] [address] [place] [address] 06/13/2023 Bryce Oliver PLAN OF TREATMENT Next Appt Details Provider Name:Bryce Oliver , 03/14/2025 09:40:00 AM, [address], [address], [place], [address],
--- OUTSIDE RECORDS SUMMARY | 2024-03-20 19:22 | XMS_ITS ---
Author Organization [facility] Address [address] [place] [address] Care Team Providers Care Automotive Parts Coordinator Name Role Phone Rory Sandhu MD Primary Care Provider Bryce Hernandez Unavailable [phone] ALLERGIES Allergen (clinical drug ingredient) Drug/Non Drug Allergy documented on EMR Reaction Allergy Type Onset Date Status codeine codeine (uncoded) Unknown Allergy Ac tive REASON FOR VISIT Patient presents today for fe def anemia MEDICATIONS Medication SIG (Take, Route, Frequency, Duration) Notes Start Date End Date Status metFORMIN HCl 500 MG 1 tablet with a idalia l Orally BID Active Aspir-81 81 MG 1 tablet Orally Once a day Active Vitamin D3 25 MCG (1000 UT) 1 capsule Orally Once a day for 30 day(s) Active Lisinopril 20 MG TAKE 1 TABLET BY SHARLENE TH EVERY DAY Oral for 90 Active Atorvastatin Calcium 80 MG TAKE 1/2 TABLET BY MOUTH EVERY DAY FOR 90 DAYS Oral Once a day Active Trulicity 0.75 MG/0.5ML as directed Subcutaneous Active Iron 325 (65 Fe) MG 1 tablet Orally Once a day Active Ursodiol 300 MG 1 capsule Orally Ramírez e once a day for two weeks, and then increase to twice a day 02/06/2023 Active Omeprazole 20 MG 1 capsule Orally Onc e a day Active Tresiba FlexTouch 200 UNIT/ML INJECT DIRECTED SUBCUTANEOUSLY 10 UNITS DAILY 30 DAYS Subcutaneous for 180 Active BD Pen Needle Micro U/F 32G X 6 MM for 30 Active glipiZIDE 10 MG Oral for 90 No t-Taking Magnesium Oxide -Mg Supplement 400 (240 Mg) MG TAKE 3 TABLETS BY MOUTH DAILY WITH FOOD Oral for 30 Active SOCIAL HISTORY Sex Assigned At : Social History Observation Description Sex Assigned At Unknown Alcohol Screen Question Answer Notes Did you have a drink contain ing alcohol in the past year? Yes How often did you have a dri nk containing alcohol in the past year? Monthly or less (1 point) How many drinks did you have on a typical day when you were drinking in the past year? 1 or 2 drinks (0 point) How often did you have 6 or more drinks on one occasion in the past year? Never (0 point) Points 1 Interpretation Negative VITAL SIGNS BMI 22.38 kg/m2 09/14/2023 Blood pressure systolic 000 mm Hg 09/14/19 24 Blood pressure diastolic 00 mm Hg 024 Height 60.50 in 09/14/2023 Temperature 97.3 degrees Fahrenheit 09/14/19 24 Weight 116 lb 8 oz lbs 09/14/2023 Encounters Encounter Location Date Provider Diagnosis [facility] [address] [place] [address] 09/14/2023 Bryce Oliver Gastroesophageal ref lux disease without esophagitis K21.9 ; Primary biliary cholangitis K74.3 and History of colon cancer Z85.038 ASSESSMENTS Encounter Date Diagnosis Assessment Notes Treatment Notes Treatment Clinical Notes 09/14/2023 Gastroesophageal ref lux disease without esophagitis (ICD-10 - K21.9) 09/14/2023 Primary biliary cholangitis (ICD-10 - K74.3) 09/14/2023 History of colon can cer (ICD-10 - Z85.038) PLAN OF TREATMENT Medication Medication Name Sig Start Date Stop Date Notes Iron 325 (65 Fe) MG 1 tablet Orally Once a day Ursodiol 300 MG 1 capsule Orally Ramírez e once a day for two weeks, and then increase to twice a day 02/06/2023 Omeprazole 20 MG 1 capsule Orally Once a day Pending Test Test Name Order Date LIVER PROFILE 09/14/2023 IRON + IBC (FE) 09/14/2023 CBC w DIFF 09/14/2023 Prothrombin Time INR 09/14/2023 Ferritin 09/14/2023 Liver Fibrosis Pnl 09/14/2023 Next Appt Details Follow Up: 6 Months, Reason: Provider Name:Bryce Oliver , 03/14/2025 09:40:00 AM, [address], [address], [place], [address], Progress Notes * Examination Category Sub-Category Detail Notes General Examination GENERAL APPEARANCE: pleasant , well nourished, well developed, in no acute distress EYES: sclera non-icteric NECK/THYROID: no cervical lymphade nopathy, neck supple HEART: S1, S2 normal LUNGS: clear to auscultatio n bilaterally ABDOMEN: normal bowel sounds, no guarding or rigidity, no hepatosplenomegaly, no masses palpable, soft, nontender, nondistended. NEUROLOGIC: alert and oriented SKIN: nonjaundiced, no spi brad angiomata. EXTREMITIES: no edema ORAL CAVITY: mucosa moist
--- OUTSIDE RECORDS SUMMARY | 2024-03-20 19:22 | XMS_ITS | Patient Health Record ---
Author Organization Rory Sandhu MD Address [address] [place], [place] [id number] Care Team Providers Care [place] Name Role Phone Rory Sandhu Primary Care Provider ALLERGIES Allergen (clinical drug ingredient) Drug/Non Drug Allergy documented on EMR Reaction Allergy Type Onset Date Status codeine Codeine Sulfate N/V Drug Allergy A ctive RESULTS Component Value Reference Range Notes Hemoglobin A1c Reviewed date:04/29/2023 10:20:03 AM Interpretation: Performing Lab: Notes/Report: Value Hemoglobin A1c 7.8 Hemoglobin A1c Reviewed date:06/16/2023 09:55:16 AM Interpretation: Performing Lab: Notes/Report: Value Hemoglobin A1c 7.5 SARS-CoV2/FLU/RSV Reviewed date:03/29/2023 03:16:06 PM Interpretation: Performing Lab:[facility], [address] [place] [phone] Notes/Report: Influenza A PCR NEGATIVE Negative Influenza B PCR NEGATIVE Negative Resp Syncy Virus RNA Qual PCR POSITIVE Negative SARS COV2 PCR INHOUSE NEGATIVE Negative All test results must be correlated with clinical findings. Negative results do not preclude SARS-CoV2, influenza A virus, influenza B virus and/or RSV infection and should not be used as the sole basis for treatment or other patient management decisions. Negative results must be combined with clinical observations, patient history, and epidemiological information. This test has not been evaluated for monitoring treatment of infection. This test has been authorized by the FDA under an Emergency Use Authorization (EUA) for use by authorized laboratories. Testing performed on the [employer] GeneXpert utilizing real-time RT-PCR. All SARS CoV2 and positive influenza A/B results are reported to [facility]. XR chest 2V Reviewed date:04/14/2023 12:46:43 PM Interpretation: Performing Lab: Notes/Report: [address] [address] XRay Report Signed Patient: Angela Nam MR#: [id number] : 1945 Acct:[id number] Age/Sex: 77 / F ADM Date: 03/29/23 Loc: HO.XRAY Attending Dr: Rory Sandhu MD Ordering Physician: Rory Sandhu MD Date of Service: 03/29/23 Procedure(s): XR chest 2V Accession Number(s): [id number] cc: Rory Sandhu MD EXAMINATION: XR CHEST CLINICAL INFORMATION: Bronchitis. COMPARISON: CT chest dated 09/02/2021; chest radiographs dated 08/24/2021. TECHNIQUE: Frontal and lateral views of the chest were obtained. FINDINGS: The heart, great vessels, pulmonary vasculature and mediastinum are stable. There are again benign, calcified left upper lobe granulomas. There is a surgical staple line at the lateral left base. No infiltrate, effusion or pneumothorax is seen. There is mild bilateral bronchial wall thickening. There is no acute osseous abnormality. XR/XR chest 2V IMPRESSION: 1. No focal infiltrate or congestive heart clear is seen. 2. There is mild bilateral bronchiolar wall thickening, consistent with the provided history of bronchitis. 3. There are postoperative changes of the lateral left base. 4. There are benign, calcified left upper lobe granulomas. Dictated By: Hua Jerry MD Signed By: <Electronically signed by Hua Jerry MD in [place]> 04/13/23 2225 DD/ 1217 TD/TT: Medical Support Specialist: VEE Chuff Gene PCR Reviewed date:04/15/2023 01:49:50 PM Interpretation: Performing Lab:[facility], [address] [place] [phone] Notes/Report: CDiff Gene PCR NEGATIVE Negative If C. difficile strongly suspected despite one negative test, a second test may be sent vs. empiric treatment for C. difficile infection. Diabetic Eye Exam Reviewed date:05/09/2023 09:32:59 AM Interpretation:mild diabetic retinopathy OU Performing Lab: Notes/Report: mild diabetic retinopathy OU Glucose, finger stick Reviewed date:04/29/2023 10:13:33 AM Interpretation: Performing Lab: Notes/Report: Value 144 XR ribs RT min 3V w CXR1V Reviewed date:05/02/2023 12:25:23 PM Interpretation: Performing Lab: Notes/Report: [facility] [address] [place] [address] XRay Report Signed Patient: Angela Nam MR#: [id number] : 1945 Acct:[id number] Age/Sex: 78 / F ADM Date: 05/02/23 Loc: HO.HMGCX Attending Dr: All Gutierrez MD Ordering Physician: All Gutierrez MD Date of Service: 05/02/23 Procedure(s): XR ribs RT min 3V w CXR1V Accession Number(s): [id number] cc: Rory Sandhu MD; All Gutierrez MD EXAMINATION: XR RIBS, RIGHT CLINICAL INFORMATION: Chest wall contusion COMPARISON: None available. TECHNIQUE: Single view chest and 3 views of the right ribs were obtained. FINDINGS: Lungs are clear. No consolidation, pneumothorax, or pleural effusion. The cardiomediastinal silhouette and pulmonary vasculature are normal. Osseous structures are unremarkable. Ribs are intact. No fractures are identified. XR/XR ribs RT min 3V w CXR1V IMPRESSION: Unremarkable examination. Dictated By: Hank Christensen MD Signed By: <Electronically signed by Hank Christensen MD in OV> 05/02/23 1156 DD/ 1052 TD/TT: Medical Support Specialist: SARAH Glucose, Whole Blood Reviewed date:05/17/2023 12:26:05 PM Interpretation: Performing Lab:[facility], [address] [place] [phone] Notes/Report: Glucose, Whole Blood 64 60-115 mg/dL METER # : [id number] CT cervical spine wo con Reviewed date:05/17/2023 10:39:44 AM Interpretation: Performing Lab: Notes/Report: [address] [address] [address] Scan Report Signed Patient: Angela Nam MR#: [id number] : 1945 Acct:[id number] Age/Sex: 78 / F ADM Date: 05/16/23 Loc: HO.ED Attending Dr: Ordering Physician: Stanley Patino Date of Service: 05/16/23 Procedure(s): CT cervical spine wo IV con Accession Number(s): [id number] cc: Rory Sandhu MD; Stanley Patino EXAMINATION: CT HEAD WITHOUT CONTRAST CLINICAL INFORMATION: Fall head strike COMPARISON: CT head from 03/17/2014 TECHNIQUE: Contiguous axial imaging was performed from the skull base to vertex without intravenous administration of contrast. This CT examination was performed using dose optimization techniques as appropriate, variously including the following: *Automated exposure control *Adjustment of mA and/or kV according to patient size (this includes techniques or standardized protocols for targeted exams where dose is matched to indication/reason for exam; i.e. extremities or head) *Use of iterative reconstruction technique DLP: 814 mGy-cm FINDINGS: There is no evidence of acute intracranial hemorrhage or territorial infarction. Chronic white matter small vessel signal changes. Mild cerebral atrophy. No abnormal mass effect or midline shift is seen. Hilario to white matter differentiation is well preserved. No extra-axial fluid collections are identified. The ventricles are normal in size. There is no abnormal attenuation within the brain parenchyma. Heterogeneous soft tissue nodule along the right posterior occipital lobe (7 mm nonspecific though may reflect a sebaceous cyst. The osseous structures and soft tissues are normal. The unit The mastoid air cells and visualized portions of the paranasal sinuses are well aerated. CT/CT cervical spine wo IV con IMPRESSION: 1. No acute intracranial pathology. 2. Chronic white matter small vessel signal changes. EXAMINATION: Noncontrast CT scan of the cervical spine. INDICATION: Neck pain COMPARISON: None. TECHNIQUE: Helical, multidetector axial images were obtained from the occiput to the upper thorax. Coronal and sagittal reformats of the cervical spine were provided for interpretation. DLP: 814 mGy-cm FINDINGS: No acute fractures or dislocations of the cervical spine are seen. Straightening of the normal cervical curvature. Multilevel degenerative changes. Anatomic alignment and positioning of the vertebral bodies and posterior elements is noted. The atlantoaxial joint and craniovertebral articulations are normal without evidence of subluxation. There is no prevertebral soft tissue swelling. The thyroid gland and visualized portions of the lung apices and mediastinum are unremarkable. IMPRESSION: 1. No acute visible fracture or dislocation. 2. Straightening of the normal cervical curvature. 3. Multilevel degenerative changes. Dictated By: Joe Sanders MD Signed By: <Electronically signed by Joe Sanders MD in OV> 05/16/231933 DD/ 18 TD/TT: Medical Support Specialist: CT head/brain wo con Reviewed date:05/17/2023 10:38:02 AM Interpretation: Performing Lab: Notes/Report: [place] [address] CT Scan Report Signed Patient: Angela Nam MR#: [id number] : 1945 Acct:[id number] Age/Sex: 78 / F ADM Date: 05/16/23 Loc: HO.ED Attending Dr: Ordering Physician: Stanley Patino Date of Service: 05/16/23 Procedure(s): CT head/brain wo IV con Accession Number(s): [id number] cc: Rory Sandhu MD; Stanley Patino EXAMINATION: CT HEAD WITHOUT CONTRAST CLINICAL INFORMATION: Fall head strike COMPARISON: CT head from 03/17/2014 TECHNIQUE: Contiguous axial imaging was performed from the skull base to vertex without intravenous administration of contrast. This CT examination was performed using dose optimization techniques as appropriate, variously including the following: *Automated exposure control *Adjustment of mA and/or kV according to patient size (this includes techniques or standardized protocols for targeted exams where dose is matched to indication/reason for exam; i.e. extremities or head) *Use of iterative reconstruction technique DLP: 814 mGy-cm FINDINGS: There is no evidence of acute intracranial hemorrhage or territorial infarction. Chronic white matter small vessel signal changes. Mild cerebral atrophy. No abnormal mass effect or midline shift is seen. Hilario to white matter differentiation is well preserved. No extra-axial fluid collections are identified. The ventricles are normal in size. There is no abnormal attenuation within the brain parenchyma. Heterogeneous soft tissue nodule along the right posterior occipital lobe (7 mm nonspecific though may reflect a sebaceous cyst. The osseous structures and soft tissues are normal. The unit The mastoid air cells and visualized portions of the paranasal sinuses are well aerated. CT/CT head/brain wo IV con IMPRESSION: 1. No acute intracranial pathology. 2. Chronic white matter small vessel signal changes. EXAMINATION: Noncontrast CT scan of the cervical spine. INDICATION: Neck pain COMPARISON: None. TECHNIQUE: Helical, multidetector axial images were obtained from the occiput to the upper thorax. Coronal and sagittal reformats of the cervical spine were provided for interpretation. DLP: 814 mGy-cm FINDINGS: No acute fractures or dislocations of the cervical spine are seen. Straightening of the normal cervical curvature. Multilevel degenerative changes. Anatomic alignment and positioning of the vertebral bodies and posterior elements is noted. The atlantoaxial joint and craniovertebral articulations are normal without evidence of subluxation. There is no prevertebral soft tissue swelling. The thyroid gland and visualized portions of the lung apices and mediastinum are unremarkable. IMPRESSION: 1. No acute visible fracture or dislocation. 2. Straightening of the normal cervical curvature. 3. Multilevel degenerative changes. Dictated By: Joe Sanders MD Signed By: <Electronically signed by Joe Sanders MD in OV> 05/16/231933 DD/ 18 TD/TT: Medical Support Specialist: Glucose, Whole Blood Reviewed date:05/17/2023 12:29:00 PM Interpretation: Performing Lab:[facility], [address] [place] [phone] Notes/Report: Glucose, Whole Blood 173 60-115 mg/dL METER # : [id number] Complete Blood Count Auto Di ff Reviewed date:05/17/2023 12:29:53 PM Interpretation: Performing Lab:[facility], [address] [place] [phone] Notes/Report: White Blood Count 7.2 4.8-10.8 X10*3/uL Red Blood Count 3.18 4.20-5.50 X10*6/uL Hemoglobin 9.6 12.0-16.0 g/dl Hematocrit 27.8 37.0-47.0 % Mean Corpuscular Volume 87.4 80.0-98.0 fL Mean Corpuscular Hemoglobin 30.2 27.0-33.0 pg Mean Corpuscular HGB Conc 34.5 31.0-35.0 g/dl Red Cell Distribution Width 16.0 11.0-16.0 % Platelet Count 235 160-400 X10*3/uL Mean Platelet Volume 9.8 9.4-12.3 fL Neutrophils Percent Auto 63.8 45-73 % Imm Gran Pct Auto 0.3 0.0-0.4 % Lymphocytes Percent Auto 25.8 20-40 % Monocytes Percent Auto 7.3 2-11 % Eosinophils Percent Auto 2.4 0-4 % Basophils Percent Auto 0.4 0-2 % NRBC Pct Auto 0.0 0.0-0.2 /100WBC Neutrophils Absolute Auto 4.6 2.0-8.3 x10*3/u L Imm Gran Abs Auto 0.02 0.00-0.03 X10*3/uL Lymphocytes Absolute Auto 1.9 1.2-4.9 X10*3/u L Monocytes Absolute Auto 0.5 0.1-1.2 X10*3/uL Eosinophils Absolute Auto 0.2 0.0-0.4 X10*3/u L Basophils Absolute Auto 0.0 0.0-0.2 X10*3/uL NRBC Abs Auto 0.000 0.0-0.012 X10*3/uL Basic Metabolic Panel Reviewed date:05/17/2023 12:32:00 PM Interpretation: Performing Lab:[facility], [address] [place] [phone] Notes/Report: Sodium 141 135-145 mmol/L Potassium 3.5 3.3-5.1 mmol/L Chloride 106 96-108 mmol/L Carbon Dioxide 27 22-29 mmol/L Anion Gap 12 12-20 Blood Urea Nitrogen 13 9-16 mg/dL Creatinine 0.81 0.5-1.4 mg/dL Creatinine Clr Calc Pharmacy 46.3 Provided height and weight: 152.4 cm, 56 kg. eGFR (calculated from the MDRD study equation) and eCrCl (calculated from the Cockcroft-Gault equation) are based on different parameters and may not yield comparable results. If eCrCl result is absurd, please check patient's height/weight. Estimated Glomerular Filt Rate > 60 NOTE: For -Jamaican individuals, multiply the result by 1.210. Chronic Kidney Disease: Estimated GFR < 60 mL/min/1.73m2 Severe Kidney Disease: Estimated GFR < 15 mL/min/1.73m2 Glucose Random 125 60-115 mg/dL Calcium 9.6 8.4-10.2 mg/dL Magnesium Reviewed date:05/17/2023 10:40:01 AM Interpretation: Performing Lab:[facility], [address] [place] [phone] Notes/Report: Magnesium 2.0 1.6-2.6 mg/dL Glucose, Whole Blood Reviewed date:05/17/2023 10:40:17 AM Interpretation: Performing Lab:[facility], [address] [place] [phone] Notes/Report: Glucose, Whole Blood 123 60-115 mg/dL METER # : [id number] CDiff Gene PCR Reviewed date:05/17/2023 10:38:40 AM Interpretation: Performing Lab:[facility], [address] [place] [phone] Notes/Report: CDiff Gene PCR NEGATIVE Negative If C. difficile strongly suspected despite one negative test, a second test may be sent vs. empiric treatment for C. difficile infection. GI Panel Reviewed date:05/17/2023 12:25:18 PM Interpretation: Performing Lab:[facility], [address] [place] [phone] Notes/Report: Campylobacter Not Detected Not Detect. Plesiomonas shigelloides Not Detected Not Detect. Salmonella Not Detected Not Detect. Vibrio Not Detected Not Detect. Vibrio Cholerae Not Detected Not Detect. Yersinia enterocolitica Not Detected Not Detect. E. coli EAEC Not Detected Not Detect. E. coli EPEC Not Detected Not Detect. E. coli ETEC Not Detected Not Detect. E. coli STEC Not Detected Not Detect. E. coli O157 Not applicable Not Detect. E. coli containing the O157 antigen are a subset of Shiga-like toxin-producing E. coli (STEC). Shigella sp./EIEC Not Detected Not Detect. Cryptosporidium Not Detected Not Detect. Cyclospora cayetanensis Not Detected Not Detect. Entamoeba histolytica Not Detected Not Detect. Giardia lamblia Not Detected Not Detect. Adenovirus F 40/41 Not Detected Not Detect. Astrovirus Not Detected Not Detect. Norovirus GI/GII Not Detected Not Detect. Rotavirus A Not Detected Not Detect. Sapovirus Not Detected Not Detect. All results must be correlated with clinical findings. Negative results do not exclude the possibility of gastrointestinal infection and should not be used as the sole basis for diagnosis, treatment, or other management decisions. Virus, bacteria, and parasite nucleic acid may persist in vivo independently of organism viability. Additionally, some organisms may be carried symptomatically. Detection of organism targets does not imply that the corresponding organisms are infectious or are the causative agents for clinical symptoms. There is a risk of false negative values due to the presence of sequence variants in the gene targets of the assay, amplification inhibitors in specimens, or inadequate numbers of organisms for amplification. The identification of several diarrheagenic E. coli pathotypes has historically relied upon phenotypic characteristics. This panel targets genetic determinants characteristic of most pathogenic strains, but may not detect all strains having phenotypic characteristics of a pathotype. The performance of this test has not been established for monitoring treatment of infection with any of the panel organisms. This assay is performed by Multiplexed PCR, utilizing the Chat[employer] Array. Glucose, Whole Blood Reviewed date:05/17/2023 12:35:08 PM Interpretation: Performing Lab:[address] [phone] Notes/Report: Glucose, Whole Blood 158 60-115 mg/dL METER # : [id number] Glucose, Whole Blood Reviewed date:05/18/2023 07:52:25 PM Interpretation: Performing Lab:[address] [phone] Notes/Report: Glucose, Whole Blood 186 60-115 mg/dL METER # : [id number] Glucose, Whole Blood Reviewed date:05/18/2023 07:51:32 PM Interpretation: Performing Lab:[facility] [address], [place] [address] Notes/Report: Glucose, Whole Blood 159 60-115 mg/dL METER # : [id number] Glucose, Whole Blood Reviewed date:05/18/2023 07:49:29 PM Interpretation: Performing Lab:[facility], [address] [place] [phone] Notes/Report: Glucose, Whole Blood 181 60-115 mg/dL METER # : [id number] Urine Culture Reviewed date:05/21/2023 06:43:37 PM Interpretation: Performing Lab:[facility], [address] [place] [phone] Notes/Report: Urine Culture Report Result Urine Culture < 10,000 cfu/ml Hemoglobin A1c Reviewed date:05/18/2023 07:49:38 PM Interpretation: Performing Lab:[facility], [address] [place] [phone] Notes/Report: Hemoglobin A1c % 6.1 <6.0 % Hemoglobin A1C Reference Range Adults: 4.8 - 6.0 % Non diabetic: < 6.0 % Goal: < 7.0 % Additional Action Suggested: > 8.0 % Note: Hemoglobin A1c results are invalid for patients with abnormal amounts of HbF. Blood transfusions may impact the HbA1c concentration in the patient sample. Estimated Average Glucose 128 eAG = Estimated average glucose which is %A1C expressed as average glucose, using the formula of the P0G-Pirctbq Average Glucose study (ADAG), Diabetes Care, Vol.31,#8, Nov. 2007 UA ClnCatch+Micro w/rflx Cul t Reviewed date:05/18/2023 07:55:54 PM Interpretation: Performing Lab:[facility], [address] [place] [phone] Notes/Report: [id number] Urine, Clean Catch Color Urine Yellow Appearance Urine Clear PH 6.5 5.0-9.0 Glucose Urine UA Negative Negative mg/dL Urine Blood Negative Negative Specific [place] - Urine <= 1.005 1.005-1.025 Urine Protein Negative Neg-Trace mg/dL Urine Ketones Negative Negative mg/dL Nitrite Urine Negative Negative Leukocyte Esterase Urine Moderate (2+) Negative RBC Urine 0-2 0-2 /HPF WBC Urine 6-10 0-5 /HPF Squamous Epithelial Cell Urine 0-2 0-2 /HPF Bacteria Urine 1+ None Seen Hyaline Casts Urine 0-2 0-2 /LPF Glucose, Whole Blood Reviewed date:05/19/2023 12:35:38 PM Interpretation: Performing Lab:[facility], [address] [place] [phone] Notes/Report: Glucose, Whole Blood 211 60-115 mg/dL METER # : [id number] Glucose, Whole Blood Reviewed date:05/18/2023 07:50:47 PM Interpretation: Performing Lab:[facility], [address] [place] [phone] Notes/Report: Glucose, Whole Blood 141 60-115 mg/dL METER # : [id number] Glucose, Whole Blood Reviewed date:05/19/2023 12:35:27 PM Interpretation: Performing Lab:[facility], [address] [place] [phone] Notes/Report: Glucose, Whole Blood 205 60-115 mg/dL METER # : [id number] Basic Metabolic Panel Reviewed date:05/19/2023 12:41:14 PM Interpretation: Performing Lab:[facility], [address] [place] [phone] Notes/Report: Missed x2 Sodium 137 135-145 mmol/L Potassium 3.4 3.3-5.1 mmol/L Chloride 102 96-108 mmol/L Carbon Dioxide 27 22-29 mmol/L Anion Gap 11 12-20 Blood Urea Nitrogen 12 9-16 mg/dL Creatinine 0.84 0.5-1.4 mg/dL Creatinine Clr Calc Pharmacy 44.6 Provided height and weight: 152.4 cm, 56 kg. eGFR (calculated from the MDRD study equation) and eCrCl (calculated from the Cockcroft-Gault equation) are based on different parameters and may not yield comparable results. If eCrCl result is absurd, please check patient's height/weight. Estimated Glomerular Filt Rate > 60 NOTE: For -Jamaican individuals, multiply the result by 1.210. Chronic Kidney Disease: Estimated GFR < 60 mL/min/1.73m2 Severe Kidney Disease: Estimated GFR < 15 mL/min/1.73m2 Glucose Random 265 60-115 mg/dL Calcium 9.3 8.4-10.2 mg/dL Glucose, Whole Blood Reviewed date:05/19/2023 12:33:00 PM Interpretation: Performing Lab:[facility], [address] [place] [phone] Notes/Report: Glucose, Whole Blood 176 60-115 mg/dL METER # : [id number] Glucose, Whole Blood Reviewed date:05/19/2023 12:32:52 PM Interpretation: Performing Lab:[facility], [address] [place] [phone] Notes/Report: Glucose, Whole Blood 277 60-115 mg/dL METER # : [id number] Glucose, Whole Blood Reviewed date:05/19/2023 04:59:53 PM Interpretation: Performing Lab:[facility], [address] [place] [phone] Notes/Report: Glucose, Whole Blood 134 60-115 mg/dL METER # : [id number] XR chest 2V Reviewed date:06/04/2023 06:13:52 PM Interpretation: Performing Lab: Notes/Report: [address] [address] XRay Report Signed Patient: Angela Nam MR#: [id number] : 1945 Acct:[id number] Age/Sex: 78 / F ADM Date: 06/03/23 Loc: HO.DANIELAY Attending Dr: Rory Sandhu MD Ordering Physician: Rory Sandhu MD Date of Service: 06/03/23 Procedure(s): XR chest 2V Accession Number(s): [id number] cc: Rory Sandhu MD EXAMINATION: XR CHEST CLINICAL INFORMATION: Cough x1 week COMPARISON: Chest 03/29/2023 TECHNIQUE: 2 views of the chest were obtained. FINDINGS: No significant abnormality is noted involving the heart, lungs, mediastinum, bony thorax or soft tissues. XR/XR chest 2V IMPRESSION: Unremarkable chest examination. Dictated By: Randal Aguirre MD Signed By: <Electronically signed by Randal Aguirre MD in OV> 06/03/23 1452 DD/ 1352 TD/TT: Medical Support Specialist: MIKE Complete Blood Count Auto Di ff Reviewed date:06/11/2023 05:47:36 PM Interpretation: Performing Lab:[facility], [address] [place] [phone] Notes/Report: White Blood Count 10.0 4.8-10.8 X10*3/uL Red Blood Count 3.45 4.20-5.50 X10*6/uL Hemoglobin 10.4 12.0-16.0 g/dl Hematocrit 29.3 37.0-47.0 % Mean Corpuscular Volume 84.9 80.0-98.0 fL Mean Corpuscular Hemoglobin 30.1 27.0-33.0 pg Mean Corpuscular HGB Conc 35.5 31.0-35.0 g/dl Red Cell Distribution Width 15.0 11.0-16.0 % Platelet Count 261 160-400 X10*3/uL Mean Platelet Volume 10.2 9.4-12.3 fL Neutrophils Percent Auto 66.5 45-73 % Imm Gran Pct Auto 0.4 0.0-0.4 % Lymphocytes Percent Auto 24.3 20-40 % Monocytes Percent Auto 8.0 2-11 % Eosinophils Percent Auto 0.5 0-4 % Basophils Percent Auto 0.3 0-2 % NRBC Pct Auto 0.0 0.0-0.2 /100WBC Neutrophils Absolute Auto 6.7 2.0-8.3 x10*3/u L Imm Gran Abs Auto 0.04 0.00-0.03 X10*3/uL Lymphocytes Absolute Auto 2.4 1.2-4.9 X10*3/u L Monocytes Absolute Auto 0.8 0.1-1.2 X10*3/uL Eosinophils Absolute Auto 0.1 0.0-0.4 X10*3/u L Basophils Absolute Auto 0.0 0.0-0.2 X10*3/uL NRBC Abs Auto 0.000 0.0-0.012 X10*3/uL Comprehensive Met. Panel Reviewed date:06/11/2023 05:47:36 PM Interpretation: Performing Lab:[facility], [address] [place] [phone] Notes/Report: Sodium 141 135-145 mmol/L Potassium 3.6 3.3-5.1 mmol/L Chloride 101 96-108 mmol/L Carbon Dioxide 26 22-29 mmol/L Anion Gap 18 12-20 Blood Urea Nitrogen 14 9-16 mg/dL Creatinine 0.82 0.5-1.4 mg/dL Creatinine Clr Calc Pharmacy 41.9 Provided height and weight: 152.4 cm, 50.4 kg. eGFR (calculated from the MDRD study equation) and eCrCl (calculated from the Cockcroft-Gault equation) are based on different parameters and may not yield comparable results. If eCrCl result is absurd, please check patient's height/weight. Estimated Glomerular Filt Rate > 60 NOTE: For -Jamaican individuals, multiply the result by 1.210. Chronic Kidney Disease: Estimated GFR < 60 mL/min/1.73m2 Severe Kidney Disease: Estimated GFR < 15 mL/min/1.73m2 Glucose Random 202 60-115 mg/dL Calcium 8.6 8.4-10.2 mg/dL Bilirubin Total 1.7 0.0-1.0 mg/dL Aspartate Amino Transferase 53 5-31 U/L Alanine Aminotransferase 34 0-31 U/L Total Protein 6.8 6.5-8.0 g/dL Albumin Level 3.6 3.5-5.0 g/dL Alkaline Phosphatase 165 39-117 U/L Magnesium Reviewed date:06/11/2023 05:47:36 PM Interpretation: Performing Lab:[facility], [address] [place] [phone] Notes/Report: Magnesium < 0.6 1.6-2.6 mg/dL and read back by: ONUR Person calling: JAS Date: 06-09-26 Time:2156 B Type Natriuretic Peptide Reviewed date:06/11/2023 05:47:36 PM Interpretation: Performing Lab:[facility], [address] [place] [phone] Notes/Report: B Type Natriuretic Peptide 256 <100 pg/mL For those patients who are being treated with Natrecor (nesiritide, recombinant BNP), BNP testing should be performed at least two hours post treatment in order to ensure that only endogenous levels of BNP are detected. Lipase Reviewed date:06/11/2023 05:47:36 PM Interpretation: Performing Lab:[facility], [address] [place] [phone] Notes/Report: Lipase 126 8-78 U/L Glucose, Whole Blood Reviewed date:06/11/2023 05:47:36 PM Interpretation: Performing Lab:[facility], [address] [place] [phone] Notes/Report: Glucose, Whole Blood 175 60-115 mg/dL METER # : [id number] Urine Culture Reviewed date:06/12/2023 05:18:47 PM Interpretation: Performing Lab:[facility], [address] [place] [phone] Notes/Report: Urine Culture Report Result Urine Culture > 100,000 cfu/ml Urine Culture Mixed bacterial kathryn a characteristic of Urine Culture urogenital contamination. SARS-CoV2/FLU/RSV Reviewed date:06/11/2023 05:47:36 PM Interpretation: Performing Lab:[address] [phone] Notes/Report: Influenza A PCR NEGATIVE Negative Influenza B PCR NEGATIVE Negative Resp Syncy Virus RNA Qual PCR NEGATIVE Negative SARS COV2 PCR INHOUSE NEGATIVE Negative All test results must be correlated with clinical findings. Negative results do not preclude SARS-CoV2, influenza A virus, influenza B virus and/or RSV infection and should not be used as the sole basis for treatment or other patient management decisions. Negative results must be combined with clinical observations, patient history, and epidemiological information. This test has not been evaluated for monitoring treatment of infection. This test has been authorized by the FDA under an Emergency Use Authorization (EUA) for use by authorized laboratories. Testing performed on the [employer] GeneXpert utilizing real-time RT-PCR. All SARS CoV2 and positive influenza A/B results are reported to [facility]. UA ClnCatch+Micro w/rflx Cul t Reviewed date:06/11/2023 05:47:36 PM Interpretation: Performing Lab:[address] [phone] Notes/Report: [id number] Urine, Clean Catch Color Urine Yellow Appearance Urine Clear PH 6.0 5.0-9.0 Glucose Urine UA Negative Negative mg/dL Urine Blood Negative Negative Specific [place] - Urine 1.015 1.005-1.025 Urine Protein 30 (1+) Neg-Trace mg/dL Urine Ketones Negative Negative mg/dL Nitrite Urine Negative Negative Leukocyte Esterase Urine Moderate (2+) Negative RBC Urine 0-2 0-2 /HPF WBC Urine 21-50 0-5 /HPF Squamous Epithelial Cell Urine 3-5 0-2 /HPF Bacteria Urine None Seen None Seen Hyaline Casts Urine 0-2 0-2 /LPF CDiff Gene PCR Reviewed date:06/11/2023 05:47:36 PM Interpretation: Performing Lab:[address] [phone] Notes/Report: CDiff Gene PCR NEGATIVE Negative If C. difficile strongly suspected despite one negative test, a second test may be sent vs. empiric treatment for C. difficile infection. GI Panel Reviewed date:06/11/2023 05:47:36 PM Interpretation: Performing Lab:[address] [phone] Notes/Report: Campylobacter Not Detected Not Detect. Plesiomonas shigelloides Not Detected Not Detect. Salmonella Not Detected Not Detect. Vibrio Not Detected Not Detect. Vibrio Cholerae Not Detected Not Detect. Yersinia enterocolitica Not Detected Not Detect. E. coli EAEC Not Detected Not Detect. E. coli EPEC Not Detected Not Detect. E. coli ETEC Not Detected Not Detect. E. coli STEC Not Detected Not Detect. E. coli O157 Not applicable Not Detect. E. coli containing the O157 antigen are a subset of Shiga-like toxin-producing E. coli (STEC). Shigella sp./EIEC Not Detected Not Detect. Cryptosporidium Not Detected Not Detect. Cyclospora cayetanensis Not Detected Not Detect. Entamoeba histolytica Not Detected Not Detect. Giardia lamblia Not Detected Not Detect. Adenovirus F 40/41 Not Detected Not Detect. Astrovirus Not Detected Not Detect. Norovirus GI/GII Not Detected Not Detect. Rotavirus A Not Detected Not Detect. Sapovirus Not Detected Not Detect. All results must be correlated with clinical findings. Negative results do not exclude the possibility of gastrointestinal infection and should not be used as the sole basis for diagnosis, treatment, or other management decisions. Virus, bacteria, and parasite nucleic acid may persist in vivo independently of organism viability. Additionally, some organisms may be carried symptomatically. Detection of organism targets does not imply that the corresponding organisms are infectious or are the causative agents for clinical symptoms. There is a risk of false negative values due to the presence of sequence variants in the gene targets of the assay, amplification inhibitors in specimens, or inadequate numbers of organisms for amplification. The identification of several diarrheagenic E. coli pathotypes has historically relied upon phenotypic characteristics. This panel targets genetic determinants characteristic of most pathogenic strains, but may not detect all strains having phenotypic characteristics of a pathotype. The performance of this test has not been established for monitoring treatment of infection with any of the panel organisms. This assay is performed by Multiplexed PCR, utilizing the Chat[employer] Array. Complete Blood Count Auto Di ff Reviewed date:06/11/2023 05:47:36 PM Interpretation: Performing Lab:[facility], [address] [place] [phone] Notes/Report: White Blood Count 7.1 4.8-10.8 X10*3/uL Red Blood Count 2.87 4.20-5.50 X10*6/uL Hemoglobin 8.8 12.0-16.0 g/dl Hematocrit 23.8 37.0-47.0 % Mean Corpuscular Volume 82.9 80.0-98.0 fL Mean Corpuscular Hemoglobin 30.7 27.0-33.0 pg Mean Corpuscular HGB Conc 37.0 31.0-35.0 g/dl Red Cell Distribution Width 14.9 11.0-16.0 % Platelet Count 193 160-400 X10*3/uL Mean Platelet Volume 10.6 9.4-12.3 fL Neutrophils Percent Auto 59.3 45-73 % Imm Gran Pct Auto 0.3 0.0-0.4 % Lymphocytes Percent Auto 30.5 20-40 % Monocytes Percent Auto 9.1 2-11 % Eosinophils Percent Auto 0.4 0-4 % Basophils Percent Auto 0.4 0-2 % NRBC Pct Auto 0.0 0.0-0.2 /100WBC Neutrophils Absolute Auto 4.2 2.0-8.3 x10*3/u L Imm Gran Abs Auto 0.02 0.00-0.03 X10*3/uL Lymphocytes Absolute Auto 2.2 1.2-4.9 X10*3/u L Monocytes Absolute Auto 0.6 0.1-1.2 X10*3/uL Eosinophils Absolute Auto 0.0 0.0-0.4 X10*3/u L Basophils Absolute Auto 0.0 0.0-0.2 X10*3/uL NRBC Abs Auto 0.000 0.0-0.012 X10*3/uL Basic Metabolic Panel Reviewed date:06/11/2023 05:47:36 PM Interpretation: Performing Lab:[address] [phone] Notes/Report: Sodium 141 135-145 mmol/L Potassium 2.1 3.3-5.1 mmol/L Critical POTASSIUM sent by a secure message and confirmed by EMIGDIO 06/11/23 0538 Tech:ESA Chloride 102 96-108 mmol/L Carbon Dioxide 30 22-29 mmol/L Anion Gap 11 12-20 Blood Urea Nitrogen 12 9-16 mg/dL Creatinine 0.69 0.5-1.4 mg/dL Creatinine Clr Calc Pharmacy 49.8 Provided height and weight: 152.4 cm, 48 kg. eGFR (calculated from the MDRD study equation) and eCrCl (calculated from the Cockcroft-Gault equation) are based on different parameters and may not yield comparable results. If eCrCl result is absurd, please check patient's height/weight. Estimated Glomerular Filt Rate > 60 NOTE: For -Jamaican individuals, multiply the result by 1.210. Chronic Kidney Disease: Estimated GFR < 60 mL/min/1.73m2 Severe Kidney Disease: Estimated GFR < 15 mL/min/1.73m2 Glucose Random 186 60-115 mg/dL Calcium 7.7 8.4-10.2 mg/dL Magnesium Reviewed date:06/11/2023 05:47:36 PM Interpretation: Performing Lab:[address] [phone] Notes/Report: Magnesium 1.2 1.6-2.6 mg/dL Critical MAGNESIUM sent by a secure message and confirmed by EMIGDIO 06/11/23 0559 Tech:ESA Glucose, Whole Blood Reviewed date:06/11/2023 05:47:36 PM Interpretation: Performing Lab:[address], [place] [address] Notes/Report: Glucose, Whole Blood 153 60-115 mg/dL METER # : [id number] Glucose, Whole Blood Reviewed date:06/11/2023 05:47:36 PM Interpretation: Performing Lab:[facility], [address] [place] [phone] Notes/Report: Glucose, Whole Blood 179 60-115 mg/dL METER # : [id number] Basic Metabolic Panel Reviewed date:06/11/2023 05:47:36 PM Interpretation: Performing Lab:[facility], [address] [place] [phone] Notes/Report: Sodium 141 135-145 mmol/L Potassium 3.8 3.3-5.1 mmol/L Chloride 100 96-108 mmol/L Carbon Dioxide 32 22-29 mmol/L Anion Gap 13 12-20 Blood Urea Nitrogen 9 9-16 mg/dL Creatinine 0.75 0.5-1.4 mg/dL Creatinine Clr Calc Pharmacy 45.8 Provided height and weight: 152.4 cm, 48 kg. eGFR (calculated from the MDRD study equation) and eCrCl (calculated from the Cockcroft-Gault equation) are based on different parameters and may not yield comparable results. If eCrCl result is absurd, please check patient's height/weight. Estimated Glomerular Filt Rate > 60 NOTE: For -Jamaican individuals, multiply the result by 1.210. Chronic Kidney Disease: Estimated GFR < 60 mL/min/1.73m2 Severe Kidney Disease: Estimated GFR < 15 mL/min/1.73m2 Glucose Random 180 60-115 mg/dL Calcium 8.0 8.4-10.2 mg/dL Magnesium Reviewed date:06/11/2023 05:47:36 PM Interpretation: Performing Lab:[facility], [address] [place] [phone] Notes/Report: Magnesium 2.5 1.6-2.6 mg/dL Glucose, Whole Blood Reviewed date:06/11/2023 05:45:54 PM Interpretation: Performing Lab:[facility], [address] [place] [phone] Notes/Report: Glucose, Whole Blood 196 60-115 mg/dL METER # : [id number] Glucose, Whole Blood Reviewed date:06/12/2023 05:18:47 PM Interpretation: Performing Lab:[facility], [address] [place] [phone] Notes/Report: Glucose, Whole Blood 183 60-115 mg/dL METER # : [id number] Hold Lav - Possible Hematolo gy Reviewed date:06/12/2023 05:18:46 PM Interpretation: Performing Lab:[facility], [address] [place] [phone] Notes/Report: Hold Lav - Possible Hematology SEE NOTE Specimen will be held untested for 8 hours. Call Hematology if testing is desired. Liver Panel Reviewed date:06/12/2023 05:18:46 PM Interpretation: Performing Lab:[facility], [address] [place] [phone] Notes/Report: Bilirubin Total 1.6 0.0-1.0 mg/dL Bilirubin Direct 0.5 0.0-0.5 mg/dL Aspartate Amino Transferase 47 5-31 U/L Alanine Aminotransferase 27 0-31 U/L Total Protein 5.5 6.5-8.0 g/dL Albumin Level 2.9 3.5-5.0 g/dL Alkaline Phosphatase 155 39-117 U/L Basic Metabolic Panel Reviewed date:06/12/2023 05:18:46 PM Interpretation: Performing Lab:[facility], [address] [place] [phone] Notes/Report: Sodium 142 135-145 mmol/L Potassium 3.7 3.3-5.1 mmol/L Chloride 99 96-108 mmol/L Carbon Dioxide 34 22-29 mmol/L Anion Gap 13 12-20 Blood Urea Nitrogen 7 9-16 mg/dL Creatinine 0.72 0.5-1.4 mg/dL Creatinine Clr Calc Pharmacy 47.7 Provided height and weight: 152.4 cm, 48 kg. eGFR (calculated from the MDRD study equation) and eCrCl (calculated from the Cockcroft-Gault equation) are based on different parameters and may not yield comparable results. If eCrCl result is absurd, please check patient's height/weight. Estimated Glomerular Filt Rate > 60 NOTE: For -Jamaican individuals, multiply the result by 1.210. Chronic Kidney Disease: Estimated GFR < 60 mL/min/1.73m2 Severe Kidney Disease: Estimated GFR < 15 mL/min/1.73m2 Glucose Random 186 60-115 mg/dL Calcium 7.7 8.4-10.2 mg/dL Magnesium Reviewed date:06/12/2023 05:18:46 PM Interpretation: Performing Lab:[facility], [address] [place] [phone] Notes/Report: Magnesium 1.7 1.6-2.6 mg/dL Glucose, Whole Blood Reviewed date:06/12/2023 05:18:46 PM Interpretation: Performing Lab:[facility], [address] [place] [phone] Notes/Report: Glucose, Whole Blood 186 60-115 mg/dL METER # : [id number] CT abdomen pelvis wo con Reviewed date:06/12/2023 05:18:46 PM Interpretation: Performing Lab: Notes/Report: [address] [place] [address] CT Scan Report Signed Patient: Angela Nam MR#: [id number] : 1945 Acct:[id number] Age/Sex: 78 / F ADM Date: 06/10/23 Loc: .S3 350-[address]: Fabiola Lopez NP Ordering Physician: Fabiola Lopez NP Date of Service: 06/12/23 Procedure(s): CT abdomen pelvis wo IV con Accession Number(s): [id number] cc: Rory Sandhu MD; Fabiola Lopez NP EXAMINATION: CT ABDOMEN AND PELVIS WITHOUT CONTRAST CLINICAL INFORMATION: Diarrhea. COMPARISON: Multiple priors, most recent abdominal ultrasound dated 11/22/[address] abdomen/pelvis dated 10/06/2022. TECHNIQUE: Multidetector volumetric imaging was performed from the superior aspect of the liver through the pubic symphysis. Sagittal and coronal reformatted images were obtained on the technologist's workstation. This CT examination was performed using dose optimization techniques as appropriate, variously including the following: *Automated exposure control *Adjustment of mA and/or kV according to patient size (this includes techniques or standardized protocols for targeted exams where dose is matched to indication/reason for exam; i.e. extremities or head) *Use of iterative reconstruction technique DLP: 344 mGy-cm FINDINGS: LUNG BASES: Mild bibasilar atelectasis. Trace pericardial effusion, new when compared to the prior examination. LIVER, GALLBLADDER, AND BILIARY TREE: Hepatic hypoattenuation with diffuse nodular contour is redemonstrated, consistent with cirrhosis and increased in prominence when compared to the CT dated 10/06/2022. Gallbladder not seen. No intrahepatic or extrahepatic biliary ductal dilatation. PANCREAS: Unremarkable. SPLEEN: Unremarkable. ADRENAL GLANDS: Unremarkable. KIDNEYS AND URETERS: The kidneys are normal in size, shape, and attenuation. Left mid/upper pole stone measuring 0.3 cm and located 5.4 cm from the posterior axillary line. No additional renal or ureteral stone. No hydronephrosis or hydroureter. Nonspecific bilateral perinephric stranding, unchanged. BLADDER: Unremarkable. GASTROINTESTINAL TRACT: Sigmoid diverticulosis. Circumferential wall thickening of the sigmoid colon in the left lower quadrant extending proximally within the ascending colon. Findings are new when compared to the prior examination and consistent with acute colitis. No extraluminal air or fluid collection to suggest perforation or abscess formation. Unremarkable right ileocolic anastomosis. No small or large bowel obstruction. PERITONEAL CAVITY: No intra-abdominal free air or free fluid. ABDOMINAL WALL: No significant hernia is appreciated. LYMPH NODES: No significant lymphadenopathy. VASCULAR: No abdominal aortic dilatation. Scattered atherosclerotic calcifications. PELVIC VISCERA: The uterus and adnexa are unremarkable. OSSEOUS STRUCTURES: Unremarkable. CT/CT abdomen pelvis wo IV con IMPRESSION: 1. Circumferential wall thickening of the sigmoid colon extending proximally within the ascending colon. Findings are consistent with acute colitis. No evidence of perforation or abscess formation. Sigmoid diverticulosis. Unremarkable right ileocolic anastomosis. No small or large bowel obstruction. 2. Hepatic cirrhosis, increased when compared to the prior examination. No intrahepatic or extrahepatic biliary ductal dilatation. 3. Trace pericardial effusion, new when compared to the prior examination. 4. Additional chronic findings are unchanged. Fleischner guidelines were followed. Dictated By: Danial Garza MD Signed By: <Electronically signed by Danial Garza MD in OV> 06/12/23 1028 DD/ 0954 TD/TT: Medical Support Specialist: SR Glucose, Whole Blood Reviewed date:06/12/2023 05:18:46 PM Interpretation: Performing Lab:[facility], [address] [place] [phone] Notes/Report: Glucose, Whole Blood 259 60-115 mg/dL METER # : [id number] Glucose, Whole Blood Reviewed date:06/12/2023 05:18:46 PM Interpretation: Performing Lab:[facility], [address] [place] [phone] Notes/Report: Glucose, Whole Blood 173 60-115 mg/dL METER # : [id number] Glucose, Whole Blood Reviewed date:06/12/2023 05:18:46 PM Interpretation: Performing Lab:[facility], [address] [place] [phone] Notes/Report: Glucose, Whole Blood 255 60-115 mg/dL METER # : [id number] Glucose, Whole Blood Reviewed date:06/13/2023 12:27:54 PM Interpretation: Performing Lab:[facility], [address] [place] [phone] Notes/Report: Glucose, Whole Blood 255 60-115 mg/dL METER # : [id number] Complete Blood Count no Diff Reviewed date:06/13/2023 12:27:54 PM Interpretation: Performing Lab:[facility], [address] [place] [phone] Notes/Report: White Blood Count 6.6 4.8-10.8 X10*3/uL Red Blood Count 3.23 4.20-5.50 X10*6/uL Hemoglobin 9.9 12.0-16.0 g/dl Hematocrit 27.7 37.0-47.0 % Mean Corpuscular Volume 85.8 80.0-98.0 fL Mean Corpuscular Hemoglobin 30.7 27.0-33.0 pg Mean Corpuscular HGB Conc 35.7 31.0-35.0 g/dl Red Cell Distribution Width 15.1 11.0-16.0 % Platelet Count 210 160-400 X10*3/uL Mean Platelet Volume 10.6 9.4-12.3 fL NRBC Pct Auto 0.0 0.0-0.2 /100WBC NRBC Abs Auto 0.000 0.0-0.012 X10*3/uL Leukocytes Stool Qualitative Reviewed date:06/13/2023 12:27:54 PM Interpretation: Performing Lab:[address] [phone] Notes/Report: Leukocytes Stool Qualitative NEGATIVE NEGATIVE Basic Metabolic Panel Reviewed date:06/13/2023 12:27:54 PM Interpretation: Performing Lab:[facility], [address] [place] [phone] Notes/Report: Sodium 138 135-145 mmol/L Potassium 3.2 3.3-5.1 mmol/L Chloride 97 96-108 mmol/L Carbon Dioxide 32 22-29 mmol/L Anion Gap 12 12-20 Blood Urea Nitrogen 11 9-16 mg/dL Creatinine 0.81 0.5-1.4 mg/dL Creatinine Clr Calc Pharmacy 42.4 Provided height and weight: 152.4 cm, 48 kg. eGFR (calculated from the MDRD study equation) and eCrCl (calculated from the Cockcroft-Gault equation) are based on different parameters and may not yield comparable results. If eCrCl result is absurd, please check patient's height/weight. Estimated Glomerular Filt Rate > 60 NOTE: For -Jamaican individuals, multiply the result by 1.210. Chronic Kidney Disease: Estimated GFR < 60 mL/min/1.73m2 Severe Kidney Disease: Estimated GFR < 15 mL/min/1.73m2 Glucose Random 319 60-115 mg/dL Calcium 8.0 8.4-10.2 mg/dL C Reactive Protein Reviewed date:06/13/2023 12:27:54 PM Interpretation: Performing Lab:[facility], [address] [place] [phone] Notes/Report: C Reactive Protein 0.14 < or = 0.50 mg/dL Lipase Reviewed date:06/13/2023 12:27:54 PM Interpretation: Performing Lab:[address] [phone] Notes/Report: Lipase 39 8-78 U/L Vitamin B12 and Folate Reviewed date:06/13/2023 12:27:54 PM Interpretation: Performing Lab:[address] [place] [address] Notes/Report: Vitamin B12 236 200-900 pg/mL NORMAL 200-900 PG/ML INDETERMINATE 160-199 PG/ML DEFICIENT < 160 PG/ML Folate 7.7 > or = 4.0 ng/mL Reference Values: > or = 4.0 ng/mL < 4.0 ng/mL suggests folate deficiency Methotrexate, aminopterin and folinic acid (leucovorin) are chemotherapeutic agents whose molecular structures are similar to folate; therefore, the [facility] folate assay cannot be used for patients using these drugs. Vitamin D 25-OH Total Reviewed date:06/13/2023 12:27:54 PM Interpretation: Performing Lab:[address] [phone] Notes/Report: Vitamin D 25-OH Total 37.7 >30 ng/mL Health Based Reference Values* < 20 ng/mL Deficient 20-30 ng/mL Insufficient > 30 ng/mL Sufficient *Lela VAUGHN. N Engl J Med. 2007;357:266-280 Care must be taken in interpreting Vitamin D results from different laboratories and methodologies. Published data demonstrated that results from patients undergoing hemodialysis may show a negative bias when tested with various automated 25-OH vitamin D assays when compared to LC-MS/MS. When testing samples from patients whose predominant form of Vitamin D is Vitamin D2, such as patients receiving Vitamin D2 supplementation, results that are subtherapeutic should be confirmed with another method such as LC-MS/MS. [facility] Reviewed date:06/16/2023 12:56:34 PM Interpretation: Performing Lab:[facility], [address] [place] [phone] Notes/Report: [facility] SEE NOTE SEE SCANN ED RESULTS IN EMR Glucose, Whole Blood Reviewed date:06/13/2023 12:27:54 PM Interpretation: Performing Lab:[address] [phone] Notes/Report: Glucose, Whole Blood 197 60-115 mg/dL METER # : [id number] Pancreatic Elastase-1 Reviewed date:06/23/2023 12:04:29 PM Interpretation: Performing Lab:[address] [phone] Notes/Report: Pancreatic Elastase-1 498 Adult and Pediatric Reference Ranges for Pancreatic Elastase-1: Normal: >200 mcg/g Moderate Pancreatic Insufficiency: 100-200 mcg/g Severe Pancreatic Insufficiency: <100 mcg/g Elastase-1 (E-1) assay results are expressed in mcg/g, which represent mcg E1/g feces. It is not necessary to interrupt enzyme substitution therapy. THIS TEST WAS PERFORMED AT: [facility] [id number] [place] [phone] OLGA YA MD,PHD,PADDY Fecal Fat Qualitative Reviewed date:06/19/2023 01:29:50 PM Interpretation: Performing Lab:[facility], [address] [place] [phone] Notes/Report: Fecal Fat Qualitative Normal Normal THIS TEST WAS PERFORMED AT: [facility] [address] [address] BHAVNA ALEMAN MD,PHD Calprotectin, Fecal Reviewed date:06/19/2023 01:29:39 PM Interpretation: Performing Lab:[facility], [address] [place] [phone] Notes/Report: Calprotectin, Fecal 510 Reference Range: <50 Normal 50-120 Borderline >120 Elevated Calprotectin in Crohn's disease and ulcerative colitis can be five to several thousand times above the reference population (50 mcg/g or less). Levels are usually 50 mcg/g or less in healthy patients and with irritable bowel syndrome. Repeat testing in 4-6 weeks is suggested for borderline values. THIS TEST WAS PERFORMED AT: [facility] [id number] [place] [phone] OLGA YA MD,PHD,PADDY Glucose, Whole Blood Reviewed date:06/13/2023 12:27:54 PM Interpretation: Performing Lab:[facility], [address] [place] [phone] Notes/Report: Glucose, Whole Blood 306 60-115 mg/dL METER # : [id number] Glucose, finger stick Reviewed date:06/16/2023 09:48:28 AM Interpretation: Performing Lab: Notes/Report: Value 270 Glucose, finger stick Reviewed date:07/08/2023 10:40:14 AM Interpretation: Performing Lab: Notes/Report: Value 155 Magnesium Reviewed date:07/07/2023 02:28:58 PM Interpretation: Performing Lab:[facility], [address] [place] [phone] Notes/Report: Magnesium 1.3 1.6-2.6 mg/dL Critical value for MAGS: Results called to and read back by:ROMIE Varghese Person calling: MOE Date: 07/07/23 Time:1313 Corry Gomez Reviewed date:07/07/2023 12:42:32 PM Interpretation: Performing Lab:[facility], [address] [place] [phone] Notes/Report: Hold Gold See Note Specimen held untested for 24 hours; Call to request Chemistry testing. Hold Gold Reviewed date:07/14/2023 04:10:39 PM Interpretation: Performing Lab:[facility], [address] [place] [phone] Notes/Report: Hold Gold See Note Specimen held untested for 24 hours; Call to request Chemistry testing. Magnesium Reviewed date:07/14/2023 01:10:20 PM Interpretation: Performing Lab:[facility], [address] [place] [phone] Notes/Report: Magnesium 1.8 1.6-2.6 mg/dL Glucose, finger stick Reviewed date:09/02/2023 09:58:02 AM Interpretation: Performing Lab: Notes/Report: Value 324 Comprehensive Met. Panel Reviewed date:10/10/2023 12:25:33 PM Interpretation: Performing Lab:[facility], [address] [place] [phone] Notes/Report: Sodium 138 135-145 mmol/L Potassium 5.5 3.3-5.1 mmol/L Chloride 102 96-108 mmol/L Carbon Dioxide 28 22-29 mmol/L Anion Gap 14 12-20 Blood Urea Nitrogen 25 9-16 mg/dL Creatinine 1.13 0.5-1.4 mg/dL Estimated Glomerular Filt Rate 47 NOTE: For -[place] individuals, multiply the result by 1.210. Chronic Kidney Disease: Estimated GFR < 60 mL/min/1.73m2 Severe Kidney Disease: Estimated GFR < 15 mL/min/1.73m2 Glucose Random 198 60-115 mg/dL Calcium 9.6 8.4-10.2 mg/dL Bilirubin Total 0.7 0.0-1.0 mg/dL Aspartate Amino Transferase 25 5-31 U/L Alanine Aminotransferase 15 0-31 U/L Total Protein 7.2 6.5-8.0 g/dL Albumin Level 3.6 3.5-5.0 g/dL Alkaline Phosphatase 200 39-117 U/L Hold Gold Reviewed date:10/10/2023 12:15:45 PM Interpretation: Performing Lab:[facility], [address] [place] [phone] Notes/Report: Corry Gomez See Note Specimen held untested for 24 hours; Call to request Chemistry testing. Complete Blood Count Auto Di ff Reviewed date:10/10/2023 01:51:45 PM Interpretation: Performing Lab:[facility], [address] [place] [phone] Notes/Report: White Blood Count 11.4 4.8-10.8 X10*3/uL Red Blood Count 3.71 4.20-5.50 X10*6/uL Hemoglobin 10.8 12.0-16.0 g/dl Hematocrit 32.7 37.0-47.0 % Mean Corpuscular Volume 88.1 80.0-98.0 fL Mean Corpuscular Hemoglobin 29.1 27.0-33.0 pg Mean Corpuscular HGB Conc 33.0 31.0-35.0 g/dl Red Cell Distribution Width 12.3 11.0-16.0 % Platelet Count 283 160-400 X10*3/uL Mean Platelet Volume 9.8 9.4-12.3 fL Neutrophils Percent Auto 70.8 45-73 % Imm Gran Pct Auto 0.4 0.0-0.4 % Lymphocytes Percent Auto 18.8 20-40 % Monocytes Percent Auto 7.1 2-11 % Eosinophils Percent Auto 2.5 0-4 % Basophils Percent Auto 0.4 0-2 % NRBC Pct Auto 0.0 0.0-0.2 /100WBC Neutrophils Absolute Auto 8.1 2.0-8.3 x10*3/u L Imm Gran Abs Auto 0.04 0.00-0.03 X10*3/uL Lymphocytes Absolute Auto 2.2 1.2-4.9 X10*3/u L Monocytes Absolute Auto 0.8 0.1-1.2 X10*3/uL Eosinophils Absolute Auto 0.3 0.0-0.4 X10*3/u L Basophils Absolute Auto 0.0 0.0-0.2 X10*3/uL NRBC Abs Auto 0.000 0.0-0.012 X10*3/uL Magnesium Reviewed date:10/10/2023 12:15:37 PM Interpretation: Performing Lab:[facility], [address] [place] [phone] Notes/Report: Magnesium 1.9 1.6-2.6 mg/dL IRON PROFILE Reviewed date:10/10/2023 12:24:17 PM Interpretation: Performing Lab:[facility], [address] [place] [phone] Notes/Report: Iron 43 30-160 mcg/dL Total Iron Binding Capacity 326 228-428 mcg/dL Percent Iron Saturation 13 15-50 % Unsaturated Iron Binding 283 Lipid Panel Reviewed date:10/10/2023 12:18:36 PM Interpretation: Performing Lab:[facility], [address] [place] [phone] Notes/Report: Triglycerides 52 <150 mg/dL Desirable Triglyceride: less than 150 mg/dL Borderline High Triglyceride 150-199 mg/dL High Triglyceride: 200-499 mg/dL Very High Triglyceride: greater than or equal to 5OO mg/dL Cholesterol 107 <200 mg/dL Desirable Cholesterol: less than 200 mg/dL Borderline High Cholesterol: 200-239 mg/dL High Cholesterol: greater than 239 mg/dL LDL Cholesterol Calculated 35 <100 mg/dL Desirable LDL: less than 100 mg/dL Near Optimal/Above Optimal LDL: 110-129 mg/dL Borderline High LDL: 130-159 mg/dL High LDL: 160-189 mg/dL Very High LDL: greater than or equal to 190 mg/dL HDL Cholesterol 62 >40 mg/dL Desirable HDL: greater than 40 mg/dL Note: This HDL assay may give artificially low results in patients with liver disease. Vitamin D 25-OH Total Reviewed date:10/10/2023 12:17:18 PM Interpretation: Performing Lab:[facility], [address] [place] [phone] Notes/Report: Vitamin D 25-OH Total 19.7 >30 ng/mL Health Based Reference Values* < 20 ng/mL Deficient 20-30 ng/mL Insufficient > 30 ng/mL Sufficient *Lela VAUGHN. N Engl J Med. 2007;357:266-280 Care must be taken in interpreting Vitamin D results from different laboratories and methodologies. Published data demonstrated that results from patients undergoing hemodialysis may show a negative bias when tested with various automated 25-OH vitamin D assays when compared to LC-MS/MS. When testing samples from patients whose predominant form of Vitamin D is Vitamin D2, such as patients receiving Vitamin D2 supplementation, results that are subtherapeutic should be confirmed with another method such as LC-MS/MS. Microalbumin, Random Reviewed date:10/10/2023 12:25:00 PM Interpretation: Performing Lab:[facility], [address] [place] [phone] Notes/Report: Creatinine Urine 48.62 Microalbumin Urine 6.0 Microalbum/Creatinine Ratio Ur 12.3 <30 ug/mg cr Albumin/Creatinine Ratio Reference Ranges: Normal: < 30 ug/mg creatinine Microalbuminuria: 30 - 300 ug/mg creatinine Clinical Albuminuria: > 300 ug/mg creatinine Hemoglobin A1c Reviewed date:10/10/2023 12:15:54 PM Interpretation: Performing Lab:[facility], [address] [place] [phone] Notes/Report: Hemoglobin A1c % 9.4 <6.0 % Hemoglobin A1C Reference Range Adults: 4.8 - 6.0 % Non diabetic: < 6.0 % Goal: < 7.0 % Additional Action Suggested: > 8.0 % Note: Hemoglobin A1c results are invalid for patients with abnormal amounts of HbF. Blood transfusions may impact the HbA1c concentration in the patient sample. Estimated Average Glucose 223 eAG = Estimated average glucose which is %A1C expressed as average glucose, using the formula of the X6T-Pumexpr Average Glucose study (ADAG), Diabetes Care, Vol.31,#8, Nov. 2007 UA ClnCatch+Micro w/rflx Cul t Reviewed date:10/10/2023 12:28:38 PM Interpretation: Performing Lab:[facility], [address] [place] [phone] Notes/Report: Urine, Clean Catch Color Urine Yellow Appearance Urine Clear PH 8.0 5.0-9.0 Glucose Urine UA Negative Negative mg/dL Urine Blood Negative Negative Specific [place] - Urine 1.010 1.005-1.025 Urine Protein Negative Neg-Trace mg/dL Urine Ketones Negative Negative mg/dL Nitrite Urine Negative Negative Leukocyte Esterase Urine Trace Negative RBC Urine 0-2 0-2 /HPF WBC Urine 0-5 0-5 /HPF Squamous Epithelial Cell Urine 0-2 0-2 /HPF Bacteria Urine Trace None Seen Hyaline Casts Urine 0-2 0-2 /LPF Potassium Reviewed date:10/17/2023 04:47:55 PM Interpretation: Performing Lab:[facility], [address] [place] [phone] Notes/Report: Potassium 4.3 3.3-5.1 mmol/L MM tomosynthesis screening B I Reviewed date:11/20/2023 03:45:18 PM Interpretation: Performing Lab: Notes/Report: [facility] [address] [place] [address] Mammography Report Signed Patient: Angela Nam MR#: [id number] : 1945 Acct:[id number] Age/Sex: 78 / F ADM Date: 11/15/23 Loc: HO.MAMMO Attending Dr: Rory Sandhu MD Ordering Physician: Rory Sandhu MD Results: 1Ne gative Date of Service: 11/15/23 Follow Up: 1 Year From [facility] Mammogram Procedure(s): MM tomosynthesis screening BI Accession Number(s): [id number] cc: Rory Sandhu MD EXAMINATION: MM SCREENING DIGITAL BREAST TOMOSYNTHESIS, BILATERAL CLINICAL INFORMATION: Screening. Asymptomatic. COMPARISON: Mammography: This study is compared with prior exams dating back to 2019. TECHNIQUE: Digital breast tomosynthesis is performed in both the craniocaudal and mediolateral oblique views along with computer-aided detection (CAD). Synthesized 2D images are generated from the tomosynthesis. FINDINGS: The breasts are heterogeneously dense, which may obscure small masses (ACR BI-RADS breast composition Category c). There are no significant masses, abnormal calcifications, or other abnormalities. MM/MM tomosynthesis screening BI IMPRESSION: No mammographic evidence of malignancy. ASSESSMENT: BI-RADS BI-RADS 1 - Negative RECOMMENDATION: Routine annual mammography screening. 1 year F/U This examination should not preclude the clinical evaluation of a suspicious palpable abnormality. This patient's information was entered into a reminder system with a target due date for their next mammogram. Dictated By: Jaquelin Redmond MD Signed By: <Electronically signed by Jaquelin Redmond MD in OV> 11/15/23 1120 DD/ 9 TD/TT: Medical Support Specialist: Glucose, Whole Blood Reviewed date:02/22/2024 04:14:02 PM Interpretation: Performing Lab:[facility], [address] [place] [phone] Notes/Report: Glucose, Whole Blood 252 60-115 mg/dL METER #: [id number] Testing performed in the [facility]ocrin[facility] , [address], [facility]. REASON FOR REFERRAL No Information MEDICATIONS Medication SIG (Take, Route, Frequency, Duration) Notes Start Date End Date Status Vitamin D3 1000 UNIT 1 tablet Orally Onc e a day 03/31/2018 Active Iron 325 (65 Fe) MG 1 tablet Orally Once a day Active Atorvastatin Calcium 80 MG 0.5tablet Orally Once a day Active metFORMIN HCl ER 500 MG TAKE 2 TABLETS B Y MOUTH 2 TIMES EVERY DAY 90 Active Tresiba FlexTouch 200 UNIT/ML as directed Subcutaneous 10 units daily 06/16/2023 Active Lisinopril 10 MG 1 tablet Orally Once a day Active Trulicity 1.5 MG/0.5ML as directed Subcutaneous once a week Active Ketoconazole 2 % 1 application Externally Once a day for 14 day(s) Active BD Pen Needle Micro U/F 32G X 6 MM DIRECTED SUBCUTANEOUSLY DAILY 30 DAYS for 30 Active Aspir-Low 81 MG 1 tablet Orally Once a day for 30 day(s) Active Omeprazole 20 MG TAKE 1 CAPSULE BY [facility] EVERY DAY for 90 Active Ursodiol 300 MG 1 capsule Orally Twi ce a day for 30 day(s) Active Magnesium Oxide -Mg Supplement 400 (240 Mg) MG TAKE 3 TABLETS BY MOUTH DAILY WITH FOOD for 30 Active Ammonium Lactate 12 % 1 application to affected area Externally Twice a day for 90 days 10/01/2015 Active Clotrimazole 1 % APPLY TOPICALLY TO T HE AFFECTED AREA TWICE A DAY FOR 90 DAYS for 90 Active FreeStyle Lite Test - USE TO TEST BLOOD SUGAR DAILY (E11.9) twice a day for 90 days Active Culturelle - as directed Orally Not-Taking dilTIAZem HCl ER 120 MG 1 capsule Orally Once a day Not-Taking Metoprolol Tartrate 50 MG 0.5 tablet wit h food Orally Twice a day Not-Taking Colchicine 0.6 MG 1 tablet Orally Not-Taking Cyclobenzaprine HCl 5 MG 1 tablet as nee ded Orally Three times a day for 7 days 08/15/2017 Not-Taking glipiZIDE 5 MG 1 tablet 30 minutes before breakfast Orally Once a day Active Diflucan 150 MG 1 tablet Orally iron y for 10 days 09/02/2023 Active Ibuprofen 800 MG TAKE 1 TABLET BY SHARLENE TWICE A DAY WITH FOOD OR MILK NEEDED FOR 30 DAYS for 30 Active Mobic 7.5 MG 1 tablet Orally Once a day Not-Taking Colchicine 0.6 MG 1 tablet Orally for 30 day(s) Not-Taking IMMUNIZATIONS Vaccine Route Administration Date Status Comme nts PPSV23 (Pnemovax) Unknown 05/26/2005 Administered Flu Vaccine IM Intramuscular 01/04/2011 Administered Flu Vaccine Unknown 02/03/2012 Administered Prevnar 13 IM Intramuscular 03/06/2012 Administered Flu Vaccine Unknown 01/04/2013 Administered Shingles IM Intramuscular 01/04/2013 Administered zzz Unknown 03/06/2012 Administered Fluarix Quadrivalent IM Intramuscular 12/27/2013 Administe red Fluarix Quadrivalent IM Intramuscular 12/26/2014 Administe red PPSV23 (Pnemovax) IM Intramuscular 10/01/2015 Administered Fluarix Quadrivalent IM Intramuscular 01/02/2016 Administe red Fluarix Quadrivalent IM Intramuscular 12/21/2016 Administe red TDaP Unknown 03/22/2017 Administered pt was given the vaccine [facility] Fluarix Quadrivalent IM Intramuscular 12/27/2017 Administe red Shingrix IM Intramuscular 06/21/2018 Administered pt was given the vaccine at [facility] on [address], [place] Shingrix Unknown 09/18/2018 Administered [facility] Influenza High Dose IM Intramuscular 02/06/2019 Administer ed Influenza High Dose IM Intramuscular 12/21/2019 Administer ed Covid Vaccine Unknown 06/13/2020 Administered Pfizer [facility] Covid Vaccine Unknown 07/05/2020 Administered Pfizer [facility] Influenza High Dose IM Intramuscular 01/06/2021 Administer ed PPSV23 (Pnemovax) IM Intramuscular 02/13/2021 Administered SARS-COV-2 Pfizer Unknown 03/12/2021 Administered Influenza High Dose IM Intramuscular 01/07/2022 Administer ed Influenza High Dose IM Intramuscular 01/07/2023 Administer ed RSV Unknown 04/25/2023 Administered [facility] Influenza High Dose IM Intramuscular 02/03/2024 Administer ed PPSV23 (Pnemovax) Unknown 02/20/2024 Administered [facility] Flu Vaccine Unknown 12/27/2013 Pending SOCIAL HISTORY Tobacco Use: Social History Observation Description Date Details (start date - stop date) Never Smoker NA - NA Sex Assigned At : Social History Observation Description Sex Assigned At Unknown Tobacco Use/Smoking Question Answer Notes Patient is a nonsmoker Additional Findings: Tobacco Non-User Cu rrent non-smoker, currently using no form of tobacco Alcohol Screen Question Answer Notes Did you have a drink containing alcohol in the p ast year? No Points 0 Interpretation Negative PROBLEMS Problem Type ICD Code Onset Dates Problem Status W/U Status Risk SNOMED Code Notes Problem Mitral valve disorde r (424.0) Active confirmed 41315257 Problem Vitamin D deficiency (E55.9) Active confirmed 19578545 Problem Asthmatic bronchitis (J45.909) Active confirmed Asthmatic bronchitis (518366815) Problem Malignant neoplasm o f ascending colon (C18.2) Active confirmed 020900819 Problem Hypomagnesemia (E83.42) Active confirmed Hypomagnesemia (448026928) Problem Hypercalcemia (E83.52) Active confirmed Hypercalcemia (09384702) Problem Supraventricular tachycardia (I47.1) Active confirmed 1334035 Problem Other specified menopausal and perimenopausal disorders (N95.8) Active confirmed 746359344 Problem Type 2 diabetes mellitus without complication (E11.9) Active confirmed 81600730 Problem Abnormal LFTs (R79.89) Active confirmed 972102570 Problem Lung nodule (R91.1) Active confirmed 30 1519390 Problem Labile hypertension (I10) Active confirmed 474209506 Problem SVT (supraventricula r tachycardia) (I47.1) Active confirmed 6996259 Problem Anemia, unspecified type (D64.9) Active confirmed 873702886 Problem Sarcoidosis (D86.9) Active confirmed 31 389718 Problem Iron deficiency anemia, unspecified iron deficiency anemia type (D50.9) Active confirmed 64010241 Problem Pure hypercholesterolemia (E78.00) Active confirmed 466250663 Problem Bunion of great toe of left foot (M21.612) Active confirmed 611304246 Problem NSTEMI (non-ST elevated myocardial infarction) (I21.4) Active confirmed 72811714 Problem 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) Active confirmed 67599780 VITAL SIGNS Blood pressure diastolic 60 mm Hg 10/17/2023 Height 59.50 in 01/20/2024 Blood pressure systolic 132 mm Hg 10/17/2023 Weight 123 lbs 01/20/2024 BMI 24.42 kg/m2 01/20/2024 Encounters Encounter Location Date Provider Diagnosis Rory Sandhu MD [address] [place] [address] [id number] 10/17/2023 Rory Sandhu NSTEMI (non-ST eleva martir myocardial infarction) I21.4 ; Acute hyperkalemia E87.5 ; Vitamin D deficiency E55.9 ; Type 2 diabetes mellitus without complication E11.9 ; Pure hypercholesterolemia E78.00 ; Anemia, unspecified type D64.9 ; Labile hypertension I10 ; Encounter for screening for malignant neoplasm of colon Z12.11 and Encounter for screening for depression Z13.31 Rory Sandhu MD [address] [place] [address] Drive [address] [place] [address] [id number] 10/10/2023 Rory Sandhu Type 2 diabetes franci itus without complication E11.9 ; Abnormal LFTs R79.89 ; Anemia, unspecified type D64.9 ; Pure hypercholesterolemia E78.00 ; Labile hypertension I10 ; Hypercalcemia E83.52 and Hypomagnesemia E83.42 Rory Sandhu MD [address] [place] [address] [id number] 07/07/2023 Rory Sandhu Hypomagnesemia E83.4 2 Rory Sandhu MD [address] [place] [address] Drive [address] [place] [address] [id number] 07/14/2023 Rory Sandhu Hypomagnesemia E83.4 2 Rory Sandhu MD [address] [place] [address] [id number] 02/03/2024 Rory Sandhu Encounter for immuni zation Z23 Rory Sandhu MD [address] [place] [address] [id number] 03/13/2024 Rory Sandhu Pure hypercholestero lemia E78.00 and Type 2 diabetes mellitus without complication E11.9 Rory Sandhu MD [address] [place] [address] [id number] 04/29/2023 Rory Sandhu Type 2 diabetes franci itus without complication E11.9 ; Primary biliary cholangitis K74.3 and RSV infection B33.8 Rory Sandhu MD [address] [place] [address] [id number] 06/16/2023 Rory Sandhu Type 2 diabetes franci itus without complication E11.9 ; Chronic diarrhea K52.9 ; Low magnesium level R79.0 and Acute hypokalemia E87.6 Rory Sandhu MD [address] [place] [address] [id number] 07/01/2023 Rory Sandhu Type 2 diabetes franci itus without complication E11.9 and Chronic diarrhea K52.9 Rory Sandhu MD [address] [place] [address] [id number] 09/02/2023 Rory Sandhu Type 2 diabetes franci itus without complication E11.9 and Tinea corporis B35.4 Rory Sandhu MD [address] [place] [address] [id number] 01/20/2024 Rory Sandhu Type 2 diabetes franci itus without complication E11.9 ; Fungal infection B49 and Arthralgia of multiple joints M25.50 Rory Sandhu MD [address] [place] [address] [id number] 06/03/2023 Rory Sandhu Type 2 diabetes franci itus without complication E11.9 ; Respiratory infection J98.8 and Chronic diarrhea K52.9 Rory Sandhu MD [address] [place] [address] [id number] 03/29/2023 Rory Sandhu MD [address] [place] [address] [id number] 04/14/2023 Rory Sandhu MD [address] [place] [address] [id number] 05/19/2023 Rory Sandhu MD [address] [place] [address] [id number] 06/06/2023 Rory Sandhu MD [address] [place] [address] [id number] 06/09/2023 Rory Sandhu MD [address] [place] [address] [id number] 06/16/2023 Rory Sandhu MD [address] [place] [address] [id number] 07/07/2023 Rory Sandhu MD [address] [place] [address] [id number] 07/08/2023 Rory Sandhu MD [address] [place] [address] [id number] 08/25/2023 Rory Sandhu MD [address] [place] [address] [id number] 08/30/2023 Rory Sandhu MD [address] [place] [address] [id number] 09/08/2023 Rory Sandhu MD [address] [place] [address] [id number] 03/29/2023 Rory Sandhu Bronchitis J40 Rory Sandhu MD [address] [place] [address] [id number] 04/14/2023 Rory Sandhu Chronic diarrhea K52 .9 ASSESSMENTS Encounter Date Diagnosis Assessment Notes Treatment Notes Treatment Clinical Notes 10/17/2023 NSTEMI (non-ST eleva martir myocardial infarction) (ICD-10 - I21.4) doing well with no pains, will continue to monitor 10/17/2023 Acute hyperkalemia (ICD-10 - E87.5) will continue to monitor, pending labs 10/10/2023 Type 2 diabetes mellitus without complication (ICD-10 - E11.9) 10/10/2023 Abnormal LFTs (ICD-1 0 - R79.89) 07/07/2023 Hypomagnesemia (ICD- 10 - E83.42) 07/14/2023 Hypomagnesemia (ICD- 10 - E83.42) 02/03/2024 Encounter for immunization (ICD-10 - Z23) 03/13/2024 Pure hypercholesterolemia (ICD-10 - E78.00) 04/29/2023 Type 2 diabetes mellitus without complication (ICD-10 - E11.9) was seen at endocrine in [facility] and was 7.1, will continue current regiment 04/29/2023 Primary biliary cholangitis (ICD-10 - K74.3) had a lot of diarrhia but is getting better 06/16/2023 Type 2 diabetes mellitus without complication (ICD-10 - E11.9) patient and caregiver verbalizedunderstanding of medications and directions for use. 06/16/2023 Chronic diarrhea (ICD-10 - K52.9) need discharge summary from last week/ suggested going on insulin so we can stop the metformin 07/01/2023 Type 2 diabetes mellitus without complication (ICD-10 - E11.9) stable, will continue current regiment 09/02/2023 Tinea corporis (ICD- 10 - B35.4) hold statin when on diflucan, patient verbalized understanding of medication and directions for use. 09/02/2023 Type 2 diabetes mellitus without complication (ICD-10 - E11.9) sugar high today but had cake this morning, will continue current regiment 01/20/2024 Fungal infection (ICD-10 - B49) cntinue current regiment 01/20/2024 Type 2 diabetes mellitus without complication (ICD-10 - E11.9) sugars have been doing well. had an increase in insulin recently, will continue current regiment 06/03/2023 Type 2 diabetes mellitus without complication (ICD-10 - E11.9) THE ORDER WAS PRINTED AND GIVEN TO PATIENT 06/03/2023 Respiratory infectio n (ICD-10 - J98.8) PA/LAT chest xray ordered, pending results 03/29/2023 Bronchitis (ICD-10 - J40) order faxed to Patient reg Patient/Caregiver verbalizes understanding of medications side effects, interactions and warnings. Patient/Caregiver verbalizes understanding of medications side effects, interactions and warnings.pending labs 04/14/2023 Chronic diarrhea (ICD-10 - K52.9) lab order faxed to [facility] patient reg, pending labs 10/17/2023 Vitamin D deficiency (ICD-10 - E55.9) takes one pill so will increase to 2 10/10/2023 Anemia, unspecified type (ICD-10 - D64.9) 03/13/2024 Type 2 diabetes mellitus without complication (ICD-10 - E11.9) 04/29/2023 RSV infection (ICD-1 0 - B33.8) is finally getting better 06/16/2023 Low magnesium level (ICD-10 - R79.0) will recheck today, pending labs 07/01/2023 Chronic diarrhea (ICD-10 - K52.9) has resolved with decreasing her metformin 01/20/2024 Arthralgia of multip le joints (ICD-10 - M25.50) patient verbalized understanding of medication and directions for use 06/03/2023 Chronic diarrhea (ICD-10 - K52.9) will continue to monitor 10/17/2023 Type 2 diabetes mellitus without complication (ICD-10 - E11.9) is being seen at [facility] and just started on glipizide 10/10/2023 Pure hypercholesterolemia (ICD-10 - E78.00) 06/16/2023 Acute hypokalemia (ICD-10 - E87.6) is being rechecked today, pending labs 10/17/2023 Pure hypercholesterolemia (ICD-10 - E78.00) sta 10/10/2023 Labile hypertension (ICD-10 - I10) 10/17/2023 Anemia, unspecified type (ICD-10 - D64.9) 10/10/2023 Hypercalcemia (ICD-1 0 - E83.52) 10/17/2023 Labile hypertension (ICD-10 - I10) 10/10/2023 Hypomagnesemia (ICD- 10 - E83.42) 10/17/2023 Encounter for screen ing for malignant neoplasm of colon (ICD-10 - Z12.11) 10/17/2023 Encounter for screen ing for depression (ICD-10 - Z13.31) PLAN OF TREATMENT Pending Test Test Name Order Date Electrocardiogram (EKG) 03/02/2011 IRON + IBC (FE) 03/08/2017 NUC WHOLE BODY SCAN BONE 10/08/2022 XR CHEST 2 VIEW PA & LAT 06/03/2023 XR CHEST 2 VIEW PA & LAT 02/02/2011 XR CHEST 2 VIEW PA & LAT 03/29/2023 XR HIP RT 12/25/2013 US ABD 11/15/2022 Liver Panel 03/13/2024 Glucose Fasting 03/13/2024 Lipid Panel with Reflex 03/13/2024 CT chest wo con 09/04/2021 US abdomen complete 09/24/2021 Hemoglobin A1c 03/13/2024 Next Appt Details Provider Name:Rory Arzola ier, 04/20/2024 10:30:00 AM, [address], [address], [place], [place], [phone], Provider Name:Rory Arzola ier, 10/09/2024 08:15:00 AM, [address] [place] [address] Drive, [address], [place], [place], [phone], Provider Name:Rory Arzola ier, 10/19/2024 11:00:00 AM, [address], [address], [place], [place], [phone], Insurance Providers Payer Name Payer Address Payer Phone Subscriber Number Group Number Insured Name Patient Relationship to Insured Coverage Start Date Coverage End Date [employer] [address] [place] [address] [id number] Angela Nam Self - patient is the insured MED[employer] OF [facility] [address] [place] [address] [id number] Angela Nam Self - patient is the insured MEDICAL (GENERAL) HISTORY Medical History History ICD Code colonoscopy 08/02/12 - repeat in 1 to 2 years; colonoscopy 11/08/14 w/Dr. Oliver (repeat 3 yrs) - Colonoscopy & Esophagogastroscopy 10/31/17 Dr. Oliver - repeat 3 years; colonoscopy done 10/31/[address] Oliver (repeat 3 years); Colonoscopy and Endo done 09/17/19 - Dr. Oliver - repeat 3 years stress test neg 2013 Echo 09/2013 - repeat 1 year was done 09/09 5; stress/echo done 05/2018 upper and lower endoscopy 09/17/19 tubula r adenoma. repeat 3 years needs diabetic shoes for bone spur on to p of foot and bunion
== END 2024-03-14 15:02 | disposition home or self-care (01) ==
PROVIDERS: PCP Internal Medicine; Visit Provider Registered Nurse
DX: S46.912A Strain of unspecified muscle, fascia and tendon at shoulder and upper arm level, left arm, initial encounter (principal)

== ENCOUNTER → 2024-03-14 13:00 | Outpatient (BNVA) | payer MEDICARE, SELFPAY | PROVIDERS: PCP Internal Medicine; Visit Provider Registered Nurse | DX: S46.912A Strain of unspecified muscle, fascia and tendon at shoulder and upper arm level, left arm, initial encounter (principal) | CPT/HCPCS: 99212 ==

== ENCOUNTER → 2024-03-26 12:50 | Outpatient (BNVA) | payer MEDICARE, SELFPAY | PROVIDERS: PCP Internal Medicine; Visit Provider Registered Nurse Diabetes Educator | DX: E11.9 Type 2 diabetes mellitus without complications (principal) | CPT/HCPCS: 99211 ==

== ENCOUNTER → 2024-03-26 12:50 | Outpatient (AMB) | payer MEDICARE, SELFPAY ==
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
== END ==
PROVIDERS: PCP Internal Medicine; Visit Provider Registered Nurse Diabetes Educator
DX: E11.9 Type 2 diabetes mellitus without complications (principal)

== ENCOUNTER 2024-04-06 09:32 | Outpatient (REF) | payer MEDICARE, SELFPAY ==
--- OUTSIDE RECORDS SUMMARY | 2024-04-06 09:49 | XMS_ITS ---
Author Organization [facility] Karlo dalila Totz Address [address] [place] [address] Care Team Providers Care Director Export Name Role Phone Edson URIBE, Rory Primary Care Provider Yohana Carmen Unavailable [phone] Galdino Edge Unavailable [phone] Allergies Allergen (clinical drug ingredient) Drug/Non Drug [...] 024 Encounters Encounter Location Date Provider Diagnosis [facility] [address] [place] [address] 09/29/2023 Galdino Edge Pain in right toe(s) [...] Up: 3 Months, Reason: Provider Name:Yohana carr, 08/01/2024 04:00:00 PM, [address] [place] [address], [phone], Procedure Notes * Category Sub-Category Detail Notes Keratoma Treatment Parring or Cutting o f Benign Hyperkeratotic Lesion(s) 06684 ( >4 Lesions) - The Benign hyperkeratotic [...] as necessary. Patient chooses, no pharmaceutical tx (64990) Nail Reduction Nail Reduction Trimming of dyst rophic nails performed to reduce/remove overall nail length and girth, by manual and electrical means with use of a nail nipper and/or dremel, to more viable healthy nail plate or bed tissue 6-10 (G0127) Progress Notes * Chepe TEEOB: [birth year] (78 yo F)Acc No.[id number]:09/29/2023 Progress Note Patient:?Niziol, Angela Provider:?Galdino Edge DPM :1945???Age:78 Y???Sex:Female D ate:09/29/2023 Address: [address] , [id number] Pcp:Rory Sandhu MD Subjective: * Chief Complaints: [...] ?no Exercise. ?Marital status: . 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 * Medications:?TakingExtra Dep th Diabetic Shoes with [...] as necessary. Patient chooses, no pharmaceutical tx (33417).?Keratoma Treatment:?Parring or Cutting of Benign Hyperkeratotic Lesion(s)?02915 ( >4 Lesions) - The Benign hyperkeratotic lesions, as described above were pared, and/or cut utilizing a sterile #15 blade, tissue nippers, and/or dremel.?Nail Reduction:?Nail Reduction?Trimming of dystrophic nails performed to reduce/remove overall nail length and girth, by manual and electrical means with use of a nail nipper and/or dremel, to more viable healthy nail plate or bed tissue 6-10 (G0127).? * Procedure Codes:?84127 DEBRI DE NAIL, 1-5, Modifiers: XS 65233 TRIM SKIN LESIONS, OVER 4, Modifiers: XS G0127 TRIMMING DYSTROPHIC NAILS ANY #, Modifiers: XS * Follow Up:?3 Months * Images: * Sign off status: Completed true * Provider:?Galdino Edge DPM Date:? 024 Generated for Trudy castillo/Mendez/Nilton on:?04/06/2024 09:49 AM EST History and Physical Notes * HPI [...] little retinopothy in left eye Vascular DP PULSES (B): 1/4, B/L PT PULSES (B): 2/4, B/L CAPILLARY FILL TIME: 3 secs. per digit, B/L TEMPERTURE GRADIENT (C): warm to cool, p roximal to distal, B/L TROPHIC CONDITION-TEXTURE/ELASTICITY/TURGOR/HAIR GROWTH (B): normal, B/L EDEMA (C): 1/4, Right, Ankle(s) TELANGECTASIA: absent VARICOSITIES: absent [...]
--- OUTSIDE RECORDS SUMMARY | 2024-04-06 09:49 | XMS_ITS | Patient Health Record ---
Author Organization [facility] Karlamarcus conner [place] Address [address] [place] [address] Care Team Providers Care Library Technology Instructor Name Role Phone Edson URIBE, Rory Primary Care Provider Yohana Carmen Unavailable [phone] Galdino Edge Unavailable [phone] Allergies Allergen (clinical drug ingredient) Drug/Non Drug Allergy documented on EMR Reaction Allergy Type Onset Date Status codeine Codeine Unknown Drug Allergy Active Results Component Value Reference Range Notes HEMOGLOBIN A1C (GLYCOHEMOGLO BIN) Reviewed date:06/30/2023 11:32:29 AM Interpretation: Performing Lab: Notes/Report: HEMOGLOBIN A1C % (HH) 7.5 HEMOGLOBIN A1C (GLYCOHEMOGLO BIN) Reviewed date:09/29/2023 09:18:43 AM Interpretation: Performing Lab: Notes/Report: HEMOGLOBIN A1C % (HH) 7.0 HEMOGLOBIN A1C (GLYCOHEMOGLO BIN) Reviewed date:04/02/2024 03:00:29 PM Interpretation: Performing Lab: Notes/Report: TOTAL HEMOGLOBIN (HGBA1C) 9.5 Reason For Referral No Information Medications Medication SIG (Take, Route, Frequency, Duration) Notes Start Date End Date Status Extra Depth Diabetic Shoes with 3 Pair Custom heat-molded multi-density innersoles for 1 year Dx: Active Extra Depth Diabetic Shoes with 3 Pair Custom heat-molded multi-density innersoles for 1 year Dx: 03/03/2020 Not-Taking Januvia 100 MG 1 tablet Orally Once a day for 30 day(s) Not-Taking Extra Depth Diabetic Shoes with 3 Pair Custom heat-molded multi-density innersoles for 1 year Dx: 03/09/2021 Not-Taking Metoprolol Tartrate 50 MG as directed Orally Not-Takin g Atorvastatin Calcium Active Aspirin 81 MG as directed Orally Active glipiZIDE 10 MG as directed Orally O nce a day Not-Taking Tresiba 10 units Active Ursodiol 300 MG 1 capsule Orally Twi ce a day Active glyBURIDE 5 MG Not-T aking januvia Not-Taking Xarelto 20 MG 1 tablet Orally Not-Taking Extra Depth Diabetic Shoes with 3 Pair Custom heat-molded multi-density innersoles for 1 year Dx: 02/26/2019 Not-Taking metFORMIN HCl 500 MG Active Omeprazole 20 MG Act melani iron Active Lisinopril 20 MG 1 tablet Orally Active Extra Depth Orthopedic Shoes (1 Pair) with Customized Heat Molded Multidensity Innersoles (3 Pair) as directed Dx: NIDDM/Polyneuropathy (E11.42), Hammertoe Foot Deformity (M20.41,M20.42), Preulcerative Skin Lesion(s) (L85.1 04/02/2024 Active Doxycycline Monohydrate 100 MG 1 capsule Orally Once a day Not-Taking dilTIAZem HCl 120 MG as directed Orally Not-Taking Colchicine 0.6 MG 1 tablet Orally Not-Taking levoFLOXacin 500 MG 1 tablet Orally Once a day Not-Taking Trulicity Active Vitamin D Active Immunizations Vaccine Route Administration Date Status Comme [...] Problem Status W/U Status Risk Notes Problem Acquired hammer toe of right foot (2406925748235206 ) Other hammer toe(s) (acquired), right foot (M20.41) Active confirmed Problem Acquired hammer toe of left foot (7726232230674258 ) Other hammer toe(s) (acquired), left foot (M20.42) Active confirmed Problem Polyneuropathy due to diabetes mellitus type I (802282462) Type 1 diabetes mellitus with diabetic polyneuropathy (E10.42) Active confirmed Problem Localized, primary osteoarthritis of the ankle and/or foot (570616485) Primary osteoarthritis, left ankle and foot (M19.072) Active confirmed Problem Polyneuropathy due to type 2 diabetes mellitus (655846977) Type 2 diabetes mellitus with diabetic polyneuropathy (E11.42) Active confirmed Vital Signs Blood pressure diastolic 80 mm Hg 04/02/2024 Height 5ft in 04/02/2024 Blood pressure systolic 128 mm Hg 04/02/2024 Weight 120 lbs 04/02/2024 BMI 23.43 kg/m2 04/02/2024 Procedures Procedure Date Ordered Date Performed Result Body Sit e 50301-POUQRCP NAIL, 6 OR MORE 04/02/2024 N/A 28524-FJWE SKIN LESIONS, OVER 4 04/02/2024 N/A Encounters Encounter Location Date Provider Diagnosis [address] [address] 06/30/2023 Galdino Edge Pain in right toe(s) M79.674 ; Tinea unguium B35.1 ; Type 2 diabetes mellitus with diabetic polyneuropathy E11.42 ; Pain in left toe(s) M79.675 ; Plantar fascial fibromatosis M72.2 ; Other viral warts B07.8 ; Pain in left foot M79.672 ; Pain in right foot M79.671 ; Metatarsalgia, left foot M77.42 and Xerosis cutis L85.[facility] [address] 09/29/2023 Galdino Edge Pain in right toe(s) M79.674 ; Tinea unguium B35.1 ; Type 2 diabetes mellitus with diabetic polyneuropathy E11.42 ; Pain in left toe(s) M79.675 ; Plantar fascial fibromatosis M72.2 ; Other viral warts B07.8 ; Pain in left foot M79.672 ; Pain in right foot M79.671 ; Metatarsalgia, left foot M77.42 and Xerosis cutis L85.[address] [address] 12/29/2023 Galdino Edge Pain in right toe(s) M79.674 ; Tinea unguium B35.1 ; Type 2 diabetes mellitus with diabetic polyneuropathy E11.42 ; Pain in left toe(s) M79.675 ; Plantar fascial fibromatosis M72.2 ; Other viral warts B07.8 ; Pain in left foot M79.672 ; Pain in right foot M79.671 ; Metatarsalgia, left foot M77.42 and Xerosis cutis L85.[address] [address] 04/02/2024 Yohana Kohli Other hammer toe(s) (acquired), right foot M20.41 ; Other hammer toe(s) (acquired), left foot M20.42 ; Type 2 diabetes mellitus with diabetic polyneuropathy E11.42 and Tinea unguium B35.1 Assessments Encounter Date Diagnosis (ICD Code) Assessment Notes Treatment Notes Treatment Clinical Notes Section Notes 06/30/2023 Pain in right toe(s) (ICD-10 - M79.674) 09/29/2023 Pain in right toe(s) (ICD-10 - M79.674) 12/29/2023 Pain in right toe(s) (ICD-10 - M79.674) 04/02/2024 Other hammer toe(s) (acquired), right foot (ICD-10 - M20.41) Patient Educated with: DIABETIC FOOT CARE INSTRUCTIONS. pdf (DIABETIC FOOT CARE INSTRUCTIONS. pdf) 04/02/2024 Other hammer toe(s) (acquired), left foot (ICD-10 - M20.42) 04/02/2024 Type 2 diabetes mellitus with diabetic polyneuropathy (ICD-10 - E11.42) 12/29/2023 Tinea unguium (ICD-10 - B35.1) 06/30/2023 Tinea unguium (ICD-10 - B35.1) 09/29/2023 Tinea unguium (ICD-10 - B35.1) 06/30/2023 Type 2 diabetes mellitus with diabetic polyneuropathy (ICD-10 - E11.42) 09/29/2023 Type 2 diabetes mellitus with diabetic polyneuropathy (ICD-10 - E11.42) 04/02/2024 Tinea unguium (ICD-10 - B35.1) 12/29/2023 Type 2 diabetes mellitus with diabetic polyneuropathy (ICD-10 - E11.42) 12/29/2023 Pain in left toe(s) (ICD-10 - M79.675) 09/29/2023 Pain in left toe(s) (ICD-10 - M79.675) 06/30/2023 Pain in left toe(s) (ICD-10 - M79.675) 06/30/2023 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) 09/29/2023 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) 12/29/2023 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) 09/29/2023 Other viral warts (ICD-10 - B07.8) 06/30/2023 Other viral warts (ICD-10 - B07.8) 12/29/2023 Other viral warts (ICD-10 - B07.8) 09/29/2023 Pain in left foot (ICD-10 - M79.672) 12/29/2023 Pain in left foot (ICD-10 - M79.672) 06/30/2023 Pain in left foot (ICD-10 - M79.672) 06/30/2023 Pain in right foot (ICD-10 - M79.671) 12/29/2023 Pain in right foot (ICD-10 - M79.671) 09/29/2023 Pain in right foot (ICD-10 - M79.671) 09/29/2023 Metatarsalgia, left foot (ICD-10 - M77.42) 12/29/2023 Metatarsalgia, left foot (ICD-10 - M77.42) 06/30/2023 Metatarsalgia, left foot (ICD-10 - M77.42) 09/29/2023 Xerosis cutis (ICD-10 - L85.3) 06/30/2023 Xerosis cutis (ICD-10 - L85.3) 12/29/2023 Xerosis cutis (ICD-10 - L85.3) Plan Of Treatment Pending Test Test Name Order Date X ray : Foot, left 2V 03/29/2016 79224-MGFFWUC NAIL, 6 OR MORE 04/02/2024 20396-BMENPMD NAIL, 1-5 03/29/2016 36701-TEXXHNM NAIL, 1-5 09/27/2016 84300-HAZXTEM NAIL, 1-5 02/21/2017 37675-AYEMBAE NAIL, 1-5 06/22/2017 46764-YCBUJCQ NAIL, -5 09/21/2017 83682-MOIWGPX NAIL, 1-5 12/21/2017 45960-ZTLKTHV NAIL, 1-5 03/22/2018 08652-Vputwxix Plate 06/22/2017 34150-BZBP SKIN LESIONS, OVER 4 09/22/19 18 56088-CJQH SKIN LESIONS, OVER 4 02/22/20 17 68644-MZUS SKIN LESIONS, OVER 4 06/23/19 18 23472-JUXU SKIN LESIONS, OVER 4 09/28/19 17 74982-GGMS SKIN LESIONS, OVER 4 06/22/19 19 88765-ESLE SKIN LESIONS, OVER 4 12/22/19 18 46461-DWOV SKIN LESIONS, OVER 4 03/22/20 18 36772-GARD SKIN LESIONS, OVER 4 11/09/19 19 10162-BOLO SKIN LESIONS, OVER 4 02/27/20 19 61629-KLTA SKIN LESIONS, OVER 4 07/04/19 20 88366-JZKZ SKIN LESIONS, OVER 4 10/31/19 20 43334-PYDQ SKIN LESIONS, OVER 4 04/02/20 24 43746-SCPC SKIN LESIONS, OVER 4 03/09/20 21 65540-PSHU SKIN LESIONS, OVER 4 06/08/19 22 29509-VGRF SKIN LESIONS, OVER 4 03/03/20 20 78543-YLAN SKIN LESIONS, OVER 4 06/04/19 21 91567-UBEN SKIN LESIONS, OVER 4 09/04/19 21 05021-WZVN SKIN LESIONS, OVER 4 12/05/19 21 96735-RYSR SKIN LESIONS, 2 TO 4 03/29/20 16 33297-OJCY NAIL(S) 03/29/2016 66433-OOPH NAIL(S) 02/21/2017 54386-AKSE NAIL(S) 09/27/2016 58435-IFKI NAIL(S) 06/22/2017 J3432-KBMYUVYH DYSTROPHIC NAILS ANY # D2073-UMQFFTNI DYSTROPHIC NAILS ANY # X6071-IDJKSHSH DYSTROPHIC NAILS ANY # S4560-EVLWFGXP DYSTROPHIC NAILS ANY # V3309-UCUIUPBJ DYSTROPHIC NAILS ANY # R6365-KYQCEIQE DYSTROPHIC NAILS ANY # Y3036-EUWOQWSE DYSTROPHIC NAILS ANY # N7606-NAQPXVWK DYSTROPHIC NAILS ANY # H6372-QXNMAKJS DYSTROPHIC NAILS ANY # K3436-PXWSLAYP DYSTROPHIC NAILS ANY # H6352-OALWCHPG DYSTROPHIC NAILS ANY # W1788-CZFMFDMY DYSTROPHIC NAILS ANY # P1649-CNZILOET DYSTROPHIC NAILS ANY # J7053-BGBARJHP DYSTROPHIC NAILS ANY # X ray : Ankle, right 3V 10/18/2016 Next Appt Details Provider Name:Yohana Alas lilly, 08/01/2024 04:00:00 PM, [address] [facility], [place], [address], Insurance Providers Payer Name Payer Address Payer Phone Subscriber Number Group Number Insured Name Patient Relationship to Insured Coverage Start Date Coverage End Date Medicare National [employer] [address] [place] [address] [id number] Angela Nam Self - patient is the insured 4 [employer] [address] [place] [address] [phone] [id number] Angela Nam Self - patient is [...]
--- OUTSIDE RECORDS SUMMARY | 2024-04-06 09:49 | XMS_ITS ---
Author Organization [facility] Karlo dalila Leslie Address [address] [place] [address] Care Team Providers Care Evaluation Specialist Name Role Phone Edson URIBE, Rory Primary Care Provider Yohana Carmen Unavailable [phone] Allergies Allergen (clinical drug ingredient) Drug/Non Drug Allergy documented on EMR Reaction Allergy Type Onset Date Status codeine Codeine Unknown Drug Allergy Active REASON FOR VISIT Pcp-02/01, Toe Irritation, At Risk Footcare Medications Medication SIG (Take, Route, Frequency, Duration) Notes Start Date End Date Status Doxycycline Monohydrate 100 MG 1 capsule Orally Once a day Not-Taking dilTIAZem HCl 120 MG as directed Orally Not-Taking Colchicine 0.6 MG 1 tablet Orally Not-Taking levoFLOXacin 500 MG 1 tablet Orally Once a day Not-Taking Vitamin D Active metFORMIN HCl 500 MG Active Omeprazole 20 MG Act melani iron Active Lisinopril 20 MG 1 tablet Orally Active Trulicity Active Atorvastatin Calcium Active Aspirin 81 MG as directed Orally Active Tresiba 10 units Active Ursodiol 300 MG 1 capsule Orally Twi ce a day Active Extra Depth Diabetic Shoes with 3 Pair Custom heat-molded multi-density innersoles for 1 year Dx: Active Extra Depth Orthopedic Shoes (1 Pair) with Customized Heat Molded Multidensity Innersoles (3 Pair) as directed Dx: NIDDM/Polyneuropathy (E11.42), Hammertoe Foot Deformity (M20.41,M20.42), Preulcerative Skin Lesion(s) (L85.1 04/02/2024 Active glyBURIDE 5 MG Not-T aking januvia Not-Taking Xarelto 20 MG 1 tablet Orally Not-Taking Extra Depth Diabetic Shoes with 3 Pair Custom heat-molded multi-density innersoles for 1 year Dx: 02/26/2019 Not-Taking Extra Depth Diabetic Shoes with 3 Pair Custom heat-molded multi-density innersoles for 1 year Dx: 03/03/2020 Not-Taking Januvia 100 MG 1 tablet Orally Once a day for 30 day(s) Not-Taking Extra Depth Diabetic Shoes with 3 Pair Custom heat-molded multi-density innersoles for 1 year Dx: 03/09/2021 Not-Taking Metoprolol Tartrate 50 MG as directed Orally Not-Takin g glipiZIDE 10 MG as directed Orally O nce a day Not-Taking Social History Tobacco Use: Social History Observation Description Date Details (start date - stop date) Never Smoker NA - NA Tobacco Use/Smoking Question Answer Notes Are you a: nonsmoker Additional Findings: Tobacco Non-User Current no n-smoker Tobacco use other than smoking: Question Answer Notes Are you an other tobacco user? No Problems Problem Type SNOMED Code ICD Code Onset Dates Problem Status W/U Status Risk Notes Problem Acquired hammer toe of right foot (2039027224183628 ) Other hammer toe(s) (acquired), right foot (M20.41) Active confirmed Problem Acquired hammer toe of left foot (9136792351022220 ) Other hammer toe(s) (acquired), left foot (M20.42) Active confirmed Problem Polyneuropathy due to diabetes mellitus type I (497095609) Type 1 diabetes mellitus with diabetic polyneuropathy (E10.42) Active confirmed Vital Signs Height 5ft in 04/02/2024 Weight 120 lbs 04/02/2024 BMI 23.43 kg/m2 04/02/2024 Blood pressure systolic 128 mm Hg 04/02/20 24 Blood pressure diastolic 80 mm Hg 024 Procedures Procedure Date Ordered Date Performed Result Body Sit e 58231-QWPFFHZ NAIL, 6 OR MORE 04/02/2024 N/A 52978-PNEE SKIN LESIONS, OVER 4 04/02/2024 N/A Encounters Encounter Location Date Provider Diagnosis [facility] [address] [place] [address] 04/02/2024 Yohana Kohli Other hammer toe(s) (acquired), right foot M20.41 ; Other hammer toe(s) (acquired), left foot M20.42 ; Type 2 diabetes mellitus with diabetic polyneuropathy E11.42 and Tinea unguium B35.1 Assessments Encounter Date Diagnosis (ICD Code) Assessment Notes Treatment Notes Treatment Clinical Notes Section Notes 04/02/2024 Other hammer toe(s) (acquired), right foot (ICD-10 - M20.41) Patient Educated with: DIABETIC FOOT CARE INSTRUCTIONS. pdf (DIABETIC FOOT CARE INSTRUCTIONS. pdf) 04/02/2024 Other hammer toe(s) (acquired), left foot (ICD-10 - M20.42) 04/02/2024 Type 2 diabetes mellitus with diabetic polyneuropathy (ICD-10 - E11.42) 04/02/2024 Tinea unguium (ICD-10 - B35.1) Plan Of Treatment Medication Medication Name Sig Start Date Stop Date Notes Extra Depth Orthopedic Shoes (1 Pair) with Customized Heat Molded Multidensity Innersoles (3 Pair) as directed Dx: NIDDM/Polyneuropathy (E11.42), Hammertoe Foot Deformity (M20.41,M20.42), Preulcerative Skin Lesion(s) (L85.1 04/02/2024 Treatment Notes Assessment Notes Other hammer toe(s) (acquired), right fo ot Patient Educated with: DIABETIC FOOT CARE INSTRUCTIONS.pdf (DIABETIC FOOT CARE INSTRUCTIONS.pdf) Pending Test Test Name Order Date 11159-[id number] NAIL, 6 OR MORE 04/02/2024 66826-HXAL SKIN LESIONS, OVER 4 04/02/20 24 Next Appt Details Follow Up: 3 Months, Reason: Provider Name:Yohana carr, 08/01/2024 04:00:00 PM, [address] [place] [address], [id number], Procedure Notes * Category Sub-Category Detail Notes Debride Nail 6-10 Nail debridement Due to the cl inical pathology outlined in the exam findings, performance of this nail treatment is medically necessary as its management by an unskilled/untrained nonprofessional would put this patients foot and overall health at risk. Therefore, debridement to affected nail(s), as described in exam ( TA, T1, T2, T3, T4, T5, T6, T7, T8, T9 ), was performed exclusively by the physician of record to reduce/remove overall nail length, girth, thickness, subungual debris, and necrotic tissue, by manual and/or electrical means through the use of a nail nipper and/or dremel-type ice grinder, to a more viable healthy nail plate or bed tissue 6-10 nails in total. Silver nitrate was used for any petechial bleeding as necessary. Definitive antifungal treatment options, both pharmaceutical and surgical, have been reviewed and discussed with the patient. The patient solely prefers the use of intermittent/as needed professional debridement services for their nail condition and understands the need for additional periodic treatments to maintain effectiveness in symptomatic relief - 79013 Keratoma Treatment Parring or Cutting o f Benign Hyperkeratotic Lesion(s) (-57) More than 4 Lesions - Due to the at risk nature of the patients medical condition as documented in the exam findings, performance of this keratoderma treatment is medically necessary as its management by an unskilled/untrained nonprofessional would put this patients foot and overall health at risk. Therefore, the benign hyperkeratotic lesions, (6) in total, locations as stated and described in the exam ( sub 2nd and 3rd metatarsal heads B/L, plantar heels B/L), were pared, and/or cut utilizing a sterile 15 blade, tissue nippers, and/or power dremel instrumentation by the physician of record - 15665 Progress Notes * Santo NAMveDOB: [birth year] (78 yo F)Acc No.[id number]:04/02/2024 Progress Note Patient:?Angela NAM Provider:?Yohana Kohli DPM :1945???Age:78 Y???Sex:Female D ate:04/02/2024 Address:[address] [place] [id number] Pcp:Rory Sandhu MD Subjective: * Chief Complaints: * ???Pcp-02/01Toe IrritationAt Risk Footcare * HPI: ???Toe pain:?Location:?B/L feet.?Duration:?several years.?Course:?worse.?Aggravated by:?shoes, any pressure.?Treatments:?change in shoes.?At Risk footcare:?Pt States Last PCP Visit:?Date?01/24/2024 * ROS:?General/Constitutional:?Nausea?denies.?Vomiting?denies.?Hunger Thirst?denies.?Loss appetite?denies.?Chills?denies.?Fatigue?denies.?Fever?denies.?Night Sweats?denies.?Unexplained weight loss?denies.?Unexplained weight gain?denies.?HEENTM:?Dentures?denies.?Dizziness?denies.?Glasses/contacts?denies.?Retinopathy?den ies.?Blurred/double vision?denies.?TMJ?denies.?Discharge/drainage?denies.?Implants?denies.?Sore throat?denies.?Dental implants?denies.?Hard of hearing ?denies.?Difficulty chewing/swallowing/speaking?denies.?Nose bleeds?denies.?Sore mouth?denies.?Respiratory:?On O xygen?denies.?Pneumonia/pleurisy?denies.?Bronchitis?denies.?Emphysema?denies.?Co ughing?denies.?Cough blood?denies.?Shortness of breath?denies.?Wheezing?denies.?Cardiovascular:?Pacemaker?denies.?MVP?denies.?WPW?denies.?CHF?denies.?Heart attack?denies.?Septal defect?denies.?Rapid beat?denies.?Chest pain ?denies.?Atrial Fib.?denies.?Murmur/Palpitations?denies.?Gastrointestinal:?Hemorrhoids?denies.?Stomach/Abdominal pain?denies.?Dark blood stool?denies.?Irritable bowel ?denies.?Constipation?denies.?Diarrhea?denies.?Hematology:?Swelling?denies.?Clots?denies.?Varicose Veins?denies.?Bruising?denies.?Bleeding problem?denies.?Genitourinary:?Blood urine?denies.?Frequent/Painfu/urination/bladder control?denies.?Kidney stones?denies.?Infection (UTI)?denies.?Nephropathy?denies.?sex trans dis (STD)?denies.?Prostate?denies.?Musculoskeletal:?Hammertoes?denies.?Bunions?denies.?Back Pain?denies.?Muscle Cramps/ Resting?denies.?Muscle cramps / walking?denies.?Generalized aches and pains?denies.?Weakness?denies.?Integ.:?Tran?denies.?Scars?denies.?Corns/calluses?denies.?Ingrown nails?denies.?Painful nails?denies.?Open Sores?denies.?Rashes?denies.?Neurologic:?Difficulty sleeping?denies.?Brain disorder?denies.?Numbness?denies.?Balance t rouble?denies.?Confusion?denies.?Fainting/blackouts?denies.?Tingling?denies.?Enmanuel mors?denies.? * Medical History:? * Surgical History:?gall bladd er 1970bladder suspension 2001liver biopsy 2000colon 08/02/2011lung biopsy 2001colonoscopy 10/17/19cardiac ablasion 06/26/21nuclear stress test/ heart monitor 2022 * Hospitalization/Major Diagno stic Procedure:?Denies Past Hospitalization * Family History:?Mother: dece ased.?Father: .?Siblings: diagnosed with Diabetic - NIDDM.? * Social History:?Tobacco Use:?Tobacco Use/Smoking?Are you a:?nonsmoker ?Additional Findings: Tobacco Non-User?Current non-smoker ?Tobacco use other than smoking?Are you an other tobacco user??No * Medications:?TakingExtra Dep th Diabetic Shoes with 3 Pair Custom heat-molded multi-density innersoles for 1 year Dx: Elpidio , Notes to Pharmacist: 10 unitsUrsodiol 300 MG Capsule 1 capsule Orally Twice a day Atorvastatin Calcium Aspirin 81 MG Tablet Chewable as directed Orally iron Lisinopril 20 MG Tablet 1 tablet Orally metFORMIN HCl 500 MG Omeprazole 20 MG Trulicity Vitamin D Taking Extra Depth Diabetic Shoes with 3 Pair Custom heat-molded multi-density innersoles for 1 year Dx: Taking Tresiba , Notes to Pharmacist: 10 unitsTaking Ursodiol 300 MG Capsule 1 capsule Orally Twice a day Taking Atorvastatin Calcium Taking Aspirin 81 MG Tablet Chewable as directed Orally Taking iron Taking Lisinopril 20 MG Tablet 1 tablet Orally Taking metFORMIN HCl 500 MG Taking Omeprazole 20 MG Taking Trulicity Taking Vitamin D Not-Taking/PRNColchicine 0.6 MG Tablet 1 tablet Orally levoFLOXacin 500 MG Tablet 1 tablet Orally Once a day Doxycycline Monohydrate 100 MG Capsule 1 capsule Orally Once a day dilTIAZem HCl 120 MG Tablet as directed Orally glipiZIDE 10 MG Tablet as directed Orally Once a day Extra Depth Diabetic Shoes with 3 Pair Custom heat-molded multi-density innersoles for 1 year Dx: Metoprolol Tartrate 50 MG Tablet as directed Orally Extra Depth Diabetic Shoes with 3 Pair Custom heat-molded multi-density innersoles for 1 year Dx: Januvia 100 MG Tablet 1 tablet Orally Once a day Xarelto 20 MG Tablet 1 tablet Orally Extra Depth Diabetic Shoes with 3 Pair Custom heat-molded multi-density innersoles for 1 year Dx: glyBURIDE 5 MG januvia Medication List reviewed and reconciled with the patientNot-Taking/PRN Colchicine 0.6 MG Tablet 1 tablet Orally Not-Taking/PRN levoFLOXacin 500 MG Tablet 1 tablet Orally Once a day Not-Taking/PRN Doxycycline Monohydrate 100 MG Capsule 1 capsule Orally Once a day Not-Taking/PRN dilTIAZem HCl 120 MG Tablet as directed Orally Not-Taking/PRN glipiZIDE 10 MG Tablet as directed Orally Once a day Not- Taking/PRN Extra Depth Diabetic Shoes with 3 Pair Custom heat-molded multi-density innersoles for 1 year Dx: Not-Taking/PRN Metoprolol Tartrate 50 MG Tablet as directed Orally Not-Taking/PRN Extra Depth Diabetic Shoes with 3 Pair Custom heat-molded multi-density innersoles for 1 year Dx: Not-Taking/PRN Januvia 100 MG Tablet 1 tablet Orally Once a day Not-Taking/PRN Xarelto 20 MG Tablet 1 tablet Orally Not- Taking/PRN Extra Depth Diabetic Shoes with 3 Pair Custom heat-molded multi-density innersoles for 1 year Dx: Not-Taking/PRN glyBURIDE 5 MG Not-Taking/PRN januvia Medication List reviewed and reconciled with the patient * Allergies:?Codeine: Allergyy es[Allergies Verified] Objective: * Vitals:?Ht: 5ft, Wt: 120, BM I: 23.43, Shoe size: 6.5-7, BP: 128/80 mm Hg, BS: 181, Ht-cm: 152.4 cm, Wt-k.43 kg. * ???Past Orders: ???Lab:HEMOGLOBIN A1C (GLYCO HEMOGLOBIN) (Order Date - 01/10/2024) (Collection Date & Time - 01/10/2024 02:59 PM) ? Value Reference Range ?TOTAL HEMOGLOBIN (HGBA1C) 9.5 * Examination: ???Ophthalmology Referral: ?DIABETES EYE EXAM?Orthopedic: ?MUSCLE STRENGTH:?5/5 all groups in a symmetrical fashion, B/L.?DIGITAL DEFORMITIES:?Digital contracture, PIPJ, 2-5 B/L, incompl-reducible to push-up test, no over, nor underlapping,?there is?evidence of shoe producing skin irritation.?FOOTWEAR:?worn, non-supportive, shoe gear properties exacerbate patient's foot/toe deformity.?General Examination: ?GENERAL APPEARANCE:?Reveals a pleasant, alert, well nourished, well- developed, well hydrated individual, who demonstrates proper attention to hygiene/body habitus, and is in no acute distress, Pt serves as own historian for office visit today.?ORIENTED:?person, place, and time.?FOOT EXAM:?Footwear Evaluation?Neurological: ?SENSORY:? Neurological exam demonstrates, reduced light touch sensation, reduced sharp/dull pin prick discrimination , B/L, 5.07 monofilament test performed at plantar aspects of 5 varied sites per foot shows sensation, reduced , B/L.?Nails: ?NAILS are:?Elongated, overgrown, dystrophic, lytic, greater than 3mm thick, discolored and friable with crumbly malodorous subungual debris, TA, T1, T2, T3, T4, T5, T6, T7, T8, T9.?Dermatologic: ?SKIN FINDINGS:?Skin exam reveals Keratotic lesion(s) located at sub 2nd and 3rd metatarsal heads B/L, plantar heels B/L.?Vascular: ?DP PULSES (B):?1/4, B/L.?PT PULSES (B):? 2/4, B/L.?CAPILLARY FILL TIME:?3 secs. per digit, B/L.?TROPHIC CONDITION-TEXTURE/ELASTICITY/TURGOR/HAIR GROWTH (B):?normal, B/L.?TEMPERTURE GRADIENT (C):?warm to cool, proximal to distal, B/L.?PIGMENTATION:?normal, B/L.?EDEMA (C):? 1/4, Right, Ankle(s).?TELANGECTASIA:?absent.?VARICOSITIES:?absent.? Assessment: * Assessment: 1.?Other hammer toe(s) (acqu ired), right foot - M20.41 (Primary)???Specify :Chronic problem, Worse (4),Rx Management (4)???2.?Other hammer toe(s) (acquired), left foot - M20.42???Specify :Chronic problem, Worse (4),Rx Management (4)???3.?Type 2 diabetes mellitus with diabetic polyneuropathy - E11.42???4.?Tinea unguium - B35.1??? Plan: * Treatment: 2.?Type 2 diabetes mellitus with diabetic polyneuropathy?Procedure: 42215-IQOPFOC NAIL, 6 OR MORE ?Procedure: 00745-NUPI SKIN LESIONS, OVER 4 * Procedures:?Debride Nail 6-10:?Nail debridement?Due to the clinical pathology outlined in the exam findings, performance of this nail treatment is medically necessary as its management by an unskilled/untrained nonprofessional would put this patients foot and overall health at risk. Therefore, debridement to affected nail(s), as described in exam ( TA, T1, T2, T3, T4, T5, T6, T7, T8, T9 ), was performed exclusively by the physician of record to reduce/remove overall nail length, girth, thickness, subungual debris, and necrotic tissue, by manual and/or electrical means through the use of a nail nipper and/or dremel-type ice grinder, to a more viable healthy nail plate or bed tissue 6- 10 nails in total. Silver nitrate was used for any petechial bleeding as necessary. Definitive antifungal treatment options, both pharmaceutical and surgical, have been reviewed and discussed with the patient. The patient solely prefers the use of intermittent/as needed professional debridement services for their nail condition and understands the need for additional periodic treatments to maintain effectiveness in symptomatic relief - 47281.?Keratoma Treatment:?Parring or Cutting of Benign Hyperkeratotic Lesion(s)?(-57) More than 4 Lesions - Due to the at risk nature of the patients medical condition as documented in the exam findings, performance of this keratoderma treatment is medically necessary as its management by an unskilled/untrained nonprofessional would put this patients foot and overall health at risk. Therefore, the benign hyperkeratotic lesions, (6) in total, locations as stated and described in the exam ( sub 2nd and 3rd metatarsal heads B/L, plantar heels B/L), were pared, and/or cut utilizing a sterile 15 blade, tissue nippers, and/or power dremel instrumentation by the physician of record - 48069.? * Procedure Codes:?67153 DEBRI DE NAIL, 6 OR MORE, Modifiers: XS 77001 TRIM SKIN LESIONS, OVER 4, Modifiers: XS * Preventive Medicine:? ??Counseling:?Discussion:?-14: Office or other outpatient visit for the evaluation and management of an established patient, which required a medically appropriate history and/or examination and MODERATE level of DECISION MAKING for: 1 OR MORE CHRONIC PROBLEM(S) THATS WORSENING, 2 STABLE CHRONIC PROBLEMS, A NEWLY DIAGNOSED PROBLEM WITH UNCERTAIN PROGNOSIS, AN ACUTE COMPLICATED INJURY WITH MULTIPLE TREATMENT OPTIONS, OR AN ACUTE PROBLEM WITH ACCOMPANYING SYSTEMIC SYMPTOMS, THAT POSE(S) A MODERATE RISK OF MORBIDITY. THIS CONDITION MAY ALSO INCLUDE RX DRUG MANAGEMENT, OR A DECISON FOR MINOR SURGERY. The visit on the day of the encounter encompassed interpreting the data and educating the patient as to the nature of their condition, treatment options available according to their individual PMH, meds, allergies, and overall health/living conditions, as well as any potential risks or complications that may occur from a failure to adhere to, and participate in, the recommended course of therapy. The discussion included a complete verbal, and/or written explanation of the examination results, any x-rays taken, the proposed diagnosis, and outline of the treatment plan. A schedule for future care needs was also explained. The patient verbalized an understanding of the instructions at this time and agreed to be an active participant in their treatment. If the patient should think of any questions or concerns after the visit, I have encouraged the patient to call the office.?Digital Surgery:?Digital surgery was discussed with the patient, We elected to try conservative treatment at the present time, due to the patients medical history and increased asssociated post-operative risks.?Digital Treatment:?HT- I explained to the patient the possible etiologies of Hammertoes, including genetics/foot type/shoegear/activity level/exercise routine and the risks/benefits of all the different treatment options for their pain including: No treatment at all, Rest, Ice, New/supportive/wider/deeper Shoegear, Digital Padding/Strapping/Taping/Bracing/Gel protective sleeves, Foot/Ankle AFO Bracing, Stretching exercises, Deep Tissue Massage, Arch support/shoe inserts with splay metatarsal padding, and Custom orthoses. I insisted that any digital devices be removed daily and not worn overnight for safety. The patient is to carefully examine the toes daily for any skin irritation while using any splinting or padding device. The advantages and disadvantages of each option were discussed and the patients questions re: shoegear, padding, custom vs prefabricated inserts, activity level, and consistency in home treatment regimens for optimal success were answered to their verbally confirmed satisfaction.?Shoe Gear Counseling:?SHOE Rx - The patient was counseled in great detail on their muscoloskeletal foot and toe deformities which coincided with the dermatological presentations visualized on exam. We discussed how their deformities put the integrity of their feet at risk for potential pedal complications which makes the accomidative diabetic shoes and cutomizable inserts medically necessary. We discussed the different shoe and insert treatment types and options, as well as the important advantages for adhering to regularly wearing these accomidative devices daily. The patient was made aware of the fact that a failure to abide by these recommedations may be deleterious to their foot health as they are able to prevent many pedal complications such as skin irritation, skin ulceration, infection, and even loss of toe/foot/leg/or life. Time was also spent with the patient dispensing and discussing proper diabetic footcare techniques including daily skin moisturization, daily foot inspection for any interruption in skin integrity including open lesions, or sign of infection such as redness/malodor/drainage/swelling. Also discussed and recommended were procedures regarding daily shoe inspection for the presence of internal foreign bodies as well as any visualized irregular shoe or insert wear. Patient questions re: shoes, inserts, and self foot inspections were answered to their satisfaction as the patient verbally confirmed a full understanding of the above information. A Rx for Extra Depth Orthopedic Shoes with 3 pair of custom heat-molded inserts was dispensed.? * Follow Up:?3 Months * Images: * Sign off status: Completed true * Provider:Jazmyn Kohli DPM Date:?06/03/2023 Generated for Trudy castillo/Mendez/Wilsonitting on:?04/06/2024 09:49 AM EST History and Physical Notes * HPI (History of Present Illness) Category Sub-Category Detail Notes Category Not es Toe pain Location: B/L feet Duration: several years Course: worse Aggravated by: shoes, any pressure Treatments: change in shoes At Risk footcare Pt States Last PCP Visit: Date: Examination Category Sub-Category Detail Notes Category Not es Neurological SENSORY: Neurological exa m demonstrates, reduced light touch sensation, reduced sharp/dull pin prick discrimination , B/L, 5.07 monofilament test performed at plantar aspects of 5 varied sites per foot shows sensation, reduced , B/L Dermatologic SKIN FINDINGS: Skin exam reveal s Keratotic lesion(s) located at sub 2nd and 3rd metatarsal heads B/L, plantar heels B/L Orthopedic FOOTWEAR: worn, non-suppor tive, shoe gear properties exacerbate patient's foot/toe deformity DIGITAL DEFORMITIES: Digital contracture , PIPJ, 2-5 B/L, incompl-reducible to push-up test, no over, nor underlapping, there is evidence of shoe producing skin irritation MUSCLE STRENGTH: 5/5 all groups in a symmetrical fashion, B/L General Examination GENERAL APPEARANCE: Reveals a pleasant, alert, well nourished, well-developed, well hydrated individual, who demonstrates proper attention to hygiene/body habitus, and is in no acute distress, Pt serves as own historian for office visit today FOOT EXAM: Lower Extremity Neurological Exa m performed:: Yes ORIENTED: person, place, and t [place] Footwear Evaluation Footwear Evaluation performe d:: Yes Ophthalmology Referral DIABETES EYE EXAM Procedure Perform ed:: Yes ?Date of Exam Performed: 04/26/2023 Diabetic Retinopathy Screening:: Yes Findings of Diabetic Eye Exam:: retinopa thy Vascular DP PULSES (B): 1/4, B/L PT [...] and friable with crumbly malodorous subungual debris, TA, T1, T2, T3, T4, T5, T6, T7, T8, T9
--- OUTSIDE RECORDS SUMMARY | 2024-04-06 09:49 | XMS_ITS ---
Author Organization [facility] Karlo dalila [place] Address [address] [place] [address] Care Team Providers Care Routing Equipment Tender Name Role Phone Edson URIBE, Rory Primary Care Provider Yohana Carmen Unavailable [phone] Galdino Edge Unavailable [phone] Allergies Allergen (clinical drug ingredient) Drug/Non Drug [...] 024 Encounters Encounter Location Date Provider Diagnosis [facility] [place] [address] [place] [address] 12/29/2023 Galdino Edge Pain in right toe(s) [...] Reason: Provider Name:Yohana carr, 08/01/2024 04:00:00 PM, [address] [place] [address], [phone], Procedure Notes * Category Sub-Category Detail Notes Keratoma Treatment Parring or Cutting o f Benign Hyperkeratotic Lesion(s) 14835 ( >4 Lesions) - The Benign hyperkeratotic [...] as necessary. Patient chooses, no pharmaceutical tx (08180) Nail Reduction Nail Reduction Trimming of dyst rophic nails performed to reduce/remove overall nail length and girth, by manual and electrical means with use of a nail nipper and/or dremel, to more viable healthy nail plate or bed tissue 6-10 (G0127) Progress Notes * Chepe TEEOB: [birth year] (78 yo F)Acc No.[id number]:12/29/2023 Progress Note Patient:?Niziol, Angela Provider:?Galdino Edge DPM :1945???Age:78 Y???Sex:Female D ate:12/29/2023 Address: [address] , [id number] Pcp:Rory Sandhu MD Subjective: * Chief Complaints: [...] ?no Exercise. ?Marital status: . 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 * Medications:?TakingExtra Dep th Diabetic Shoes with [...] as necessary. Patient chooses, no pharmaceutical tx (58872).?Keratoma Treatment:?Parring or Cutting of Benign Hyperkeratotic Lesion(s)?36638 ( >4 Lesions) - The Benign hyperkeratotic lesions, as described above were pared, and/or cut utilizing a sterile #15 blade, tissue nippers, and/or dremel.?Nail Reduction:?Nail Reduction?Trimming of dystrophic nails performed to reduce/remove overall nail length and girth, by manual and electrical means with use of a nail nipper and/or dremel, to more viable healthy nail plate or bed tissue 6-10 (G0127).? * Procedure Codes:?33726 DEBRI DE NAIL, 1-5, Modifiers: XS 20468 TRIM SKIN LESIONS, OVER 4, Modifiers: XS [...] taking performed:: 2+ ORIENTED: person,place, and ti nj Ophthalmology Referral DIABETES EYE EXAM Diabeti c [...]
--- OUTSIDE RECORDS SUMMARY | 2024-04-06 09:50 | XMS_ITS ---
Author Organization Rory Sandhu MD Address [address] [place] [address] [place] [phone] Care Team Providers Care Database Admin Name Role Phone Rory Sandhu Primary Care Provider [phone] REASON FOR VISIT fasting lipids Encounters Encounter Location Date Provider Diagnosis Rory Sandhu MD [address] [place] [address] [place] [phone] 03/13/2024 Rory Sandhu Pure hypercholestero lemia E78.00 [...] Next Appt Details Provider Name:Rory mcdonald, 04/20/2024 11:30:00 AM, [address] [place] [address], [address], [phone], Provider Name:Rory mcdonald, 10/09/2024 08:15:00 AM, [address] [place] [address], [phone], Provider Name:Rory mcdonald, 10/19/2024 11:00:00 AM, [address] [place] [address], [phone],
--- OUTSIDE RECORDS SUMMARY | 2024-04-06 09:50 | XMS_ITS ---
Author Organization Rory Sandhu MD Address [address] [place] [phone] Care Team Providers Care Biometry Teacher Name Role Phone Rory Sandhu Primary Care [...] Omeprazole 20 MG TAKE 1 CAPSULE BY [facility] EVERY DAY for 90 Active BD [...] Date Provider Diagnosis Rory Sandhu MD [address] [facility] [address] [place], [place] [phone] 01/20/2024 Rory Sandhu Type 2 diabetes mellitus [...] 3 Months, Reason: Provider Name:Rory mcdonald, 04/20/2024 11:30:00 AM, [address] [place] [address], [address], [place], [place], [phone], Provider Name:Rory mcdonald, 10/09/2024 08:15:00 AM, [address] [place] [address], [address], [place], [place], [phone], Provider Name:Rory mcdonald, 10/19/2024 11:00:00 AM, [address] [place] [address], [address], [place], [place], [phone], Progress Notes * Examination Category Sub-Category Detail Notes General Examination HEART: no murmurs, rubs, gallops, regular rate and rhythm LUNGS: no wheezes, rales, r honchi, good air movement, clear to auscultation bilaterally SKIN: abnormal with a serp iginous rash on trunk
--- OUTSIDE RECORDS SUMMARY | 2024-04-06 09:50 | XMS_ITS ---
Author Organization Rory Sandhu MD Address [address] [place] [phone] Care Team Providers Care Operative Supervisor Name Role Phone Rory Sandhu Primary Care Provider [phone] REASON FOR VISIT HDF MEDICATIONS Medication SIG [...] Omeprazole 20 MG TAKE [address] CAPSULE [address] [facility] EVERY DAY for 90 Active Magnesium Oxide [...] Location Date Provider Diagnosis Rory Sandhu MD [address] [place] [phone] 02/03/2024 Rory Sandhu Encounter for immunization Z23 ASSESSMENTS Encounter Date Diagnosis Assessment Notes Treatment Notes Treatment Clinical Notes 02/03/2024 Encounter for immunization (ICD-10 - Z23) PLAN OF TREATMENT Next Appt Details Provider Name:Rory mcdonald, 04/20/2024 11:30:00 AM, [address] [place] [address], [phone], Provider Name:Rory mcdonald, 10/09/2024 08:15:00 AM, [address] [place] [address], [phone], Provider Name:Rory mcdonald, 10/19/2024 11:00:00 AM, [address] [place] [address], [phone],
--- OUTSIDE RECORDS SUMMARY | 2024-04-06 09:51 | XMS_ITS ---
Author Organization [facility] Address [address] [place] [phone] Care Team Providers Care Solidworks Designer Name Role Phone Rory Sandhu MD Primary Care Provider Bryce Hernandez Unavailable [phone] ALLERGIES Allergen (clinical drug ingredient) Drug/Non Drug [...] 09/14/2023 Encounters Encounter Location Date Provider Diagnosis [facility] [address] [place] [address] 09/14/2023 Bryce Oliver Gastroesophageal ref lux disease [...] 09:40:00 AM, [address], [address], [place], [phone], Progress Notes * Examination Category Sub-Category Detail [...]
--- OUTSIDE RECORDS SUMMARY | 2024-04-06 09:51 | XMS_ITS ---
Author Organization [facility] Address [address] [place] [address] Care Team Providers Care Copy Preparer Name Role Phone Rory Sandhu MD Primary Care Provider Bryce Hernandez Unavailable [phone] REASON FOR VISIT diarrhea Encounters Encounter Location Date Provider Diagnosis [facility] [address] [place] [address] 06/13/2023 Bryce Oliver PLAN OF TREATMENT Next Appt Details Provider Name:Bryce Oliver , 03/14/2025 09:40:00 AM, [address], [address], [place], [phone],
--- OUTSIDE RECORDS SUMMARY | 2024-04-06 09:51 | XMS_ITS | Patient Health Record ---
Author Organization Rory Sandhu MD Address [address] [place], [place] [address] Care Team Providers Care Website/Blog Editor Name Role Phone Rory Sandhu Primary Care [...] Performing Lab: Notes/Report: Value Hemoglobin A1c 7.5 CDiff Gene PCR Reviewed date:04/15/2023 01:49:50 PM Interpretation: Performing Lab:[facility], [address] [place] [phone] Notes/Report: CDiff Gene PCR NEGATIVE Negative If [...] date:05/02/2023 12:25:23 PM Interpretation: Performing Lab: Notes/Report: [facility] [place] [facility] [facility] [place] [address] XRay Report Signed Patient: Angela Nam MR#: [id number] : 1945 Acct:[id number] Age/Sex: 78 / F ADM Date: 05/02/23 Loc: HO.HMGCX Attending Dr: All Gutierrez MD Ordering Physician: All Gutierrez MD Date of Service: 05/02/23 Procedure(s): XR ribs RT min 3V w CXR1V Accession Number(s): [id number] cc: Rory Sandhu MD; All Gutierrez MD [...] in OV> 05/02/23 1156 DD/ 1052 TD/TT: [employer] Area Supervisor: SARAH Glucose, Whole Blood Reviewed date:05/17/2023 12:26:05 PM Interpretation: Performing Lab:[facility], [address] [place] [phone] Notes/Report: Glucose, Whole Blood 64 60-115 mg/dL METER # : [id number] CT cervical spine wo con Reviewed date:05/17/2023 10:39:44 AM Interpretation: Performing Lab: Notes/Report: [address] [address] [address] Scan Report Signed Patient: Angela Nam MR#: [id number] : 1945 Acct:[id number] Age/Sex: 78 / F ADM Date: 05/16/23 Loc: HO.ED Attending Dr: Ordering Physician: Stanley Patino Date of Service: 05/16/23 Procedure(s): CT cervical spine wo IV con Accession Number(s): [id number] cc: Rory Sandhu MD; Stanley Patino EXAMINATION: [...] MD in OV> 05/16/231933 DD/ 18 TD/TT: [employer] Area Supervisor: CT head/brain wo con Reviewed date:05/17/2023 10:38:02 AM Interpretation: Performing Lab: Notes/Report: [address] [address] [address] Scan Report Signed Patient: Angela Nam MR#: [id number] : 1945 Acct:[id number] Age/Sex: 78 / F ADM Date: 05/16/23 Loc: HO.ED Attending Dr: Ordering Physician: Stanley Patino Date of Service: 05/16/23 Procedure(s): CT head/brain wo IV con Accession Number(s): [id number] cc: Rory Sandhu MD; Stanley Patino EXAMINATION: [...] MD in OV> 05/16/231933 DD/ 18 TD/TT: [employer] Area Supervisor: Glucose, Whole Blood Reviewed date:05/17/2023 12:29:00 PM Interpretation: Performing Lab:[address] [phone] Notes/Report: Glucose, Whole Blood 173 60-115 mg/dL METER # : [id number] Complete Blood Count Auto Di ff Reviewed date:05/17/2023 12:29:53 PM Interpretation: Performing Lab:[facility], [address] [place] [phone] Notes/Report: White Blood Count 7.2 4.8-10.8 X10*3/uL [...] Panel Reviewed date:05/17/2023 12:32:00 PM Interpretation: Performing Lab:[facility], [address] [place] [phone] Notes/Report: Sodium 141 135-145 mmol/L Potassium 3.5 [...] Glomerular Filt Rate > 60 NOTE: For -[place] individuals, multiply the result by 1.210. Chronic Kidney Disease: Estimated GFR < 60 mL/min/1.73m2 Severe Kidney Disease: Estimated GFR < 15 mL/min/1.73m2 Glucose Random 125 60-115 mg/dL Calcium 9.6 8.4-10.2 mg/dL Magnesium Reviewed date:05/17/2023 10:40:01 AM Interpretation: Performing Lab:[facility], [address] [place] [phone] Notes/Report: Magnesium 2.0 1.6-2.6 mg/dL Glucose, Whole Blood Reviewed date:05/17/2023 10:40:17 AM Interpretation: Performing Lab:[facility], [address] [place] [phone] Notes/Report: Glucose, Whole Blood 123 60-115 mg/dL METER # : [id number] CDiff Gene PCR Reviewed date:05/17/2023 10:38:40 AM Interpretation: Performing Lab:[facility], [address] [place] [phone] Notes/Report: CDiff Gene PCR NEGATIVE Negative If C. difficile strongly suspected despite one negative test, a second test may be sent vs. empiric treatment for C. difficile infection. GI Panel Reviewed date:05/17/2023 12:25:18 PM Interpretation: Performing Lab:[facility], [address] [place] [phone] Notes/Report: Campylobacter Not Detected Not Detect. Plesiomonas [...] is performed by Multiplexed PCR, utilizing the [employer] Array. Glucose, Whole Blood Reviewed date:05/17/2023 12:35:08 PM Interpretation: Performing Lab:[address] [phone] Notes/Report: Glucose, Whole Blood 158 60-115 mg/dL METER # : [id number] Glucose, Whole Blood Reviewed date:05/18/2023 07:52:25 PM Interpretation: Performing Lab:[facility], [address] [place] [phone] Notes/Report: Glucose, Whole Blood 186 60-115 mg/dL METER # : [id number] Glucose, Whole Blood Reviewed date:05/18/2023 07:51:32 PM Interpretation: Performing Lab:[facility], [address] [place] [phone] Notes/Report: Glucose, Whole Blood 159 60-115 mg/dL METER # : [id number] Glucose, Whole Blood Reviewed date:05/18/2023 07:49:29 PM Interpretation: Performing Lab:[facility], [address] [place] [phone] Notes/Report: Glucose, Whole Blood 181 60-115 mg/dL METER # : [id number] Urine Culture Reviewed date:05/21/2023 06:43:37 PM Interpretation: Performing Lab:[facility], [address] [place] [phone] Notes/Report: Urine Culture Report Result Urine Culture < 10,000 cfu/ml Hemoglobin A1c Reviewed date:05/18/2023 07:49:38 PM Interpretation: Performing Lab:[facility], [address] [place] [phone] Notes/Report: Hemoglobin A1c % 6.1 <6.0 % [...] average glucose, using the formula of the [id number] Average Glucose study (ADAG), Diabetes Care, Vol.31,#8, Nov. 2007 UA ClnCatch+Micro w/rflx Cul t Reviewed date:05/18/2023 07:55:54 PM Interpretation: Performing Lab:[facility], [address] [place] [phone] Notes/Report: [id number] Urine, Clean Catch Color Urine Yellow Appearance Urine Clear PH 6.5 5.0-9.0 Glucose Urine UA Negative Negative mg/dL Urine Blood Negative Negative Specific [place] - Urine <= 1.005 1.005-1.025 Urine Protein Negative Neg-Trace mg/dL Urine Ketones Negative Negative mg/dL Nitrite Urine Negative Negative Leukocyte Esterase Urine Moderate (2+) Negative RBC Urine 0-2 0-2 /HPF WBC Urine 6-10 0-5 /HPF Squamous Epithelial Cell Urine 0-2 0-2 /HPF Bacteria Urine 1+ None Seen Hyaline Casts Urine 0-2 0-2 /LPF Glucose, Whole Blood Reviewed date:05/19/2023 12:35:38 PM Interpretation: Performing Lab:[facility], [address] [place] [phone] Notes/Report: Glucose, Whole Blood 211 60-115 mg/dL METER # : [id number] Glucose, Whole Blood Reviewed date:05/18/2023 07:50:47 PM Interpretation: Performing Lab:[facility], [address] [place] [phone] Notes/Report: Glucose, Whole Blood 141 60-115 mg/dL METER # : [id number] Glucose, Whole Blood Reviewed date:05/19/2023 12:35:27 PM Interpretation: Performing Lab:[facility], [address] [place] [phone] Notes/Report: Glucose, Whole Blood 205 60-115 mg/dL METER # : [id number] Basic Metabolic Panel Reviewed date:05/19/2023 12:41:14 PM Interpretation: Performing Lab:[facility], [address] [place] [phone] Notes/Report: Missed x2 Sodium 137 135-145 mmol/L [...] Glomerular Filt Rate > 60 NOTE: For -[place] individuals, multiply the result by 1.210. Chronic Kidney Disease: Estimated GFR < 60 mL/min/1.73m2 Severe Kidney Disease: Estimated GFR < 15 mL/min/1.73m2 Glucose Random 265 60-115 mg/dL Calcium 9.3 8.4-10.2 mg/dL Glucose, Whole Blood Reviewed date:05/19/2023 12:33:00 PM Interpretation: Performing Lab:[facility], [address] [place] [phone] Notes/Report: Glucose, Whole Blood 176 60-115 mg/dL METER # : [id number] Glucose, Whole Blood Reviewed date:05/19/2023 12:32:52 PM Interpretation: Performing Lab:[facility], [address] [place] [phone] Notes/Report: Glucose, Whole Blood 277 60-115 mg/dL METER # : [id number] Glucose, Whole Blood Reviewed date:05/19/2023 04:59:53 PM Interpretation: Performing Lab:[address] [phone] Notes/Report: Glucose, Whole Blood 134 60-115 mg/dL METER # : [id number] XR chest 2V Reviewed date:06/04/2023 06:13:52 PM Interpretation: Performing Lab: Notes/Report: [address] [place] [address] XRay Report Signed Patient: Angela Nam MR#: [id number] : 1945 Acct:[id number] Age/Sex: 78 / F ADM Date: 06/03/23 Loc: DARRELL Attending Dr: Rory Sandhu MD Ordering Physician: Rory Sandhu MD Date of Service: 06/03/23 Procedure(s): XR chest 2V Accession Number(s): [id number] cc: Rory Sandhu MD EXAMINATION: XR CHEST [...] in OV> 06/03/23 1452 DD/ 1352 TD/TT: [employer] Area Supervisor: MIKE Complete Blood Count Auto Di ff Reviewed date:06/11/2023 05:47:36 PM Interpretation: Performing Lab:[facility], [address] [place] [phone] Notes/Report: White Blood Count 10.0 4.8-10.8 X10*3/uL [...] Panel Reviewed date:06/11/2023 05:47:36 PM Interpretation: Performing Lab:[facility], [address] [place] [phone] Notes/Report: Sodium 141 135-145 mmol/L Potassium 3.6 [...] Glomerular Filt Rate > 60 NOTE: For -[place] individuals, multiply the result by 1.210. Chronic [...] Magnesium Reviewed date:06/11/2023 05:47:36 PM Interpretation: Performing Lab:[address] [phone] Notes/Report: Magnesium < 0.6 1.6-2.6 mg/dL and read back by: ONUR Person calling: DOMINGASF Date: 06-09-26 Time:2156 B Type Natriuretic Peptide Reviewed date:06/11/2023 05:47:36 PM Interpretation: Performing Lab:[facility], [address] [place] [phone] Notes/Report: B Type Natriuretic Peptide 256 <100 pg/mL For those patients who are being treated with Natrecor (nesiritide, recombinant BNP), BNP testing should be performed at least two hours post treatment in order to ensure that only endogenous levels of BNP are detected. Lipase Reviewed date:06/11/2023 05:47:36 PM Interpretation: Performing Lab:[facility], [address] [place] [phone] Notes/Report: Lipase 126 8-78 U/L Glucose, Whole Blood Reviewed date:06/11/2023 05:47:36 PM Interpretation: Performing Lab:[facility], [address] [place] [phone] Notes/Report: Glucose, Whole Blood 175 60-115 mg/dL METER # : [id number] Urine Culture Reviewed date:06/12/2023 05:18:47 PM Interpretation: Performing Lab:[facility], [address] [place] [phone] Notes/Report: Urine Culture Report Result Urine Culture > 100,000 cfu/ml Urine Culture Mixed bacterial kathryn a characteristic of Urine Culture urogenital contamination. SARS-CoV2/FLU/RSV Reviewed date:06/11/2023 05:47:36 PM Interpretation: Performing Lab:[facility], [address] [place] [phone] Notes/Report: Influenza A PCR NEGATIVE Negative Influenza [...] by authorized laboratories. Testing performed on the [employer] GeneXpert utilizing real-time RT-PCR. All SARS CoV2 and positive influenza A/B results are reported to [facility]. UA ClnCatch+Micro w/rflx Cul t Reviewed date:06/11/2023 05:47:36 PM Interpretation: Performing Lab:[address] [phone] Notes/Report: [id number] Urine, Clean Catch Color Urine Yellow Appearance Urine Clear PH 6.0 5.0-9.0 Glucose Urine UA Negative Negative mg/dL Urine Blood Negative Negative Specific [place] - Urine 1.015 1.005-1.025 Urine Protein 30 (1+) Neg-Trace mg/dL Urine Ketones Negative Negative mg/dL Nitrite Urine Negative Negative Leukocyte Esterase Urine Moderate (2+) Negative RBC Urine 0-2 0-2 /HPF WBC Urine 21-50 0-5 /HPF Squamous Epithelial Cell Urine 3-5 0-2 /HPF Bacteria Urine None Seen None Seen Hyaline Casts Urine 0-2 0-2 /LPF CDiff Gene PCR Reviewed date:06/11/2023 05:47:36 PM Interpretation: Performing Lab:[facility], [address] [place] [phone] Notes/Report: CDiff Gene PCR NEGATIVE Negative If C. difficile strongly suspected despite one negative test, a second test may be sent vs. empiric treatment for C. difficile infection. GI Panel Reviewed date:06/11/2023 05:47:36 PM Interpretation: Performing Lab:[facility], [address] [place] [phone] Notes/Report: Campylobacter Not Detected Not Detect. Plesiomonas [...] is performed by Multiplexed PCR, utilizing the [employer] Array. Complete Blood Count Auto Di ff Reviewed date:06/11/2023 05:47:36 PM Interpretation: Performing Lab:[address] [address] Notes/Report: White Blood Count 7.1 4.8-10.8 X10*3/uL [...] Panel Reviewed date:06/11/2023 05:47:36 PM Interpretation: Performing Lab:[facility], [address] [place] [phone] Notes/Report: Sodium 141 135-145 mmol/L Potassium 2.1 3.3-5.1 mmol/L Critical POTASSIUM sent by a secure message and confirmed by EMIGDIO 06/11/23 0589 Tech:ESA Chloride 102 96-108 mmol/L Carbon Dioxide [...] Glomerular Filt Rate > 60 NOTE: For -[place] individuals, multiply the result by 1.210. Chronic Kidney Disease: Estimated GFR < 60 mL/min/1.73m2 Severe Kidney Disease: Estimated GFR < 15 mL/min/1.73m2 Glucose Random 186 60-115 mg/dL Calcium 7.7 8.4-10.2 mg/dL Magnesium Reviewed date:06/11/2023 05:47:36 PM Interpretation: Performing Lab:[facility], [address] [place] [phone] Notes/Report: Magnesium 1.2 1.6-2.6 mg/dL Critical MAGNESIUM sent by a secure message and confirmed by EMIGDIO 06/11/23 0559 Tech:ESA Glucose, Whole Blood Reviewed date:06/11/2023 05:47:36 PM Interpretation: Performing Lab:[facility], [address] [place] [phone] Notes/Report: Glucose, Whole Blood 153 60-115 mg/dL METER # : [id number] Glucose, Whole Blood Reviewed date:06/11/2023 05:47:36 PM Interpretation: Performing Lab:[facility], [address] [place] [phone] Notes/Report: Glucose, Whole Blood 179 60-115 mg/dL METER # : [id number] Basic Metabolic Panel Reviewed date:06/11/2023 05:47:36 PM Interpretation: Performing Lab:[facility], [address] [place] [phone] Notes/Report: Sodium 141 135-145 mmol/L Potassium 3.8 [...] Glomerular Filt Rate > 60 NOTE: For -[place] individuals, multiply the result by 1.210. Chronic Kidney Disease: Estimated GFR < 60 mL/min/1.73m2 Severe Kidney Disease: Estimated GFR < 15 mL/min/1.73m2 Glucose Random 180 60-115 mg/dL Calcium 8.0 8.4-10.2 mg/dL Magnesium Reviewed date:06/11/2023 05:47:36 PM Interpretation: Performing Lab:[address] [phone] Notes/Report: Magnesium 2.5 1.6-2.6 mg/dL Glucose, Whole Blood Reviewed date:06/11/2023 05:45:54 PM Interpretation: Performing Lab:[facility], [address] [place] [phone] Notes/Report: Glucose, Whole Blood 196 60-115 mg/dL METER # : [id number] Glucose, Whole Blood Reviewed date:06/12/2023 05:18:47 PM Interpretation: Performing Lab:[address] [address] Notes/Report: Glucose, Whole Blood 183 60-115 mg/dL METER # : [id number] Hold Lav - Possible Hematolo gy Reviewed date:06/12/2023 05:18:46 PM Interpretation: Performing Lab:[facility], [address] [place] [phone] Notes/Report: Hold Lav - Possible Hematology SEE NOTE Specimen will be held untested for 8 hours. Call Hematology if testing is desired. Liver Panel Reviewed date:06/12/2023 05:18:46 PM Interpretation: Performing Lab:[facility], [address] [place] [phone] Notes/Report: Bilirubin Total 1.6 0.0-1.0 mg/dL Bilirubin Direct 0.5 0.0-0.5 mg/dL Aspartate Amino Transferase 47 5-31 U/L Alanine Aminotransferase 27 0-31 U/L Total Protein 5.5 6.5-8.0 g/dL Albumin Level 2.9 3.5-5.0 g/dL Alkaline Phosphatase 155 39-117 U/L Basic Metabolic Panel Reviewed date:06/12/2023 05:18:46 PM Interpretation: Performing Lab:[facility], [address] [place] [phone] Notes/Report: Sodium 142 135-145 mmol/L Potassium 3.7 [...] Glomerular Filt Rate > 60 NOTE: For -[place] individuals, multiply the result by 1.210. Chronic Kidney Disease: Estimated GFR < 60 mL/min/1.73m2 Severe Kidney Disease: Estimated GFR < 15 mL/min/1.73m2 Glucose Random 186 60-115 mg/dL Calcium 7.7 8.4-10.2 mg/dL Magnesium Reviewed date:06/12/2023 05:18:46 PM Interpretation: Performing Lab:[facility], [address] [place] [phone] Notes/Report: Magnesium 1.7 1.6-2.6 mg/dL Glucose, Whole Blood Reviewed date:06/12/2023 05:18:46 PM Interpretation: Performing Lab:[facility], [address] [place] [phone] Notes/Report: Glucose, Whole Blood 186 60-115 mg/dL METER # : [id number] CT abdomen pelvis wo con Reviewed date:06/12/2023 05:18:46 PM Interpretation: Performing Lab: Notes/Report: [address] [address] [address] Scan Report Signed Patient: Angela Nam MR#: [id number] : 1945 Acct:[id number] Age/Sex: 78 / F ADM Date: 06/10/23 Loc: .S3 350-[address]: Fabiola Lopez NP Ordering Physician: Fabiola Lopez NP Date of Service: 06/12/23 Procedure(s): CT abdomen pelvis wo IV con Accession Number(s): [id number] cc: Rory Sandhu MD; Fabiola Lopez NP [...] in OV> 06/12/23 1028 DD/ 0954 TD/TT: [employer] Area Supervisor: Glucose, Whole Blood Reviewed date:06/12/2023 05:18:46 PM Interpretation: Performing Lab:[facility], [address] [place] [phone] Notes/Report: Glucose, Whole Blood 259 60-115 mg/dL METER # : [id number] Glucose, Whole Blood Reviewed date:06/12/2023 05:18:46 PM Interpretation: Performing Lab:[facility], [address] [place] [phone] Notes/Report: Glucose, Whole Blood 173 60-115 mg/dL METER # : [id number] Glucose, Whole Blood Reviewed date:06/12/2023 05:18:46 PM Interpretation: Performing Lab:[address] [phone] Notes/Report: Glucose, Whole Blood 255 60-115 mg/dL METER # : [id number] Glucose, Whole Blood Reviewed date:06/13/2023 12:27:54 PM Interpretation: Performing Lab:[facility], [address] [place] [phone] Notes/Report: Glucose, Whole Blood 255 60-115 mg/dL METER # : [id number] Complete Blood Count no Diff Reviewed date:06/13/2023 12:27:54 PM Interpretation: Performing Lab:[facility], [address] [place] [phone] Notes/Report: White Blood Count 6.6 4.8-10.8 X10*3/uL [...] Qualitative Reviewed date:06/13/2023 12:27:54 PM Interpretation: Performing Lab:[address] [phone] Notes/Report: Leukocytes Stool Qualitative NEGATIVE NEGATIVE Basic Metabolic Panel Reviewed date:06/13/2023 12:27:54 PM Interpretation: Performing Lab:[address] [address] Notes/Report: Sodium 138 135-145 mmol/L Potassium 3.2 [...] Glomerular Filt Rate > 60 NOTE: For -[place] individuals, multiply the result by 1.210. Chronic Kidney Disease: Estimated GFR < 60 mL/min/1.73m2 Severe Kidney Disease: Estimated GFR < 15 mL/min/1.73m2 Glucose Random 319 60-115 mg/dL Calcium 8.0 8.4-10.2 mg/dL C Reactive Protein Reviewed date:06/13/2023 12:27:54 PM Interpretation: Performing Lab:[facility], [address] [place] [phone] Notes/Report: C Reactive Protein 0.14 < or = 0.50 mg/dL Lipase Reviewed date:06/13/2023 12:27:54 PM Interpretation: Performing Lab:[facility], [address] [place] [phone] Notes/Report: Lipase 39 8-78 U/L Vitamin B12 and Folate Reviewed date:06/13/2023 12:27:54 PM Interpretation: Performing Lab:[facility], [address] [place] [phone] Notes/Report: Vitamin B12 236 200-900 pg/mL NORMAL 200-900 PG/ML INDETERMINATE 160-199 PG/ML DEFICIENT < 160 PG/ML Folate 7.7 > or = 4.0 ng/mL Reference Values: > or = 4.0 ng/mL < 4.0 ng/mL suggests folate deficiency Methotrexate, aminopterin and folinic acid (leucovorin) are chemotherapeutic agents whose molecular structures are similar to folate; therefore, the [employer] folate assay cannot be used for patients using these drugs. Vitamin D 25-OH Total Reviewed date:06/13/2023 12:27:54 PM Interpretation: Performing Lab:[facility], [address] [place] [phone] Notes/Report: Vitamin D 25-OH Total 37.7 >30 [...] SGI Reviewed date:06/16/2023 12:56:34 PM Interpretation: Performing Lab:[facility], [address] [place] [phone] Notes/Report: [employer] IBD SGI SEE NOTE SEE SCANN ED RESULTS IN EMR Glucose, Whole Blood Reviewed date:06/13/2023 12:27:54 PM Interpretation: Performing Lab:[facility], [address] [place] [phone] Notes/Report: Glucose, Whole Blood 197 60-115 mg/dL METER # : [id number] Pancreatic Elastase-1 Reviewed date:06/23/2023 12:04:29 PM Interpretation: Performing Lab:[facility], [address] [place] [phone] Notes/Report: Pancreatic Elastase-1 498 Adult and Pediatric Reference Ranges for Pancreatic Elastase-1: Normal: >200 mcg/g Moderate Pancreatic Insufficiency: 100-200 mcg/g Severe Pancreatic Insufficiency: <100 mcg/g Elastase-1 (E-1) assay results are expressed in mcg/g, which represent mcg E1/g feces. It is not necessary to interrupt enzyme substitution therapy. THIS TEST WAS PERFORMED AT: [facility] [address] [place] [address] OLGA YA MD,PHD,PADDY Fecal Fat Qualitative Reviewed date:06/19/2023 01:29:50 PM Interpretation: Performing Lab:[facility], [address] [place] [phone] Notes/Report: Fecal Fat Qualitative Normal Normal THIS TEST WAS PERFORMED AT: [facility] [address] [place] [phone] BHAVNA ALEMAN MD,PHD Calprotectin, Fecal Reviewed date:06/19/2023 01:29:39 PM Interpretation: Performing Lab:[facility], [address] [place] [phone] Notes/Report: Calprotectin, Fecal 510 Reference Range: <50 [...] borderline values. THIS TEST WAS PERFORMED AT: [facility] [address] [place] [address] OLGA YA MD,PHD,PADDY Glucose, Whole Blood Reviewed date:06/13/2023 12:27:54 PM Interpretation: Performing Lab:[facility], [address] [place] [phone] Notes/Report: Glucose, Whole Blood 306 60-115 mg/dL METER # : [id number] Glucose, finger stick Reviewed date:06/16/2023 09:48:28 AM Interpretation: Performing Lab: Notes/Report: Value 270 Glucose, finger stick Reviewed date:07/08/2023 10:40:14 AM Interpretation: Performing Lab: Notes/Report: Value 155 Magnesium Reviewed date:07/07/2023 02:28:58 PM Interpretation: Performing Lab:[facility], [address] [place] [phone] Notes/Report: Magnesium 1.3 1.6-2.6 mg/dL Critical value for MAGS: Results called to and read back by:ROMIE Varghese Person calling: MOE Date: 07/07/23 Time:1313 Corry Gomez Reviewed date:07/07/2023 12:42:32 PM Interpretation: Performing Lab:[facility], [address] [place] [phone] Notes/Report: Corry Gomez See Note Specimen held untested for 24 hours; Call to request Chemistry testing. Corry Gomez Reviewed date:07/14/2023 04:10:39 PM Interpretation: Performing Lab:[facility], [address] [place] [phone] Notes/Report: Corry Gomez See Note Specimen held untested for 24 hours; Call to request Chemistry testing. Magnesium Reviewed date:07/14/2023 01:10:20 PM Interpretation: Performing Lab:[facility], [address] [place] [phone] Notes/Report: Magnesium 1.8 1.6-2.6 mg/dL Glucose, finger stick Reviewed date:09/02/2023 09:58:02 AM Interpretation: Performing Lab: Notes/Report: Value 324 Comprehensive Met. Panel Reviewed date:10/10/2023 12:25:33 PM Interpretation: Performing Lab:[facility], [address] [place] [phone] Notes/Report: Sodium 138 135-145 mmol/L Potassium 5.5 3.3-5.1 mmol/L Chloride 102 96-108 mmol/L Carbon Dioxide 28 22-29 mmol/L Anion Gap 14 12-20 Blood Urea Nitrogen 25 9-16 mg/dL Creatinine 1.13 0.5-1.4 mg/dL Estimated Glomerular Filt Rate 47 NOTE: For -[place] individuals, multiply the result by 1.210. Chronic Kidney Disease: Estimated GFR < 60 mL/min/1.73m2 Severe Kidney Disease: Estimated GFR < 15 mL/min/1.73m2 Glucose Random 198 60-115 mg/dL Calcium 9.6 8.4-10.2 mg/dL Bilirubin Total 0.7 0.0-1.0 mg/dL Aspartate Amino Transferase 25 5-31 U/L Alanine Aminotransferase 15 0-31 U/L Total Protein 7.2 6.5-8.0 g/dL Albumin Level 3.6 3.5-5.0 g/dL Alkaline Phosphatase 200 39-117 U/L Corry Gomez Reviewed date:10/10/2023 12:15:45 PM Interpretation: Performing Lab:[facility], [address] [place] [phone] Notes/Report: Corry Gomez See Note Specimen held untested for 24 hours; Call to request Chemistry testing. Complete Blood Count Auto Di ff Reviewed date:10/10/2023 01:51:45 PM Interpretation: Performing Lab:[facility], [address] [place] [phone] Notes/Report: White Blood Count 11.4 4.8-10.8 X10*3/uL [...] Magnesium Reviewed date:10/10/2023 12:15:37 PM Interpretation: Performing Lab:[facility], [address] [place] [phone] Notes/Report: Magnesium 1.9 1.6-2.6 mg/dL IRON PROFILE Reviewed date:10/10/2023 12:24:17 PM Interpretation: Performing Lab:[facility], [address] [place] [phone] Notes/Report: Iron 43 30-160 mcg/dL Total Iron Binding Capacity 326 228-428 mcg/dL Percent Iron Saturation 13 15-50 % Unsaturated Iron Binding 283 Lipid Panel Reviewed date:10/10/2023 12:18:36 PM Interpretation: Performing Lab:[facility], [address] [place] [phone] Notes/Report: Triglycerides 52 <150 mg/dL Desirable Triglyceride: [...] Total Reviewed date:10/10/2023 12:17:18 PM Interpretation: Performing Lab:[facility], [address] [place] [phone] Notes/Report: Vitamin D 25-OH Total 19.7 >30 [...] Random Reviewed date:10/10/2023 12:25:00 PM Interpretation: Performing Lab:[address] [phone] Notes/Report: Creatinine Urine 48.62 Microalbumin Urine 6.0 Microalbum/Creatinine Ratio Ur 12.3 <30 ug/mg cr Albumin/Creatinine Ratio Reference Ranges: Normal: < 30 ug/mg creatinine Microalbuminuria: 30 - 300 ug/mg creatinine Clinical Albuminuria: > 300 ug/mg creatinine Hemoglobin A1c Reviewed date:10/10/2023 12:15:54 PM Interpretation: Performing Lab:[address] [address] Notes/Report: Hemoglobin A1c % 9.4 <6.0 % [...] average glucose, using the formula of the Y5S-Fntaord Average Glucose study (ADAG), Diabetes Care, Vol.31,#8, Nov. 2007 UA ClnCatch+Micro w/rflx Cul t Reviewed date:10/10/2023 12:28:38 PM Interpretation: Performing Lab:[address] [phone] Notes/Report: Urine, Clean Catch Color Urine Yellow Appearance Urine Clear PH 8.0 5.0-9.0 Glucose Urine UA Negative Negative mg/dL Urine Blood Negative Negative Specific [place] - Urine 1.010 1.005-1.025 Urine Protein Negative Neg-Trace mg/dL Urine Ketones Negative Negative mg/dL Nitrite Urine Negative Negative Leukocyte Esterase Urine Trace Negative RBC Urine 0-2 0-2 /HPF WBC Urine 0-5 0-5 /HPF Squamous Epithelial Cell Urine 0-2 0-2 /HPF Bacteria Urine Trace None Seen Hyaline Casts Urine 0-2 0-2 /LPF Potassium Reviewed date:10/17/2023 04:47:55 PM Interpretation: Performing Lab:[facility], [address] [place] [phone] Notes/Report: Potassium 4.3 3.3-5.1 mmol/L MM tomosynthesis screening B I Reviewed date:11/20/2023 03:45:18 PM Interpretation: Performing Lab: Notes/Report: [address] [place] [address] Mammography Report Signed Patient: Angela Nam MR#: [id number] : 1945 Acct:[id number] Age/Sex: 78 / F ADM Date: 11/15/23 Loc: HO.MAMMO Attending Dr: Rory Sandhu MD Ordering Physician: Rory Sandhu MD Results: 1Ne gative Date of Service: 11/15/23 Follow Up: 1 Year From Orig [facility] Mammogram Procedure(s): MM tomosynthesis screening BI Accession Number(s): [id number] cc: Rory Sandhu MD EXAMINATION: MM SCREENING [...] Redmond MD in OV> 11/15/23 1120 DD/ 0930 TD/TT: [employer] Area Supervisor: Glucose, Whole Blood Reviewed date:02/22/2024 04:14:02 PM Interpretation: Performing Lab:[facility], [address] [place] [phone] Notes/Report: Glucose, Whole Blood 252 60-115 mg/dL METER #: [id number] Testing performed in the [facility]ocrinology [facility], [facility]. REASON FOR REFERRAL No Information MEDICATIONS Medication SIG (Take, Route, Frequency, Duration) Notes Start Date End Date Status Vitamin D3 1000 UNIT 1 tablet Orally Onc e a day 03/31/2018 Active metFORMIN HCl ER 500 MG TAKE 2 TABLETS B Y MOUTH 2 TIMES EVERY DAY for 90 Active Iron 325 (65 Fe) MG 1 tablet Orally Once a day Active Atorvastatin Calcium 80 MG 0.5tablet Orally Once a day Active Tresiba FlexTouch 200 UNIT/ML as directed [...] Omeprazole 20 MG TAKE 1 CAPSULE BY [facility] EVERY DAY for 90 Active Ursodiol 300 [...] Administered pt was given the vaccine at [facility] on K[facility], Rylie Shingrix Unknown 09/18/2018 Administered [facility] Influenza [...] Mitral valve disorde r (424.0) Active confirmed 75489836 Problem Vitamin D deficiency (E55.9) Active confirmed 38852300 Problem Asthmatic bronchitis (J45.909) Active confirmed Asthmatic bronchitis (942615721) Problem Malignant neoplasm o f ascending colon (C18.2) Active confirmed 035197775 Problem Hypomagnesemia (E83.42) Active confirmed Hypomagnesemia (406648214) Problem Hypercalcemia (E83.52) Active confirmed Hypercalcemia (15984075) Problem Supraventricular tachycardia (I47.1) Active confirmed 6972244 Problem Other specified menopausal and perimenopausal disorders (N95.8) Active confirmed 238744338 Problem Type 2 diabetes mellitus without complication (E11.9) Active confirmed 28317931 Problem Abnormal LFTs (R79.89) Active confirmed 549974900 Problem Lung nodule (R91.1) Active confirmed 30 0166069 Problem Labile hypertension (I10) Active confirmed 559842365 Problem SVT (supraventricula r tachycardia) (I47.1) Active confirmed 0236917 Problem Anemia, unspecified type (D64.9) Active confirmed 502059801 Problem Sarcoidosis (D86.9) Active confirmed 31 361854 Problem Iron deficiency anemia, unspecified iron deficiency anemia type (D50.9) Active confirmed 67019122 Problem Pure hypercholesterolemia (E78.00) Active confirmed 891708288 Problem Bunion of great toe of left foot (M21.612) Active confirmed 516210359 Problem NSTEMI (non-ST elevated myocardial infarction) (I21.4) Active confirmed 99725474 Problem 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) Active confirmed 98120712 VITAL SIGNS Blood pressure diastolic 60 mm Hg 10/17/2023 Height 59.50 in 01/20/2024 Blood pressure systolic 132 mm Hg 10/17/2023 Weight 123 lbs 01/20/2024 BMI 24.42 kg/m2 01/20/2024 Encounters Encounter Location Date Provider Diagnosis Rory Sandhu MD [address] [place] [id number] 10/17/2023 Rory Sandhu NSTEMI (non-ST eleva martir myocardial infarction) I21.4 ; Acute hyperkalemia E87.5 ; Vitamin D deficiency E55.9 ; Type 2 diabetes mellitus without complication E11.9 ; Pure hypercholesterolemia E78.00 ; Anemia, unspecified type D64.9 ; Labile hypertension I10 ; Encounter for screening for malignant neoplasm of colon Z12.11 and Encounter for screening for depression Z13.31 Rory Sandhu MD [address] [place] [id number] 10/10/2023 Rory Sandhu Type 2 diabetes franci itus without complication E11.9 ; Abnormal LFTs R79.89 ; Anemia, unspecified type D64.9 ; Pure hypercholesterolemia E78.00 ; Labile hypertension I10 ; Hypercalcemia E83.52 and Hypomagnesemia E83.42 Rory Sandhu MD [address] [place] [address] [id number] 07/07/2023 Rory Sandhu Hypomagnesemia E83.4 2 Rory Sandhu MD [address] [place] [address] [id number] 07/14/2023 Rory Sandhu Hypomagnesemia E83.4 2 Rory Sandhu MD [address] [place] [address] [id number] 02/03/2024 Rory Sandhu Encounter for immuni zation Z23 Rory Sandhu MD [address] [place] [address] [id number] 03/13/2024 Rory Sandhu Pure hypercholestero lemia E78.00 and Type 2 diabetes mellitus without complication E11.9 Rory Sandhu MD [address] [place] [address] [id number] 04/29/2023 Rory Renoardier Type 2 diabetes franci itus without complication E11.9 ; Primary biliary cholangitis K74.3 and RSV infection B33.8 Rory Sandhu MD [address] [place] [address] [id number] 06/16/2023 Rory Renoardier Type 2 diabetes franci itus without complication E11.9 ; Chronic diarrhea K52.9 ; Low magnesium level R79.0 and Acute hypokalemia E87.6 Rory Sandhu MD [address] [place] [address] [id number] 07/01/2023 Rory Renoardier Type 2 diabetes franci itus without complication E11.9 and Chronic diarrhea K52.9 Rory Sandhu MD [address] [place] [address] [id number] 09/02/2023 Rory Renoardier Type 2 diabetes franci itus without complication E11.9 and Tinea corporis B35.4 Rory Sandhu MD [address] [place] [address] [id number] 01/20/2024 Rory Renoardier Type 2 diabetes franci itus without complication E11.9 ; Fungal infection B49 and Arthralgia of multiple joints M25.50 Rory Sandhu MD [address] [place] [address] [id number] 06/03/2023 Rory Renoardier Type 2 diabetes franci itus without complication E11.9 ; Respiratory infection J98.8 and Chronic diarrhea K52.9 Rory Sandhu MD [address] [place] [address] [id number] 04/14/2023 Rory Sandhu MD [address] [place] [address] [id number] 05/19/2023 Rory Sandhu MD [address] [place] [address] [id number] 06/06/2023 Rory Sandhu MD [address] [place] [address] [id number] 06/09/2023 Rory Sandhu MD [address] [place] [address] [id number] 06/16/2023 Rory Sandhu MD [address] [place] [address] [id number] 07/07/2023 Rory Sandhu MD [address] [place] [address] [id number] 07/08/2023 Rory Sandhu MD [address] [place] [address] [id number] 08/25/2023 Rory Sandhu MD [address] [place] [address] [id number] 08/30/2023 Rory Sandhu MD [address] [place] [address] [id number] 09/08/2023 Rory Sandhu MD [address] [place] [address] [id number] 04/14/2023 Rory Sandhu Chronic diarrhea K52 .9 [...] - E11.9) was seen at endocrine in [facility] and was 7.1, will continue current regiment [...] J98.8) PA/LAT chest xray ordered, pending results 04/14/2023 Chronic diarrhea (ICD-10 - K52.9) lab order faxed to [facility] patient reg, pending labs 10/17/2023 Vitamin D [...] (ICD-10 - E11.9) is being seen at [facility] and just started on glipizide 10/10/2023 Pure [...] Test Name Order Date Electrocardiogram (EKG) 03/02/2011 Glucose, finger stick 04/20/2024 IRON + IBC (FE) 03/08/2017 NUC WHOLE BODY SCAN BONE 10/08/2022 XR CHEST 2 VIEW PA & LAT 02/02/2011 XR CHEST 2 VIEW PA & LAT 03/29/2023 XR CHEST 2 VIEW PA & LAT 06/03/2023 XR HIP RT 12/25/2013 US ABD 11/15/2022 Liver Panel 03/13/2024 Glucose Fasting 03/13/2024 Lipid Panel with Reflex 03/13/2024 CT chest wo con 09/04/2021 US abdomen complete 09/24/2021 Hemoglobin A1c 03/13/2024 Next Appt Details Provider Name:Rory mcdonald, 04/20/2024 11:30:00 AM, [address] [place] [address] Drive, [address], [place], [place], [id number], Provider Name:Rory mcdonald, 10/09/2024 08:15:00 AM, [address] [place] [address] Drive, [address], [place], [place], [phone], Provider Name:Rory mcdonald, 10/19/2024 11:00:00 AM, [address], [address], [place], [place], [phone], Insurance Providers Payer Name Payer Address Payer Phone Subscriber Number Group Number Insured Name Patient Relationship to Insured Coverage Start Date Coverage End Date MEDICARE NHIC GELA [address] [place] [address] [id number] Angela Nam Self - patient is the insured [place] [place] [address] [place] [address] [id number] Angela Nam Self - patient is [...]
--- OUTSIDE RECORDS SUMMARY | 2024-04-06 09:51 | XMS_ITS ---
Author Organization [facility] Address [address] [place] [address] Care Team Providers Care Sales Team Manager Name Role Phone Rory Sandhu MD Primary Care Provider Bryce Hernandez Unavailable [phone] ALLERGIES Allergen (clinical drug ingredient) Drug/Non Drug [...] 03/15/2024 Encounters Encounter Location Date Provider Diagnosis [facility] [address] [place] [address] 03/15/2024 Bryce Oliver Gastroesophageal ref lux disease [...] Name:Bryce Oliver , 03/14/2025 09:40:00 AM, [address], [address], [place], [address], Progress Notes * Examination Category Sub-Category Detail [...]
--- OUTSIDE RECORDS SUMMARY | 2024-04-06 09:51 | XMS_ITS | Patient Health Record ---
Author Organization [facility] Address [address] [place] [address] Care Team Providers Care Stock Layer Name Role Phone Rory Sandhu MD Primary Care Provider Bryce Hernandez Unavailable [phone] ALLERGIES Allergen (clinical drug ingredient) Drug/Non Drug Allergy documented on EMR Reaction Allergy Type Onset Date Status codeine codeine (uncoded) Unknown Allergy Ac tive RESULTS Component Value Reference Range Notes Complete Blood Count Auto Di ff (Not yet reviewed by provider) Interpretation: Performing Lab:[facility], [address] [place] [phone] Notes/Report: White Blood Count 7.2 4.8-10.8 X10*3/uL [...] INR Reviewed date:08/08/2023 09:56:58 PM Interpretation: Performing Lab:[address] [address] Notes/Report: Prothrombin Time 12.9 11.1-13.3 SEC INTERNATIONAL [...] Panel Reviewed date:08/08/2023 09:58:26 PM Interpretation: Performing Lab:[address] [address] Notes/Report: Bilirubin Total 0.6 0.0-1.0 mg/dL Bilirubin Direct 0.3 0.0-0.5 mg/dL Aspartate Amino Transferase 20 5-31 U/L Alanine Aminotransferase 18 0-31 U/L Total Protein 6.3 6.5-8.0 g/dL Albumin Level 3.2 3.5-5.0 g/dL Alkaline Phosphatase 237 39-117 U/L IRON PROFILE Reviewed date:08/08/2023 09:57:17 PM Interpretation: Performing Lab:[address] [address] Notes/Report: Iron 49 30-160 mcg/dL Total Iron Binding Capacity 296 228-428 mcg/d L Percent Iron Saturation 17 15-50 % Unsaturated Iron Binding 247 Ferritin Reviewed date:08/08/2023 09:57:25 PM Interpretation: Performing Lab:[facility], [address] [place] [phone] Notes/Report: Ferritin 27 10-250 ng/mL Complete Blood Count Auto Di ff Reviewed date:03/06/2024 01:06:19 PM Interpretation: Performing Lab:[facility], [address] [place] [phone] Notes/Report: White Blood Count 8.3 4.8-10.8 X10*3/uL [...] INR Reviewed date:03/06/2024 01:04:13 PM Interpretation: Performing Lab:[address] [address] Notes/Report: Prothrombin Time 12.5 10.9-12.4 SEC INTERNATIONAL [...] Panel Reviewed date:03/15/2024 01:14:23 PM Interpretation: Performing Lab:[address] [address] Notes/Report: Bilirubin Total 0.8 0.0-1.0 mg/dL Bilirubin Direct 0.4 0.0-0.5 mg/dL Aspartate Amino Transferase 25 5-31 U/L Alanine Aminotransferase 13 0-31 U/L Total Protein 6.5 6.5-8.0 g/dL Albumin Level 3.4 3.5-5.0 g/dL Alkaline Phosphatase 183 39-117 U/L IRON PROFILE Reviewed date:03/06/2024 01:06:36 PM Interpretation: Performing Lab:[address] [address] Notes/Report: Iron 59 30-160 mcg/dL Total Iron Binding Capacity 283 228-428 mcg/d L Percent Iron Saturation 21 15-50 % Unsaturated Iron Binding 224 Ferritin Reviewed date:03/06/2024 01:06:44 PM Interpretation: Performing Lab:[address] [address] Notes/Report: Ferritin 34 10-250 ng/mL Liver Fibrosis Pnl Reviewed date:03/16/2024 01:26:12 PM Interpretation: Performing Lab:[address] [address] Notes/Report: Liver Fibrosis Score 0.37 Liver Fibrosis [...] a>0.62 and a<=1.00 : A3 (severe activity) IEZ-Qyllg-2-Macroglobulin 197 106-279 mg/dL FIB-Haptoglobin 153 43-212 mg/dL FIB-Apolipoprotein A1 140 101-198 mg/dL FIB-Total Bilirubin 0.8 0.2-1.2 mg/dL FIB-GGT 28 3-65 U/L FIB-ALT 12 6-29 U/L Reference ID [id number] Footnote SEE NOTE The reliability of results [...] The performance characteristics have been determined by [employer], [employer]. It has not been cleared or approved by the U.S. Food and Drug Administration. Performance characteristics refer to the analytical performance of the test. [employer], the associated logo, [employer] and all associated [employer] guerrero are the registered trademarks of [employer]. All third libertarian guerrero - (R) and (TM) - are the property of their respective owners. (C) [id number] [employer]. All rights reserved. THIS TEST WAS PERFORMED AT: [employer] [facility] [address] [place] [address] OLGA YA MD,PHD,PADDY REASON FOR REFERRAL No [...] reflux (K21.9) Active confirmed Esophageal refl ux (491967296) Problem Weight loss (R63.4) Active confirmed [address] of liver (R93.2) Active confirmed 68097059924076399 Problem Gastroesophageal reflux disease without esophagitis (K21.9) Active confirmed 409078430 Problem History of colon cancer (Z85.038) Active confirmed 373006262 Problem Heme + stool (R19.5) Active confirmed 5 0129393 Problem Pharyngoesophageal dysphagia (R13.14) Active confirmed 18129886 Problem Iron deficiency anemia, unspecified iron deficiency anemia type (D50.9) Active confirmed 96558783 Problem 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) Active confirmed 74567109 Problem Diarrhea, unspecified type (R19.7) Active confirmed 39455681 Problem Cirrhosis of liver without ascites, unspecified hepatic cirrhosis type (K74.60) Active confirmed 33312415 Problem Hypertension, unspecified type (I10) Active confirmed 62075412 Problem Diverticulosis of colon (K57.30) Active confirmed Diverticulosi s of colon (759654635) Problem History of Billroth II operation (Z98.0) Active confirmed History of gastrointestinal tract bypass (934419961) Problem 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) Active confirmed 495825156 VITAL SIGNS Temperature 97.3 degrees Fahrenheit 09/14/2023 Blood pressure diastolic 00 mm Hg 03/15/2024 Height 60.50 in 03/15/2024 Blood pressure systolic 00 mm Hg 03/15/2024 Weight 120 lbs 03/15/2024 BMI 23.05 kg/m2 03/15/2024 Encounters Encounter Location Date Provider Diagnosis [facility] [address] [place] [address] 09/14/2023 Bryce Oliver Gastroesophageal ref lux disease without esophagitis K21.9 ; Primary biliary cholangitis K74.3 and History of colon cancer Z85.038 [facility] [address] [place] [address] 03/15/2024 Bryce Oliver Gastroesophageal ref lux disease without esophagitis K21.9 ; Primary biliary cholangitis K74.3 and History of colon cancer Z85.038 [facility] [address] [place] [address] 06/13/2023 Bryce Oliver ASSESSMENTS Encounter Date Diagnosis [...] Name:Bryce Varghese Benito , 03/14/2025 09:40:00 AM, [address] [place] [address], [address], [place], [address], Insurance Providers Payer Name Payer Address Payer Phone Subscriber Number Group Number Insured Name Patient Relationship to Insured Coverage Start Date Coverage End Date MEDICARE OF [place] [address] [place] [address] [id number] PATRICIO TEE Self - patient is the insured MEDEX ATTN CLAIMS [address] [place] [address] [id number] NIANAOL, PATRICIO Self - patient is the insured MEDICAL (GENERAL) HISTORY Medical History History ICD Code NIDDM GERD-she had an upper endosc opy in 2011 which was negative for any significant esophagitis nor Flores's esophagus Pulmonary sarcoidosis Hyperlipidemia Denies OK,CVA,renal disease Screening colonoscopy in 05/13 012 with the 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 Cam Preciado-no chemo needed-she was also evaluated at [facility]-she had a negative CT scan in 2013 [...]
[2024-04-06 11:16] LABS: Alanine Aminotransferase 14 U/L (0-31); Albumin Level 3.6 g/dL (3.5-5.0); Alkaline Phosphatase 204 U/L (39-117); Aspartate Amino Transferase 30 U/L (5-31); Bilirubin Direct 0.3 mg/dL (0.0-0.5); Bilirubin Total 0.8 mg/dL (0.0-1.0); Cholesterol 89 mg/dL (<200); Glucose Fasting 136 mg/dL (60-99); HDL Cholesterol 46 mg/dL (>40); LDL Cholesterol Calculated 28 mg/dL (<100); Total Protein 7.1 g/dL (6.5-8.0); Triglycerides 76 mg/dL (<150)
[2024-04-06 11:49] LABS: Estimated Average Glucose 194 mg/dL; Hemoglobin A1C 160.0766 umol/L; Hemoglobin A1c % 8.4 % (<6.0); Total Hemoglobin (HGBA1C) 2350.3811 umol/L
[2024-04-06 12:00] LABS: Reflex LDLD? No
== END 2024-04-06 09:33 | disposition home or self-care (01) ==
LOC: HO.10HDL 09:32
PROVIDERS: Visit Provider Internal Medicine
DX: E78.00 Pure hypercholesterolemia, unspecified (principal); E11.9 Type 2 diabetes mellitus without complications
CPT/HCPCS: 36415; 80061; 80076; 82947; 83036

== ENCOUNTER 2024-08-10 10:52 | Outpatient (REF) | payer MEDICARE, SELFPAY ==
--- NOTE | ~2024-08-10 | XR_ITS ---
EXAMINATION: XR CHEST CLINICAL INFORMATION: SHORTNESS OF BREATH COMPARISON: June 03, 2023 TECHNIQUE: 2 views of the chest were obtained. FINDINGS: Pulmonary reticular pattern. 2 mm calcified pulmonary nodules, left lung. No consolidation, pleural effusion or pneumothorax. Cardiomediastinal silhouette size is normal. Calcifications in the mitral valve region. Multilevel thoracic spondylosis. Degenerative changes in the acromioclavicular joints, right greater than the left side. XR/XR chest 2V IMPRESSION: Chronic interstitial lung disease. Probable granuloma, left upper lung lobe. Calcified mitral valve. Multilevel spondylosis. Electronically signed by: Shayan Monroe MD 08/10/2024 12:00 PM EDT
--- OUTSIDE RECORDS SUMMARY | 2024-08-10 12:02 | XMS_ITS | Clinical Summary ---
Author Organization [facility] Address [address] [place] [address] Care Team Providers Care Automation Mechanic Name Role Phone Erik Justin MD Primary Care Provider [phone] Allergies Active Allergy Reactions Severity Noted Date Comments Kdc:Red Dye+Yellow Dye+Codei ne+Edetic Acid+Sodium Benzoate Anaphylaxis 09/09/2017 Upset stomach Medications Medication Sig Dispensed Refills Start Date End Date Status metformin (GLUCOPHAGE) 500 MG tablet Take 500 mg by mouth 2 times daily (with meals). 0 Active glyBURIDE (DIABETA) 5 MG tablet Take 5 mg by mouth daily (with breakfast). 0 Active simvastatin (ZOCOR) 20 MG tablet Take 20 mg by mouth at bedtime. 0 Active omeprazole (PRILOSEC) 20 MG capsule Take 20 mg by mouth daily. 0 Active ibuprofen (ADVIL,MOTRIN) 800 MG tablet Take 800 mg by mouth every 8 hours as needed. 0 Active estradiol (ESTRACE VAGINAL) 0.1 MG/GM vaginal cream Place 0.5 g vaginally at bedtime. Use every night for 2 weeks then 2 times a week after that. - Vaginally 42.5 g 3 02/23/2018 Active Active Problems Problem Noted Date Diabetes mellitus, type 2 09/09/2017 GERD (gastroesophageal reflux disease) 0 09/09/2017 Hyperlipidemia 09/09/2017 History of colon cancer 09/09/2017 Abnormal mammogram 09/09/2017 Overview: 03/26/13 ovoid density. Additional imaging recommended Family History Medical History Relation Name Comments Diabetes Brother Diabetes Father Diabetes Sister CA Breast Negative Hx CA Ovarian Negative Hx Uterine Cancer Negative Hx Relation Name Status Comments Brother Father Mother Sister Social History Tobacco Use Types Packs/Day Years Used Date Smoking Tobacco: Never Smokeless Tobacco: Never Tobacco Cessation:Counseling Given: Not Answered Alcohol Use Standard Drinks/Week Comments Yes 0 (1 standard drink = 0.6 oz pur e alcohol) occ Sex Assigned at Date Recorded Not on file Job Start Date Occupation Industry Not on file Not on file Not on file Last Filed Vital Signs Vital Sign Reading Time Taken Comments Blood Pressure 160/72 05/17/2018 10:58 AM EST Pulse 86 05/17/2018 10:58 AM EST Temperature - - Respiratory Rate 16 05/19/2022 11:09 AM EST Oxygen Saturation - - Inhaled Oxygen Concentration - - Weight 56.2 kg (124 lb) 05/19/2022 11:09 AM EST Height 152.4 cm (5') 09/23/2017 9:30 AM EDT Body Mass Index 24.22 09/23/2017 9:30 AM EDT Plan of Treatment Health Maintenance Due Date Last Done Comments Covid-19 Vaccine (#1) 1945 DEPRESSION SCREEN 1959 DIABETES/HEART DISEASE: MAINE AL CHOLESTEROL (LDL) 1965 DIABETES: ANNUAL EYE EXAM 1965 DIABETES: ANNUAL FOOT EXAM 1965 DIABETES: ANNUAL URINE PROTE IN TEST (MICROALBUMIN) 1965 DIABETES: BLOOD SUGAR CONTRO L TEST (HGBA1C) 1965 HEPATITIS C SCREENING 1965 SHINGLES VACCINE (1 of 2) 1997 FALL RISK ASSESSMENT 2012 BONE DENSITY SCREENING 03/14/2014 2 (External Completion) MAMMOGRAM 03/26/2014 03/26/2013, 03/11 (External Completion), 03/14/2012 PNEUMOCOCCAL VACCINE (2 - PCV) 02/13/2022 02/13/2021 , 10/01/2015 BMI CHECK/ADVISE 04/11/2024 INFLUENZA (Season Ended) 2024 021, 12/21/2019, 02/06/2019, Additional history exists DTAP/TDAP/TD (2 - Td or Tdap) 03/22/2027 03/22/2017 Care Teams Automation Mechanic Relationship Specialty Start Date End Date Erik Justin MD [address] [place] [address] PCP - General 02/09/1993
--- OUTSIDE RECORDS SUMMARY | 2024-08-10 12:02 | XMS_ITS | Encounter Summary ---
Author Organization [facility] Address [address] [place] [address] Care Team Providers Care Tool Repairer Name Role Phone Rory Sandhu MD Primary Care Provider Encounter Details Date Type Department Care Team (Late Contact Info) Description 01/13/2024 9:30 AM EDT Hospital Encounter TH HISTORIC ENCOUNTERS [facility] ONLY Abner Preciado MD [address] [place] [address] Social History Tobacco Use Types [...] Care Team (Late st Contact Info) Description 01/14/2025 9:30 AM EDT Office Visit [facility] Hematology Oncology [address] [place] [address] Abner Preciado MD [address] [place] [address] documented as of this encounter Visit Diagnoses Not on filedocumented in this encounter Care Teams Tool Repairer Relationship Specialty Start Date End Date Rory Sandhu MD PCP - General 06/13/18 documented as of this encounter
--- OUTSIDE RECORDS SUMMARY | 2024-08-10 12:02 | XMS_ITS | Clinical Summary ---
Author Organization [facility] ity Address [address] [place] [address] Care Team Providers Care Staff Engineer Name Role Phone Rory Sandhu MD Primary Care Provider [phone] Surgical History Surgery Date Site/Laterality Comments CHOLECYSTECTOMY PROCEDURE: HISTORICAL CHOLECYSTECTOMY BLADDER SUSPENSION PROCEDURE: HISTORICAL BLADDER SUSPENSION OTHER SURGICAL HISTORY PROCEDURE: HISTORY OTHER; COMMENT: Colon Cancer surgery Medical History Medical History Date Comments Diabetes mellitus, type 2 (C MD/HCC V24, CMS/HCC V28) 09/09/2017 DX:Diabetes mellitus, type 2 (HCC) GERD (gastroesophageal reflux disease) 8 DX:GERD (gastroesophageal reflux disease) Hyperlipidemia 09/09/2017 DX:Hyperlipidemi a Abnormal mammogram 09/09/2017 DX:Abnormal m ammogram; COMMENT: 03/26/13 ovoid density. Additional imaging recommended History of colon cancer 09/09/2017 DX:Histo ry of colon cancer History of heart attack DX:Histo ry of heart attack; COMMENT: per pt report in 2020 x2 Diabetes mellitus (CMS/HCC V 24, CMS/HCC V28) DX:Diabetes mellitus (HCC) GERD (gastroesophageal reflux disease) DX:GERD (gastroesophageal reflux disease) Colon cancer (CMS/HCC V24, CMS/HCC V28) DX:Colon cancer (HCC);COMMENT:Stage II T3No colon cancer,partial colectomy Family History Medical History Relation Name Comments Diabetes Brother Diabetes Father Diabetes Sister Breast cancer Neg Hx Ovarian cancer Neg Hx Uterine cancer Neg Hx Relation Name Status Comments Brother Father [...] on file Sexual Orientation Not on file Obstetrics History Last Filed Vital Signs Vital Sign Reading [...] Mass Index 24.84 01/13/2024 9:43 AM EDT Plan of Treatment Upcoming Encounters Date Type Department Care Team (Late st Contact Info) Description 01/14/2025 9:30 AM EDT Office Visit [facility] Hematology Oncology [address] [place] [address] Abner Preciado MD [address] [place] [address] Health Maintenance Due Date Last Done Comments Diabetes: Annual GFR (Glomerular Filtration Rate) 1945 COVID-19 Vaccine (#1) 1952 Diabetes: Annual Foot Exam 1957 Diabetes: Annual Retina Eye Exam 1957 DTaP,Tdap,and Td Vaccines (1 - Tdap) 1966 Zoster Vaccines (1 of 2) 1966 Pneumococcal Vaccine: 50+ Years (2 of 2 - PCV) 02/13/2022 02/13/2021 Cholesterol Screening (Lipid Panel) 03/18/2022 Depression Screening 03/18/2022 Falls Risk Assessment 03/18/2022 Hepatitis C Screening 03/18/2022 Medicare Annual Wellness Visit 03/18/2022 Osteoporosis Screening (Bone Density Screening) 03/18/2022 Social Influencers of Health Screening 03/18/2022 Diabetes: Annual Urine Albumin-Creatinine Ratio (uACR) 03/24/2022 Diabetes: Blood Sugar Control Test (HGBA1C) 03/24/2022 RSV Immunization Adult Patients (1 - 1-dose 75+ series) 2022 Influenza Vaccine (Season Ended) 2024 01/07/2023, 01/07/2022, 01/06/2021, Additional history exists HIB Vaccines Aged Out No longer eligi ble based on patient's age to complete this topic HPV Vaccines Aged Out No longer eligi ble based on patient's age to complete this topic Hepatitis A Vaccines Aged Out No long er eligible based on patient's age to complete this topic Hepatitis B Vaccines Aged Out No long er eligible based on patient's age to complete this topic IPV Vaccines Aged Out No longer eligi ble based on patient's age to complete this topic MMR Vaccines Aged Out No longer eligi ble based on patient's age to complete this topic Meningococcal ACWY Vaccine Aged Out N o longer eligible based on patient's age to complete this topic Meningococcal B Vaccine Aged Out No l onger eligible based on patient's age to complete this topic RSV Immunization Patients Under 20 months Aged Out No longer eligible based on patient's age to complete this topic Varicella Vaccines Aged Out No longer eligible based on patient's age to complete this topic Insurance MEDICARE [facility] Care Teams Staff Engineer Relationship Specialty Start Date End Date Rory Sandhu MD PCP - General 06/13/18
--- OUTSIDE RECORDS SUMMARY | 2024-08-10 12:02 | XMS_ITS | Clinical Summary ---
Author Organization [facility] Address [address] [place] [address] Care Team Providers Care Material Lister Name Role Phone Rory Sandhu MD Primary Care Provider [phone] Allergies Active Allergy Reactions Criticality Noted Date Comments Codeine 06/12/2018 Medications Medication Sig Dispensed Refills Start Date End Date Status omeprazole (PriLOSEC) 10 MG capsule Take 1 capsule (10 mg total) by mouth daily. 0 Active metFORMIN (GLUCOPHAGE) tablet 500 mg Take 1 tablet (500 mg total) by mouth 2 (two) times a day with meals. 0 Active aspirin EC 81 MG tablet Take 1 tablet (81 mg total) by mouth daily. 0 Active lisinopril (PRINIVIL,ZESTRIL) tablet 20 mg Take 0.5 tablets (10 mg total) by mouth daily. 0 Active glipiZIDE (GLUCOTROL XL) ER 24 hr tablet 10 mg Take 1 tablet (10 mg total) by mouth daily. 0 Active Cholecalciferol (VITAMIN D) 25 MCG (1000 UT) TABS Take by mouth. 0 Active ferrous sulfate 325 (65 FE) MG tablet Take 1 tablet (325 mg total) by mouth every morning with breakfast. 0 Active atorvastatin (LIPITOR) tablet 80 mg Take 1 tablet (80 mg total) by mouth daily. 0 Active dilTIAZem (CARDIZEM CD) 120 MG 24 hr capsule Take 1 capsule (120 mg total) by mouth daily. 0 Active metoprolol tartrate (LOPRESSOR) 50 MG tablet Take by mouth 2 (two) times a day. 0 Active dulaglutide (Trulicity) 3 MG/0.5ML subcutaneous pen-injector Inject under the skin. 0 Active Insulin Degludec (TRESIBA SC) Inject 10 Units under the skin. 0 Active ursodiol (ACTIGALL) 300 MG capsule Take 1 capsule (300 mg total) by mouth 2 (two) times a day. 0 Active Magnesium 400 MG CAPS Take by mouth. 3 pills daily 0 Active Active Problems Problem Noted Date Diagnosed Date Malignant neoplasm of ascending colon 06/13/2018 Social History Tobacco Use Types Packs/Day Years Used Date Smoking Tobacco: Never Assessed Sex and Gender Information Value Date Recorded Sex Assigned at Not on file Gender Identity Not on file Sexual Orientation Not on file Job Start Date Occupation Industry Not on file Not on file Not on file Last Filed Vital Signs Vital Sign Reading Time Taken Comments Blood Pressure 151/60 01/13/2024 9:43 AM EDT Pulse 79 01/13/2024 9:43 AM EDT Temperature 36.4 ??C (97.5 ??F) 01/13/2024 9:43 AM ED T Respiratory Rate - - Oxygen Saturation 100% 01/13/2024 9:43 AM EDT Inhaled Oxygen Concentration - - Weight 55.8 kg (123 lb) 01/13/2024 9:43 AM EDT Height 149.9 cm (4' 11 ) 01/13/2024 9:43 AM EDT Body Mass Index 24.84 01/13/2024 9:43 AM EDT Plan of Treatment Health Maintenance Due Date Last Done Comments Hepatitis C Screening 1947 COVID-19 Vaccine (#1) 1952 Pneumococcal Vaccine (1 of 2 - PCV) 1953 Depression Screening 1959 Preventative Health Evaluation 1965 DTap / Tdap / Td (1 - Tdap) 1966 Shingrix-Zoster Vaccine (1 of 2) 1966 Fall Risk Assessment 2012 Osteoporosis Screening (DEXA Scan) 2012 RSV Adult > 60+ Yrs or Pregn ant (1 - 1-dose 75+ series) 2022 Influenza Vaccine (#1) 2023 Hepatitis B Vaccines Aged Out No long er eligible based on patient's age to complete this topic RSV Ped < 20 months Aged Out No longe r eligible based on patient's age to complete this topic Care Teams Material Lister Relationship Specialty Start Date End Date Rory Sandhu MD [address] [place] [address] PCP - General Internal Medicine 06/13/18
--- OUTSIDE RECORDS SUMMARY | 2024-08-10 12:02 | XMS_ITS | Encounter Summary ---
Author Organization [facility] Address [address] [place] [address] Care Team Providers Care Medical Administrative Name Role Phone Rory Sandhu MD Primary Care Provider [phone] Encounter Details Date Type Department Care Team (Late st Contact Info) Description 01/13/2024 9:20 AM EDT Hospital Encounter TH HISTORIC ENCOUNTERS [facility] ONLY Abner Preciado MD [address] [place] [address] Social History Tobacco Use Types Packs/Day [...] Dr. Newton and the pathology (reviewed at [facility]) revealed a 2 cm T3 grade 2 adenocarcinoma with no LVI. Zero of 18 nodes were involved. Of note, the pathology report from [place] assessed 3 nodes as being involved with tumor; whereas the pathologist in [place] assessed these nodes as containing histiocytes but not tumor cells. There was continued debate the significance of a small collection of cytokeratin-positive cells. A/P CTs on 08/15/2011 and on 08/25/2011 showed no evidence of hepatic metastases. A pre-operative CEA was elevated at 4.4 in [place]. A post-operative CEA here was normal. She was seen by Dr. Cervantes at [facility] who did not recommend adjuvant chemotherapy based on their pathology review and re-review. She has a history of sarcoidosis and has been treated in the past with prednisone. A follow-up A/P CT in 02/2014 at [place] showed no evidence of recurrent cancer and [...] and 8.7 in 12/2014. The CEA at [place] was 4.0 in 08/2015. The CEA here was 6.5 in 02/2016. The CEA was 5.8 here in 08/2016 and was 5.9 in 02/2017 at [place]. The CEA here in 09/2017 yasir to 8.4. The CEA was stable at 8.2 in 12/2017. The CEA at [facility] was stable at 6.9. The alk [...] A C/A/P CT in early 01/2015 at [place] showed a 1.3 cm LLL nodule at the base; a calcified 1.1 cm VANDANA nodule; a 0.7 cm groundglass LLL nodule; and a 0.4 cm RUL nodule. The A/P portion was unremarkable. The 1.3 cm LLL base nodule was likely new compared to the 02/2014 A/P CT lung slices. A PET/CT in early 02/2015 at [facility] showed only faint uptake in the lateral LLL pulmonary nodule (SUV 1.3). She was evaluated by Dr. Cifuentes who also recommended a [address]. A chest CT in mid-08/2015 at [place] showed resolution of the 1.3 cm LLL nodule and otherwise stablefindings. A C/A/P CT in late 02/2017 at [place] showed stable findings. A C/A/P CT in 08/2017 at [place] showed stable findings. She reports mild anorexia [...] in 03/2023. 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 Review of systems: The remainder of a [...] nodules. A PET/CT in early 02/2015 at [facility] showed only faint uptake in the lateral LLLpulmonary nodule (SUV 1.3). She was evaluated by Dr. Cifuentes who also recommended a [address] A followup chest CT in [place] in mid-08/2015 showed resolution of the LLL [...] starting in 03/2023. She was hospitalized at [place] in 03/2023 and in early 2023. She [...] Description 01/14/2025 9:30 AM EDT Office Visit [facility] Hematology Oncology [address] [place] [phone] Abner Preciado MD [address] [place] [phone] documented as of this encounter Visit Diagnoses Not on filedocumented in this encounter Care Teams Medical Administrative Relationship Specialty Start Date End Date Rory Sandhu MD PCP - General 06/13/18 documented as of this encounter
== END 2024-08-10 10:53 | disposition home or self-care (01) ==
LOC: HO.XRAY 10:52
PROVIDERS: PCP Internal Medicine; Visit Provider Internal Medicine
DX: R06.02 Shortness of breath (principal)
CPT/HCPCS: 71046

== ENCOUNTER → 2024-08-10 11:50 | Outpatient (BNV) | payer MEDICARE, SELFPAY | PROVIDERS: PCP Internal Medicine; Visit Provider Radiology Diagnostic Radiology | DX: J84.9 Interstitial pulmonary disease, unspecified (principal); I34.81 Nonrheumatic mitral (valve) annulus calcification; M47.814 Spondylosis without myelopathy or radiculopathy, thoracic region | CPT/HCPCS: 71046 ==

== ENCOUNTER 2024-10-09 11:02 | Outpatient (REF) | payer MEDICARE, SELFPAY ==
[2024-10-09 11:12] LABS: MANUAL DIFF FLAG NO
[2024-10-09 11:42] LABS: Appearance Urine Clear; Glucose Urine UA Negative (Negative); PH 8.0 (5.0-9.0); Specific Gravity - Urine 1.010 (1.005-1.025); UMIC TRIGGER UACC YES
[2024-10-09 11:47] LABS: Hematocrit 29.8 % (37.0-47.0); Hemoglobin 10.0 g/dl (12.0-16.0); Imm Gran Abs Auto 0.03 X10*3/uL (0.00-0.03); Imm Gran Pct Auto 0.3 % (0.0-0.4); Lymphocytes Absolute Auto 2.4 X10*3/uL (1.2-4.9); Mean Corpuscular HGB Conc 33.6 g/dl (31.0-35.0); Mean Corpuscular Hemoglobin 29.4 pg (27.0-33.0); Mean Corpuscular Volume 87.6 fL (80.0-98.0); NRBC Abs Auto 0.000 X10*3/uL (0.0-0.012); NRBC Pct Auto 0.0 /100WBC (0.0-0.2); Platelet Count 234 X10*3/uL (160-400); Red Blood Count 3.40 X10*6/uL (4.20-5.50); White Blood Count 9.0 X10*3/uL (4.8-10.8)
[2024-10-09 11:53] LABS: Hemoglobin A1C 149.2866 umol/L; Total Hemoglobin (HGBA1C) 2710.7731 umol/L
[2024-10-09 11:59] LABS: Alanine Aminotransferase 14 U/L (0-31); Albumin Level 3.7 g/dL (3.5-5.0); Alkaline Phosphatase 194 U/L (39-117); Anion Gap 9 (12-20); Aspartate Amino Transferase 31 U/L (5-31); Blood Urea Nitrogen 28 mg/dL (9-16); Calcium 10.1 mg/dL (8.4-10.2); Carbon Dioxide 30 mmol/L (22-29); Chloride 105 mmol/L (96-108); Cholesterol 79 mg/dL (<200); Estimated Glomerular Filt Rate 51; HDL Cholesterol 41 mg/dL (>40); Iron 53 mcg/dL (30-160); Magnesium 1.7 mg/dL (1.6-2.6); Percent Iron Saturation 19 % (15-50); Potassium 4.2 mmol/L (3.3-5.1); Sodium 140 mmol/L (135-145); Total Iron Binding Capacity 277 mcg/dL (228-428); Total Protein 6.7 g/dL (6.5-8.0); Triglycerides 80 mg/dL (<150); Unsaturated Iron Binding 224 ug/dL
--- OUTSIDE RECORDS SUMMARY | 2024-10-09 12:17 | XMS_ITS | Clinical Summary ---
Author Organization [facility] ity Address [address] [place] [address] Care Team Providers Care Lumber Salvager Name Role Phone Rory Sandhu MD Primary Care Provider [phone] Surgical History Surgery Date Site/Laterality Comments CHOLECYSTECTOMY PROCEDURE: HISTORICAL CHOLECYSTECTOMY BLADDER SUSPENSION PROCEDURE: HISTORICAL BLADDER SUSPENSION OTHER SURGICAL HISTORY PROCEDURE: HISTORY OTHER; COMMENT: Colon Cancer surgery Medical History Medical History Date Comments Diabetes mellitus, type 2 (C [place]/HCC V24, CMS/HCC V28) 09/09/2017 DX:Diabetes mellitus, type [...] Description 01/14/2025 9:30 AM EDT Office Visit [facility] Hematology Oncology [address] [place] [address] Abner Preciado MD [address] [place] [address] Health Maintenance Due Date Last [...] 1-dose 75+ series) 2022 Influenza Vaccine (#1) 2024 3, 01/07/2022, 01/06/2021, Additional history exists HIB Vaccines [...] to complete this topic Insurance MEDICARE [facility] Care Teams Lumber Salvager Relationship Specialty Start Date End Date Rory Sandhu MD PCP - General 06/13/18
--- OUTSIDE RECORDS SUMMARY | 2024-10-09 12:17 | XMS_ITS | Clinical Summary ---
Author Organization [facility] Address [address] [place] [address] Care Team Providers Care Punch Operator Name Role Phone Rory Sandhu MD Primary Care Provider [phone] Allergies Active Allergy Reactions Criticality Noted Date [...] 79 01/13/2024 9:43 AM EDT Temperature 36.4 C (97.5 F) 01/13/2024 9:43 AM EDT Respiratory Rate - - Oxygen Saturation 100% [...] series) 2022 Influenza Vaccine (Season Ended) 2024 Hepatitis B Vaccines Aged Out No long er eligible based on patient's age to complete this topic RSV Ped < 20 months Aged Out No longe r eligible based on patient's age to complete this topic Care Teams Punch Operator Relationship Specialty Start Date End Date Rory Sandhu MD [address] [place] [phone] PCP - General Internal Medicine 06/13/18
[2024-10-09 12:28] LABS: Microalbum/Creatinine Ratio Ur 11.5 ug/mg cr (<30)
== END 2024-10-09 11:03 | disposition home or self-care (01) ==
LOC: HO.LNP 11:02
PROVIDERS: Visit Provider Internal Medicine
DX: E11.9 Type 2 diabetes mellitus without complications (principal); R79.89 Other specified abnormal findings of blood chemistry; D64.9 Anemia, unspecified; I10 Essential (primary) hypertension; E83.42 Hypomagnesemia
CPT/HCPCS: 80053; 80061; 81001; 82043; 82570; 83036; 83540; 83735; 85025

== ENCOUNTER 2024-11-20 09:01 | Outpatient (REF) | payer MEDICARE, SELFPAY ==
--- OUTSIDE RECORDS SUMMARY | 2024-11-20 09:31 | XMS_ITS | Clinical Summary ---
Author Organization [facility] ity Address [address] [place] [address] Care Team Providers Care Finished Cigar Maker Name Role Phone Rory Sandhu MD Primary Care Provider [phone] Surgical History Surgery Date Site/Laterality Comments CHOLECYSTECTOMY PROCEDURE: HISTORICAL CHOLECYSTECTOMY BLADDER SUSPENSION PROCEDURE: HISTORICAL BLADDER SUSPENSION OTHER SURGICAL HISTORY PROCEDURE: HISTORY OTHER; COMMENT: Colon Cancer surgery Medical History Medical History Date Comments Diabetes mellitus, type 2 (C [place]/HCC V24, CMS/HCC V28) 09/09/2017 DX:Diabetes mellitus, type [...] Description 01/14/2025 9:30 AM EDT Office Visit [facility] Hematology Oncology [address] [place] [address] Abner Preciado MD [address] [place] [address] Health Maintenance Due Date Last Done Comments Diabetes: Annual GFR (Glomerular Filtration Rate) 1947 Diabetes: Annual Foot Exam 1957 Diabetes: Annual Retina Eye Exam 1957 DTaP,Tdap,and Td Vaccines (1 - Tdap) 1966 Zoster Vaccines (1 of 2) 1997 Pneumococcal Vaccine: 50+ Years (2 of 2 - PCV) 02/13/2022 02/13/2021 Cholesterol Screening (Lipid Panel) 03/18/2022 Falls Risk Assessment 03/18/2022 Hepatitis C Screening 03/18/2022 Medicare Annual Wellness Visit 03/18/2022 Osteoporosis Screening (Bone Density Screening) 03/18/2022 Social Influencers of Health Screening 03/18/2022 Diabetes: Annual Urine Albumin-Creatinine Ratio (uACR) 03/24/2022 Diabetes: Blood Sugar Control Test (HGBA1C) 03/24/2022 RSV Immunization Adult Patients (1 - 1-dose 75+ series) 2022 COVID-19 Vaccine (2023- season) 2023 Depression Screening 04/11/2024 Influenza Vaccine (#1) 2024 3, 01/07/2022, 01/06/2021, [...] age to complete this topic Insurance MEDICARE [facility] Care Teams Finished Cigar Maker Relationship Specialty Start Date End Date Rory Sandhu MD PCP - General 06/13/18
--- OUTSIDE RECORDS SUMMARY | 2024-11-20 09:31 | XMS_ITS | Clinical Summary ---
Author Organization [facility] Address [address] [place] [address] Care Team Providers Care Adjunct History Instructor Name Role Phone Rory Sandhu MD Primary Care Provider [phone] Allergies Active Allergy Reactions Criticality Noted Date [...] 75+ series) 2022 Influenza Vaccine (#1) 2024 Hepatitis B Vaccines Aged Out No long er eligible based on patient's age to complete this topic RSV Ped < 20 months Aged Out No longe r eligible based on patient's age to complete this topic Care Teams Adjunct History Instructor Relationship Specialty Start Date End Date Rory Sandhu MD [address] [place] [phone] PCP - General Internal Medicine 06/13/18
== END 2024-11-20 09:02 | disposition home or self-care (01) ==
LOC: HO.MAMMO 09:01
PROVIDERS: PCP Internal Medicine; Visit Provider Internal Medicine
DX: Z12.31 Encounter for screening mammogram for malignant neoplasm of breast (principal)
CPT/HCPCS: 77063; 77067

== ENCOUNTER → 2024-11-20 09:15 | Outpatient (BNV) | payer MEDICARE, SELFPAY | PROVIDERS: PCP Internal Medicine; Visit Provider Radiology Body Imaging | DX: Z12.31 Encounter for screening mammogram for malignant neoplasm of breast (principal) | CPT/HCPCS: 77063; 77067 ==

== ENCOUNTER 2025-02-12 07:15 | Outpatient (REF) | payer MEDICARE, SELFPAY ==
--- OUTSIDE RECORDS SUMMARY | 2024-01-13 08:20 | XMS_ITS | Encounter Summary ---
Author Organization [facility] Address [address] [place] [address] Care Team Providers Care Cardiology Associate Name Role Phone Rory Sandhu MD Primary Care Provider [phone] Encounter Details Date Type Department Care Team (Late st Contact Info) Description 01/13/2024 9:20 AM EDT Hospital Encounter TH [facility]OR[facility] ONLY Abner Preciado MD [address] [place] [phone] Social History Tobacco Use Types Packs/Day [...] Dr. Newton and the pathology (reviewed at [facility]) revealed a 2 cm T3 grade 2 adenocarcinoma with no LVI. Zero of 18 nodes were involved. Of note, the pathology report from [place] assessed 3 nodes as being involved with tumor; whereas the pathologist in [place] assessed these nodes as containing histiocytes but not tumor cells. There was continued debate the significance of a small collection of cytokeratin-positive cells. A/P CTs on 08/15/2011 and on 08/25/2011 showed no evidence of hepatic metastases. A pre-operative CEA was elevated at 4.4 in [place]. A post-operative CEA here was normal. She was seen by Dr. Cervantes at [facility] who did not recommend adjuvant chemotherapy based on their pathology review and re-review. She has a history of sarcoidosis and has been treated in the past with prednisone. A follow-up A/P CT in 02/2014 at [place] showed no evidence of recurrent cancer and [...] and 8.7 in 12/2014. The CEA at [place] was 4.0 in 08/2015. The CEA here was 6.5 in 02/2016. The CEA was 5.8 here in 08/2016 and was 5.9 in 02/2017 at [place]. The CEA here in 09/2017 yasir to 8.4. The CEA was stable at 8.2 in 12/2017. The CEA at [facility] was stable at 6.9. The alk [...] A C/A/P CT in early 01/2015 at [place] showed a 1.3 cm LLL nodule at the base; a calcified 1.1 cm VANDANA nodule; a 0.7 cm groundglass LLL nodule; and a 0.4 cm RUL nodule. The A/P portion was unremarkable. The 1.3 cm LLL base nodule was likely new compared to the 02/2014 A/P CT lung slices. A PET/CT in early 02/[address] [facility] showed only faint uptake in the lateral LLL pulmonary nodule (SUV 1.3). She was evaluated by Dr. Cifuentes who also recommended a [address] A chest CT in mid-08/2015 at [place] showed resolution of the 1.3 cm LLL nodule and otherwise stablefindings. A C/A/P CT in late 02/2017 at [place] showed stable findings. A C/A/P CT in 08/2017 at [place] showed stable findings. She reports mild anorexia [...] in 03/2023. 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 Review of systems: The remainder of a [...] nodules. A PET/CT in early 02/[address] [facility] showed only faint uptake in the lateral LLLpulmonary nodule (SUV 1.3). She was evaluated by Dr. Cifuentes who also recommended a [address] A followup chest CT in [place] in mid-08/2015 showed resolution of the LLL [...] starting in 03/2023. She was hospitalized at [place] in 03/2023 and in early 2023. She [...] Description 01/16/2026 9:30 AM EDT Office Visit [facility] Hematology Oncology [address] [place] [phone] Abner Preciado MD [address] [place] [phone] documented as of this encounter Visit Diagnoses Not on filedocumented in this encounter Care Teams Cardiology Associate Relationship Specialty Start Date End Date Rory Sandhu MD [address] [place] [address] [place] [id number] PCP - General 06/13/18 documented as of this encounter
--- OUTSIDE RECORDS SUMMARY | 2024-01-13 08:30 | XMS_ITS | Encounter Summary ---
Author Organization [facility] Address [address] [place] [address] Care Team Providers Care Incubator Machine Operator Name Role Phone Rory Sandhu MD Primary Care Provider Encounter Details Date Type Department Care Team (Late Contact Info) Description 01/13/2024 9:30 AM EDT Hospital Encounter [facility] ONLY Abner Preciado MD [address] [place] [address] Social History Tobacco Use Types Packs/Day [...] on file documented as of this encounter Plan of Treatment Upcoming Encounters Date Type Department Care Team (Late st Contact Info) Description 01/16/2026 9:30 AM EDT Office Visit [facility] Hematology Oncology [address] [place] [address] Abner Preciado MD [address] [place] [address] documented as of this encounter Visit Diagnoses Not on filedocumented in this encounter Care Teams Incubator Machine Operator Relationship Specialty Start Date End Date Rory Sandhu MD [address] [place] [address] PCP - General 06/13/18 documented as of this encounter
[2025-02-12 11:18] LABS: Blood Urea Nitrogen 14 mg/dL (9-16); Estimated Glomerular Filt Rate > 60
--- OUTSIDE RECORDS SUMMARY | 2025-02-12 13:07 | XMS_ITS | Data Portability ---
Author Organization [facility], [facility] Address [address] [place] [address] Care Team Providers Care Lockstitch Coat Joiner Name Role Phone SATHYA MTZ Primary Care Provider [phone] Assessment Encounter Date Assessment Date Assessment LastModified by Organization Details LastModified Time 11/07/2024 11/07/2024 I am seeing the patient today under the supervision of Dr. Bueno who was available but who did not see the patient. HPI: Patient comes in for evaluation of right shoulder pain. Patient has been dealing with symptoms since Tuesday of last week. There was no injury or antecedent event that she can think of other than when she had used her left arm to swing her pocketbook over her right shoulder. There was some contact with the pocketbook but otherwise she thought this very mild. She has had increasing pain since then. More pain with overhead activities. Difficulty with any motions away from the body. No previous problems with the shoulder in the past. Past family, medical, social history and review of systems has been reviewed, updated and is located in the patient s chart. Examination: The patient is well appearing and in no apparent distress. Alert and oriented x3. Gait is symmetric. Vital signs per intake sheet . Evaluation of the right shoulder has no effusion erythema or warmth. Good muscle bulk when compared bilaterally. Has supple range of motion of that shoulder. 4/5 strength rotator cuff and biceps tendon. Positive impingement arc negative cross body. 4 views of the right shoulder reveal well preserved glenohumeral joint space, moderate acromioclavicular arthrosis. Type II acromion. No calcifications. No os acromiale. No obvious fractures, loose bodies or dislocations. Impression: Impingement right shoulder Plan: Nature diagnosis discussed with patient today. Both surgical and nonsurgical options are reviewed. I did recommend a cortisone injection for the patient however she would like to hold off on this. She cannot take oral NSAIDs due to cardiac ablation history. She would like to trial a Medrol Dosepak. Discussed hyperglycemia with diabetes. She will continue to monitor her sugars and check in with her PCP if she necessary. If no better in 2 weeks after starting rotator cuff exercises and finishing the Medrol Dosepak recommended she contact the office again to move forward with a cortisone injection although she was very hesitant about this today. The patient understands and agrees with the plan. They know to call if they have any further questions or concerns regarding their symptoms, or to follow up sooner if needed. [employer] speech recognition fountain operator software was used to create portions of this document. An attempt at proofreading has been made to minimize errors. Please call for corrections. Not available 11/07/2024 13:36:58 Plan of Treatment Reminders Order Date Submit Date Provider Last Modified By Organization Details Last Modified Time Details Appointments None recorded. Lab None recorded. Referral None recorded. Procedures None recorded. Surgeries None recorded. Imaging XR, shoulder, 2 or more view - [facility] left shoulder pain room 3 2024 025 [facility], [address] [facility] [address], [facility] [address], [place], [address], 5 15:15:25 Medication Orders Medrol (Mario) 4 mg tablets in a dose pack 2024 025 [email or web address] [facility]/Pharmacy #[id number], [address] [facility] , [place], [address], 5 15:34:11 Patient TargetsNo targets recorded. Patient Instructions Encounter Date Encounter Id Patient Instructions Last Modified By Organization Details Last Modified Time 11/07/2024 [id number] rotator cuff: exercises [email or web address] Not available 11/07/2024 15:34:11 Reason for Referral None Reported. Results Created Date Observation Date Name Description Value Unit Range Abnormal Flag Note LastModifiedBy Organization Detail LastModifiedTime 11/08/19 25 11/07/2024 XR, shoul brad, 2 or more view [email or web address] ?Encry pted=s hAaTro YD8dLq bEUv6g %2BXZw aYqtaq 0bqfl% 2Fg9IQ a4ajBk vP9nXo QUaueC m3YtLR FvZlgJ JJ8mAn HZtai3 2a2348 AC0Klb nmFVau gKiQtr MwF INTERFACE [facility] Office [address], [place], [address], 11/07/2024 13:13:50 11/08/19 25 11/07/2024 XR, shoul brad, 2 or more view http:/ [email or web address] ?Encry pted=s DieudonneaTro YD8dLq bEUv6g %2BXZw aYqtaq 0bqfl% 2Fg9IQ a4ajBk vP9nXo QUaueC m3YtLR FvZlgJ JJ8mAn HZtai3 5j1290 AC0Klb nmFVau gKiQtr MwF INTERFACE [facility] Office [address], [place], [address], 11/07/2024 13:13:51 Result Notes Documentation Provider Name and Address Organization Details Recorded Time Xr, Shoulder, 2 Or More View : [email or web address] Encrypted=jvZbKfeEM7xYzoN Uv6g%5GBCpqJhdou8konc%2Fg 9CKl9skOtyF7pCjWOiojFh0Kq VYVgKxaQAU7tHbWOedt12u491 7UI1RbjbhTSgtuIjHyaMuY Not Available [facility] 11/07/2024 13:13: 50 Xr, Shoulder, 2 Or More View : [email or web address] Encrypted=cuRfUztTJ9qJteM Uv6g%6LCVptFocxp1kotp%2Fg 9ZKu5pkGkaO3bHlFMhspDt1Zz VXOfIbmAQL7dGqLQjpb87c994 3MG9MrfsoBSstbAtBdeRiR Not Available [facility] 11/07/2024 13:13: 52 Problems Name Problem SNOMED Code Status Onset Date Resolution Date Notes Provider Name and Address Organization Details Recorded Time Pain of right shoulder joint 075119262274802 00 Active 2024 KAYLIA L'HEUREUX [facility] 12:59:11 Problem Notes None recorded. Medical Equipment None Reported. Allergies Allergen ID Allergen Name Allergen Category Reaction Reaction Severity Criticality Documentation Date Start Date Code Code System Note Provider Name and Address Organization Details Recorded Time 971103 codeine medicatio n Not available Not available Not available 11/07/2024 2670 RxNorm [facility] L'HEUREUX [facility] 5 12:55:19 Medications Name Sig Start Date Stop Date Status Note LastModified by Organization Details LastModified Time amoxicillin 500 mg capsule PLEASE SEE ATTACHED FOR DETAILED DIRECTION S 11/07 completed Not Available Not Available Not Available atorvastati n 80 mg tablet TAKE 1/2 TABLET DAILY BY MOUTH FOR 90 DAYS active Not Available Not Available No t Available ibuprofen 800 mg tablet TAKE 1 TABLET BY MOUTH THREE TIMES A DAY NEEDED FOR PAIN START 1 HOUR BEFORE DENTAL VISIT 11/07 completed Not Available Not Available Not Available fluconazole 150 mg tablet TAKE 1 TABLET BY MOUTH DAILY FOR 10 DAYS active Not Available Not Available No t Available magnesium oxide 400 mg (241.3 mg magnesium) tablet TAKE 3 TABLETS BY MOUTH DAILY WITH FOOD 30 active Not Available Not Available No t Available econazole nitrate 1 % topical cream APPLY 1 APPLICATI ON EXTERNALL Y EVERY DAY FOR 90 DAYS active Not Available Not Available No t Available lisinopril 10 mg tablet TAKE 1 TABLET BY MOUTH EVERY DAY active Not Available Not Available No t Available ursodiol 300 mg capsule TAKE 1 CAPSULE BY MOUTH TWICE A DAY FOR 30 DAYS active Not Available Not Available No t Available nitroglycer in 0.4 mg sublingual tablet DISSOLVE 1 TAB UNDER TONGUE NEEDED EVERY 5 MIN. MAX 3 TIMES IN 15 MIN IF CHEST PAIN PERSISTS 11/07 completed Not Available Not Available Not Available omeprazole 20 mg capsule,del ayed release TAKE 1 CAPSULE BY MOUTH EVERY DAY active Not Available Not Available No t Available ibuprofen 600 mg tablet TAKE 1 TABLET BY MOUTH THREE TIMES A DAY NEEDED FOR PAIN 11/07 completed Not Available Not Available Not Available methylpredn isolone 4 mg tablets in a dose pack TAKE 6 TABLETS ON DAY 1 DIRECTED ON PACKAGE AND DECREASE BY 1 TAB EACH DAY FOR A TOTAL OF 6 DAYS active Not Available Not Available No t Available metformin ER 500 mg tablet,exte nded release 24 hr TAKE 2 TABLETS BY MOUTH 2 TIMES EVERY DAY 90 active Not Available Not Available No t Available amoxicillin 875 mg-potassiu m clavulanate 125 mg tablet TAKE 1 TABLET BY MOUTH TWICE A DAY UNTIL FINISHED 11/07 completed Not Available Not Available Not Available chlorhexidi ne gluconate 0.12 % mouthwash PLEASE SEE ATTACHED FOR DETAILED DIRECTION S 11/07 completed Not Available Not Available Not Available FreeStyle Lite Strips TEST BLOOD SUGAR THREE TIMES A DAY 90 DAYS 11/07 completed Not Available Not Available Not Available Tresiba FlexTouch U-200 insulin 200 unit/mL (3 mL) subcutaneou s pen INJECT SUBCUTANE OUSLY 14 UNITS DAILY DIRECTED FOR 90 DAYS active Not Available Not Available No t Available BD Ultra-Fine Micro Pen Needle 32 gauge x 1/4 DIRECTED SUBCUTANE OUSLY DAILY 30 DAYS 11/07 completed Not Available Not Available Not Available Dexcom G7 Sensor device TO CONTINOUS LY MONITOR BLOOD GLUCOSE E11.9 11/07 completed Not Available Not Available Not Available Vitals Date Recorded Body height Body mass index (BMI) Body weight Provider Name and Address Organization Details Last Updated DateTime 11/07/2024 152.4 cm 27.9 kg/m2 51442.71 g VENUS L'HEUREUX [facility] 11/07/2024 12:55:10 Social History Question Answer Notes LastModified by RoboCV Details LastModified Time Tobacco Smoking Status Never Smoker VENUS L'HEUREUX crista [facility] 11/07/2024 12:58:16 What Is Your Relationship Status? Single Information not available 11/07/2024 Sex: Unknown Functional Status Question Answer Note LastModified by Enertiv ion Details LastModified Time Do you use any illicit or recreational drugs? No Information not available 11/07/2024 Do you or have you ever used any other forms of tobacco or nicotine? No Information not available 11/07/2024 What is your level of alcohol consumption? None Information not available 11/07/2024 Mental Status None recorded. Family History Nothing Reported. Medical History Condition Response Allergies/Hayfever N Coronary Artery Disease N Anxiety/Depression N Breathing or lung disorders N Emphysema N Nerve Disorders N Thyroid Problems N COPD N Pacemaker N Anemia N Kidney/Bladder Problems N Vascular Disease N Heart Trouble N Gastrointestinal Disease Y Heart Attack (ID) N Cholesterol Y Diabetes Y Autoimmune disease N Inflammatory Joint disease N Bleeding Disorder N Orthotics N Seizures/Epilepsy N Arthritis Y Blood Clot N AIDS/HIV N Congestive Heart Failure (CHF) N Acid Reflux (GERD) N Cancer Y Stroke N Asthma N Circulation Problems N Peripheral Vascular Disease N Sleep Apnea N Hepatitis N Heart Disease N Rheumatoid Arthritis N Pulmonary Embolism N Arrhythmia N Headaches N Fibromyalgia N Hypertension Y Osteoporosis N Gynecological HistoryNo gynecological history recorded. Obstetrics History GPAL:G 0 P 0 0 0 0 Past Encounters Encounter ID Performer Location Encounter Start Date Encounter Closed Date Diagnosis/Indication Diagnosis SNOMED-CT Code Diagnosis ICD10 Code Diagnosis IMO Codes Diagnosis Note [id number] Jonathan Gonzalez PA-C [facility] [place] [address] [facility] [place] [address] 11/07/2024 12:45:06 11/16/2024 15:15:25 Pain of right shoulder joint 9317861897 5676193 M25.511 454028 Impingemen t syndrome of right shoulder region 0073416287 03794 M75.41 1614756 Health Concerns Section Related Observation LastModified by Organization Detai ls LastModified Time None Recorded Concern Status LastModified by Organization Details LastModified Time None Recorded Advance Directives Directive None Recorded Payers Insurance Date Sequence Insurance Name Policy Number Policy Blackburn Covered Member ID Blackburn Member ID Guarantor Name 11/16/2024 1 [place] [employer] [employer] Angela Niziol [id number] Angela Niziol 11/16/2024 2 [place] [id number] Angela Niziol [id number] Angela Niziol OBGyn Episode No OBEpisode recorded.
--- OUTSIDE RECORDS SUMMARY | 2025-02-12 13:07 | XMS_ITS | Clinical Summary ---
Author Organization [facility] Address [address] [place] [address] Care Team Providers Care Quality Review Trainer Name Role Phone Rory Sandhu MD Primary Care Provider [phone] Allergies Active Allergy Reactions Criticality Noted Date [...] age to complete this topic Care Teams Quality Review Trainer Relationship Specialty Start Date End Date Rory Sandhu MD [address] [place] [address] PCP - General Internal Medicine 06/13/18
--- OUTSIDE RECORDS SUMMARY | 2025-02-12 13:07 | XMS_ITS | Clinical Summary ---
Author Organization [facility] Address [address] [place] [address] Phone Care Team Providers Care English Instructor Name Role Phone Rory Sandhu MD Primary Care Provider [phone] Medications ursodioL (ACTIGALL) 300 mg capsule Take 1 capsule (300 mg total) by mouth 2 (two) times a day. for 30 days Active Mounjaro 5 mg/0.5 mL injection 5 Active Roxane 2nd Gen Pen Needle 32 gauge x /32 needle 5 Active omeprazole (PriLOSEC) [address] capsule Take 1 capsule (20 mg total) by mouth 1 (one) time each day. Active nitroglycerin (NITROSTAT) 0.4 mg SL tablet DISSOLVE 1 TAB UNDER TONGUE NEEDED EVERY 5 MIN. MAX 3 TIMES IN 15 MIN IF CHEST PAIN PERSISTS 4 Active metoprolol tartrate (LOPRESSOR) 50 mg tablet Take 1 tablet (50 mg total) by mouth 2 (two) times a day. Active metFORMIN XR (GLUCOPHAGE-XR ) 500 mg 24 hr tablet Take 2 tablets (1,000 mg total) by mouth 2 (two) times a day. Active magnesium oxide (MAG-OX) 400 mg (241.3 elemental magnesium) tablet Take 1 tablet (400 mg total) by mouth 1 (one) time each day. 5 Active lisinopriL (PRINIVIL,ZEST RIL) 10 mg tablet Take 1 tablet (10 mg total) by mouth 1 (one) time each day. 4 Active insulin degludec (TRESIBA FlexTouch) 100 unit/mL (3 mL) injection pen See Instructions, INJECT 12 UNITS SUBCUTANEOUSLY ONCE DAILY IN THE MORNING. E11.9, # 15 mL, 3 Refills, Maintenance, 11/01/24 10:26:00 AM EDT, [facility], 153, cm, 11/01/24 9:16:00 EDT, Height, 54.5, kg, 11/24/23 11:38:00 EDT, Dry Weight 5 Active atorvastatin (LIPITOR) 80 mg tablet Take 40 mg by mouth 1 (one) time each day. 4 Active aspirin 81 mg EC tablet Take 1 tablet (81 mg total) by mouth 1 (one) time each day. Active Active Problems Problem Noted Date Diagnosed Date Overlapping malignant neopla sm of colon (CMS/[facility] V24, CMS/[facility] V28) 01/16/2025 Weight loss 01/16/2025 Encounters Date Type Department Care Team Description 01/16/2025 9:15 AM EDT Office Visit [facility] H[facility] On[facility] [address] [place] [address] Abner Preciado MD Weight loss (Primary Dx); Overlapping malignant neoplasm of colon (CMS/[facility] V24, CMS/[facility] V28) from Last 3 Months Surgical History Surgery Date Site/Laterality Comments CHOLECYSTECTOMY PROCEDURE: HISTORICAL CHOLECYSTECTOMY BLADDER SUSPENSION PROCEDURE: HISTORICAL BLADDER SUSPENSION OTHER SURGICAL HISTORY PROCEDURE: HISTORY OTHER; COMMENT: Colon Cancer surgery Medical History Medical History Date Comments Diabetes mellitus, type 2 (C [place]/[facility] V24, CMS/[facility] V28) 09/09/2017 DX:Diabetes mellitus, type 2 (HCC) GERD (gastroesophageal reflux disease) 8 DX:GERD (gastroesophageal reflux disease) Hyperlipidemia 09/09/2017 DX:Hyperlipidemi a Abnormal mammogram 09/09/2017 DX:Abnormal m ammogram; COMMENT: 03/26/13 ovoid density. Additional imaging recommended History of colon cancer 09/09/2017 DX:Histo ry of colon cancer History of heart attack DX:Histo ry of heart attack; COMMENT: per pt report in 2020 x2 Diabetes mellitus (CMS/[facility] V 24, [facility] V28) DX:Diabetes mellitus (HCC) GERD (gastroesophageal reflux disease) DX:GERD (gastroesophageal reflux disease) Colon cancer ([facility] V24, [facility] V28) DX:Colon cancer ([facility]);COMMENT:Stage II T3No colon cancer,partial colectomy Family History [...] Sign Reading Time Taken Comments Blood Pressure 136/52 01/16/2025 9:09 AM EDT Pulse 81 01/16/2025 9:09 AM EDT Temperature 36.3 C (97.4 F) 01/16/2025 9:09 AM EDT Respiratory Rate - - Oxygen Saturation 98% 01/16/2025 9:09 AM EDT Inhaled Oxygen Concentration - - Weight 51.7 kg (114 lb) 01/16/2025 9:09 AM EDT Height 149.9 cm (4' 11 ) 01/13/2024 9:43 AM EDT Body Mass Index 23.03 01/13/2024 9:43 AM EDT Plan of Treatment Upcoming Encounters Date Type Department Care Team (Late st Contact Info) Description 01/16/2026 9:30 AM EDT Office Visit [facility] [address] [place] [address] Abner Preciado MD [address] [place] [address] Health Maintenance Due Date Last Done Comments Diabetes: Annual GFR (Glomerular Filtration Rate) 1947 Diabetes: Annual Foot Exam 1957 Diabetes: Annual Retina Eye Exam 1957 Cholesterol Screening (Lipid Panel) 03/18/2022 Falls Risk Assessment 03/18/2022 Hepatitis C Screening 03/18/2022 Medicare Annual Wellness Visit 03/18/2022 Osteoporosis Screening (Bone Density Screening) 03/18/2022 Social Influencers of Health Screening 03/18/2022 Diabetes: Annual Urine Albumin-Creatinine Ratio (uACR) 03/24/2022 Diabetes: Blood Sugar Control Test (HGBA1C) 03/24/2022 Depression Screening 04/11/2024 COVID-19 Vaccine ( season) 2024 03/12/2021, 07/05/2020, 06/13/2020 Hypertension/CHF/CAD Annual BMP Blood Test 01/16/2025 DTaP,Tdap,and Td Vaccines (3 - Td or Tdap) 03/22/2027 03/22/2017, 03/17/2014 Zoster Vaccines Completed 09/18/2018, 06/09, 04/19/2018 RSV Immunization Adult Patients Completed 04/25/2023 Pneumococcal Vaccine: 50+ Years Completed 02/20/2024, 02/20/2024, 02/13/2021, Additional history exists Influenza Vaccine Completed 12/31/2024, , 01/07/2023, Additional history exists HIB Vaccines Aged Out [...] MEDICARE [facility] Care Teams English Instructor Relationship Specialty Start Date End Date Rory Sandhu MD [address] [place] [address] PCP - General 06/13/18
== END 2025-02-12 07:16 | disposition home or self-care (01) ==
LOC: HO.LNP 07:15
PROVIDERS: Visit Provider Internal Medicine
DX: R79.9 Abnormal finding of blood chemistry, unspecified (principal)
CPT/HCPCS: 82565; 84520

== ENCOUNTER 2025-02-27 08:56 | Outpatient (REF) | payer MEDICARE, SELFPAY ==
--- NOTE | ~2025-02-27 | XR_ITS ---
EXAMINATION: XR SHOULDER, RIGHT CLINICAL INFORMATION: M25.511 - Pain in right shoulder COMPARISON: None available. TECHNIQUE: Three views of the right shoulder. FINDINGS: Normal bone mineralization. No fracture, dislocation, or suspicious bone lesion. Normal alignment. The glenohumeral joint demonstrates mild degenerative arthritis. The AC joint demonstrates moderate predominantly superior surface spurring. There is a type II acromion. No undersurface spurring. The subacromial space is preserved. Remainder of the soft tissue and bony structures appear normal. XR/XR shoulder RT min 2V IMPRESSION: 1. 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 2. Moderate predominantly superior surface spurring of the AC joint. Electronically signed by: Isai Samuels MD 02/27/2025 02:51 PM ELIANA BARRERA
--- OUTSIDE RECORDS SUMMARY | 2025-02-28 10:47 | XMS_ITS | Clinical Summary ---
Author Organization [facility] Address [address] [place] [address] Care Team Providers Care Tank Terminal Gauger Name Role Phone Rory Sandhu MD Primary Care Provider [phone] Allergies Active Allergy Reactions Criticality Noted Date [...] age to complete this topic Care Teams Tank Terminal Gauger Relationship Specialty Start Date End Date Rory Sandhu MD [address] [place] [phone] PCP - General Internal Medicine 06/13/18
== END 2025-02-27 08:57 | disposition home or self-care (01) ==
LOC: HO.HOSX 08:56
PROVIDERS: Visit Provider Physician Assistant
DX: M75.81 Other shoulder lesions, right shoulder (principal)
CPT/HCPCS: 73030

== ENCOUNTER 2025-02-27 14:03 | Outpatient (AMB) | payer MEDICARE, SELFPAY ==
--- NOTE | 2025-02-27 14:08 | A.OFFVIS_ITS ---
Intake Visit Reasons: NewProb-Pain in right shoulder Intake Note: Angela is a 79 year old female who presents today as an established patient, new problem visit to evaluate right shoulder. Patient was referred by her PCP. At today's visit she states her pain has been present since the end of November. Denies injury however her pain started upon placing her heavy purse on her shoulder. Complaints of clicking in her shoulder. She was seen at [facility] urgent care and was prescribed prednisone which did not really help. She attended one therapy session, stating she does not believe this will help with her pain. Allergies codeine (CODEINE) Allergy (Unknown, Verified 03/14/24 13:23) GI PAIN, abd pain Codeine Sulfate Adverse Reaction (Unknown, Uncoded 03/14/24 13:23) stomach upset Medication List - Last Reconciled 02/27/25 by Nelida Saenz PA-C aspirin 81 mg PO DAILY atorvastatin (Lipitor) 40 mg PO DAILY blood-glucose sensor ([employer] Lidia 3 Plus Sensor device) As directed every 14 days DX code : E11.9 cholecalciferol (vitamin D3) (Vitamin D3) 25 mcg PO DAILY compr.stocking,knee,long,small (T.E.D. Knee Mwauiv-K-Xsos misc) As directed dulaglutide (Trulicity) 1.5 mg subcut TH ferrous sulfate 325 mg PO DAILY insulin degludec (Tresiba FlexTouch U-200 insulin) 14 units subcut DAILY lisinopril 10 mg (1/2 x 20 mg) PO DAILY loperamide 2 mg PO Q4H PRN magnesium oxide (MagOx) 400 mg PO DAILY metformin ER 1,000 mg PO BID omeprazole 20 mg PO DAILY pen needle, diabetic (BD Ultra-Fine Micro Pen Needle) As directed potassium chloride ER 20 mEq PO DAILY psyllium (Hydrocil Instant oral packet) 1 packet PO BEDTIME ursodiol 300 mg PO BID HPI HPI NewProb-Pain in right shoulder: Details: 79 yo female presents to the office today for her right shoulder pain . She states the shoulder has been hurting since November. She recalls tossing her purse into her passanger seat and felt a pain in the right shoulder. She c/o pain with lifting and reaching. She states the pain comes and goes and she can sleep on the shoulder now but a few weeks ago was not able to . She takes tylenol. Does not take NSAIDs due to ASA. She does not have an interest in PT. [facility] Medical History Type 2 diabetes mellitus Non-ST elevation [place] (NSTEMI) SVT (supraventricular tachycardia) Valvular heart disease Colon cancer HTN (hypertension) Social History Household Members: Family Household Members Other:: 1 Housing: House Do you presently have visiting nurse or other home services: No Alcohol intake: never Patient Tobacco Use Status: Never used Tobacco Advance Directives Date on File: 01/01/21 service: No Current occupational status: retired Review of Systems Const All systems reviewed & are unremarkable except as noted in HPI and below Physical Exam Const General: cooperative and no acute distress Orientation/consciousness: patient oriented x3 Resp Effort & Inspection: normal respiratory effort and able to speak in complete sentences Cardio Peripheral pulses: Peripheral pulses 2+ throughout Neuro General: patient oriented x3 Extrem Other: Rt shoulder normal to inspection, full ROM in all planes. Pain with sparks. She is able to activate RTC strength without recruitment of accessory muscles. NVI. Results Reviewed Results Reviewed: Xrays were obtained in the office today and personally reviewed by me right shoulder shows mild ac joint oa Assessment & Plan Assessment & Plan (1) Right shoulder tendonitis: Code(s): M75.81 - Other shoulder lesions, right shoulder Category: Medical Plan: We discussed options today which includes physical therapy which the patient is not interested in. She states she did try 1 visit and decided to not returned. She is unable to take NSAIDs due to being on aspirin. She is not interested in steroid injections. I encouraged her to modify activities as needed and if her symptoms persist or worsen and she is interested in a steroid injection or attending physical therapy she can call me otherwise she can follow up as needed. Orders: Orders XR shoulder RT min 2V Today M25.511 - Pain in right shoulder Coding Level of Care Code Est Pt Level 3 (24497) Complex EM visit Add On G2211 Diagnoses Right shoulder tendonitis M75.81
--- OUTSIDE RECORDS SUMMARY | 2025-02-28 02:20 | XMS_ITS | Data Portability ---
Author Organization [facility], [facility] Address [address] [place] [address] Care Team Providers Care Buffing Machine Tender Name Role Phone SATHYA MTZ Primary Care Provider Assessment Encounter Date Assessment Date Assessment LastModified [...] or to follow up sooner if needed. [employer] speech recognition expressive therapist software was used to create portions of this document. An attempt at proofreading has been made to minimize errors. Please call for corrections. [email or web address] Not available 11/07/2024 13:36:58 Plan of Treatment Reminders Order Date Submit Date Provider Last Modified By Organization Details Last Modified Time Details Appointments None recorded. Lab None recorded. Referral None recorded. Procedures None recorded. Surgeries None recorded. Imaging XR, shoulder, 2 or more view - [facility] left shoulder pain room 3 [facility]24 [facility], [address], [facility] [address], [place], [address], 5 15:15:25 Medication Orders Medrol (Mario) 4 mg tablets in a dose pack 2024 025 [facility]/Pharmacy #[id number], [address] , [place], [address], 5 15:34:11 Patient TargetsNo targets recorded. Patient Instructions Encounter Date Encounter Id Patient Instructions Last Modified By Organization Details Last Modified Time 11/07/2024 [id number] rotator cuff: exercises [email or web address] Not available 11/07/2024 15:34:11 Reason for Referral None Reported. Results Created Date Observation Date Name Description Value Unit Range Abnormal Flag Note LastModifiedBy Organization Detail LastModifiedTime 11/08/19 25 11/07/2024 XR, shoul brad, 2 or more view http:/ [email or web address] ?Encry pted=s hAaTro YD8dLq bEUv6g %2BXZw aYqtaq 0bqfl% 2Fg9IQ a4ajBk vP9nXo QUaueC m3YtLR FvZlgJ JJ8mAn HZtai3 2g3927 AC0Klb nmFVau gKiQtr MwF INTERFACE [facility] Office [address] [facility] [address], [place], [address], 11/07/2024 13:13:50 11/08/19 25 11/07/2024 XR, shoul brad, 2 or more view http:/ [email or web address] ?Encry pted=s DieudonneaTro YD8dLq bEUv6g %2BXZw aYqtaq 0bqfl% 2Fg9IQ a4ajBk vP9nXo QUaueC m3YtLR FvZlgJ JJ8mAn HZtai3 9m4898 AC0Klb nmFVau gKiQtr MwF INTERFACE [facility] Office [address] [facility] [address], [place], [address], 11/07/2024 13:13:51 Result Notes Documentation Provider Name and Address Organization Details Recorded Time Xr, Shoulder, 2 Or More View : [email or web address] Encrypted=vcJzJnbTN3oCsfO Uv6g%1KYKcyDzxmi5pzry%2Fg 8LXl5bdVobH6rZcIUrzhRr9Nj YUCdMkmWTT1uYaJCecw52k914 2ZE0UuljoRMiggIuUibVlS Not Available [facility] 11/07/2024 13:13: 50 Xr, Shoulder, 2 Or More View : [email or web address] Encrypted=ajShHvcQC3lMrwZ Uv6g%9DAUzoXadfy2fcxh%2Fg 0YQx7xvFutN1aQqOYoutEh6Yw UTQtUkcZNY4wGdKJuym28q443 1DW3FddzkGQgujNlHgfMmD Not Available [facility] 11/07/2024 13:13: 52 Problems Name Problem SNOMED Code Status Onset Date Resolution Date Notes Provider Name and Address Organization Details Recorded Time Pain of right shoulder joint 513205272706028 00 Active 2024 KAYLIA L'HEUREUX [facility] 12:59:11 Problem Notes None recorded. Medical Equipment None Reported. Allergies Allergen ID Allergen Name Allergen Category Reaction Reaction Severity Criticality Documentation Date Start Date Code Code System Note Provider Name and Address Organization Details Recorded Time 440175 codeine medicatio n Not available Not available Not available 11/07/2024 2670 RxNorm [facility] L[facility] 5 12:55:19 Medications Name Sig Start Date [...] Updated DateTime 11/07/2024 152.4 cm 27.9 kg/m2 68874.71 g VENUS L'HEUREUX [facility] 11/07/2024 12:55:10 Social History Question Answer Notes LastModified by [employer] Details LastModified Time Tobacco Smoking Status Never Smoker VENUS L'HEUREUX crista [facility] 11/07/2024 12:58:16 What Is Your Relationship Status? Single Information not available 11/07/2024 Sex: Unknown Functional Status Question Answer Note LastModified by [employer] ion Details LastModified Time Do you use [...] N Vascular Disease N Heart Trouble N Heart Attack ([place]) N Gastrointestinal Disease Y Cholesterol Y Diabetes Y Autoimmune disease N Inflammatory Joint disease N Bleeding Disorder N Orthotics N Arthritis Y Seizures/Epilepsy N Blood Clot N AIDS/HIV N Congestive Heart Failure (CHF) N Acid Reflux (GERD) N Cancer Y Stroke N Asthma N Circulation Problems N Peripheral Vascular Disease N Sleep Apnea N Hepatitis N Heart Disease N Rheumatoid Arthritis N Arrhythmia N Pulmonary Embolism N Headaches N Fibromyalgia N Hypertension Y Osteoporosis N Gynecological HistoryNo gynecological history recorded. Obstetrics History GPAL:G 0 P 0 0 0 0 Past Encounters Encounter ID Performer Location Encounter Start Date Encounter Closed Date Diagnosis/Indication Diagnosis SNOMED-CT Code Diagnosis ICD10 Code Diagnosis IMO Codes Diagnosis Note [id number] Jonathan Gonzalez PA-C [facility] - [place] [address] [facility] [place] [address] 11/07/2024 12:45:06 11/16/2024 15:15:25 Pain of right shoulder joint 6257457435 3815964 M25.511 668100 Impingemen t syndrome of right shoulder region 2505457300 57288 M75.41 2455428 Health Concerns Section Related Observation LastModified by Organization Detai ls LastModified Time None Recorded Concern Status LastModified by Organization Details LastModified Time None Recorded Advance Directives Directive None Recorded Payers Insurance Date Sequence Insurance Name Policy Number Policy Blackburn Covered Member ID Blackburn Member ID Guarantor Name 11/16/2024 1 [place] Angela Niziol [id number] Angela Niziol 11/16/2024 2 [place] [id number] Angela Niziol [id number] Angela Niziol OBGyn Episode No OBEpisode recorded.
--- OUTSIDE RECORDS SUMMARY | 2025-02-28 02:20 | XMS_ITS | Clinical Summary ---
Author Organization [facility] Address [address] [place] [address] Care Team Providers Care Guidance Adviser Name Role Phone Rory Sandhu MD Primary Care Provider [phone] Allergies Active Allergy Reactions Criticality Noted Date [...] age to complete this topic Care Teams Guidance Adviser Relationship Specialty Start Date End Date Rory Sandhu MD [address] [place] [phone] PCP - General Internal Medicine 06/13/18
== END 2025-02-27 15:25 | disposition home or self-care (01) ==
LOC: HO.HOS 14:04
PROVIDERS: PCP Internal Medicine; Visit Provider Physician Assistant
DX: M75.81 Other shoulder lesions, right shoulder (principal)
CPT/HCPCS: 99213; G2211

== ENCOUNTER → 2025-02-27 14:10 | Outpatient (BNV) | payer MEDICARE, SELFPAY | PROVIDERS: Visit Provider Radiology Diagnostic Radiology | DX: M19.011 Primary osteoarthritis, right shoulder (principal) | CPT/HCPCS: 73030 ==

== ENCOUNTER 2025-03-06 10:15 | Outpatient (REF) | payer MEDICARE, SELFPAY ==
--- OUTSIDE RECORDS SUMMARY | 2024-01-13 08:20 | XMS_ITS | Encounter Summary ---
Author Organization [facility] Address [address] [place] [address] Care Team Providers Care Narrow Fabric Calenderer Name Role Phone Rory Sandhu MD Primary Care Provider Encounter Details Date Type Department Care Team (Late st Contact Info) Description 01/13/2024 9:20 AM EDT Hospital Encounter [facility] ONLY Abner Preciado MD [address] [place] [phone] Social History Tobacco Use Types Packs/Day Years Used Date Smoking Tobacco: Never Assessed Alcohol Use Standard Drinks/Week Comments Yes 0 (1 standard drink = 0.6 oz pur e alcohol) Comments Unknown Sex and Gender Information Value Date Recorded Sex Assigned at Not on file Legal Sex Female 1:48 AM EST Gender Identity Not on file Sexual Orientation Not on file documented as of this encounter Last Filed Vital Signs Vital Sign Reading Time Taken Comments Blood Pressure 151/60 01/13/2024 9:43 AM EDT Sitting Left arm Pulse 79 01/13/2024 9:43 AM EDT Temperature - - Respiratory Rate - - Oxygen Saturation - - Inhaled Oxygen Concentration - - Weight 55.8 kg (123 lb) 01/13/2024 9:43 AM EDT Height 149.9 cm (4' 11 ) 01/13/2024 9:4 3 AM EDT Body Mass Index 24.84 01/13/2024 9:43 AM EDT documented in this encounter Progress Notes * Abner Preciado MD - 01/13/2024 9:30 AM EDT Diagnosis/treatment: Stage II 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 She underwent a partial colectomy. Interval history: The patient is a 78 yo F who presented for a screening colonoscopy on 06/29/2011. A cecal mass was observed and a biopsy confirmed an invasive adenocarcinoma arising from a tubular adenoma. She underwent a partial colectomy on 08/02/[address] Newton and the pathology (reviewed at [facility]) revealed a 2 cm T3 grade 2 adenocarcinoma with no LVI. Zero of 18 nodes were involved. Of note, the pathology report from [place] assessed 3 nodes as being involved with tumor; whereas the pathologist in [place] assessed these nodes as containing histiocytes but not tumor cells. There was continued debate the significance of a small collection of cytokeratin-positive cells. A/P CTs on 08/15/2011 and on 08/25/2011 showed no evidence of hepatic metastases. A pre-operative CEA was elevated at 4.4 in [place]. A post-operative CEA here was normal. She was seen by Dr. Cervantes at [facility] who did not recommend adjuvant chemotherapy based on their pathology review and re-review. She has a history of sarcoidosis and has been treated in the past with prednisone. A follow-up A/P CT in 02/2014 at [place] showed no evidence of recurrent cancer and showed a diffuse fatty liver. She had an unremarkable colonoscopy in 07/[address] Oliver. Biopsies of the anastomosis revealed benign findings. She had an unremarkable colonoscopy in 10/2014. She developed mild dysphagia with ricein early 2017. She had an unremarkable EGD and colonoscopy in 10/2017. She developed heme positive stools in 08/2019. She underwent an EGD and colonoscopy on 09/17/2019 and the EGD showed a mild hiatal hernia and was otherwise unremarkable and the colonoscopy showed a polyp near the anastomosis which was excised and demonstrated to be a tubular adenoma. The CEA level gradually yasir starting in 2011. The CEA here was 4.6 in 08/2011; 5.8 in 12/2013; 6.7 in 06/2014; 7.0 in 08/2014; and 8.7 in 12/2014. The CEA at [place] was 4.0 in 08/2015. The CEA here was 6.5 in 02/2016. The CEA was 5.8 here in 08/2016 and was 5.9 in 02/2017 at [place]. The CEA here in 09/2017 yasir to 8.4. The CEA was stable at 8.2 in 12/2017. The CEA at [facility] was stable at 6.9. The alk phos level had been elevated but stable since 2011. The alk phos yasir from 137 in 02/2017 to 223 in 09/2017. The transaminases yasir from normal in 02/2017 to ast 62 and alt 60 in 09/2017. She self-discontinued simvastatin. The transaminases normalized in 12/2017. The alk phos improved to 155 in 12/2017 and was stable at 162 in 06/2018. A C/A/P CT in early 01/2015 at [place] showed a 1.3 cm LLL nodule at the base; a calcified 1.1 cm VANDANA nodule; a 0.7 cm groundglass LLL nodule; and a 0.4 cm RUL nodule. The A/P portion was unremarkable. The 1.3 cm LLL base nodule was likely new compared to the 02/2014 A/P CT lung slices. A PET/CT in early 02/2015 at [facility] showed only faint uptake in the lateral LLL pulmonary nodule (SUV 1.3). She was evaluated by Dr. Cifuentes who also recommended a [address] A chest CT in mid-08/2015 at [place] showed resolution of the 1.3 cm LLL nodule and otherwise stablefindings. A C/A/P CT in late 02/2017 at [place] showed stable findings. A C/A/P CT in 08/2017 at [place] showed stable findings. She reports mild anorexia since starting Trulicity in 05/2021. She lost weight from 135 pounds on 07/21/2021 down to 119 pounds on 01/14/2024.. Her appetite is improved fall 2022 without intervention. An A/P CT with IV and without oral contrast on 10/06/2022 showed nodular liver border suggestive of cirrhosis and was otherwise unremarkable. A bone scan on 10/19/2022 was unremarkable. She underwent an EGD and colonoscopy 12/01/[address] Oliver and the EGD was unremarkable. Random duodenal biopsies were taken which showed no pathologic change. The colonoscopy revealed a polyp at 40cm which was excised and the pathology demonstrated inflammatory polyp. Colonic biopsies were obtained distal to the anastomosis and the pathology showed no pathologic change. Colonic biopsies at 50-60 cm showed patchy active colitis, mild and nonspecific. She developed difficulty with diarrhea in 03/2023. She was hospitalized twice at [facility] in 03/2023 and again in early 2023 due to diarrhea. She believes she had CT scan. We do not have the report available for review today. The metformin was decreased from 1000 mg twice a day to 500 mg twice a day. The diarrhea resolved further intervention. He was started on insulin. She lost weight from 119 pounds on 01/13/2023 down to 115 pounds on 07/15/2023, which she attributes to the diarrhea episode. She regained weight 223 pounds on 01/13/2024. She denies abdominal pain. She denies nausea, change in bowels, melena, or hematochezia. She deniescough or MALIN. She has a history of diabetes, but denies neuropathic symptoms. Family history: There is no history of colorectal cancer in her parents or 2 siblings. Social history: She has 3 children living; one at 6 months of age due to a pneumonia. 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 She enjoys going to [employer]. Review of systems: The remainder of a 10 point review of systems was unremarkable. Physical examination: HEENT: Sclerae anicteric, normal oropharyngeal membrane. Neck: No lymphadenopathy. Lungs: Clear to auscultation. Heart: No murmurs. Abdomen: Soft, nontender, no organomegaly or masses. Extremities: No edema. Skin: No rash. Neurologic: Normal gait. Assessment/plan: The patient is a 78 yo F who presented in 2011 with a stage II T3N0 colon cancer. She underwent a partial colectomy. I did not recommend adjuvant chemotherapy given the lack of documented benefit forstage II colon cancer and the additional consideration of this presentation with average risk stageII disease. She is compliant with surveillance colonoscopies. A colonoscopy in 2022 revealed colonic polyps which were excised and was otherwise unremarkable. An A/P CT in 02/2014 was unremarkable. A C/A/P CT in early 01/2015 showed a 1.3 cm LLL nodule and other smaller nodules. A PET/CT in early 02/2015 at [facility] showed only faint uptake in the lateral LLLpulmonary nodule (SUV 1.3). She was evaluated by Dr. Cifuentes who also recommended a [address] A followup chest CT in [place] in mid-08/2015 showed resolution of the LLL nodule and otherwise stable findings. A followup C/A/P CT in late 02/2017 showed stable findings. The pulmonary nodules could be due to her sarcoidosis. She had a gradually rising CEA starting in 2011, possibly due to hepatic steatosis or sarcoidosis, which had been stable since 12/2014, but yasir in 09/2017. The CEA was stable in 06/2018. Restaging CTs in 08/2017 showed stable findings. She has had significant weight loss since early 2021, likely related to anorexia due to Trulicity. Her appetite improved without intervention. An A/P CT in 09/2022 showed evidence of liver cirrhosis and was otherwise unremarkable. An EGD and colonoscopy in 11/2022 were unrevealing. She had difficulty with diarrhea starting in 03/2023. She was hospitalized at [place] in 03/2023 and in early 2023. She believes she had a CT scan. We do not have the report available for review. We will request records. Her metformin dose was lowered and the diarrhea resolved without further intervention. She lost weight from 119 pounds on 01/13/2023 down to 115 pounds on 07/15/2023, which she attributes to the diarrhea episode. She subsequently regained weight. She has a chronic stable anemia, likely due to diabetes. We will not follow further labwork. There is no clinical evidence of recurrent colon cancer. documented in this encounter Plan of Treatment Upcoming Encounters Date Type Department Care Team (Late st Contact Info) Description 01/16/2026 9:30 AM EDT Office Visit [facility] Hematology Oncology [address] [place] [phone] Abner Preciado MD [address] [place] [phone] documented as of this encounter Visit Diagnoses Not on filedocumented in this encounter Care Teams Narrow Fabric Calenderer Relationship Specialty Start Date End Date Rory Sandhu MD [address] [place] [address] [place] [id number] PCP - General 06/13/18 documented as of this encounter
--- OUTSIDE RECORDS SUMMARY | 2024-01-13 08:30 | XMS_ITS | Encounter Summary ---
Author Organization [facility] Address [address] [place] [address] Care Team Providers Care Sling Operator Name Role Phone Rory Sandhu MD Primary Care Provider Encounter Details Date Type Department Care Team (Late Contact Info) Description 01/13/2024 9:30 AM EDT Hospital Encounter TH HISTORIC ENCOUNTERS [facility] CONVERSION ONLY Abner Preciado MD [address] [place] [address] Social History Tobacco Use Types [...] Description 01/16/2026 9:30 AM EDT Office Visit [facility] Hematology Oncology [address] [place] [address] Abner Preciado MD [address] [place] [address] documented as of this encounter Visit Diagnoses Not on filedocumented in this encounter Care Teams Sling Operator Relationship Specialty Start Date End Date Rory Sandhu MD [address] [place] [address] PCP - General 06/13/18 documented as of this encounter
--- OUTSIDE RECORDS SUMMARY | 2025-03-06 12:02 | XMS_ITS | Clinical Summary ---
Author Organization [facility] Address [address] [place] [address] Care Team Providers Care Accounting Clerk Name Role Phone Rory Sandhu MD Primary Care Provider [phone] Allergies Active Allergy Reactions Criticality Noted Date [...] age to complete this topic Care Teams Accounting Clerk Relationship Specialty Start Date End Date Rory Sandhu MD [address] [place] [phone] PCP - General Internal Medicine 06/13/18
--- OUTSIDE RECORDS SUMMARY | 2025-03-06 12:02 | XMS_ITS | Data Portability ---
Author Organization [facility], [facility] Address [address] [place] [address] Care Team Providers Care Instructional Design Manager Name Role Phone SATHYA MTZ Primary Care [...] or to follow up sooner if needed. [employer] speech recognition polysomnographic technician software was used to create portions of this document. An attempt at proofreading has been made to minimize errors. Please call for corrections. [email or web address] Not available 11/07/2024 13:36:58 Plan of Treatment Reminders Order Date Submit Date Provider Last Modified By Organization Details Last Modified Time Details Appointments None recorded. Lab None recorded. Referral None recorded. Procedures None recorded. Surgeries None recorded. Imaging XR, shoulder, 2 or more view - [facility] left shoulder pain room 3 2024 [facility]25 [facility], [address] [facility] [address], [facility] [address], [place], [address], 5 15:15:25 Medication Orders Medrol (Mario) 4 mg tablets in a dose pack 2024 025 [facility]/Pharmacy #[id number], [address] [facility] , [place], [address], 5 15:34:11 Patient TargetsNo targets recorded. Patient Instructions Encounter Date Encounter Id Patient Instructions Last Modified By Organization Details Last Modified Time 11/07/2024 [id number] rotator cuff: exercises [email or web address] Not available 11/07/2024 15:34:11 Reason for Referral None Reported. Results Created Date Observation Date Name Description Value Unit Range Abnormal Flag Note LastModifiedBy Organization Detail LastModifiedTime 11/08/19 25 11/07/2024 XR, shoul brad, 2 or more view [email or web address] ?Encry pted=s hAaTro YD8dLq bEUv6g %2BXZw aYqtaq 0bqfl% 2Fg9IQ a4ajBk vP9nXo QUaueC m3YtLR FvZlgJ JJ8mAn HZtai3 0y6844 AC0Klb nmFVau gKiQtr MwF INTERFACE [facility] Office [address] [facility] [address], [place], [address], 11/07/2024 13:13:50 11/08/19 25 11/07/2024 XR, shoul brad, 2 or more view http:/ [email or web address] ?Encry pted=s DieudonneaTro YD8dLq bEUv6g %2BXZw aYqtaq 0bqfl% 2Fg9IQ a4ajBk vP9nXo QUaueC m3YtLR FvZlgJ JJ8mAn HZtai3 6y9366 AC0Klb nmFVau gKiQtr MwF INTERFACE [facility] Office [address] [facility] [address], [place], [address], 11/07/2024 13:13:51 Result Notes Documentation Provider Name and Address Organization Details Recorded Time Xr, Shoulder, 2 Or More View : [email or web address] Encrypted=tzArWmyBR9sOxcE Uv6g%5MMRghFgpfo0btti%2Fg 7ZCx5dnLngQ5qUiTOqtdMu2Xr WMQjQgsVFJ2iKpHWgoq09n865 6NC5SdqvuJCgenYnPmyUrG Not Available [facility] 11/07/2024 13:13: 50 Xr, Shoulder, 2 Or More View : [email or web address] Encrypted=mbDyNtnAE8rDwfL Uv6g%0LOYprVboot6auro%2Fg 5QUx4kiAydX1gFbVXikiTz4Ho HLDsUkoIEO2vLeIFjzc37p890 1IG0IwyjnHMwknJpRtzEhZ Not Available [facility] 11/07/2024 13:13: 52 Problems Name Problem SNOMED Code Status Onset Date Resolution Date Notes Provider Name and Address Organization Details Recorded Time Pain of right shoulder joint 524159758857782 00 Active 2024 KAYLIA L'HEUREUX [facility] 12:59:11 Problem Notes None recorded. Medical Equipment None Reported. Allergies Allergen ID Allergen Name Allergen Category Reaction Reaction Severity Criticality Documentation Date Start Date Code Code System Note Provider Name and Address Organization Details Recorded Time 530924 codeine medicatio n Not available Not available Not available 11/07/2024 2670 RxNorm [facility] L'HEUREUX [facility] 5 12:55:19 Medications Name Sig Start Date [...] Updated DateTime 11/07/2024 152.4 cm 27.9 kg/m2 66170.71 g VENUS L'HEUREUX [facility] 11/07/2024 12:55:10 Social History Question Answer Notes LastModified by [employer] Details LastModified Time Tobacco Smoking Status Never Smoker VENUS L'HEUREUX [facility] 11/07/2024 12:58:16 What Is Your Relationship Status? Single Information not available 11/07/2024 Sex: Unknown Functional Status Question Answer Note LastModified by [employer] It's what's in store ion Details LastModified Time Do you use any illicit or recreational drugs? No Information not available 11/07/2024 Do you or have you ever used any other forms of tobacco or nicotine? No Information not available 11/07/2024 What is your level of alcohol consumption? None Information not available 11/07/2024 Mental Status None recorded. Family History Nothing Reported. Medical History Condition Response Coronary Artery Disease N Anxiety/Depression N Emphysema N COPD N Pacemaker N Vascular Disease N Heart Trouble N Gastrointestinal Disease Y Autoimmune disease N Inflammatory Joint disease N Orthotics N Arthritis Y Blood Clot N Acid Reflux (GERD) N Cancer Y Stroke N Circulation Problems N Rheumatoid Arthritis N Arrhythmia N Headaches N Fibromyalgia N Allergies/Hayfever N Breathing or lung disorders N Nerve Disorders N Thyroid Problems N Kidney/Bladder Problems N Anemia N Heart Attack ([place]) N Cholesterol Y Diabetes Y Bleeding Disorder N Seizures/Epilepsy N AIDS/HIV N Congestive Heart Failure (CHF) N Asthma N Peripheral Vascular Disease N Sleep Apnea N Hepatitis N Heart Disease N Pulmonary Embolism N Hypertension Y Osteoporosis N Gynecological HistoryNo gynecological history recorded. Obstetrics History GPAL:G 0 P 0 0 0 0 Past Encounters Encounter ID Performer Location Encounter Start Date Encounter Closed Date Diagnosis/Indication Diagnosis SNOMED-CT Code Diagnosis ICD10 Code Diagnosis IMO Codes Diagnosis Note [id number] Jonathan Gonzalez PA-C [facility] [place] [address] [facility] [place] [address] 11/07/2024 12:45:06 11/16/2024 15:15:25 Pain of right shoulder joint 4069501337 5813784 M25.511 706281 Impingemen t syndrome of right shoulder region 4322876262 55971 M75.41 8599193 Health Concerns Section Related Observation LastModified by Organization Detai ls LastModified Time None Recorded Concern Status LastModified by Organization Details LastModified Time None Recorded Advance Directives Directive None Recorded Payers Insurance Date Sequence Insurance Name Policy Number Policy Blackburn Covered Member ID Blackburn Member ID Guarantor Name 11/16/2024 1 [place] Angela Niziol [id number] Angela Niziol 11/16/2024 2 [place] [id number] Angela Niziol [id number] Angela Niziol OBGyn Episode No OBEpisode recorded.
--- OUTSIDE RECORDS SUMMARY | 2025-03-06 12:02 | XMS_ITS | Clinical Summary ---
Author Organization [facility] Address [address] [place] [address] Phone Care Team Providers Care Vice President Quality Improvement Name Role Phone Rory Sandhu MD Primary Care Provider Medications ursodioL (ACTIGALL) 300 mg capsule Take [...] 3 Refills, Maintenance, 11/01/24 10:26:00 AM EDT, [facility], 153, cm, 11/01/24 9:16:00 EDT, [...] Date Overlapping malignant ne[place] sm of colon (CMS/[facility] V24, CMS/[facility] V28) 01/16/2025 Weight loss 01/16/2025 Encounters Date Type Department Care Team Description 01/16/2025 9:15 AM EDT Office Visit [facility] Hematology Oncology [address] [place] [address] Abner Preciado MD Weight loss (Primary Dx); Overlapping malignant neoplasm of colon (CMS/[facility] V24, CMS/[facility] V28) from Last 3 Months Surgical History Surgery Date Site/Laterality Comments CHOLECYSTECTOMY PROCEDURE: HISTORICAL CHOLECYSTECTOMY BLADDER SUSPENSION PROCEDURE: HISTORICAL BLADDER SUSPENSION OTHER SURGICAL HISTORY PROCEDURE: HISTORY OTHER; COMMENT: Colon Cancer surgery Medical History Medical History Date Comments Diabetes mellitus, type 2 (C [facility] V24, CMS/[facility] V28) 09/09/2017 DX:Diabetes mellitus, type 2 (HCC) GERD (gastroesophageal reflux disease) 8 DX:GERD (gastroesophageal reflux disease) Hyperlipidemia 09/09/2017 DX:Hyperlipidemi a Abnormal mammogram 09/09/2017 DX:Abnormal m ammogram; COMMENT: 03/26/13 ovoid density. Additional imaging recommended History of colon cancer 09/09/2017 DX:Histo ry of colon cancer History of heart attack DX:Histo ry of heart attack; COMMENT: per pt report in 2020 x2 Diabetes mellitus (CMS/[facility] V 24, [facility] V28) DX:Diabetes mellitus (HCC) GERD (gastroesophageal reflux disease) DX:GERD (gastroesophageal reflux disease) Colon cancer ([facility] V24, [facility] V28) DX:Colon cancer ([facility]);COMMENT:Stage II T3No colon cancer,partial colectomy [...] Description 01/16/2026 9:30 AM EDT Office Visit [facility] Hematology Oncology [address] [place] [address] Abner Preciado MD [address] [place] [address] Health Maintenance Due Date Last [...] age to complete this topic Insurance MEDICARE [facility] Care Teams Vice President Quality Improvement Relationship Specialty Start Date End Date Rory Sandhu MD [address] [place] [address] PCP - General 06/13/18
[2025-03-06 12:36] LABS: MANUAL DIFF FLAG NO
[2025-03-06 12:43] LABS: Hematocrit 30.3 % (37.0-47.0); Hemoglobin 10.0 g/dl (12.0-16.0); Imm Gran Abs Auto 0.02 X10*3/uL (0.00-0.03); Imm Gran Pct Auto 0.2 % (0.0-0.4); Lymphocytes Absolute Auto 1.4 X10*3/uL (1.2-4.9); Mean Corpuscular HGB Conc 33.0 g/dl (31.0-35.0); Mean Corpuscular Hemoglobin 29.3 pg (27.0-33.0); Mean Corpuscular Volume 88.9 fL (80.0-98.0); NRBC Abs Auto 0.000 X10*3/uL (0.0-0.012); NRBC Pct Auto 0.0 /100WBC (0.0-0.2); Platelet Count 265 X10*3/uL (160-400); Red Blood Count 3.41 X10*6/uL (4.20-5.50); White Blood Count 8.6 X10*3/uL (4.8-10.8)
[2025-03-06 12:46] LABS: INTERNATIONAL NORM RATIO 1.1 (0.9-1.1); Prothrombin Time 13.9 SEC (11.2-13.5)
[2025-03-06 13:01] LABS: Alanine Aminotransferase 12 U/L (0-31); Albumin Level 3.7 g/dL (3.5-5.0); Alkaline Phosphatase 250 U/L (39-117); Aspartate Amino Transferase 19 U/L (5-31); Iron 46 mcg/dL (30-160); Percent Iron Saturation 17 % (15-50); Total Iron Binding Capacity 272 mcg/dL (228-428); Total Protein 6.7 g/dL (6.5-8.0); Unsaturated Iron Binding 226 ug/dL
[2025-03-06 13:36] LABS: Ferritin 42 ng/mL (10-250)
[2025-03-06 13:41] LABS: Folate 4.3 ng/mL (> or = 4.0); Vitamin B12 233 pg/mL (200-900)
[2025-03-06 13:51] LABS: Carcinoembryonic Antigen 14.50 ng/mL
[2025-03-13 17:02] LABS: FIB-ALT 10 U/L (6-29); FIB-Alpha-2-Macroglobulin 222 mg/dL (106-279); FIB-Apolipoprotein A1 147 mg/dL (101-198); FIB-GGT 23 U/L (3-65); FIB-Haptoglobin 210 mg/dL (43-212); FIB-Total Bilirubin 0.7 mg/dL (0.2-1.2); Liver Fibrosis Score 0.33; Liver Fibrosis Stage F1-F2; Nec Inflam Act Grade A0; Nec Inflam Act Score 0.03
== END 2025-03-06 10:16 | disposition home or self-care (01) ==
LOC: HO.10HDL 10:15
PROVIDERS: Visit Provider Internal Medicine
DX: K74.3 Primary biliary cirrhosis (principal); D64.9 Anemia, unspecified; Z85.038 Personal history of other malignant neoplasm of large intestine
CPT/HCPCS: 36415; 80076; 81596; 82105; 82378; 82607; 82728; 82746; 83540; 85025; 85610